=== PATIENT | female | born 1975 | race Caucasian/White ===

== ENCOUNTER 2022-12-26 13:17 | Emergency (ER) | payer BC, SELFPAY ==
--- NOTE | 2022-12-26 13:15 | RT.EKG_ITS ---
APPROVED REPORT Exam: Resting ECG Reason for Exam: chest pain Patient Location: E HR:78 bpm ECG Measurements Heart Rate 78 AXIS WI 151 P 72 QRSd 101 QRS 76 QT 373 T 40 QTc 425 Conclusion Sinus rhythm...normal P axis, V-rate 60- 99 Normal sinus rhythm at a rate of 78 with interventricular conduction delay. Normal axis. WI and QTc within normal limits. No ST segment abnormalities. No T wave inversions. No prior for comparison. No acute injury pattern.
[2022-12-26 13:22] VITALS: BP 103/59; PULSE 76; RESP 18; TEMP 37; O2SAT 97
--- NOTE | 2022-12-26 13:22 | ED.GENADUL_ITS ---
Discharge Plan Disposition Patient Disposition: Home Discharge Details Clinical Impression: Unspecified abdominal pain Primary Care Provider: Yamileth Saavedra ED Provider: Harinder Freire Home Meds and New Rx's Prescriptions: Continued vitamin B complex [B Complex-Vitamin B12] Tablet 1 tab PO DAILY ferrous sulfate [Feosol] 325 mg (65 mg iron) tablet 325 mg PO DAILY Patient Comments: Veg-cap (pt reports lower dose ~ 36mg) cholecalciferol (vitamin D3) 1,250 mcg (50,000 unit) capsule See Rx Instructions PO once a week Rx Instructions: 2,000 IU, Discharge Instructions Instructions: Abdominal Pain (ED) Additional Instructions: You are seen in the emergency department for your abdominal pain. Your blood work shows your kidneys are working well and that you have no signs of any damage to your heart. Please return to the emergency department, as we discussed if you develop nausea vomiting dizziness chest pain or if you pass out. Please also return if you cannot eat or drink as result of any nausea or vomiting. For your pain please take medications as follows: 1. Take acetaminophen (Tylenol), 1,000 mg (two 500 mg tabs) every 6 hours 2. Take ibuprofen (Advil), 400 mg every 6 hours. Medical Decision Making This is an overall very well-appearing normothermic and not tachycardic 47-year-old female with sudden onset lower abdominal pain radiating up into chest that began postcoitally and is currently moderating in severity. Patient has had no vaginal bleeding and denies any penetration beyond her partners penis so I am not concerned for retained foreign body. Patient had a normal bedside ultrasound reassuring against AAA so I am not concerned for ruptured AAA. Patient is status post tubal ligation remotely so no concerns for ectopic . She has not been vomiting to suggest increased risk for esophageal rupture. She did say her pain radiated up into her chest. She lacks risk factors for ACS beyond family history and tobacco use. Will obtain 2 sets of troponins. Clear lungs bilaterally with no history of trauma so low suspicion for pneumothorax. No rash to abdomen to suggest zoster. No pain out of proportion to suggest necrotizing soft tissue infection. I considered ovarian torsion however the patient did not have unilateral symptoms making my suspicion for torsion low. She is not an alcoholic to suggest increased risk for panc reatitis. No diarrhea to suggest diverticulitis. No dysuria no frequency to suggest UTI. No back pain or history of ureterolithiasis to suggest ureterallithiasis. No right lower quadrant pain or fevers to suggest appendicitis. No right upper quadrant tenderness to suggest acute cholecystitis. Patient does have a relatively low blood pressure however she has a relatively low BMI and she reports that relative hypotension is normal for her. Given that her pain is improving I do not feel that the patient warrants a CT abdomen pelvis at this point time. Will assess labs and reassess. Will provide 500 cc of crystalloid. 2:15 PM Comprehensive metabolic panel showing normal renal function. Mild hyperglycemia but normal bicarbonate not consistent with DKA. Very mildly elevated anion gap acidosis. No significant LFT derangements. Normal reassuring lipase. CBC showing leukocytosis but no anemia. Mild thrombocytosis. No prior for comparison. 3:35 PM Negative troponin. Negative hCG. I advised patient of plan for repeat troponin and that she would be discharged if she had no recurrent episodes of pain. I signed patient out to [facility] advanced practitioner Liliana Ortiz pending repeat troponin. I will write her with contingent discharge instructions in the event that the patient's troponin is negative. Will attempt symptomatic treatment with IV acetaminophen. HEART SCORE Chest pain Diagnostic Protocol: [-History/Physical/Gestalt: Slightly Suspicious (0)] [-EKG: Normal and/or unchanged from prior EKG (0)] [- AGE: 45-65 (+1)] [- RISK FACTORS: 1 - 2 risk factors (+1)] [-TROPONIN: <= normal limit (0)] - TOTAL SCORE: 2 - Risk Factors: DM, current or recent smoker, HTN, HLD, family hx of CAD, obesity - INTERPRETATION: With a total score of 3 or less, risk of major cardiac event within six weeks 1.7%, likely lower with two negative troponins. [I explained to the patient that the risk of subsequent major cardiac event within 1 month is not 0, however risk predicted to be less than 2%. Patient verbalized understanding, accepts this risk and shared and the decision for discharge with PCP follow-up for further evaluation and management. They understand to return to the ED immediately with any worsening symptoms, new symptoms or other concerns.] Chronic conditions affecting the care of the patient: Foot pain. History obtained from an outside historian: Patient's partner External record review: [facility] [place] EMR Diagnostic interpretations performed by me: [Per my independent interpretation chest x-ray shows:] No acute cardiopulmonary process Per my independent interpretation EKG shows: Normal sinus rhythm at a rate of 78 with interventricular conduction delay. Normal axis. NM and QTc within normal limits. No ST segment abnormalities. No T wave inversions. No prior for comparison. No acute injury pattern. Medications: N/A Social determinants of health affecting disposition: N/A Management discussed with: N/A Treatment/interventions considered: CT scan but deferred Response to therapies provided: Resolving pain in the ED HPI General Date/Time Provider Initiated Documentation: 12/26/22 13:22 . HPI Narrative: This is a 47-year-old female arriving via private vehicle in the setting of sudden onset lower abdominal pain that began after vaginal intercourse with her partner. Patient reports that she has a remote history of a tubal ligation. She was not wearing protection at that time. She denies any penetrations beyond with her partner's penis. She reports that her pain was in the middle of her lower abdomen and radiated up into her chest. She said that she had a racing heart. She denies any vaginal bleeding dysuria and frequency. She has remotely had 2 colonoscopies and endoscopy. She is a daily smoker but denies routine ethanol and illicits. She has never had a PE nor DVT. She denies hypertension hyperlipidemia and diabetes. There is family history significant for premature coronary artery disease in her father. She has had no fevers nor cough. No falls onto chest. Related Data Home Medications Medication Instructions Recorded Confirmed cholecalciferol (vitamin D3) 1,250 See Rx Instructions PO once a week 04/08/22 12/26/22 mcg (50,000 unit) capsule ferrous sulfate 325 mg (65 mg 325 mg PO DAILY 04/08/22 12/26/22 iron) tablet (Feosol) vitamin B complex (B 1 tab PO DAILY 04/08/22 12/26/22 Complex-Vitamin B12 tablet) Allergies Allergy/AdvReac Type Severity Reaction Status Date / Time No Known Allergies Allergy Unverified 04/08/22 13:58 PFSH All Active Problems (Updated 12/26/22 @ 14:03 by Harinder Freire MD) Unspecified abdominal pain (Acute) Pain, foot (Acute) Corns and callosities (Acute) Lower extremity pain (Acute) Low back pain (Acute) Medical History (Updated 12/26/22 @ 14:03 by Harinder Freire MD) Abdominal pain Anemia Anxiety Atypical mole B12 deficiency Chronic pain of both knees Depression Elevated liver enzymes Fatigue Folic acid deficiency Hiatal hernia Hip pain Insomnia Osteopenia Paresthesia Severe left groin pain Thoracic radiculopathy Thrombocytosis Vitamin D deficiency Family History Mother Alcohol abuse Obesity Father Diabetes Essential hypertension Arthritis Heart disease Myocardial infarction Stroke Obesity Asthma Sister Asthma Grandfather No problems noted. Grandmother Lung cancer Stroke Maternal Uncle No problems noted. Other Brain cancer Social History Smoking/Tobacco Use Status: Current every day Smoking risk assessment performed?: Yes Drug use: Occasionally Substance use type: marijuana Do you feel safe at home: Yes Do you feel safe in your relationship?: Yes Exam Narrative Exam Narrative: General: Well-appearing in no acute distress speaking in complete sentences. Head: Normocephalic, atraumatic. Eye: Extraocular eye movements intact. No conjunctival injection. No scleral icterus. Ear, nose, mouth, throat: Grossly normal inspection. Normal voice, handling secretions normally. Neck: Trachea midline. Cardiovascular: Well-perfused distal extremities. Regular rate and rhythm. Respiratory: Nonlabored respiration. Clear lungs bilaterally. Gastrointestinal: Nondistended abdomen. Soft minimal generalized abdominal tenderness. No rebound. No guarding. No pulsatile masses. No Sauer Vargas sign. No Jono sign. Musculoskeletal: No edema. Moving all 4 extremities spontaneously. Skin: Normal for age and race, grossly normal temperature and turgor. No acute rash. Neurologic: Alert and appropriate, no apparent acute deficits. Psychiatric: Mood and manner are appropriate. Grooming and personal hygiene are appropriate. POCUS Exam (ED) Limited Cardiac Exam DATE OF EXAM: 12/26/22 TIME OF EXAM: 14:11 REASON FOR EXAM: Chest pain VISUALIZED STRUCTURES: Four Chambers, Left ventricle and LVOT VIEW OBTAINED: Apical 4-Chamber, Parasternal long-axis and Subxiphoid PERTINENT FINDINGS/IMPRESSION: No apparent abnormalities and Other (Aortic outflow track less than 4 cm, no significant pericardial effusion. Good squeeze.); No LV dysfunction and No pericardial effusion INCIDENTAL FINDINGS: Aortic outflow track less than 4 cm, no significant pericardial effusion. Good squeeze. RV less than LV. Exam complete Limited Vascular Exam DATE OF EXAM: 12/26/22 TIME OF EXAM: 14:12 Vascular Exam: Abdominal aorta REASON FOR EXAM: Abdominal pain Exam complete and Left upper extremity REASON FOR EXAM: Other indication: Abdominal pain PERTINENT FINDINGS/IMPRESSION: Other (No signs of AAA) Exam complete DIFFERENTIAL DIAGNOSES: Abdominal aorta less than 3 cm.
--- NOTE | 2022-12-26 13:30 | DI.RAD_ITS ---
Exam(s) XR CHEST 2V PA LATERAL EXAM: XR CHEST 2V PA LATERAL CLINICAL HISTORY: Chest pain TECHNIQUE: 2D digital imaging was performed. COMPARISON: No exams were available for comparison FINDINGS: HEART: Normal size. Aorta: Not dilated. PULMONARY VASCULATURE: Normal. LUNGS: Clear. PLEURAL SPACE: No pleural effusion or pneumothorax. BONE:Mild degenerative changes. Compression fractures. IMPRESSION: No acute abnormality. DATA REPOSITORY: RADIATION DOSE DELIVERED:
[2022-12-26 13:55] LABS: Abs Immature Grans 0.05 10^3/uL (0.0-0.06); Absolute Basophil Count 0.08 10^3/uL (0.0-0.2); Absolute Eosinophil Count 0.44 10^3/uL (0.0-0.7); Absolute Lymphocyte Count 3.68 10^3/uL (1.2-3.4); Absolute Monocyte Count 1.15 10^3/uL (0.1-0.8); Absolute Neutrophil Count 6.61 10^3/uL (1.2-6.7); Basophils % 0.7; Eosinophils % 3.7; HCT 37.1 % (36.0-46.0); HGB 12.4 g/dL (11.2-15.7); Immature Grans % 0.4; Lymphocytes % 30.6; MCH 32.5 pg (27.0-33.0); MCHC 33.4 % (32.0-36.0); MCV 97 fL (80-95); MPV 8.7 fL (8.0-11.0); Monocytes % 9.6; Platelet Count 425 10^3/uL (130-400); RBC 3.81 10^6/uL (3.93-5.22); RDW 12.9 % (11.7-14.6); RDW-SD 46.3 fL; WBC 12.01 10^3/uL (4.4-10.8)
[2022-12-26 14:09] VITALS: RESP 21
[2022-12-26] MEDS: Normal Saline 500 ML IV (14:12)
[2022-12-26 14:15] LABS: AST 13 U/L (15-37); Alkaline Phosphatase 69 U/L (46-116); Anion Gap 11.8 mmol/L (3-11); BUN 12 mg/dL (7-18); Bilirubin, Total 0.2 mg/dL (0.2-1.0); CO2 26.2 mmol/L (21.0-32.0); CREATININE 0.9 mg/dL (0.55-1.02); Chloride 104 mmol/L (98-107); Estimated GFR 79.85 (mL/min/1.73m2); Glucose 112 mg/dL (74-106); Lipase 19 U/L (16-77); Potassium 3.7 mmol/L (3.5-5.1); Sodium 142 mmol/L (136-145); Total Protein 7.1 g/dL (6.4-8.2)
[2022-12-26 14:16] LABS: ALT < 6 U/L (14-59)
[2022-12-26 14:20] LABS: Troponin I < 50 ng/L (<or=60)
[2022-12-26 14:25] LABS: HCG Qual (Serum) Negative
--- NOTE | 2022-12-26 15:28 | DI.VRAD_ITS ---
PROCEDURE INFORMATION: Exam: XR Chest Exam date and time: 12/26/2022 3:14 PM Age: 47 years old Clinical indication: Other: Chest pain TECHNIQUE: Imaging protocol: Radiologic exam of the chest. Views: 2 views. COMPARISON: MRI - THORACIC SPINE WO CONT 01/25/2017 1:56 PM FINDINGS: Lungs: No consolidation. No Mass Pleural spaces: No pleural effusion. No pneumothorax. Heart/Mediastinum: Unremarkable Bones/joints: No significant abnormality IMPRESSION: No acute findings. Dictated and Authenticated by: Baldomero Benjamin MD. Ordering:HARINI Pizano MD
[2022-12-26 17:07] LABS: Troponin I < 50 ng/L (<or=60)
[2022-12-26 17:13] VITALS: BP 97/59; PULSE 77; RESP 24; TEMP 37; O2SAT 94
--- NOTE | 2022-12-26 17:13 | W.EDPROG ---
Date of service: 12/26/22 Time of Service: 17:13 Medical Decision Making Care assumed from provider (Dr. Freire) Please see their initial HPI, PE, and documentation. Discussed patient details and case and pending workup and disposition. Patient is hemodynamically stable, and alert and oriented. At the time of signout pending second troponin. Per off going provider. Patient okay to be discharged home. In short patient is a 47-year-old female who presents with postcoital pain in the abdomen which radiates up into her chest. Labs are within normal limits denies any vaginal bleeding. She does have slight high white count of 12.0. Negative hCG Qual. Second troponin within normal limits. Patient was offered Tylenol which she declined at this time. Patient discharged, with strict return instructions and follow-up care. Lab Data Lab results reviewed: Yes I reviewed the patient's lab results. Labs: Laboratory Tests Range/Units 12/26/22 12/26/22 12/26/22 13:41 13:41 13:41 WBC (4.4-10.8) 10^3/uL 12.01 H RBC (3.93-5.22) 10^6/uL 3.81 L Hgb (11.2-15.7) g/dL 12.4 Hct (36.0-46.0) % 37.1 MCV (80-95) fL 97 H MCH (27.0-33.0) pg 32.5 MCHC (32.0-36.0) % 33.4 RDW (11.7-14.6) % 12.9 Plt Count (130-400) 10^3/uL 425 H MPV (8.0-11.0) fL 8.7 Immature Gran % 0.4 Neutrophils % 55.0 Lymphocytes % 30.6 Monocytes % 9.6 Eosinophils % 3.7 Basophils % 0.7 Nucleated RBC % (0.0-0.3) % 0.0 Absolute Neutrophils (1.2-6.7) 10^3/uL 6.61 Absolute Lymphocytes (1.2-3.4) 10^3/uL 3.68 H Absolute Monocytes (0.1-0.8) 10^3/uL 1.15 H Absolute Eosinophils (0.0-0.7) 10^3/uL 0.44 Absolute Basophils (0.0-0.2) 10^3/uL 0.08 Sodium (136-145) mmol/L 142 Potassium (3.5-5.1) mmol/L 3.7 Chloride (98-107) mmol/L 104 Carbon Dioxide (21.0-32.0) mmol/L 26.2 Anion Gap (3-11) mmol/L 11.8 H BUN (7-18) mg/dL 12 Creatinine (0.55-1.02) mg/dL 0.9 Est GFR (CKD-EPI 2020) (mL/min/1.73m2) 79.85 Glucose (74-106) mg/dL 112 H Calcium (8.5-10.1) mg/dL 9.0 Total Bilirubin (0.2-1.0) mg/dL 0.2 AST (15-37) U/L 13 L ALT (14-59) U/L < 6 L Alkaline Phosphatase (46-116) U/L 69 Troponin I (<or=60) ng/L Total Protein (6.4-8.2) g/dL 7.1 Albumin (3.4-5.0) g/dL 4.0 Lipase (16-77) U/L 19 Serum HCG, Qual Negative Range/Units 12/26/22 12/26/22 13:41 16:30 WBC (4.4-10.8) 10^3/uL RBC (3.93-5.22) 10^6/uL Hgb (11.2-15.7) g/dL Hct (36.0-46.0) % MCV (80-95) fL MCH (27.0-33.0) pg MCHC (32.0-36.0) % RDW (11.7-14.6) % Plt Count (130-400) 10^3/uL MPV (8.0-11.0) fL Immature Gran % Neutrophils % Lymphocytes % Monocytes % Eosinophils % Basophils % Nucleated RBC % (0.0-0.3) % Absolute Neutrophils (1.2-6.7) 10^3/uL Absolute Lymphocytes (1.2-3.4) 10^3/uL Absolute Monocytes (0.1-0.8) 10^3/uL Absolute Eosinophils (0.0-0.7) 10^3/uL Absolute Basophils (0.0-0.2) 10^3/uL Sodium (136-145) mmol/L Potassium (3.5-5.1) mmol/L Chloride (98-107) mmol/L Carbon Dioxide (21.0-32.0) mmol/L Anion Gap (3-11) mmol/L BUN (7-18) mg/dL Creatinine (0.55-1.02) mg/dL Est GFR (CKD-EPI 2020) (mL/min/1.73m2) Glucose (74-106) mg/dL Calcium (8.5-10.1) mg/dL Total Bilirubin (0.2-1.0) mg/dL AST (15-37) U/L ALT (14-59) U/L Alkaline Phosphatase (46-116) U/L Troponin I (<or=60) ng/L < 50 < 50 Total Protein (6.4-8.2) g/dL Albumin (3.4-5.0) g/dL Lipase (16-77) U/L Serum HCG, Qual Sign Out Sign Out Data: Sign Out Comment: Repeat troponin pending. If patient has no recurrent abdominal pain and her troponin is negative she will likely be appropriate for discharge with contention instructions which have been written. Last updated by Harinder Freire MD at 12/26/22 16:39 Discharge Plan Disposition Patient Disposition: Home Condition: Stable Discharge Details Clinical Impression: Unspecified abdominal pain Primary Care Provider: Yamileth Saavedra ED Provider: Anabella Sears Home Meds and New Rx's Prescriptions: Continued vitamin B complex [B Complex-Vitamin B12] Tablet 1 tab PO DAILY ferrous sulfate [Feosol] 325 mg (65 mg iron) tablet 325 mg PO DAILY Patient Comments: Veg-cap (pt reports lower dose ~ 36mg) cholecalciferol (vitamin D3) 1,250 mcg (50,000 unit) capsule See Rx Instructions PO once a week Rx Instructions: 2,000 IU, Discharge Instructions Instructions: Abdominal Pain (ED) Additional Instructions: You are seen in the emergency department for your abdominal pain. Your blood work shows your kidneys are working well and that you have no signs of any damage to your heart. Please return to the emergency department, as we discussed if you develop nausea vomiting dizziness chest pain or if you pass out. Please also return if you cannot eat or drink as result of any nausea or vomiting. For your pain please take medications as follows: 1. Take acetaminophen (Tylenol), 1,000 mg (two 500 mg tabs) every 6 hours 2. Take ibuprofen (Advil), 400 mg every 6 hours. Referrals: Yamileth Saavedra [Primary Care Provider] - 3 days Discharge Data Discharge Date/Time-TO BE ENTERED AT DEPARTURE: 12/26/22 17:24
== END 2022-12-26 17:24 | disposition home or self-care (01) ==
PROVIDERS: Emergency Medicine; Emergency Provider Registered Nurse Emergency; PCP Physician Assistant Medical
DX: R10.30 Lower abdominal pain, unspecified (principal); R00.2 Palpitations; F17.210 Nicotine dependence, cigarettes, uncomplicated
CPT/HCPCS: 76775; 80053; 83690; 93005; 93308; 93971; 99284; 71046; 84484; 84703; 85025; 93010; 99283

== ENCOUNTER 2024-02-25 06:04 | Emergency (ER) | payer BC, SELFPAY ==
[2024-02-25] VITALS (9 sets, daily range): BP systolic 97–116; BP diastolic 61–70; PULSE 72–83; RESP 16; TEMP 36.4; O2SAT 96–100
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
--- OUTSIDE RECORDS SUMMARY | 2024-02-25 06:11 | XMS_ITS | Continuity of Care Document ---
Author Organization [facility] Address [address] [place] [address] Care Team Providers Care Construction Technology Instructor Name Role Phone Yamileth Saavedra Primary Care Physician [facility] Date[facility] 12/31/23 - 12/31/[address] [address] Discharge Disposition: Home or Self Care Attending Physician: Yamileth Saavedra PA-C Admitting Physician: Yamileth Saavedra PA-C Referring Physician: Yamileth Saavedra PA-C Allergies, Adverse Reactions, Alerts No Known Medication Allergies Substance Reaction Severity Status Moderna COVID-19 Vaccine PF 1 Eruption Mild Active 1Outside Source Comment: rash, mild to moderate Assessment and Plan Future Appointments Future Scheduled Tests Radiology* MG Mammo Diagnostic Bilateral w/ Koko 03/26/23 Immunizations Given and Recorded Vaccine Date Status [...] Status Informant Abnormal gait Confirmed 05/29/20 Active Neuropathy involving both lower extremities Confirmed Active Bone density finding Confirmed Active Cervical radiculopathy Confirmed 01/05/19 Active Chronic headache disorder Confirmed 11/21/19 Active Depressive disorder Confirmed Active Dysthymia Confirmed Active Essential thrombocythemia Confirmed Active Fatigue Confirmed 05/20/20 Active Fatigue Confirmed Active Insomnia Confirmed Active Iron deficiency anemia Confirmed 02/27/20 Active Melanocytic nevus Confirmed Active Transient leg weakness Confirmed Active Paroxysmal nocturnal dyspnea Confirmed 11/05/19 Active Psychophysiologic insomnia Confirmed 05/20/20 Active Mild sleep apnea Confirmed Active Sleep walking disorder Confirmed 02/15/20 Active Procedures Procedure Date Related Diagnosis Body Site Status Pap Due - 08/2024 (Annual paps til 2024 then every 3 yrs til 2046) 1 09/05/23 Completed Tooth extraction, multiple 2 02/07/23 Completed Breast biopsy and related procedures 01/28/23 Completed Colposcopy 3, 4 06/08/22 Completed LEEP 5 10/05/21 Completed Tubal ligation 10/04/08 Completed 1Pap Due - 08/2024 Annual paps til 2024 then every 3 yrs til 2046 01/19/08 - WNL/Neg 09/04/21 - ASC-H/Pos 09/23/21 - Colpo - THU II 10/06/21 - LEEP 06/09/22 - Colpo - ECC - THU I 09/04/22 - Neg/Positive HPV (Negative 16/18/45) 10/05/22 - Colpo - Benign 09/06/23 - Neg/Neg May 11- Uncovering cap for implants. 3CIN II- plan LEEP ECC, THU I, repeat pap 1 yr- 2022 5CIN II at 1 oclock postion Results Laboratory List Name Date CBC w/ Diff 12/31/23 Ferritin 12/31/23 Folate Level 12/31/23 Vitamin B12 Level 12/31/23 Automated Diff 12/31/23 Most recent to oldest [Reference Range]: 1 WBC [5.0-10.0 x10^3/mcL] 8.8 x10^3/mcL (12/31/23 1:18 PM) RBC [4.1-5.3 x10^6/mcL] 3.8 x10^6/mcL *LOW* (12/31/23 1:18 PM) Neutro Auto [40.0-75.0 %] 59.5 % (12/31/23 1:18 PM) Lymph Auto [20.0-50.0 %] 27.1 % (12/31/23 1:18 PM) Lipscomb Auto [2.0-15.0 %] 8.5 % (12/31/23 1:18 PM) Basophil Auto [0.0-1.0 %] 0.6 % (12/31/23 1:18 PM) MCV [80.0-96.0 fL] 99.0 fL *HI* (12/31/23 1:18 PM) MCHC [31.0-35.0 g/dL] 33.9 g/dL (12/31/23 1:18 PM) Folate Level [>=8.6 ng/mL] 16.5 ng/mL 1 (12/31/23 1:18 PM) Hct [37.0-47.0 %] 38.0 % (12/31/23 1:18 PM) MCH [26.0-32.0 pg] 33.6 pg *HI* (12/31/23 1:18 PM) Neutro Absolute 5.2 x10^3/mcL *NA* (12/31/23 1:18 PM) Hgb [12.0-16.0 g/dL] 12.9 g/dL (12/31/23 1:18 PM) B12 Level [193-986 pg/mL] 459 pg/mL (12/31/23 1:18 PM) Ferritin Level [8-252 ng/mL] 17 ng/mL (12/31/23 1:18 PM) Platelets [130-450 x10^3/mcL] 378 x10^3/ mcL (12/31/23 1:18 PM) RDW-CV [11.5-14.5 %] 12.8 % (12/31/23 1:18 PM) Imm Gran Auto [0.0-0.9 %] 0.5 % (12/31/23 1:18 PM) Eos, Auto [1.0-6.0 %] 3.8 % (12/31/23 1:18 PM) 1Interpretive Data: Normal: >8.6 ng/mL Deficient: <3.0 ng/mL The results of this assay can be falsely elevated due to the consumption of Biotin. Please instructpatients to discontinue the use of vitamins or supplements that contain Biotin 12 hours before blood collection. Social History Social History Type Response Tobacco Current everyday tob acco user Tobacco Use:. 1 ppd per day. 21 year(s). Sex Female Patient Care team information Care Team Personnel Name: Yamileth Saavedra PA-C Position: Physician Member Role: Informed Provider Address: Address: [address] [place] [address] [place] [address]- Care Team Related Persons Name: AMITA PHILLIPS
--- OUTSIDE RECORDS SUMMARY | 2024-02-25 06:11 | XMS_ITS | Encounter Summary ---
Author Organization [facility] Address [address] [place] [address] Care Team Providers Care Diet Clerk Name Role Phone Unknown, Provider Primary Care Provider Reason for Visit * (Routine/Next Available) - Receiving Office to Obtain Authorization Specialty Diagnoses / Procedures Referred By Chip johnson Referred To Contact Procedures MA OUTSIDE IMAGES MAMMO SCREENING Imaging, External Referral ID Status Reason Start Date Expiration Date Visits Requested Visits Authorized [id number] Receiving Office to Obtain Authorization 10/13/2022 1 1 Encounter Details Date Type Department Care Team (Latest Contact Info) Description 09/09/2022 - 09/09/2022 23:59 EDT Hospital Encounter [facility] Secondary Reads [place] Discharge Disposition: Home or Self Care Social History Tobacco Use Types Packs/Day Years Used Date Smoking Tobacco: Never Assessed Interpersonal Safety Answer Date Record ed Physically Hurt Never 01/21/2020 Verbally Threaten Not on file 01/21/2020 Sex and Gender Information Value Date Recorded Sex Assigned at Not on file Gender Identity Not on file Sexual Orientation Not on file documented as of this encounter Discharge Disposition Disposition Code Departure Means Destination Home or Self Care documented in this encounter Plan of Treatment Not on file documented as of this encounter Procedures Procedure Name Priority Date/Time Associated Diagnosis Comments MA OUTSIDE IMAGES MAMMO SCREENING Routine 09/09/2022 13:56 EDT documented in this encounter Results * MA OUTSIDE IMAGES MAMMO SCREENING (09/09/2022 13:56 EDT) Narrative 10/13/2022 13:57 EDT This is a non-reportable exam. External Imaging IMG OTHER IMAGING OR DERABLES documented in this encounter Visit Diagnoses Not on filedocumented in this encounter Care Teams Diet Clerk Relationship Specialty Start Date End Date Unknown, Provider, PCP - General 01/26/17 documented as of this encounter
--- OUTSIDE RECORDS SUMMARY | 2024-02-25 06:11 | XMS_ITS | Referral Summary ---
Author Organization [facility] Address [address] [place] [address] Care Team Providers Care Waste Paper Hammermill Operator Name Role Phone Unknown, Provider Primary Care Provider [phone] Social History Tobacco Use Types Packs/Day Years Used Date Smoking Tobacco: Never Assessed Interpersonal Safety Answer Date Record ed Physically Hurt Never 01/21/2020 Verbally Threaten Not on file 01/21/2020 Sex and Gender Information Value Date Recorded Sex Assigned at Not on file Gender Identity Not on file Sexual Orientation Not on file Plan of Treatment Not on file Care Teams Waste Paper Hammermill Operator Relationship Specialty Start Date End Date Unknown, Provider, PCP - General 01/26/17
--- OUTSIDE RECORDS SUMMARY | 2024-02-25 06:11 | XMS_ITS | Encounter Summary ---
Author Organization [facility] Address [address] [place] [address] Care Team Providers Care Bed And Breakfast Innkeeper Name Role Phone Unknown, Provider Primary Care Provider [phone] Reason for Visit * (Routine/Next Available) - Receiving Office to Obtain Authorization Specialty Diagnoses / Procedures Referred By Chip johnson Referred To Contact Procedures MA OUTSIDE IMAGES BREAST DIAGNOSTIC BILATERAL Imaging, External Referral ID Status Reason Start Date Expiration Date Visits Requested Visits Authorized [id number] Receiving Office to Obtain Authorization 10/13/2022 1 1 Encounter Details Date Type Department Care Team (Latest Contact Info) Description 09/10/2022 Hospital Encounter [facility] Secondary Reads [place] Discharge Disposition: Home or [...] Date/Time Associated Diagnosis Comments MA OUTSIDE IMAGES BREAST DIAGNOSTIC BILATERAL Routine 09/10/2022 13:56 EDT documented in this encounter Results * MA OUTSIDE IMAGES BREAST DIAGNOSTIC BILATERAL (09/10/2022 13:56 EDT) Narrative 10/13/2022 13:56 EDT This is a non-reportable exam. External Imaging IMG OTHER IMAGING OR DERABLES documented in this encounter Visit Diagnoses Not on filedocumented in this encounter Care Teams Bed And Breakfast Innkeeper Relationship Specialty Start Date End Date Unknown, Provider, PCP - General 01/26/17 documented as of this encounter
--- OUTSIDE RECORDS SUMMARY | 2024-02-25 06:11 | XMS_ITS | Encounter Summary ---
Author Organization [facility] Address [address] [place] [address] Care Team Providers Care Dry Box Tender Name Role Phone Unknown, Provider Primary Care Provider [phone] Encounter Details Date Type Department Care Team (Late st Contact Info) Description 10/06/2022 Lab Requisition [facility] Pathology & Laboratory Medicine - [facility] [address] [place] [address] Napoleon Bob MD [address] [place] [address] [phone] Encounter for other general examination Social History Tobacco Use Types Packs/Day Years Used Date Smoking Tobacco: Never Assessed Interpersonal Safety Answer Date Record ed Physically Hurt Never 01/21/2020 Verbally Threaten Not on file 01/21/2020 Sex and Gender Information Value Date Recorded Sex Assigned at Not on file Gender Identity Not on file Sexual Orientation Not on file documented as of this encounter Plan of Treatment Not on file documented as of this encounter Procedures Procedure Name Priority Date/Time Associated Diagnosis Comments SURGICAL PATHOLOGY Today 10/05/2022 10 :35 EDT documented in this encounter Results * SURGICAL PATHOLOGY (10/05/2022 10:35 EDT) Note to Patient The following pathology results have been interpreted by your pathologist and may be available to you before your health provider has had the opportunity to review them. Please allow time for your provider to receive these results and explore management options, if applicable. 10/09/2022 11:19 EDT [facility] Final Diagnosis A. ENDOCERVIX, CURETTAGE: - Benign endocervical glands with squamous metaplasia. - Negative for dysplasia. B. ENDOMETRIUM, BIOPSY: - Proliferative endometrium. 10/09/2022 11:19 EDT [facility] Attestation There was significant resident/fellow involvement in the diagnostic evaluation of this case. By the signature below, the attending physician certifies that they have personally conducted a gross and/or microscopic examination of the described specimens and rendered or confirmed the above diagnosis. 10/09/2022 11:19 T [facility] at 1119 Clinical History Pap: Negative cytology, +HR HPV, history of THU II 10/10; endometrial cells on Pap 10/09/2022 11:19 EDT [facility] Gross Description A. Received in formalin labelled with proper patient identification (initials M, K) and ECC is an aggregate of blood and mucus, 1.0 x 0.9 x 0.2 cm. Entirely submitted in A1. B. Received in formalin labelled with proper patient identification (initials M, K) and EMB are irregular to cylindrical mcdonnell-brown tissues aggregating 1.9 x 1.5 x 0.6 cm. Entirely submitted in B1-B2. REYNA CAMERON(ASCP) 10/07/2022 11:31 10/09/2022 11:19 EDT [facility] Resident/Sergio w: Chari Cano DO 10/09/2022 11:19 EDT [facility] Performing Lab [facility] 10/09/2022 11:19 T [facility] Scanned Images 10/09/2022 11:19 T [facility] Tissue ENTIRE ENDOMETRIUM / Unknown 10/05/2022 10:35 EDT 10/07/2022 8:47 EDT Tissue specimen (specimen) ENDOMETRIAL STRUCTURE / Unknown 10/05/2022 10:35 EDT 10/07/2022 8:47 EDT Napoleon Bob MD PATHOLOGY KATJA WILLARD [facility] [address] [place] [address] documented in this encounter Visit Diagnoses Diagnosis Encounter for other general examination documented in this encounter Care Teams Dry Box Tender Relationship Specialty Start Date End Date Unknown, Provider, PCP - General 01/26/17 documented as of this encounter
--- OUTSIDE RECORDS SUMMARY | 2024-02-25 06:11 | XMS_ITS ---
Author Organization Unknown Address [address] [place] [phone] Phone Care Team Providers Care Director Financial Planning Name Role Phone JOHANNE Batres Attending Unavailable SAMANTHA Gonzalez Primary Unavailable Social History Type Status Start Date End Date Code Code Syst em Smoking History Current every day smoker [id number] SNOMED CT Sex Female Hospital Discharge Instructions Should you have any questions prior to discharge, please contact a member of your healthcare team. If you have left the hospital and have any questions, please contact your primary care physician. Reason For Referral No Data Found Plan of Treatment No Data Found Encounters Encounter Diagnosis Start Date Code Code Sys tem Dystrophia unguium 08/07/2019 [id number] SNOMED-CT Personal Care Team Section Performer Name Performer Role Active Date Inactive Da te
--- OUTSIDE RECORDS SUMMARY | 2024-02-25 06:11 | XMS_ITS | Encounter Summary ---
Author Organization [facility] Address [address] [place] [address] Care Team Providers Care Scaffold Worker Name Role Phone Unknown, Provider Primary Care Provider [phone] Encounter Details Date Type Department Care Team (Late st Contact Info) Description 09/22/2022 Lab Requisition [facility] Pathology & Laboratory Medicine - [facility] [address] [place] [address] Suyapa Dacosta, [address] [id number] Encounter for other general examination Social History [...] Date/Time Associated Diagnosis Comments SURGICAL PATHOLOGY Today 09/22/2022 14 :45 EDT documented in this encounter Results * SURGICAL PATHOLOGY (09/22/2022 14:45 EDT) Note to Patient The following pathology results have been interpreted by your pathologist and may be available to you before your health provider has had the opportunity to review them. Please allow time for your provider to receive these results and explore management options, if applicable. 09/25/2022 14:59 EDT [facility] Final Diagnosis A. 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 See comment. - Fibrocystic changes, including: - Usual ductal hyperplasia. - Adenosis and sclerosing adenosis. - Columnar cell changes. - Microcyst formation. - Dense interlobular fibrosis. 09/25/2022 14:59 [facility] Diagnosis Comment The specimen consists of a focally nodular papillary sclerosing lesion with cytologic atypia and focal necrosis. This case was reviewed at the intradepartmental consultation conference. Immunoperoxidase stains were performed on this case to further characterize the lesion. ANTIBODY(CLONE)(BLO CK):RESULT CK 5/6 (D5/16B4, [place]) (A2): Non-contributory Estrogen Receptor (SP1, [employer]) (A2): Non-contributory NOTE: One or more of the reagents used in immunoperoxidase testing in this case may not have been cleared or approved by the U.S. Food and Drug Administration (FDA). The FDA has determined that such clearance or approval is not necessary. These tests are used for clinical purposes. They should not be regarded as investigational or for research. These reagents' performance characteristics have been determined by [facility] and/or by the referring laboratory. The positive and negative controls worked appropriately. If immunoperoxidase staining has been performed on alcohol fixed cytology specimens, which has not been fully validated, the assays should be interpreted with caution and correlated with clinical data. This laboratory is certified under the Clinical Laboratory Improvement Amendments of 1988 (CLIA-88) as qualified to perform high complexity clinical laboratory testing. 09/25/2022 14:59 [facility] Attestation There was significant resident/fellow involvement in the diagnostic evaluation of this case. By the signature below, the attending physician certifies that they have personally conducted a gross and/or microscopic examination of the described specimens and rendered or confirmed the above diagnosis. 09/25/2022 14:59 [facility] at 1459 Clinical History Angular 5 mm mass L breast 8 o'clock 4 cm FN 09/25/2022 14:59 [facility] Gross Description A. Received in formalin labelled with proper patient identification (initials M, K) and left breast 8:00 4 cm fn are 2 yellow and white fibrofatty tissue cores (each 1.5 cm in length, and 0.2 cm in diameter). Entirely submitted in A1 and A2. Time removed from patient: 14:45 hours 09/22/2022 Time placed in formalin: 14:45 hours 09/22/2022 Time out of formalin: 10:00 hours 09/23/2022 REYNA BRYANT(ASCP) 09/23/2022 8:43 09/25/2022 14:59 EDT [facility] Resident/Fell ow: Vinnie Gputa DO 09/25/2022 14:59 EDT [facility] Performing Lab [facility] 09/25/2022 14:59 EDT [facility] Scanned Images 09/25/2022 14:59 EDT [facility] Tissue ENTIRE BREAST / Unknown 09/22/2022 14:45 EDT 09/23/2022 8:01 EDT Suyapa Dacosta [facility] PATHOLOGY ORDERA CHAYO [facility] [address] [place] [address] documented in this encounter Visit Diagnoses Diagnosis Encounter for other general examination documented in this encounter Care Teams Scaffold Worker Relationship Specialty Start Date End Date Unknown, Provider, PCP - General 01/26/17 documented as of this encounter
--- OUTSIDE RECORDS SUMMARY | 2024-02-25 06:11 | XMS_ITS | Continuity of Care Document ---
Author Organization [facility] Address [address] [place] [address] Care Team Providers Care Curbstone Setter Name Role Phone Yamileth Saavedra Primary Care Physician [facility] - 09/10/[address] [phone] Encounter Diagnosis Abnormal mammogram of both breasts(Discharge Diagnosis) - 09/10/22 Discharge Disposition: Home or Self Care Attending Physician: Suyapa Dillard CNM Admitting Physician: Suyapa Dillard CNM Referring Physician: Suyapa Dillard CNM Allergies, Adverse Reactions, Alerts No Known Medication Allergies Substance Reaction Severity Status Moderna COVID-19 Vaccine PF 1 Eruption Mild Active 1Outside Source Comment: rash, mild to moderate Assessment and Plan Future Appointments Immunizations Given and Recorded Vaccine Date Status Refusal Reason influenza virus vaccine, inactivated 1 06/08/22 Gi natlaie influenza virus vaccine, live 2 06/03/21 Recorded [...] Procedure Date Related Diagnosis Body Site Status Colposcopy 1, 2 06/08/22 Completed LEEP 3 10/05/21 Completed Annual paps til 2024 then every 3 yrs til 2046 4 09/03/21 Completed Tubal ligation 10/04/08 Completed 1CIN II- plan LEEP ECC, THU I, repeat pap 1 yr- 2022 3CIN II at 1 oclock postion 4Annual paps til 2024 then every 3 yrs til 2046 01/19/08 - WNL/Neg; 09/04/21 - ASC-H/Pos 09/23/21 - THU II 10/06/21 - LEEP Social History Social History Type Response Tobacco Current everyday tob acco user Tobacco Use:. 1 ppd per day. 21 year(s). Sex Female Patient Care team information Care Team Personnel Name: Yamileth Saavedra PA-C Position: Physician Member Role: Primary Care Physician Address: Address: [address] [place] [phone] [place] Care Team Related Persons Name: JACQUELINEAMITA Address: Home
--- OUTSIDE RECORDS SUMMARY | 2024-02-25 06:11 | XMS_ITS | Continuity of Care Document ---
Author Organization [facility] Address [address] [place] [address] Care Team Providers Care Third Rail Installer Name Role Phone Yamileth Saavedra Primary Care Physician [facility] - 03/15[facility] [address] Encounter Diagnosis Left breast mass(Discharge Diagnosis) - 03/15/23 Breast calcification, right(Discharge Diagnosis) - 03/15/23 Discharge Disposition: Home or Self Care Attending [...] 0 Refill(s) Start Date: 06/08/22 Status: Ordered lidocaine 4% topical cream 1 loan, Topical, BID, # 5 g, 0 Refill(s), Pharmacy: [id number], 160, cm, 09/23/22 9:07:00 EDT, Height/Length Dosing, 48.08, kg, 09/23/22 9:07:00 EDT, Weight Dosing Start Date: 03/09/23 Status: Ordered magnesium aspartate 0 Refill(s) Start Date: 06/08/22 Status: Ordered metroNIDAZOLE 500 mg oral tablet 500 mg = 1 tab, Oral, every 12 hr, # 14 tab, 0 Refill(s), Pharmacy: [facility], 160, cm, 09/23/22 9:07:00 EDT, Height/Length Dosing, 48.08, kg, 09/23/22 9:07:00 EDT, Weight Dosing Start Date: 03/10/23 Status: Ordered valACYclovir 1 g oral tablet 1 g = 1 tab, Oral, BID, # 14 tab, 0 Refill(s), Pharmacy: [facility], 160, cm, 09/23/22 9:07:00 EDT, Height/Length Dosing, 48.08, kg, 09/23/22 9:07:00 EDT, Weight Dosing Start Date: 03/09/23 Status: Ordered Vitamin D3 otc, 0 Refill(s) [...] Procedure Date Related Diagnosis Body Site Status Needs Colpo 1 09/03/22 Completed Colposcopy 2, 3 06/08/22 [...] 1 yr- 2022 4CIN II at 1 [facility] postion Social History Social History Type Response Tobacco Current everyday tob acco user Tobacco Use:. 1 ppd per day. 21 year(s). Sex Female Patient Care team information Care Team Personnel Name: Yamileth SaavedraC Position: Physician Member Role: Primary Care Physician Address: Address: [address] [place] [phone] [place] Care Team Related Persons Name: AMITA PHILLIPS
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
--- OUTSIDE RECORDS SUMMARY | 2024-02-25 06:11 | XMS_ITS | Continuity of Care Document ---
Author Organization [facility] Address [address] [place] [address] Care Team Providers Care Electronic Die Maker Name Role Phone Yamileth Saavedra Primary Care Physician [phone] [facility] - 03/09/[address] [address] Discharge Disposition: Home or Self Care Attending Physician: Napoleon Bob MD Admitting Physician: Napoleon Bob MD Referring Physician: Napoleon Bob MD Allergies, Adverse Reactions, Alerts No Known Medication Allergies Substance Reaction Severity Status Moderna COVID-19 Vaccine PF 1 Eruption Mild Active 1Outside Source Comment: rash, mild to moderate Assessment and Plan Future Appointments Diagnostic Tests Pending * Vaginal CTGC and Molecular Vaginitis Detection, [facility] 03/09/23 * HSV Molecular Detection, PCR [facility] 03/09/23 Future Scheduled Tests Radiology* MG Mammo Diagnostic Right w/ Koko 09/11/22 * US Breast Limited Left 09/11/22 Immunizations Given and Recorded Vaccine Date Status [...] BID, # 5 g, 0 Refill(s), Pharmacy: [id number], 160, cm, 09/23/22 9:07:00 EDT, Height/Length Dosing, 48.08, kg, 09/23/22 9:07:00 EDT, Weight Dosing Start Date: 03/09/23 Status: Ordered magnesium aspartate 0 Refill(s) Start Date: 06/08/22 Status: Ordered valACYclovir 1 g oral tablet 1 g = 1 tab, Oral, BID, # 14 tab, 0 Refill(s), Pharmacy: [id number], 160, cm, 09/23/22 9:07:00 EDT, Height/Length [...] 1 yr- 2022 [facility] Social History Social History Type Response Tobacco Current everyday tob acco user Tobacco Use:. 1 ppd per day. 20 year(s). Sex Female Patient Care team information Care Team Personnel Name: Yamileth Saavedra PA-C Position: Physician Member Role: Primary Care Physician Address: Address: [address] [place] [phone] [place] Care Team Related Persons Name: AMITA PHILLIPS
--- OUTSIDE RECORDS SUMMARY | 2024-02-25 06:11 | XMS_ITS | Continuity of Care Document ---
Author Organization [facility] Address [address] [place] [address] Care Team Providers Care Double Bottom Driver Name Role Phone Yamileth Saavedra Primary Care Physician Encounter [facility] Date(s): 06/09/22 - 06/09/[address] [address] Encounter Diagnosis Left subscapular pain(Discharge Diagnosis) - 06/09/22 Left arm pain(Discharge Diagnosis) - 06/09/22 Discharge Disposition: Home or Self Care Attending [...] 0 Refill(s) Start Date: 06/08/22 Status: Ordered MagneBind 400 0 Refill(s) Start Date: 06/08/22 Status: Ordered magnesium aspartate 0 Refill(s) Start Date: 06/08/22 Status: Ordered Vitamin B Complex with Iron and Intrinsic Factor oral capsule 0 Refill(s) Start Date: 05/20/22 Status: Ordered Vitamin D3 otc, 0 Refill(s) [...] Diagnosis Body Site Status PAP test date 1, 2 05/19/22 Comple edilia LEEP 3 10/05/21 Completed Colposcopy 4 09/22/21 Completed Tubal ligation 10/04/08 Completed - WNL/Neg; 09/04/21 - ASC-H/Pos PAP LGSIL- colpo scheduled 3CIN II at 1 oclock postion 4CIN II- plan LEEP Social History Social History Type Response Tobacco Current everyday tob acco user Tobacco Use:. one PPD per day. 20 year(s). Sex Female Patient Care team information Personnel Name: Yamileth Saavedra PA-C Address: Address: [address] [place] [phone]
--- OUTSIDE RECORDS SUMMARY | 2024-02-25 06:11 | XMS_ITS | Continuity of Care Document ---
Author Organization [facility] Address [address] [place] [address] Care Team Providers Care Gmat Instructor Name Role Phone Yamileth Saavedra Primary Care Physician Encounter [facility] Date(s): 06/09/22 - 06/09/22 [facility] [address] [place] [address] Discharge Disposition: Home or Self Care Attending Physician: Napoleon Bob MD Admitting Physician: Napoleon Bob MD Allergies, Adverse Reactions, Alerts No Known Medication Allergies Substance Reaction Severity Status Moderna COVID-19 Vaccine PF 1 Eruption Mild Active 1Outside Source Comment: rash, mild to moderate Assessment and Plan Future Appointments Diagnostic Tests Pending * Surgical Pathology [facility] 06/09/22 Immunizations Given and Recorded Vaccine Date Status [...] Personnel Name: Yamileth Saavedra PA-C Address: Address: [address] [place] [phone]
--- OUTSIDE RECORDS SUMMARY | 2024-02-25 06:11 | XMS_ITS | Encounter Summary ---
Author Organization [facility] Address [address] [place] [address] Care Team Providers Care Lead Android Developer Name Role Phone Unknown, Provider Primary Care Provider [phone] Reason for Visit * (Routine/Next Available) - Receiving Office to Obtain Authorization Specialty Diagnoses / Procedures Referred By Chip johnson Referred To Contact Procedures US OUTSIDE IMAGES BREAST Imaging, External Referral ID Status Reason Start Date Expiration Date Visits Requested Visits Authorized [id number] Receiving Office to Obtain Authorization 10/13/2022 1 1 Encounter Details Date Type Department Care Team (Latest Contact Info) Description 09/10/2022 Hospital Encounter [facility] Secondary Reads [place] Discharge Disposition: Home [...] Procedure Name Priority Date/Time Associated Diagnosis Comments US OUTSIDE IMAGES BREAST Routine 09/10/2022 13:56 EDT documented in this encounter Results * US OUTSIDE IMAGES BREAST (09/10/2022 13:56 EDT) Narrative 10/13/2022 13:56 EDT This is a non-reportable exam. External Imaging IMG OTHER IMAGING OR DERABLES documented in this encounter Visit Diagnoses Not on filedocumented in this encounter Care Teams Lead Android Developer Relationship Specialty Start Date End Date Unknown, Provider, PCP - General 01/26/17 documented as of this encounter
--- OUTSIDE RECORDS SUMMARY | 2024-02-25 06:11 | XMS_ITS | Encounter Summary ---
Author Organization [facility] Address [address] [place] [address] Care Team Providers Care Php Engineer Name Role Phone Unknown, Provider Primary Care Provider [phone] Encounter Details Date Type Department Care Team (Latest Contact Info) Description 09/06/2023 Lab Requisition [facility] Pathology & Laboratory Medicine - [facility] [address] [place] [address] Suyapa Dacosta, [address] [phone] Encounter for screening for human papillomavirus (HPV); Encounter for gynecological examination (general) (routine) without abnormal findings; Moderate cervical dysplasia Social History Tobacco Use Types Packs/Day Years [...] Procedure Name Priority Date/Time Associated Diagnosis Comments PAP TEST Today 09/06/2023 16:36 EDT HPV DNA DETECTION WITH GENOTYPING, PCR Today 09/06/2023 16:36 EDT documented in this encounter Results * HUMAN PAPILLOMAVIRUS (HPV) DETECTION-HIGH RISK TYPES (09/06/2023 16:36 EDT) HPV other High Risk types, PCR Negative Negative 09/10/2023 15:19 EDT [facility] Comment:No E6 or E7 mRNA is detected from HPV types 16,18,31,33,35,39,45,51,52,56,58,59,66, and 68 by corporate associate attorney mediated amplification. Pap Test CERVIX UTERI STRUCTURE / Unknown 09/06/2023 16:36 EDT 09/09/2023 15:34 EDT Suyapa Ton Latanya Dacosta [facility] MICROBIOLOGY - G ENERAL ORDERABLES [facility] [address] [place] [phone] * PAP TEST (09/06/2023 16:36 EDT) Specimens A. Cervix and/or Endocervix , ThinPrep Imaging System with Manual Evaluation 09/10/2023 15:19 T [facility] Specimen Adequacy Satisfactory for Evaluation - transformation zone component present 09/10/2023 15:19 [facility] General Categorization Negative for intraepithelial lesion or malignancy 09/10/2023 15:19 T [facility] Attestation . 09/10/2023 15:19 [facility] at 1519 Clinical History See below 09/10/19 24 15:19 [facility] HPV The result for the Human Papillomavirus (HPV) Detection-High Risk Types is Negative. No E6 or E7 mRNA is detected from HPV types 16,18,31,33,35,39 ,45,51,52,56,58,5 9,66, and 68 by corporate associate attorney mediated amplification.Zohra ting was performed on specimen [id number] and was resulted on 09/10/2023 1519 EDT by YARED, LAB INSTRUMENT RESULTS IN 09/10/2023 15:19 T [facility] Performing Lab [facility] 09/10/2023 15:19 T [facility] Scanned Images 09/10/2023 15:19 T [facility] Pap Test CERVIX UTERI STRUCTURE / Unknown 09/06/2023 16:36 EDT 09/07/2023 13:35 EDT Suyapa Dacosta [facility] PATHOLOGY ORDERA BLEKonrad [facility] [address] [place] [phone] documented in this encounter Visit Diagnoses Diagnosis Encounter for screening for human papillomavirus (HPV) Special screening examination for human papillomavirus (HPV) Encounter for gynecological examination (general) (routine) without abnormal findings Moderate cervical dysplasia Moderate dysplasia of cervix documented in this encounter Care Teams Php Engineer Relationship Specialty Start Date End Date Unknown, Provider, PCP - General 01/26/17 documented as of this encounter
--- OUTSIDE RECORDS SUMMARY | 2024-02-25 06:11 | XMS_ITS | Continuity of Care Document ---
Author Organization [facility] Address [address] [place] [address] Care Team Providers Care Page Designer Name Role Phone Yamileth Saavedra Primary Care Physician Encounter [facility] Date(s): 05/20/22 - 05/20/[address] [address] Discharge Disposition: Home or Self Care Attending Physician: Napoleon Bob MD Admitting Physician: Napoleon Bob MD Allergies, Adverse Reactions, Alerts No Known Medication Allergies Substance Reaction Severity Status Moderna COVID-19 Vaccine PF 1 Eruption Mild Active 1Outside Source Comment: rash, mild to moderate Assessment and Plan Future Appointments Diagnostic Tests Pending * PAP Test [facility] 05/20/22 Immunizations Given and Recorded Vaccine Date Status Refusal Reason influenza virus vaccine, live 1 06/03/21 Recorded SARS-CoV-2 (COVID-19) mRNA-1273 vaccine 05/12/21 R ecorded SARS-CoV-2 (COVID-19) Ad26 vaccine 08/24/20 Record ed 1Result Comment: verified with TK Medications Vitamin B Complex with Iron and Intrinsic Factor oral capsule 0 Refill(s) Start Date: 05/20/22 Status: Ordered Problem List Condition Confirmation Course [...] Procedure Date Related Diagnosis Body Site Status LEEP 1 10/05/21 Completed Colposcopy 2 09/22/21 Completed PAP test date 3 09/03/21 Completed Tubal ligation 10/04/08 Completed 1CIN II at 1 oclock postion 2CIN II- plan LEEP - WNL/Neg; 09/04/21 - ASC-H/Pos Social History Social History Type Response Tobacco Current everyday tob acco user Tobacco Use:. Sex Female Patient Care team information Personnel Name: Yamileth Saavedra PA-C Address: Address: [address] [place] [id number]
--- OUTSIDE RECORDS SUMMARY | 2024-02-25 06:11 | XMS_ITS | Encounter Summary ---
Author Organization [facility] Address [address] [place] [address] Care Team Providers Care Head Of Art Name Role Phone Unknown, Provider Primary Care Provider [phone] Encounter Details Date Type Department Care Team (Late st Contact Info) Description 06/10/2022 Lab Requisition [facility] Pathology & Laboratory Medicine - [facility] [address] [place] [address] Napoleon Bob MD [address] [place] [phone] Encounter for other general examination Social History [...] Date/Time Associated Diagnosis Comments SURGICAL PATHOLOGY Today 06/09/2022 14 :40 EST documented in this encounter Results * SURGICAL PATHOLOGY (06/09/2022 14:40 EST) Note to Patient The following pathology results have been interpreted by your pathologist and may be available to you before your health provider has had the opportunity to review them. Please allow time for your provider to receive these results and explore management options, if applicable. 06/18/2022 10:48 EST [facility] Final Diagnosis A. 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 See comment. 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 B. CERVIX, 5 O'CLOCK, BIOPSY: - Fragments of benign squamous mucosa. See comment. 06/18/2022 10:48 [facility] Diagnosis Comment Deeper sections have been examined on part B. Immunoperoxidase stains were performed on this case to further characterize the lesion. ANTIBODY(CLONE)(BL OCK):RESULT P16 (E6H4TM, [place]) (A1): Negative Ki67 (MIB-1) (K2, Leica) (A1): Low proliferative index. NOTE: One or more of the reagents [...] performance characteristics have been determined by [facility] and/or by the referring laboratory. The positive and negative controls worked appropriately. If immunoperoxidase staining has been performed on alcohol fixed cytology specimens, which has not been fully validated, the assays should be interpreted with caution and correlated with clinical data. This laboratory is certified under the Clinical Laboratory Improvement Amendments of 1988 (CLIA-88) as qualified to perform high complexity clinical laboratory testing. 06/18/2022 10:48 [facility] Attestation There was significant resident/fellow involvement in the diagnostic evaluation of this case. By the signature below, the attending physician certifies that they have personally conducted a gross and/or microscopic examination of the described specimens and rendered or confirmed the above diagnosis. 06/18/2022 10:48 [facility] at 1048 Clinical History Pap LSIL 06/18/2022 10:48 [facility] Gross Description A. Received in formalin labelled with proper patient identification (initials M, K) and A is an aggregate of pinzon and dark brown viscous material that measures 1.2 x 1.1 x 0.7 cm. The specimen is submitted entirely in A1. B. Received in formalin labelled with proper patient identification (initials M, K) and B is a single pinzon tissue fragment (0.5 x 0.2 x 0.1 cm). Submitted intact in B1. CORONA LEÓNR 06/11/2022 8:26 06/18/2022 10:48 EST [facility] Resident/Sergio w: Brooklynn Reed MD PhD 06/18/2022 10:48 EST [facility] Performing Lab [facility] 10:48 EST [facility] Scanned Images 06/18/2022 10:48 EST [facility] Tissue ENTIRE WALL OF CERVIX / Unknown 06/09/2022 14:40 EST 06/11/2022 7:55 EST Tissue specimen (specimen) CERVIX UTERI STRUCTURE / Unknown 06/09/2022 14:40 EST 06/11/2022 7:55 EST Napoleon Bob MD PATHOLOGY ORDTon WILLARD [facility] [address] [place] [address] documented in this encounter Visit Diagnoses Diagnosis Encounter for other general examination documented in this encounter Care Teams Head Of Art Relationship Specialty Start Date End Date Unknown, Provider, PCP - General 01/26/17 documented as of this encounter
--- OUTSIDE RECORDS SUMMARY | 2024-02-25 06:11 | XMS_ITS | Encounter Summary ---
Author Organization [facility] Address [address] [place] [address] Care Team Providers Care On Site Soil Evaluator Name Role Phone Unknown, Provider Primary Care Provider [phone] Reason for Visit * (Routine/Next Available) - Receiving Office to Obtain Authorization Specialty Diagnoses / Procedures Referred By Chip johnson Referred To Contact Procedures US OUTSIDE IMAGES BREAST Imaging, External Referral ID Status Reason Start Date Expiration Date Visits Requested Visits Authorized [id number] Receiving Office to Obtain Authorization 10/13/2022 1 1 Encounter Details Date Type Department Care Team (Latest Contact Info) Description 09/22/2022 Hospital Encounter [facility] [place] Discharge Disposition: Home or [...] Diagnosis Comments US OUTSIDE IMAGES BREAST Routine 09/22/2022 13:55 EDT documented in this encounter Results * US OUTSIDE IMAGES BREAST (09/22/2022 13:55 EDT) Narrative 10/13/2022 13:55 EDT This is a non-reportable exam. External Imaging IMG OTHER IMAGING OR DERABLES documented in this encounter Visit Diagnoses Not on filedocumented in this encounter Care Teams On Site Soil Evaluator Relationship Specialty Start Date End Date Unknown, Provider, PCP - General 01/26/17 documented as of this encounter
--- OUTSIDE RECORDS SUMMARY | 2024-02-25 06:11 | XMS_ITS | Encounter Summary ---
Author Organization [facility] Address [address] [place] [address] Care Team Providers Care Senior Cobol Developer Name Role Phone Unknown, Provider Primary Care Provider [phone] Reason for Visit * Reason Onset Date Comments Appointment Related 10/20/2022 Encounter Details Date Type Department Care Team (Late st Contact Info) Description 10/20/2022 Telephone [facility] Surgical Oncology - [facility] [place] [address] [place], [place] [id number] [facility] Breast Care Appointment Related Social History Tobacco Use Types Packs/Day Years Used Date Smoking Tobacco: Never Assessed Interpersonal Safety Answer Date Record ed Physically Hurt Never 01/21/2020 Verbally Threaten Not on file 01/21/2020 Sex and Gender Information Value Date Recorded Sex Assigned at Not on file Gender Identity Not on file Sexual Orientation Not on file documented as of this encounter Miscellaneous Notes * Telephone Encounter - Adriana Randall - 10/20/2022 1110 EDT Patient called in wanting to schedule her npv appointment. Please advise documented in this encounter Plan of Treatment Not on file documented as of this encounter Visit Diagnoses Not on filedocumented in this encounter Care Teams Senior Cobol Developer Relationship Specialty Start Date End Date Unknown, Provider, PCP - General 01/26/17 documented as of this encounter
--- OUTSIDE RECORDS SUMMARY | 2024-02-25 06:11 | XMS_ITS | Continuity of Care Document ---
Author Organization [facility] Address [address] [place] [address] Care Team Providers Care Quality Assurance Coordinator Name Role Phone Yamileth Saavedra Primary Care Physician Encounter [facility] Date(s): 10/12/23 - 10/12/[address] [address] Encounter Diagnosis Groin pain, chronic, left(Discharge Diagnosis) - 10/12/23 Other chronic pain(Discharge Diagnosis) - 10/12/23 Discharge Disposition: Home or Self Care Attending Physician: Yamileth Saavedra PA-C Admitting Physician: Yamileth Saavedra PA-C Referring Physician: Yamileth Saavedra PA-C Allergies, Adverse Reactions, Alerts No Known Medication Allergies Substance Reaction Severity Status Moderna COVID-19 Vaccine PF 1 Eruption Mild Active 1Outside Source Comment: rash, mild to moderate Assessment and Plan Future Appointments Future Scheduled Tests Laboratory* CBC [...] 09/04/21 - ASC-H/Pos 09/23/21 - Colpo - HTU II 10/06/21 - LEEP 06/09/22 - Colpo - ECC - THU I 09/04/22 - Neg/Positive HPV (Negative 16/18/45) 10/05/22 - Colpo - Benign 09/06/23 - Neg/Neg May 11- Uncovering cap for implants. 3CIN II- plan LEEP ECC, THU I, repeat pap 1 yr- 2022 5CIN II at 1 oclock postion Social History Social History Type Response Tobacco Current everyday tob acco user Tobacco Use:. 1 ppd per day. 21 year(s). Sex Female Patient Care team information Care Team Personnel Name: Yamileth Saavedra PA-C Position: Physician Member Role: Informed Provider Address: Address: [address] [place] [address] [place] [address]- Care Team Related Persons Name: AMITA PHILLIPS
--- OUTSIDE RECORDS SUMMARY | 2024-02-25 06:11 | XMS_ITS | Encounter Summary ---
Author Organization [facility] Address [address] [place] [address] Care Team Providers Care Aviation Support Equipment Repairer Name Role Phone Unknown, Provider Primary Care Provider [phone] Reason for Visit * Reason Onset Date Comments Appointment Related 01/04/2023 Encounter Details Date Type Department Care Team (Late st Contact Info) Description 01/04/2023 Telephone [facility] Surgical Oncology - [address] [address] Dalton Ferrara MD [address] [facility], [address] [place] [id number] Appointment Related Social History Tobacco Use Types [...] encounter Miscellaneous Notes * Telephone Encounter - Mohan Petit - 01/04/2023 0822 EDT Patient calling to cancel appointment for today. documented in this encounter Plan of Treatment Not on file documented as of this encounter Visit Diagnoses Not on filedocumented in this encounter Care Teams Aviation Support Equipment Repairer Relationship Specialty Start Date End Date Unknown, ProviderMD PCP - General 01/26/17 documented as of this encounter
--- OUTSIDE RECORDS SUMMARY | 2024-02-25 06:11 | XMS_ITS | Continuity of Care Document ---
Author Organization [facility] Address [address] [place] [address] Care Team Providers Care Information Technology Auditor Name Role Phone Yamileth Saavedra Primary Care Physician [phone] [facility] - 10/22/22 [facility] [address] [place] [address] Discharge Disposition: Home or Self Care Attending Physician: Suyapa Dillard CNM Admitting Physician: Suyapa Dillard CNM Allergies, Adverse Reactions, [...] 1 yr- 2022 4[facility]IN II at 1 [facility] Social History Social History Type Response Tobacco Current everyday tob acco user Tobacco Use:. 1 ppd per day. 21 year(s). Sex Female Patient Care team information Care Team Personnel Name: Yamileth Saavedra PA-C Position: Physician Member Role: Primary Care Physician Address: Address: [address] [place] [id number] [place] Care Team Related Persons Name: AMITA PHILLIPS Address: Home
--- OUTSIDE RECORDS SUMMARY | 2024-02-25 06:11 | XMS_ITS | Encounter Summary ---
Author Organization [facility] Address [address] [place] [address] Care Team Providers Care Business Coordinator Name Role Phone Unknown, Provider Primary Care Provider [phone] Encounter Details Date Type Department Care Team (Late st Contact Info) Description 03/09/2023 Lab Requisition [facility] Pathology & Laboratory Medicine - [facility] [address] [place] [address] Outr Resulting Lab, Provider Social History Tobacco Use Types Packs/Day Years [...] Procedure Name Priority Date/Time Associated Diagnosis Comments VAGINAL CTGC AND VAGINITIS/VAGINOSIS MOLECULAR DETECTION Routine 03/09/2023 16:40 EDT documented in this encounter Results * (ABNORMAL) VAGINAL CTGC AND VAGINITIS/VAGINOSIS MOLECULAR DETECTION (03/09/2023 16:40 EDT) Silvana glabrata Negative Negative 03/10/2023 13:15 EDT [facility] Trichomonas Vaginalis Negative Negative 03/10/2023 13:15 EDT [facility] BV (Bacterial vaginosis) Positive(A) Negative 03/10/2023 13:15 EDT [facility] Neisseria gonorrhoeae Result Negative Negative 03/10/2023 13:15 EDT [facility] Chlamydia trachomatis Result Negative Negative 03/10/2023 13:15 EDT [facility] Silvana Species Negative Negative 13:15 EDT [facility] Swab VAGINAL STRUCTURE / Unknown 03/09/2023 16:40 EDT 03/10/2023 8:02 EDT Provider Outr Resulting Lab MICROBIOLOGY - GENERAL ORDERABLES Performing Organization Address City/State/[facility] Co de Phone Number [facility] [address] [place] [address] documented in this encounter Visit Diagnoses Not on filedocumented in this encounter Care Teams Business Coordinator Relationship Specialty Start Date End Date Unknown, Provider, PCP - General 01/26/17 documented as of this encounter
--- OUTSIDE RECORDS SUMMARY | 2024-02-25 06:11 | XMS_ITS | Encounter Summary ---
Author Organization [facility] Address [address] [place] [address] Care Team Providers Care Lard Refiner Name Role Phone Unknown, Provider Primary Care Provider [phone] Encounter Details Date Type Department Care Team (Latest Contact Info) Description 09/04/2022 Lab Requisition [facility] Pathology & Laboratory Medicine - [facility] [address] [place] [address] Suyapa Dacosta, [address] [phone] Encounter for gynecological examination (general) (routine) without abnormal findings; Moderate cervical dysplasia; Encounter for screening for human papillomavirus (HPV) Social History Tobacco Use Types Packs/Day Years [...] Date/Time Associated Diagnosis Comments PAP TEST Today 09/04/2022 16:32 EDT HPV GENOTYPES 16 AND 18/45 Today 09/04/2022 16:32 EDT HPV DNA DETECTION WITH GENOTYPING, PCR Today 09/04/2022 16:32 EDT documented in this encounter Results * HPV GENOTYPES 16 AND 18/45 (09/04/2022 16:32 EDT) HPV High Risk type 16, PCR Negative Negative 09/22/2022 12:02 EDT [facility] HPV18/45 RNA (HPV18/45) Negative Negative 09/22/2022 12:02 EDT [facility] Papanicolaou smear specimen (specimen) CERVIX UTERI STRUCTURE / Unknown 09/04/2022 16:32 EDT 09/17/2022 9:10 EDT Suyapa Dacosta [facility]CRO[facility] - G ENERAL ORDERABLES Performing Organization Address [facility] de Phone Number [facility] [address] [place] [address] * (ABNORMAL) HUMAN PAPILLOMAVIRUS (HPV) DETECTION-HIGH RISK TYPES (09/04/2022 16:32 EDT) HPV other High Risk types, PCR Positive( A) Negative 09/21/2022 12:11 EDT [facility] Comment:E6 OR E7 mRNA from o ne or more types of HPV types 16,18,31,33,35,39,45,51,52,56,58,59,66, and 68 is detected by home care associate mediated amplification. High and intermediate risk HPV types are associated with most squamous intraepithelial lesions and cervical cancers. Papanicolaou smear specimen (specimen) CERVIX UTERI STRUCTURE / Unknown 09/04/2022 16:32 EDT 09/17/2022 9:10 EDT Suyapa Dacosta [facility] MICROBIOLOGY - G ENERAL ORDERABLES Performing Organization Address [facility] Co de Phone Number [facility] [address] [place] [address] * PAP TEST (09/04/2022 16:32 EDT) Specimens A. Cervix and/or Endocervix , ThinPrep Imaging System with Manual Evaluation 09/22/2022 12:02 EDT [facility] Specimen Adequacy Satisfactory for Evaluation - transformation zone component present 09/22/2022 12:02 EDT [facility] General Categorization Other see recommendation - Negative for intraepithelial lesion or malignancy 09/22/2022 12:02 [facility] Descriptive Diagnosis Reactive cellular changes associated with inflammation present (includes repair). Shift in laurence present suggestive of bacterial vaginosis. Endometrial cells present in a woman equal to or greater than age 45. 09/22/2022 12:02 [facility] Educational Comments Endometrial cells present. Endometrial cells in women 45 years or older may be associated with benign endometrium, hormonal alterations, and, less commonly, endometrial or uterine abnormalities. Endometrial evaluation is recommended in postmenopausal women. 09/22/2022 12:02 [facility] Attestation By the signature below, the attending physician certifies that they have personally conducted a gross and/or microscopic examination of the described specimens and rendered or confirmed the above diagnosis. 09/22/2022 12:02 [facility] at 1202 Clinical History SEE BELOW 09/23/19 12:02 [facility] HPV The result for the Human Papillomavirus (HPV) Detection-High Risk Types is Positive . E6 OR E7 mRNA from one or more types of HPV types 16,18,31,33,35,39 ,45,51,52,56,58,5 9,66, and 68 is detected by home care associate mediated amplification. High and intermediate risk HPV types are associated with most squamous intraepithelial lesions and cervical cancers. Testing was performed on specimen [id number] and was resulted on 09/18/2022 1432 EDT by YARED, LAB INSTRUMENT RESULTS IN 09/22/2022 12:02 [facility] Genotyping 16 & 18/45 The results for the HPV Genotypes 16 and 18/45 are Negative for the HPV16 RNA and Negative for the HPV18/45 RNA (HPV18/45). Testing was performed on specimen [id number] and was resulted on 09/22/2022 1202 EDT by YARED, LAB INSTRUMENT RESULTS IN 09/22/2022 12:02 [facility] Performing Lab [facility] [email or web address]] LAB 09/22/2022 12:02 [facility] Scanned Images 09/22/2022 12:02 [facility] Papanicolaou smear specimen (specimen) CERVIX UTERI STRUCTURE / Unknown 09/04/2022 16:32 EDT 09/08/2022 14:12 EDT Suyapa Dacosta [facility] ORDERA BLES [facility] [address] [place] [address] documented in this encounter Visit Diagnoses Diagnosis Encounter for gynecological examination (general) (routine) without abnormal findings Moderate cervical dysplasia Moderate dysplasia of cervix Encounter for screening for human papillomavirus (HPV) Special screening examination for human papillomavirus (HPV) documented in this encounter Care Teams Lard Refiner Relationship Specialty Start Date End Date Unknown, Provider, PCP - General 01/26/17 documented as of this encounter
--- OUTSIDE RECORDS SUMMARY | 2024-02-25 06:11 | XMS_ITS | Continuity of Care Document ---
Author Organization [facility] Address [address] [place] [address] Care Team Providers Care Phlebotomist Associate Name Role Phone Yamileth Saavedra Primary Care Physician Encounter [facility] Date(s): 03/26/23 - 03/26/23 [facility] [address] [place] [address] Discharge Disposition: Home Allergies, Adverse Reactions, Alerts No Known Medication [...] BID, # 5 g, 0 Refill(s), Pharmacy: [facility], 160, cm, 09/23/22 9:07:00 EDT, Height/Length Dosing, 48.08, kg, 09/23/22 9:07:00 EDT, Weight Dosing Start Date: 03/09/23 Status: Ordered magnesium aspartate 0 Refill(s) Start Date: 06/08/22 Status: Ordered metroNIDAZOLE 500 mg oral tablet 500 mg = 1 tab, Oral, every 12 hr, # 14 tab, 0 Refill(s), Pharmacy: [facility], 160, cm, 09/23/22 9:07:00 EDT, Height/Length Dosing, 48.08, kg, 09/23/22 9:07:00 EDT, Weight Dosing Start Date: 03/10/23 Status: Ordered valACYclovir 1 g oral tablet 1 g = 1 tab, Oral, BID, # 14 tab, 0 Refill(s), Pharmacy: [facility], 160, cm, 09/23/22 9:07:00 EDT, Height/Length [...] 1 yr- [facility] Social History Social History Type Response Tobacco Current everyday tob acco user Tobacco Use:. 1 ppd per day. 21 year(s). Sex Female Patient Care team information Care Team Personnel Name: Yamileth Saavedra PA-C Position: Physician Member Role: Primary Care Physician Address: Address: [address] [place] [phone] [place] Care Team Related Persons Name: AMITA PHILLIPS Address: Home
--- OUTSIDE RECORDS SUMMARY | 2024-02-25 06:11 | XMS_ITS | Continuity of Care Document ---
Author Organization [facility] Address [address] [place] [address] Care Team Providers Care Glass Wool Blanket Machine Feeder Name Role Phone Yamileth Saavedra Primary Care Physician [phone] Encounter [facility] Date(s): 06/29/23 - 06/29/[address] [address] Discharge Disposition: Home or Self Care Attending Physician: Merissa Vazquez PA-C Admitting Physician: Merissa Vazquez PA-C Referring Physician: Merissa Vazquez PA-C Allergies, Adverse Reactions, Alerts No Known [...] Status: Ordered valACYclovir 1 g oral tablet 14 EA, 0 Refill(s), TAKE ONE TABLET BY MOUTH TWICE A DAY, 0 Refill(s) Start Date: 06/09/23 Status: Ordered Vitamin D3 otc, 0 Refill(s) [...] Procedure Date Related Diagnosis Body Site Status Tooth extraction, multiple 1 02/07/23 Completed Breast biopsy and related procedures 01/28/23 Completed Needs Colpo 2 09/03/22 Completed Colposcopy 3, 4 06/08/22 Completed LEEP 5 10/05/21 Completed Tubal ligation 10/04/08 Completed May 11- Uncovering cap for implants. 2Annual paps til 2024 then every 3 yrs til 2046 01/19/08 - WNL/Neg 09/04/21 - ASC-H/Pos 09/23/21 - Colpo - THU II 10/06/21 - LEEP 06/09/22 - Colpo - ECC - THU I 09/04/22 - Neg/Positive HPV (Negative 16/18/45) 3CIN II- plan LEEP ECC, THU I, repeat pap 1 yr- 2022 5CIN II at 1 oclock postion Results Laboratory List Name Date CBC w/ Diff 06/29/23 Comprehensive Metabolic Panel 06/29/23 D-Dimer 06/29/23 Automated Diff 06/29/23 Most recent to oldest [Reference Range]: 1 WBC [5.0-10.0 x10^3/mcL] 5.7 x10^3/mcL (06/29/23 10:42 AM) RBC [4.1-5.3 x10^6/mcL] 3.9 x10^6/mcL *LOW* (06/29/23 10:42 AM) Neutro Auto [40.0-75.0 %] 53.3 % (06/29/23 10:42 AM) Lymph Auto [20.0-50.0 %] 25.9 % (06/29/23 10:42 AM) [place] Auto [2.0-15.0 %] 13.5 % (06/29/23 10:42 AM) Basophil Auto [0.0-1.0 %] 1.1 % *HI* (06/29/23 10:42 AM) BUN [7-18 mg/dL] 9 mg/dL (06/29/23 10:42 AM) Glucose Level [74-106 mg/dL] 99 mg/dL (06/29/23 10:42 AM) Potassium Level [3.5-5.1 mmol/L] 4.0 mmo l/L (06/29/23 10:42 AM) MCV [80.0-96.0 fL] 99.0 fL *HI* (06/29/23 10:42 AM) AST [15-37 unit/L] 16 unit/L (06/29/23 10:42 AM) ALT [14-59 unit/L] 11 unit/L *LOW* (06/29/23 10:42 AM) MCHC [31.0-35.0 g/dL] 33.2 g/dL (06/29/23 10:42 AM) Sodium Level [136-145 mmol/L] 140 mmol/L (06/29/23 10:42 AM) Hct [37.0-47.0 %] 38.3 % (06/29/23 10:42 AM) Calcium Level [8.5-10.1 mg/dL] 9.1 mg/dL (06/29/23 10:42 AM) Albumin Level [3.4-5.0 g/dL] 3.9 g/dL (06/29/23 10:42 AM) Protein Total [6.4-8.2 g/dL] 7.2 g/dL (06/29/23 10:42 AM) MCH [26.0-32.0 pg] 32.8 pg *HI* (06/29/23 10:42 AM) Neutro Absolute 3.0 x10^3/mcL *NA* (06/29/23 10:42 AM) Bilirubin Total [0.2-1.0 mg/dL] 0.3 mg/d L (06/29/23 10:42 AM) Hgb [12.0-16.0 g/dL] 12.7 g/dL (06/29/23 10:42 AM) Alk Phos [46-146 unit/L] 61 unit/L (06/29/23 10:42 AM) Platelets [130-450 x10^3/mcL] 373 x10^3/ mcL (06/29/23 10:42 AM) CO2 [21-32 mmol/L] 28 mmol/L (06/29/23 10:42 AM) eGFR Non-AA [>=60] 108 (06/29/23 10:42 AM) eGFR AA [>=60] 108 (06/29/23 10:42 AM) Chloride Level [98-107 mmol/L] 103 mmol/ L (06/29/23 10:42 AM) RDW-CV [11.5-14.5 %] 13.3 % (06/29/23 10:42 AM) Imm Gran Auto [0.0-0.9 %] 0.4 % (06/29/23 10:42 AM) Creatinine Level [0.55-1.02 mg/dL] 0.70 mg/dL (06/29/23 10:42 AM) D Dimer, (Quant.) [0.00-0.50 mg/L] 0.52 mg/L 1 *HI* (06/29/23 10:42 AM) Eos, Auto [1.0-6.0 %] 5.8 % (06/29/23 10:42 AM) 1Interpretive Data: Exclusion of PE: Effective March 09, 2012 a new D-Dimer assay [INNOVANCE] is being implemented, this test has a new reference range <0.50 mg/L FEU. This assay was evaluated in a multi-center study to validate the exclusion of PE using fresh specimens collected from 701 consecutive patients presenting in the ED with suspected PE. Study patients were evaluated using the Wells' rules to estimate high, moderate or low probability of PE, a D-Dimer result of <0.50 mg/L FEU was considered negative and a D-Dimer result >/= 0.50 was considered positive for PE. Social History Social History Type Response Tobacco Current everyday tob acco user Tobacco Use:. 1 ppd per day. 21 year(s). Sex Female Patient Care team information Care Team Personnel Name: Yamileth Saavedra PA-C Position: Physician Member Role: Informed Provider Address: Address: [address] [place] [phone] [place] Care Team Related Persons Name: AMITA PHILLIPS
--- OUTSIDE RECORDS SUMMARY | 2024-02-25 06:11 | XMS_ITS | Continuity of Care Document ---
Author Organization [facility] Address [address] [place] [address] Care Team Providers Care [employer] Name Role Phone Yamileth Saavedra Primary Care Physician [phone] [facility] Date(s): 09/22/22 - 09/22/[address] [address] Encounter Diagnosis Left breast mass(Discharge Diagnosis) - 09/22/22 Discharge Disposition: Home or Self Care Attending Physician: Suyapa Dillard CNM Admitting Physician: Suyapa Dillard CNM Referring Physician: Suyapa Dillard CNM Allergies, Adverse Reactions, Alerts No Known Medication Allergies Substance Reaction Severity Status Moderna COVID-19 Vaccine PF 1 Eruption Mild Active 1Outside Source Comment: rash, mild to moderate Assessment and Plan Future Appointments Diagnostic Tests Pending * Surgical Pathology [facility] 09/22/22 Future Scheduled Tests Radiology* MG Mammo Diagnostic [...] 1 yr- 2022 4CIN II at 1 [facility] postion Social History Social History Type Response Tobacco Current everyday tob acco user Tobacco Use:. 1 ppd per day. 21 year(s). Sex Female Patient Care team information Care Team Personnel Name: Yamileth Saavedra PA-C Position: Physician Member Role: Primary Care Physician Address: Address: [address] [place] [phone] [place] Care Team Related Persons Name: JACQUELINEAMITA Address: Home
--- OUTSIDE RECORDS SUMMARY | 2024-02-25 06:11 | XMS_ITS | Data Portability ---
Author Organization [place] [facility] [place] [address] Assessment No assessment recorded. Plan of Treatment Reminders Order Date Submit Date Provider Last Modified By Organization Details Last Modified Time Details Appointments None recorded. Lab D-dimer, quant, plasma 2023 024 [email or web address] Not available 4 15:36:15 CBC w/ auto diff 2023 024 RADHAMES Not available 4 11:36:47 CMP, serum or plasma 2023 024 RADHAMES Not available 4 12:21:16 influenza virus A + B + SARS-CoV-2 (COVID19) Ag panel, rapid IA, upper respiratory specimen 2023 024 [email or web address] [facility], [address] [place] [address], [address], [place], [address], 4 09:47:50 Referral None recorded. Procedures None recorded. Surgeries None recorded. Imaging XR, chest, 2 view 2023 024 [facility], [address], [place], [address], 4 14:46:42 Medication Orders albuterol sulfate HFA 90 mcg/actuati on aerosol inhaler 2023 024 [facility], [address], [place], [address], 4 09:47:51 benzonatate 100 mg capsule 2023 024 [facility], [address] [facility], [place], [address], 4 09:47:52 Patient TargetsNo targets recorded. Patient InstructionsNo instructions recorded. Reason for Referral None Reported. Results Created Date Observation Date Name Description Value Unit Range Abnormal Flag Note LastModifiedBy Organization Detail LastModifiedTime 06/29/19 24 06/29/2023 influ simon virus A + B + SARS- CoV-2 (COVI D19) Ag panel , rapid IA, upper respi rator y speci men Influenza A negati ve Not Available [address] [place] [address], [phone], 06/29/2023 09:45:52 06/29/19 24 06/29/2023 influ simon virus A + B + SARS- CoV-2 (COVI D19) Ag panel , rapid IA, upper respi rator y speci men Influenza B negati ve Not Available [address] [place] [address], [phone], 06/29/2023 09:45:52 06/29/19 24 06/29/2023 influ simon virus A + B + SARS- CoV-2 (COVI D19) Ag panel , rapid IA, upper respi rator y speci men SARS-COV-2 negati ve Not Available [address] [place] [address], [phone], 06/29/2023 09:45:52 06/29/19 24 06/29/2023 influ simon virus A + B + SARS- CoV-2 (COVI D19) Ag panel , rapid IA, upper respi rator y speci men Sample sent for PCR confirmation No Not Available [facility] [place] [address], [phone], 06/29/2023 09:45:52 06/29/19 24 06/29/2023 XR, chest , 2 view PROCED URE INFORM ATION: Exam: XR Chest Exam date and time: 06/29/19 10:32 AM Age: 47 years old Clinic al indica tion: Cough TECHNI QUE: Imagin g protoc ol: Radiol ogic exam of the chest. Views: 2 views. COMPAR PAULO: CR XR CHEST 1 VW 09/24/19 9:20 AM FINDIN GS: Lungs: Unrema rkable . No consol idatio n. Pleura l spaces : Unrema rkable . No pleura l effusi on. No pneumo thorax . Heart/ Medias tinum: Unrema rkable . No cardio megaly . Bones/ joints : Unrema rkable . IMPRES JABARI: No acute findin gs. Report signed by: Mamta Espinoza On 2023 14:45: [address], [place], [address], 06/29/2023 15:10:19 Result Notes Documentation Provider Name and Address Organization Details Recorded Time Xr, Chest, 2 View : PROCEDURE INFORMATION: Exam: XR Chest Exam date and time: 06/29/2023 10:32 AM Age: 47 years old Clinical indication: Cough TECHNIQUE: Imaging protocol: Radiologic exam of the chest. Views: 2 views. COMPARISON: CR XR CHEST 09/23/2022 9:20 AM FINDINGS: Lungs: Unremarkable. No consolidation. Pleural spaces: Unremarkable. No pleural effusion. No pneumothorax. Heart/Mediastinum: Unremarkable. No cardiomegaly. Bones/joints: Unremarkable. IMPRESSION: No acute findings. Report signed by: Danish Espinoza On 06/29/2023 14:45:[address], [place], [address], [facility]. 06/29/2023 15:10:19 Procedures Surgical History None recorded. Imaging Results Imaging Date Name Status LastModified by [facility] Details LastModified Time 06/29/2023 XR, chest, 2 view completed [address], [place], [address], 06/29/2023 15:10:19 Procedure Notes None recorded. Medical Equipment None Reported. Allergies Allergen ID Allergen Name Allergen Category Reaction Reaction Severity Criticality Documentation Date Start Date Code Code System Note Provider Name and Address Organization Details Recorded Time 74570 SARS-CoV- 2 (COVID-19 ) vaccine, mRNA-BNT1 62b2 medicatio n rash severe high 06/29/2023 42115 30 [facility] 4 09:21:08 63236 SARS-CoV- 2 (COVID-19 ) vaccine, mRNA-1273 medicatio n rash severe high 06/29/2023 17502 32 [facility] 4 09:20:11 09006 acetamino phen medicatio n other mild low 06/29/2023 161 RxNorm Fathe r is aller gic, she avoid s EMELYN Carlson, [facility] 4 09:21:01 Medications Name Sig Start Date Stop Date Status Note LastModified by Organization Details LastModified Time benzonatate 100 mg capsule Take 1 capsule 3 times a day by oral route. 2023 active Not Available Not Available Not Avai lable albuterol sulfate HFA 90 mcg/actuatio n aerosol inhaler Inhale 2 puffs every 4 hours by inhalation route. 2023 active Not Available Not Available Not Avai lable Vitals Date Recorded Body height Body mass index (BMI) Body weight Body temperature Oxygen saturation Oxygen saturation in Arterial blood by Pulse oximetry Heart rate Systolic blood pressure Diastolic blood pressure Provider Name and Address Organization Details Last Updated DateTime 4 161.29 cm 19.7 kg/m2 26004.9 4 g 98.9 [degF] 97 % 97 % 87 /min 88 mm[Hg] 48 mm[Hg] Zoraida Orosco MA [facility] 4 09:22:46 Social History None recorded. Functional Status None recorded. Mental Status None recorded. Family History Nothing Reported. Medical History No medical history recorded. Gynecological HistoryNo gynecological history recorded. Obstetrics History GPAL:G 0 P 0 0 0 0 Past Encounters Encounter ID Performer Location Encounter Start Date Encounter Closed Date Diagnosis/Indication Diagnosis SNOMED-CT Code Diagnosis ICD10 Code [id number] VENKATA GLASGOW PA-C [facility] [address] [facility] [address] [place] [address] 06/29/2023 09:10:38 06/29/2023 09:47:25 Cough 09389617 R05.9 Dyspnea 732816402 R06.00 Health Concerns Section Related Observation LastModified by Organization Detai ls LastModified Time None Recorded Concern Status LastModified by Organization Details LastModified Time None Recorded Advance Directives Directive None Recorded Payers Encounter Date Sequence Insurance Name Policy Number Policy Cueto Covered Member ID Cueto Member ID Guarantor Name 06/29/2023 1 [facility] [id number] Radha Sanders [id number] Radha Sanders Notes Date Note Type Note Provider Name and Address Organization Details Recorded Time 06/29/2023 text/html HPI Notes: Dario arce is a 47 year old female presenting for cold symptoms. Reports 5 days of dry cough, fatigue. Initially had a fever temperature max 102, fever broke today but still continues to feel unwell. Reports she has a dry cough which is keeping her awake at night, denies any chest pain. Reports shortness of breath mostly with exertion. She is a asthmatic and current every day smoker. No known exposures to COVID or flu. No nausea vomiting or upset stomach. No ear pain. Sore throat with coughing but otherwise no sore throat no difficulty swallowing. No skin rashes. Has tried home remedies with limited relief. [address], [place], [address], [facility], [facility]. 06/29/2023 11:28:36 OBGyn Episode No OBEpisode recorded.
--- OUTSIDE RECORDS SUMMARY | 2024-02-25 06:11 | XMS_ITS | Continuity of Care Document ---
Author Organization [facility] Address [address] [place] [address] Care Team Providers Care Director Day Care Center Name Role Phone Yamileth Saavedra Primary Care Physician [facility]23 - 09/03/[address] [address] Encounter Diagnosis Fatigue(Discharge Diagnosis) - 09/03/23 Anemia(Discharge Diagnosis) - 09/03/23 Discharge Disposition: Home or Self Care Attending [...] oclock postion Results Laboratory List Name Date C-Reactive Protein (CRP) 09/03/23 CBC w/ Diff 09/03/23 Comprehensive Metabolic Panel (CMP) 09/02 Ferritin 09/03/23 Folate Level 09/03/23 Vitamin B12 Level 09/03/23 Automated Diff 09/03/23 Most recent to oldest [Reference Range]: 1 WBC [5.0-10.0 x10^3/mcL] 6.6 x10^3/mcL (09/03/23 10:40 AM) RBC [4.1-5.3 x10^6/mcL] 4.0 x10^6/mcL *LOW* (09/03/23 10:40 AM) Neutro Auto [40.0-75.0 %] 55.2 % (09/03/23 10:40 AM) Lymph Auto [20.0-50.0 %] 29.8 % (09/03/23 10:40 AM) [place] Auto [2.0-15.0 %] 10.0 % (09/03/23 10:40 AM) Basophil Auto [0.0-1.0 %] 0.6 % (09/03/23 10:40 AM) BUN [7-18 mg/dL] 7 mg/dL (09/03/23 10:40 AM) Glucose Level [74-106 mg/dL] 96 mg/dL (09/03/23 10:40 AM) Potassium Level [3.5-5.1 mmol/L] 4.4 mmo l/L (09/03/23 10:40 AM) MCV [80.0-96.0 fL] 98.5 fL *HI* (09/03/23 10:40 AM) CRP [<=10.0 mg/L] 0.8 mg/L (09/03/23 10:40 AM) AST [15-37 unit/L] 14 unit/L *LOW* (09/03/23 10:40 AM) ALT [14-59 unit/L] 13 unit/L *LOW* (09/03/23 10:40 AM) MCHC [31.0-35.0 g/dL] 33.2 g/dL (09/03/23 10:40 AM) Sodium Level [136-145 mmol/L] 140 mmol/L (09/03/23 10:40 AM) Folate Level [>=8.6 ng/mL] 12.3 ng/mL 1 (09/03/23 10:40 AM) Hct [37.0-47.0 %] 39.1 % (09/03/23 10:40 AM) Calcium Level [8.5-10.1 mg/dL] 9.3 mg/dL (09/03/23 10:40 AM) Albumin Level [3.4-5.0 g/dL] 4.0 g/dL (09/03/23 10:40 AM) Protein Total [6.4-8.2 g/dL] 7.1 g/dL (09/03/23 10:40 AM) MCH [26.0-32.0 pg] 32.7 pg *HI* (09/03/23 10:40 AM) Neutro Absolute 3.6 x10^3/mcL *NA* (09/03/23 10:40 AM) Bilirubin Total [0.2-1.0 mg/dL] 0.3 mg/d L (09/03/23 10:40 AM) Hgb [12.0-16.0 g/dL] 13.0 g/dL (09/03/23 10:40 AM) B12 Level [193-986 pg/mL] 499 pg/mL (09/03/23 10:40 AM) Alk Phos [46-146 unit/L] 54 unit/L (09/03/23 10:40 AM) Ferritin Level [8-252 ng/mL] 15 ng/mL (09/03/23 10:40 AM) Platelets [130-450 x10^3/mcL] 444 x10^3/ mcL (09/03/23 10:40 AM) CO2 [21-32 mmol/L] 29 mmol/L (09/03/23 10:40 AM) eGFR Non-AA [>=60] 104 (09/03/23 10:40 AM) eGFR AA [>=60] 104 (09/03/23 10:40 AM) Chloride Level [98-107 mmol/L] 103 mmol/ L (09/03/23 10:40 AM) RDW-CV [11.5-14.5 %] 13.3 % (09/03/23 10:40 AM) Imm Gran Auto [0.0-0.9 %] 0.3 % (09/03/23 10:40 AM) Creatinine Level [0.55-1.02 mg/dL] 0.72 mg/dL (09/03/23 10:40 AM) Eos, Auto [1.0-6.0 %] 4.1 % (09/03/23 10:40 AM) 1Interpretive Data: Normal: >8.6 ng/mL Deficient: <3.0 [...] Physician Member Role: Informed Provider Address: Address: [address] [place] [address] Care Team Related Persons Name: AMITA PHILLIPS
--- OUTSIDE RECORDS SUMMARY | 2024-02-25 06:11 | XMS_ITS | Clinical Summary ---
Author Organization [facility] Address [address] [place] [address] Care Team Providers Care Patient Clerical Assistant Name Role Phone Unknown, Provider Primary Care Provider [phone] Social History Tobacco Use Types Packs/Day Years Used Date Smoking Tobacco: Never Assessed Interpersonal Safety Answer Date Record ed Physically Hurt Never 01/21/2020 Verbally Threaten Not on file 01/21/2020 Sex and Gender Information Value Date Recorded Sex Assigned at Not on file Gender Identity Not on file Sexual Orientation Not on file Plan of Treatment Health Maintenance Due Date Last Done Comments Hepatitis C Screen 1975 Hepatitis B Vaccine (1 of 3 - 19+ 3-dose series) 10/02 COVID-19 Vaccine ( season) 2023 Care Teams Patient Clerical Assistant Relationship Specialty Start Date End Date Unknown, Provider, PCP - General 01/26/17
--- OUTSIDE RECORDS SUMMARY | 2024-02-25 06:11 | XMS_ITS | Encounter Summary ---
Author Organization [facility] Address [address] [place] [address] Care Team Providers Care Drug Clerk Name Role Phone Unknown, Provider Primary Care Provider [phone] Encounter Details Date Type Department Care Team (Late st Contact Info) Description 03/09/2023 Lab Requisition [facility] Pathology & Laboratory Medicine - [facility] [address] [place] [address] Outr Resulting Lab, Provider Social History Tobacco [...] Procedure Name Priority Date/Time Associated Diagnosis Comments HSV (HERPES SIMPLEX VIRUS) MOLECULAR DETECTION, PCR Routine 03/09/2023 16:40 EDT documented in this encounter Results * (ABNORMAL) HSV (HERPES SIMPLEX VIRUS) MOLECULAR DETECTION, PCR (03/09/2023 16:40 EDT) Herpes Simplex Virus Molecular Detection 1, PCR Positive(A) Negative 03/10/2023 16:05 EDT [facility] Herpes Simplex Virus Molecular Detection 2, PCR Negative Negative 03/10/2023 16:05 EDT [facility] Swab VULVAL STRUCTURE / Unknown 03/09/2023 16:40 EDT 03/09/2023 23:01 EDT Provider Outr Resulting Lab MICROBIOLOGY - GENERAL ORDERABLES [facility] [address] [place] [address] documented in this encounter Visit Diagnoses Not on filedocumented in this encounter Care Teams Drug Clerk Relationship Specialty Start Date End Date Unknown, Provider, PCP - General 01/26/17 documented as of this encounter
--- OUTSIDE RECORDS SUMMARY | 2024-02-25 06:11 | XMS_ITS | Continuity of Care Document ---
Author Organization [facility] Address [address] [place] [address] Care Team Providers Care Wrapper Sizer Name Role Phone Yamileth Saavedra Primary Care Physician Encounter [facility] Date(s): 09/09/22 - 09/09/[address] [address] Encounter Diagnosis Screening mammogram for breast cancer(Discharge Diagnosis) - 09/09/22 Discharge Disposition: Home or Self Care Attending [...] Member Role: Primary Care Physician Address: Address: [address] [place] [address] [place] Care Team Related Persons Name: JACQUELINE AMITA Address: Home
--- OUTSIDE RECORDS SUMMARY | 2024-02-25 06:11 | XMS_ITS | Encounter Summary ---
Author Organization [facility] Address [address] [place] [address] Care Team Providers Care Guitar Repairer Name Role Phone Unknown, Provider Primary Care Provider [phone] Reason for Visit * (Routine/Next Available) - Receiving Office to Obtain Authorization Specialty Diagnoses / Procedures Referred By Chip johnson Referred To Contact Procedures MA OUTSIDE IMAGES BREAST DIAGNOSTIC LEFT Imaging, External Referral ID Status Reason Start Date Expiration Date Visits Requested Visits Authorized [id number] Receiving Office to Obtain Authorization 10/13/2022 1 1 Encounter Details Date Type Department Care Team (Latest Contact Info) Description 09/22/2022 Hospital Encounter [facility] [place] Discharge Disposition: Home or [...] Diagnosis Comments MA OUTSIDE IMAGES BREAST DIAGNOSTIC LEFT Routine 09/22/2022 13:53 EDT documented in this encounter Results * MA OUTSIDE IMAGES BREAST DIAGNOSTIC LEFT (09/22/2022 13:53 EDT) Narrative 10/13/2022 13:53 EDT This is a non-reportable exam. External Imaging IMG OTHER IMAGING OR DERABLES documented in this encounter Visit Diagnoses Not on filedocumented in this encounter Care Teams Guitar Repairer Relationship Specialty Start Date End Date Unknown, Provider, PCP - General 01/26/17 documented as of this encounter
--- OUTSIDE RECORDS SUMMARY | 2024-02-25 06:11 | XMS_ITS | Continuity of Care Document ---
Author Organization [facility] Address [address] [place] [address] Care Team Providers Care Driver Lifter Of Sanitation Truck Name Role Phone Yamileth Saavedra Primary Care Physician [phone] Encounter [facility] Date(s): 09/04/22 - 09/04/[address] [address] Discharge Disposition: Home or Self Care Attending Physician: Suyapa Dillard CNM Admitting Physician: Suyapa Dillard CNM Referring Physician: Suyapa Dillard CNM Allergies, Adverse Reactions, Alerts No Known Medication Allergies Substance Reaction Severity Status Moderna COVID-19 Vaccine PF 1 Eruption Mild Active 1Outside Source Comment: rash, mild to moderate Assessment and Plan Future Appointments Diagnostic Tests Pending * PAP Test [facility] 09/04/22 Future Scheduled Tests Radiology* MG Mammo Screening Bilateral w/ Koko 09/04/22 Immunizations Given and Recorded Vaccine Date Status [...] 09/23/21 - THU II 10/06/21 - LEEP Results Laboratory List Name Date TSH w/ Rflx to Free T4 09/04/22 Most recent to oldest [Reference Range]: 1 TSH [0.358-3.740 mcIntlUnit/mL] 0.885 mc IntlUnit/mL (09/04/22 4:10 PM) Social History Social History Type Response Tobacco Current everyday tob acco user Tobacco Use:. 1 ppd per day. 21 year(s). Sex Female Patient Care team information Care Team Personnel Name: Yamileth Saavedra PA-C Position: Physician Member Role: Primary Care Physician Address: Address: [address] [place] [address] [place] Care Team Related Persons Name: AMITA PHILLIPS
--- OUTSIDE RECORDS SUMMARY | 2024-02-25 06:11 | XMS_ITS | Continuity of Care Document ---
Author Organization [facility] Address [address] [place] [address] Care Team Providers Care Public Administration Professor Name Role Phone Yamileth Saavedra Primary Care Physician [phone] [facility] Date(s): 10/05/22 - 10/05/[address] [address] Discharge Disposition: Home or Self Care Attending Physician: Napoleon Bob MD Admitting Physician: Napoleon Bob MD Allergies, Adverse Reactions, Alerts No Known Medication Allergies Substance Reaction Severity Status Moderna COVID-19 Vaccine PF 1 Eruption Mild Active 1Outside Source Comment: rash, mild to moderate Assessment and Plan Future Appointments Future Scheduled Tests Laboratory* Surgical Pathology [facility] 10/05/22 Radiology* MG Mammo Diagnostic Right w/ Koko [...] 1 yr- 2022 4CIN II at 1 [facility] Social History Social History Type Response Tobacco Current everyday tob acco user Tobacco Use:. 1 ppd per day. 21 year(s). Sex Female Patient Care team information Care Team Personnel Name: Yamileth Saavedra PA-C Position: Physician Member Role: Primary Care Physician Address: Address: [address] [place] [address] [place] Care Team Related Persons Name: AMITA PHILLIPS Address: Home
--- OUTSIDE RECORDS SUMMARY | 2024-02-25 06:11 | XMS_ITS | Continuity of Care Document ---
Author Organization [facility] Address [address] [place] [address] Care Team Providers Care Bagging Salvager Name Role Phone Yamileth Saavedra Primary Care Physician [phone] Encounter [facility] Date(s): 09/16/22 - 09/16/[address] [address] Discharge Disposition: Home or Self Care Attending [...] 09/11/22 * US Breast Limited Left 09/11/22 * MG Mammo Diagnostic Left 09/11/22 * US Breast Biopsy w/ Clip Left 09/11/22 Immunizations Given and Recorded Vaccine [...] - LEEP Results Laboratory List Name Date PT/ INR 09/16/22 Platelet Count 09/16/22 Most recent to oldest [Reference Range]: 1 Prothrombin Time [9.0-11.0 seconds] 10.2 seconds (09/16/22 8:24 AM) INR 1.0 *NA* (09/16/22 8:24 AM) Platelets [130-450 x10^3/mcL] 391 x10^3/ mcL (09/16/22 8:24 AM) Social History Social History Type Response Tobacco Current everyday tob acco user Tobacco Use:. 1 ppd per day. 21 year(s). Sex Female Patient Care team information Care Team Personnel Name: Garrigan, Yamileth C PA-C Position: Physician Member Role: Primary Care Physician Address: Address: [address] [place] [address] [place] Care Team Related Persons Name: AMITA PHILLIPS Address: Home
--- OUTSIDE RECORDS SUMMARY | 2024-02-25 06:11 | XMS_ITS | Continuity of Care Document ---
Author Organization [facility] Address [address] [place] [address] Care Team Providers Care Automatic Grinding Machine Operator Name Role Phone Yamileth Saavedra Primary Care Physician [phone] Encounter [facility] Date(s): 09/06/23 - 09/06/[address] [address] Discharge Disposition: Home or Self Care Attending Physician: Suyapa Dillard CNM Admitting Physician: Suyapa Dillard CNM Referring Physician: Suyapa Dillard CNM Allergies, Adverse Reactions, Alerts No Known Medication Allergies Substance Reaction Severity Status Moderna COVID-19 Vaccine PF 1 Eruption Mild Active 1Outside Source Comment: rash, mild to moderate Assessment and Plan Future Appointments Diagnostic Tests Pending * PAP Test [facility] 09/06/23 Future Scheduled Tests Radiology* MG Mammo Diagnostic [...] Breast biopsy and related procedures 01/28/23 Completed Pap Due - 08/2023 (Annual paps til 2024 then every 3 yrs til 2046) 2 09/03/22 Completed Colposcopy 3, 4 06/08/22 Completed LEEP 5 10/05/21 Completed Tubal ligation 10/04/08 Completed May 11- Uncovering cap for implants. 2Pap Due - 08/2023 Annual paps til 2024 then every 3 yrs til 2046 01/19/08 - WNL/Neg 09/04/21 - ASC-H/Pos 09/23/21 - Colpo - THU II 10/06/21 - LEEP 06/09/22 - Colpo - ECC - THU I 09/04/22 - Neg/Positive HPV (Negative 16/18/45) 10/05/22 - Colpo - Benign 3CIN II- plan LEEP ECC, THU I, repeat pap 1 yr- 2022 5CIN II at 1 oclock postion Social History Social History Type Response Tobacco Current everyday tob acco user Tobacco Use:. 1 ppd per day. 21 year(s). Sex Female Patient Care team information Care Team Personnel Name: Yamileth Saavedra PA-C Position: Physician Member Role: Informed Provider Address: Address: [address] [place] [address] [address] [address] Care Team Related Persons Name: AMITA PHILLIPS
--- OUTSIDE RECORDS SUMMARY | 2024-02-25 06:12 | XMS_ITS | Encounter Summary ---
Author Organization [facility] [place] [address] Care Team Providers Care Medical Program Specialist Name Role Phone Yamileth Saavedra Primary Care Provider [phone] Encounter Details Date Type Department Care Team (Latest Contact Info) Description 10/30/2022 12:35 PM EDT - 10/30/2022 11:59 PM EDT [place] [address] Discharge Disposition: Home Social History Tobacco Use Types Packs/Day Years Used Date Smoking Tobacco: Every Day Cigarettes Smokeless Tobacco: Never Alcohol Use Standard Drinks/Week Comments Yes 5 (1 standard drink = 0.6 oz pur e alcohol) Sex and Gender Information Value Date Recorded Sex Assigned at Not on file Gender Identity Not on file Sexual Orientation Not on file documented as of this encounter Medications at Time of Discharge Medication Sig Dispensed Refills Start Date End Date ERGOCALCIFEROL, VITAMIN D2, (VITAMIN D ORAL) Take 50,000 Units by mouth once a week. cyanocobalamin 1,000 mcg Tablet Take 1,000 mcg by mouth daily. 03/04/2023 diaZEPam (VALIUM) 2 mg Tablet 06/24/2017 03/07/2023 DULoxetine (CYMBALTA) 30 mg Capsule, Delayed Release(E.C.) 06/16/2017 01/22/2023 folic acid (FOLVITE) 1 mg Tablet TAKE ONE TABLET BY MOUTH EVERY DAY 4 03/18/2017 03/04/2023 gabapentin (NEURONTIN) 600 mg Tablet Take 600 mg by mouth nightly. 06/26/2017 01/22/2023 naproxen (NAPROSYN) 375 mg Tablet Take 375 mg by mouth as needed. 06/29/2017 01/22/2023 omeprazole (PRILOSEC) 20 mg capsuleIndications:Refl ux esophagitis Take 1 capsule by mouth daily. 90 capsule 3 09/25/2013 01/22/2023 documented as of this encounter Plan of Treatment Upcoming Encounters Date Type Department Care Team (Late st Contact Info) Description 2024 8:40 AM EDT Appointment Mammography/[place] [phone] Jewels Barba, [facility] [address] 2024 9:40 AM EDT Office Visit [place] [phone] Jewels Barba, [facility] [place] [address] documented as of this encounter Procedures Procedure Name Priority Date/Time Associated Diagnosis Comments SURGICAL PATHOLOGY REPORT Routine 10/30/2022 12:39 PM EDT documented in this encounter Results * (ABNORMAL) Surgical Pathology Report (10/30/2022 12:39 PM EDT) Final Diagnosis [id number] ? Location: [facility] The signing pathologist has (i) examined the relevant preparation(s) for the specimen(s) and (ii) rendered or confirmed the diagnosis(es). . ?Surgical Pathology DIAGNOSIS CONSULTATION CASE Outside slide(s) labeled [id number], collection date 09/22/2022. A- Breast, left, 8 o'clock, 4cm from nipple, biopsy: - Sclerosing papillary lesions with at least atypical ductal hyperplasia, see discussion. - Surrounding breast tissue with adenosis, columnar cell change/hyperplasia. Electronically signed by: ?Taras Davis MD Verified: ??11/09/2022 13:57 ??Pathologist Performed at: ??-[facility], [place] [address] Statistical Reporting Analyst: Freeman Wiggins MD, AP, ??CLIA Certificate: [id number] DISCUSSION THIS RESULT REQUIRES PHYSICIAN/A.P.P. FOLLOW UP The size of atypical ductal proliferation is less than 2mm, which still falls short of the criteria for ductal carcinoma in situ (DCIS) in papillary lesion. However, the cytology of the atypical proliferation is at least moderate, which raises the possibility of DCIS. Final characterization of such lesion is best performed on resection specimen if available. This case was reviewed and discussed with Dr. Webb and he agreed with the interpretation. ADDITIONAL STUDIES Immunohistochemistry Studies: Formalin-fixed, paraffin-embedded tissue sections are studied using the polymer technique with appropriate positive and negative controls. ?These IHC studies provide the pathologist with adjunctive diagnostic information. Antibody specificity has been verified by testing antibodies on a series of in-house tissues with known immunohistochemical performance characteristics. The clinical interpretation of any antibody positive staining or its absence is evaluated within the context of clinical presentation, morphology, histopathological criteria and other diagnostic tests. Block ? Antibody ?Result (Positive/Negative) A2 ? ER ?Diffuse positive in atypical proliferation A2 ? CK5 ? negative in atypical proliferation SPECIMEN(S) SUBMITTED CONSULTATION CASE A - 4 slide(s) labeled [id number], collection date 09/22/2022. [id number] CARBON COPY: [facility] Surgical Pathology Department [facility], 2nd Floor [address] [place], [place] ??[address] . CLINICAL INFORMATION 47 year old female with angular 5mm left breast mass SPECIMEN PROCESSING [facility] ([facility]) pathology slide(s) are reviewed. Refer to Diagnosis and Specimen Submitted for specific case information. For the full text of the [facility] report(s) please refer to the Chart Review Media tab in the electronic health record (eDH).(A) 11/09/2022 1:57 PM EDT [facility] Consult Case 10/30/2022 12:3 9 PM EDT 10/30/2022 12:39 PM EDT Krista Julian MD PATHOLOGY/CYTOLOGY ORDERABLES [id number] [place] [address] documented in this encounter Visit Diagnoses Not on filedocumented in this encounter Care Teams Medical Program Specialist Relationship Specialty Start Date End Date Yamileth Saavedra PA [address] [place] [address] PCP - General Family Medicine 06/29/17 documented as of this encounter
--- OUTSIDE RECORDS SUMMARY | 2024-02-25 06:12 | XMS_ITS | Encounter Summary ---
Author Organization [facility] [place] [address] Care Team Providers Care Drive Away Driver Name Role Phone Yamileth Saavedra Primary Care Provider [phone] Encounter Details Date Type Department Care Team (Late st Contact Info) Description 12/31/2022 Orders [place] [phone] Luis Julian MD [facility] [place] [address] Abnormal mammogram Social History Tobacco Use Types Packs/Day Years Used Date Smoking Tobacco: Every Day Cigarettes Smokeless Tobacco: Never Alcohol Use Standard Drinks/Week Comments Yes 5 (1 standard drink = 0.6 oz pur e alcohol) [facility] Inpatient Questions Answer Date Recorded Does Anyone Try to Keep You From Having Contact with Others or Doing Things Outside Your Home? no 01/29/2023 Feels Threatened by Someone no 01/19 Feels Unsafe at Home or Work/School no 01/29/2023 Physical Signs of Abuse Present no 01/29/2023 Sex and Gender Information Value Date Recorded Sex Assigned at Not on file Gender Identity Not on file Sexual Orientation Not on file documented as of this encounter Plan of Treatment Upcoming Encounters Date Type Department Care Team (Late st Contact Info) Description 2024 8:40 AM EDT Appointment Mammography/[place] [phone] Jewels Barba APRN [facility] [place] [address] 2024 9:40 AM EDT Office Visit General Surgery at [facility] [place] [address] Jewels Barba [facility] [place] [address] documented as of this encounter Results * Mammo Specimen Left (01/29/2023 3:33 PM EDT) Anatomical Region Laterality Modality Breast Left Mammography Narrative 01/29/2023 3:39 PM EDT EXAMINATION: MAMMO SPECIMEN LEFT INDICATION: Intraoperative specimen image for adequacy of lesion and/or clip removal TECHNIQUE: A radiograph was obtained of the excised Left breast specimen. COMPARISONS: Preoperative imaging FINDINGS: The needle localization wire, broad shaped clip and mass are in the specimen. Margins were felt to be adequate by single plane radiography. LUIS JULIAN was informed in the operating room of the results by Dr. Mcgarry at 15:35 hours. Thank you for letting us participate in the care of this patient. ??If you are a health care provider and have any questions regarding this report, please contact the number below. ??For patients who have questions please contact the health behavioral health care coordinator that requested your imaging first. ? Luis Julian MD IMG MAMMO ORDERABLE S documented in this encounter Visit Diagnoses Diagnosis Abnormal mammogram Abnormal mammogram, unspecified Abnormal mammogram Abnormal mammogram, unspecified documented in this encounter Care Teams Drive Away Driver Relationship Specialty Start Date End Date Yamileth Saavedra PA [address] [place] [address] PCP - General Family Medicine 06/29/17 documented as of this encounter
--- OUTSIDE RECORDS SUMMARY | 2024-02-25 06:12 | XMS_ITS | Encounter Summary ---
Author Organization [facility] Address [address] [place] [address] Care Team Providers Care In Flight Refueling Operator Name Role Phone Unknown, Provider Primary Care Provider [phone] Encounter Details Date Type Department Care Team (Late st Contact Info) Description 09/04/2021 Lab Requisition [facility] Pathology & Laboratory Medicine - [facility] [address] [place] [address] Outr Resulting Lab, Provider Social History Tobacco [...] Procedure Name Priority Date/Time Associated Diagnosis Comments CHLAMYDIA/N. GONORRHOEAE AMPLIFIED NUCLEIC ACID, THINPREP Routine 09/04/2021 16:25 EDT documented in this encounter Results * CHLAMYDIA/N. GONORRHOEAE AMPLIFIED RNA, THINPREP (09/04/2021 16:25 EDT) Neisseria gonorrhoeae Result Negative Negative 09/05/2021 15:09 EDT [facility] Chlamydia trachomatis Result Negative Negative 09/05/2021 15:09 EDT [facility] Papanicolaou smear specimen (specimen) CERVIX UTERI STRUCTURE / Unknown 09/04/2021 16:25 EDT 09/05/2021 8:27 EDT Provider Outr Resulting Lab MICROBIOLOGY - GENERAL ORDERABLES [facility] [address] [place] [address] documented in this encounter Visit Diagnoses Not on filedocumented in this encounter Care Teams In Flight Refueling Operator Relationship Specialty Start Date End Date Unknown, Provider, PCP - General 01/26/17 documented as of this encounter
--- OUTSIDE RECORDS SUMMARY | 2024-02-25 06:12 | XMS_ITS | Encounter Summary ---
Author Organization [facility] [place] [address] Care Team Providers Care Clay Washer Name Role Phone Yamileth Saavedra Primary Care Provider [phone] Reason for Visit * Auth/Cert (Routine) Specialty Diagnoses / Procedures Referred By Contac t Referred To Contact Diagnoses Abnormal mammogram abnormal mammogram Procedures PRO EXCISE BREAST LES W XRAY MARKER EXCISION LESION, BREAST W/ PREOP.MARKER (NEEDLE LOC.) (WRVU 6.69) MODIFIER WITH NEEDLE LOC., LESION #1 Krista Julian MD [facility] [place] [address] [facility] Referral ID Status Reason Start Date Expiration Date Visits Re quested Visits Authorized [id number] 1 1 Encounter Details Date Type Department Care Team (Late st Contact Info) Description 01/29/2023 2:54 PM EDT Anesthesia Event [place] [address] Milo Santiago MD [facility] [place] [address] Harvey Ibarra MD [facility] [place] [address] Anesthesia Record Procedure Summary Procedure Name Responsible Anesthesiologist Anesthesia Start Time Anesthesia Stop Time EXCISION LESION, BREAST W/ PREOP.MARKER (NEEDLE LOC.) (WRVU 6.69) (Left: Breast) Milo Santiago MD 01/29/23 1454 01/29/23 1543 Events Date Time Event Comment 01/29/2023 1450 1454 AN Verify 1454 Start 1456 An Start Data 1502 An Induction 1504 An Intubation 1505 Anesthesia Ready 1537 Extubation/LMA Out 1537 an stop data 1542 Recovery or ICU Handoff Carmel ent care was transferred to the destination unit staff after review of the patient's medical history, current anesthetic/surgical status and plan, according to the Provider Handoff Checklist. 1543 Stop Meds Name Total Propofol 80 mg Propofol INF 104.79 mg fentaNYL 100 mcg Midazolam 2 mg IV Lidocaine 50 mg Dexamethasone 8 mg Ondansetron 8 mg PHENYLephrine 80 mcg ceFAZolin (Ancef) 2 g vial a ttach to sodium chloride 0.9% 100 mL Mini-Bag Plus 2 g Dexmedetomidine 4 mcg ketorolac (Toradol) (30 mg/mL) injection 15 mg ePHEDrine 10 mg lactated ringers infusion 1,000 mL * Agents Name O2 * Blood No blood administrations on file. Lines, Drains, and Airways Type Details Placement Removal Incision 01/29/23; 1513; Left ; breast 01/29/23 1513 by Merissa Malcolm, RN (RETIRED) Peripheral IV Line - Single Lumen 01/29/23; 1438; metacarpal vein (top of hand), right; [id number] catheter system; Anatomical Landmarks; 20 gauge; distraction, topical anesthetic spray applied; 01/29/23; 1600 01/29/23 1438 by Jennifer Loredo RN 01/29/23 1600 by Yasmin Joseph RN documented in this encounter Social History Tobacco Use Types Packs/Day Years Used Date Smoking Tobacco: Every Day Cigarettes Smokeless Tobacco: Never Alcohol Use Standard Drinks/Week Comments Yes 5 (1 standard drink = 0.6 oz pur e alcohol) DH IPV Inpatient Questions Answer Date Recorded Does Anyone [...] on file documented as of this encounter OR Notes * Anesthesia Postprocedure Evaluation - Milo Santiago MD - 01/29/2023 3:53 PM EDT Department of Anesthesiology Post-procedure Note Patient: Radha Sanders Procedure Summary Date: 01/29/23 Room / Location: [address] Anesthesia Start: 1454 Anesthesia Stop: 1543 Procedures: EXCISION LESION, BREAST W/ PREOP.MARKER (NEEDLE LOC.) (WRVU 6.69) (Left: Breast) MODIFIER WITH NEEDLE LOC., LESION #1 (Left) Diagnosis: (abnormal mammogram) Surgeons: Krista Julian MD Responsible Provider: Milo Santiago MD Anesthesia Type: general ASA Status: 2 All Anesthesia Providers: Anesthesiologist: Milo Santiago MD; Brooklynn Cantor MD SOLE TACKER: Sondra Ramírez CRNA Student Nurse Personnel Records Clerk: Arturo Martin Vitals Value Taken Time BP 125/55 01/29/23 1545 Temp 36.4 ??C (97.5 ??F) 01/29/23 1543 Pulse 76 01/29/23 1552 Resp 18 01/29/23 1543 SpO2 96 % 01/29/23 1552 Pain Level 0 01/29/23 1543 Vitals shown include unvalidated device data. Patient Location: PACU/[facility] Level of Consciousness: Awake and Alert Pain Management: Pain Being Addressed PONV: None Cardiovascular Status: At Baseline Respiratory Status: At Baseline Postoperative Fluid Status: Intravascular EUvolemia Possible Anesthetic Complications: NONE apparent at time of evaluation Final Primary Anesthesia Type: General (The anesthetic type performed was the same as planned.) Comments: * Anesthesia Preprocedure Evaluation - Brooklynn Cantor MD - 01/29/2023 3:30 PM EDT Pre-Anesthesia Evaluation for: Radha Sanders a 47 y.o. female. Procedure(s): EXCISION LESION, BREAST W/ PREOP.MARKER (NEEDLE LOC.) (WRVU 6.69) MODIFIER WITH NEEDLE LOC., LESION #1 Patient Active Problem List Diagnosis Date Noted ??? Chronic low back pain 07/23/2017 ??? Abdominal pain, periumbilical 07/27/2013 ??? CIS - Anemia ??? CIS - Depression/Anxiety-situational ??? CIS - Insomnia ??? CIS - Vitamin D deficiency 12/26/2009 ??? CIS - Osteopenia on DEXA scan 07/29/2009 ??? CIS - Borderline low TSH and FT4 06/21/2009 History reviewed. No pertinent past medical history. Past Surgical History: Procedure Laterality Date ??? MAMMO US NEEDLE LOCALIZATION LEFT Left 01/29/2023 Mammo US Needle Localization Left 01/29/2023 Mirlande Mcgarry MD [facility] RAD MAMMOGRAPHY ??? PRO COLONOSCOPY, BIOPSY 08/25/2013 COLONOSCOPY FLEXIBLE, WITH BX performed by Orestes Sepulveda MD at [facility] ENDOSCOPY ??? PRO UPPER GI ENDOSCOPY, BIOPSY 08/25/2013 UPPER GASTROINTESTINAL ENDOSCOPY,WITH BIOPSY SINGLE OR MULTIPLE performed by Orestes Sepulveda MD at [facility] ENDOSCOPY Social History Tobacco Use ??? Smoking status: Every Day Packs/day: 1.00 Types: Cigarettes ??? Smokeless tobacco: Never Substance Use Topics ??? Alcohol use: Yes Alcohol/week: 5.0 standard drinks Types: 5 Shots of liquor per week Social History Substance and Sexual Activity Drug Use Yes ??? Frequency: 2.0 times per week No Known Allergies Medications: MAR and/or home medications have been reviewed. Physical Exam: Preprocedure Vitals Current as of 01/29/23 1454 BP: 103/61 Pulse: 72 Resp: 16 SpO2: 98 Temp: 37 ??C (98.6 ??F) Height: 160 cm (5' 3) (01/29/23) Weight: 49.9 kg (110 lb) (01/29/23) BMI: 19.48 IBW: 52.4 kg (115 lb 7.7 oz) Last edited 01/29/23 1431 by Airway Assessment: Mallampati: I TM distance: >3 FB Neck ROM: full Small mouth Cardiovascular Assessment: Rhythm: regular Rate: normal Pulmonary Assessment: unlabored breathing Dental Assessment: Misc Assessment: IV access: Peripheral line Last Filed Perioperative Cognitive Screening None Anesthesia Plan: ASA 2 general, with a(n) intravenous induction 47 y.o. female smoker scheduled for: Procedure(s): EXCISION LESION, BREAST W/ PREOP.MARKER (NEEDLE LOC.) (WRVU 6.69) MODIFIER WITH NEEDLE LOC., LESION #1 Previous anesthetics without issue- no records at URI/COVID symptoms: no Tobacco: 1 PPD GERD: no Plan GA with routine monitors- LMA. Plans and risks reviewed. Questions answered. Region - Other Informed Consent: Anesthetic plan and risks discussed with patient. Plan discussed with SOLE TACKER and attending. Anesthesia Screening documented in this encounter Plan of Treatment Upcoming Encounters Date Type Department Care Team (Late st Contact Info) Description 2024 8:40 AM EDT Appointment Mammography/[place] [address] Jewels Barba [facility] [place] [address] 2024 9:40 AM EDT Office [place] [address] Jewels Barba [facility] [place] [address] documented as of this encounter Visit Diagnoses Not on filedocumented in this encounter Administered Medications Inactive Administered Medications - up to 3 most recent administrations Medication Order MAR Action Action Date Dose Rate Site ceFAZolin (Ancef) 2 g vial attach to sodium chloride 0.9% 100 mL Mini-Bag Plus 2 g, Intravenous, ONCE, 1 dose, On Wed01/29/23 at 1445, Administer over 30 Minutes, Day of Surgery (Day of Procedure), Indication for (Active or Suspected): Prophylaxis New Bag 01/29/2023 3:05 PM EDT 2 g dexAMETHasone (Decadron) injection Intravenous, PRN, Starting on Wed01/29/23 at 1506, Until Wed01/29/23 at 1543, Anesthesia Intra-op, Routine Given 01/29/2023 3:06 PM EDT 8 mg dexmedeTOMIDine (Precedex) (4 mcg/mL) bolus injection (Anesthsia) Intravenous, PRN, Starting on Wed01/29/23 at 1454, Until Wed01/29/23 at 1543, Anesthesia Intra-op, Routine Given 01/29/2023 2:54 PM EDT 4 mcg ePHEDrine sulfate (5 mg/mL) multi-dose injection Intravenous, PRN, Starting on Wed01/29/23 at 1525, Until Wed01/29/23 at 1543, Anesthesia Intra-op, Routine Given 01/29/2023 3:25 PM EDT 10 mg fentaNYL (pf) (50 mcg/mL) multi-dose injection Intravenous, PRN, Starting on Wed01/29/23 at 1454, Until Wed01/29/23 at 1543, Anesthesia Intra-op, Routine Given 01/29/2023 3:18 PM EDT 25 mcg Given 01/29/2023 3:16 PM EDT 25 mcg Given 01/29/2023 3:05 PM EDT 25 mcg ketorolac (Toradol) (30 mg/mL) injection Intravenous, PRN, Starting on Wed01/29/23 at 1518, Until Wed01/29/23 at 1543, Anesthesia Intra-op, Routine Given 01/29/2023 3:18 PM EDT 15 mg lactated ringers infusion 1,000 mL, at 100 mL/hr, Intravenous, CONTINUOUS, Starting on Wed01/29/23 at 1445, Until Wed01/29/23 at 1614, Day of Surgery (Day of Procedure) New Bag 01/29/2023 3:23 PM EDT New Bag 01/29/2023 2:44 PM EDT New Bag 01/29/2023 2:43 PM EDT 1,000 mLs 100 mL/hr lidocaine (pf) (Xylocaine) (20 mg/mL) 2% injection syringe Intravenous, PRN, Starting on Wed01/29/23 at 1502, Until Wed01/29/23 at 1543, Anesthesia Intra-op, Routine Given 01/29/2023 3:02 PM EDT 50 mg midazolam (pf) (Versed) (1 mg/mL) multi-dose injection Intravenous, PRN, Starting on Wed01/29/23 at 1454, Until Wed01/29/23 at 1543, Anesthesia Intra-op, Routine Given 01/29/2023 2:54 PM EDT 2 mg ondansetron (pf) (Zofran) (2 mg/mL) injection Intravenous, PRN, Starting on Wed01/29/23 at 1506, Until Wed01/29/23 at 1543, Anesthesia Intra-op, Routine Given 01/29/2023 3:23 PM EDT 4 mg Given 01/29/2023 3:06 PM EDT 4 mg PHENYLephrine in NS (PF) (DEV-SYNEPHRINE) 0.8 mg/10 mL (80 mcg/mL) multi-dose injection Syringe Intravenous, PRN, Starting on Wed01/29/23 at 1513, Until Wed01/29/23 at 1543, Anesthesia Intra-op, Routine Given 01/29/2023 3:13 PM EDT 80 mcg propofoL (Diprivan) (10 mg/mL) infusion Intravenous, CONTINUOUS PRN, Starting on Wed01/29/23 at 1502, Until Wed01/29/23 at 1543, Anesthesia Intra-op, Routine Rate/Dose Change 01/29/2023 3:26 PM EDT 75 mcg/kg/min 22.455 mL/hr Rate/Dose Change 01/29/2023 3:16 PM EDT 100 mcg/kg/min 29. 94 mL/hr Rate/Dose Change 01/29/2023 3:12 PM EDT 50 mcg/kg/min 14.9 7 mL/hr propofoL (Diprivan) 10 mg/mL bolus injection (Anesthesia) Intravenous, PRN, Starting on Wed01/29/23 at 1502, Until Wed01/29/23 at 1543, Anesthesia Intra-op Given 01/29/2023 3:02 PM EDT 80 mg documented in this encounter Care Teams Clay Washer Relationship Specialty Start Date End Date Yamileth Saavedra PA [address] [place] [address] PCP - General Family Medicine 06/29/17 documented as of this encounter
--- OUTSIDE RECORDS SUMMARY | 2024-02-25 06:12 | XMS_ITS | Encounter Summary ---
Author Organization [facility] Address [address] [place] [address] Care Team Providers Care Bank Worker Name Role Phone Unknown, Provider Primary Care Provider [phone] Encounter Details Date Type Department Care Team (Latest Contact Info) Description 09/04/[address] [facility] Pathology & Laboratory Medicine - [facility] [address] [place] [address] Suyapa Dacosta, [address] [id number] Encounter for screening for malignant neoplasm of cervix; Encounter for screening for human papillomavirus (HPV) [...] Date/Time Associated Diagnosis Comments PAP TEST Today 09/04/2021 16:25 EDT HPV DNA DETECTION WITH GENOTYPING, PCR Today 09/04/2021 16:25 EDT documented in this encounter Results * (ABNORMAL) HUMAN PAPILLOMAVIRUS (HPV) DETECTION-HIGH RISK TYPES (09/04/2021 16:25 EDT) HPV other High Risk types, PCR Positive( A) Negative 09/16/2021 9:17 EDT [facility] Comment:E6 OR E7 mRNA from o ne or more types of HPV types 16,18,31,33,35,39,45,51,52,56,58,59,66, and 68 is detected by qa architect mediated amplification. High and intermediate risk HPV types are associated with most squamous intraepithelial lesions and cervical cancers. Papanicolaou smear specimen (specimen) CERVIX UTERI STRUCTURE / Unknown 09/04/2021 16:25 EDT 09/12/2021 13:47 EDT Suyapa Ton Latanya Dacosta [facility] - G ENERAL ORDERABLES [facility] [address] [place] [address] * PAP TEST (09/04/2021 16:25 EDT) Specimens A. Cervix and/or Endocervix , ThinPrep Imaging System with Manual Evaluation 09/16/2021 9:17 [facility] Specimen Adequacy Satisfactory for Evaluation - transformation zone component present Scant due to excessive inflammation 09/16/2021 9:17 [facility] General Categorization Epithelial Cell Abnormality 09/16/2021 9:17 [facility] Descriptive Diagnosis Squamous Cell Abnormality - Atypical squamous cells, cannot exclude high grade squamous intraepithelial lesion (ASC-H). Shift in laurence present suggestive of bacterial vaginosis. 09/16/2021 9:17 [facility] Educational Comments [facility] recommends following ASCCP's 2012 Updated Consensus Guidelines for the Management of Abnormal Cervical Cancer Screening Tests and Cancer Precursors (JLGTD, 2013; 17(5):S1-S27). Consensus guidelines are available online at www.asccp.org. 09/16/2021 9:17 [facility] Attestation By the signature below, the attending physician certifies that they have personally conducted a gross and/or microscopic examination of the described specimens and rendered or confirmed the above diagnosis. 09/16/2021 9:17 [facility] at 0917 Clinical History Clinical History, Signs, Symptoms, Chief Complaint, Pertaining to This Order: See below CORONER/MEDICAL EXAMINER Treatment History?: Yes 09/16/2021 9:17 EDT [facility] HPV The result for the Human Papillomavirus (HPV) Detection-High Risk Types is Positive . E6 OR E7 mRNA from one or more types of HPV types 16,18,31,33,35,39 ,45,51,52,56,58,5 9,66, and 68 is detected by qa architect mediated amplification. High and intermediate risk HPV types are associated with most squamous intraepithelial lesions and cervical cancers. Testing was performed on specimen [id number] and was resulted on 09/16/2021 0706 EDT by YARED, LAB INSTRUMENT RESULTS IN 09/16/2021 9:17 EDT [facility] Performing Lab [facility] 09/16/2021 9:17 EDT [facility] Scanned Images 09/16/2021 9:17 EDT [facility] Papanicolaou smear specimen (specimen) CERVIX UTERI STRUCTURE / Unknown 09/04/2021 16:25 EDT 09/05/2021 14:12 EDT Suyapa Dacosta [facility] [address] [place] [address] documented in this encounter Visit Diagnoses Diagnosis Encounter for screening for malignant neoplasm of cervix Screening for malignant neoplasm of the cervix Encounter for screening for human papillomavirus (HPV) Special screening examination for human papillomavirus (HPV) documented in this encounter Care Teams Bank Worker Relationship Specialty Start Date End Date Unknown, Provider, PCP - General 01/26/17 documented as of this encounter
--- OUTSIDE RECORDS SUMMARY | 2024-02-25 06:12 | XMS_ITS | Encounter Summary ---
[facility] [place] [address] Care Team Providers Care Labor Economist Name Role Phone Yamileth Saavedra Primary Care Provider [phone] Reason for Visit * Auth/Cert (Routine) Specialty Diagnoses / Procedures Referred By Contac t Referred To Contact Diagnoses Abnormal mammogram abnormal mammogram Procedures PRO EXCISE BREAST LES W XRAY MARKER EXCISION LESION, BREAST W/ PREOP.MARKER (NEEDLE LOC.) (WRVU 6.69) MODIFIER WITH NEEDLE LOC., LESION #1 Luis Julian MD [facility] [place] [address] [facility] Referral ID Status Reason Start Date Expiration Date Visits Re quested Visits Authorized [id number] 1 1 Encounter Details Date Type Department Care Team (Late st Contact Info) Description 01/29/2023 3:30 PM EDT - 01/29/2023 4:44 PM EDT Surgery [place] [address] Luis Julian MD [facility] [address] [place], [place] [id number] EXCISION LESION, BREAST W/ PREOP.MARKER (NEEDLE LOC.) (WRVU 6.69) Social History Tobacco Use Types Packs/Day Years Used Date Smoking Tobacco: Every Day Cigarettes Smokeless Tobacco: Never Tobacco Cessation:Ready to Q uit: Not Asked; Counseling Given: Not Answered Alcohol Use Standard Drinks/Week Comments Yes 5 [...] on file documented as of this encounter Last Filed Vital Signs Vital Sign Reading Time Taken Comments Blood Pressure 114/73 01/29/2023 4:00 PM EDT Pulse 75 01/29/2023 4:00 PM EDT Temperature 36.4 ??C (97.5 ??F) 01/29/2023 3:43 PM ED T Respiratory Rate 18 01/29/2023 3:43 PM EDT Oxygen Saturation 97% 01/29/2023 4:00 PM EDT Inhaled Oxygen Concentration - - Weight 49.9 kg (110 lb) 01/29/2023 2:31 PM EDT Height 160 cm (5' 3) 01/29/2023 2:31 PM EDT Body Mass Index 19.49 01/29/2023 2:31 PM EDT documented in this encounter Discharge Instructions * Discharge Instructions* Luis Julian MD - 01/29/2023 9:48 AM EDT Okay to shower 24 hours Activity as tolerated Call [phone] with any questions Do not soak incision for 2 weeks Will call with pathology results when available Ice pack to breast as needed Okay to use tylenol and/or ibuprofen as needed for pain (Recommend taking 650 mg of tylenol and 400 mg ibuprofen every 6 hours as needed) Wear bra for comfort (you may want to wear 11/01 until swelling improves) I documented in this encounter Medications at Time of Discharge Medication Sig Dispensed Refills Start Date End Date ERGOCALCIFEROL, VITAMIN D2, (VITAMIN D ORAL) Take 50,000 Units by mouth once a week. cyanocobalamin 1,000 mcg Tablet Take 1,000 mcg by mouth daily. 03/04/2023 diaZEPam (VALIUM) 2 mg Tablet 06/24/2017 03/07/2023 folic acid (FOLVITE) 1 mg Tablet TAKE ONE TABLET BY MOUTH EVERY DAY 4 03/18/2017 03/04/2023 documented as of this encounter Progress Notes * Yasmin Joseph RN - 01/29/2023 4:13 PM EDT Patient arrived to post op with 6L simple O2 mask. Removed once pt more awake. Surgical bra in place, CDI. Ice applied. Sips of PO intake tolerated. IV removed and replaced with gauze and a band aid. Discharge instructions and medications reviewed with patient and boyfriend, Roc. All questions answered and written copy of AVS sent home with patient. Patient ambulated to car for discharge accompanied by [facility] staff member. documented in this encounter H&P Notes * Luis Julian MD - 01/29/2023 9:47 AM EDT Patient ID: Radha Sanders is a 47 y.o. female. ANDRA Garcia is a 47 yo female who presents in surgical consultation at the request of Dr. Hankins to discussatypia of the left breast. She presented for screening mammogram in August,: This revealed calcifications in the right breast ultimately demonstrated to be milk of calcium and an asymmetry in theleft breast. Diagnostic imaging on the left confirmed LEFT BREAST LESION #1 0.6 cm Mass Lower Inner Quadrant 8 OClock 4 cm from the nipple Biopsy was obtained: breast, left, 8 o'clock, 4cm from nipple, biopsy: - Sclerosing papillary lesions with at least atypical ductal hyperplasia, see discussion. - Surrounding breast tissue with adenosis, columnar cell change/hyperplasia. The size of atypical ductal proliferation is less than 2mm, which still falls short of the criteria for ductal carcinoma in situ (DCIS) in papillary lesion. However, the cytology of the atypical proliferation is at least moderate, which raises the possibility of DCIS. Final characterization of such lesion is best performed on resection specimen if available. SH: . Has male partner. Has son and daughter. 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 FH: no breast or ovarian cancer PMH GERD Review of Systems Constitutional: Negative. HENT: Negative. Eyes: Negative. Respiratory: Negative. Cardiovascular: Negative. Gastrointestinal: Negative. Endocrine: Negative. Genitourinary: Negative. Allergic/Immunologic: Negative. Neurological: Negative. Hematological: Negative. Psychiatric/Behavioral: Negative. Objective Physical Exam Constitutional: Appearance: Normal appearance. Cardiovascular: Rate and Rhythm: Normal rate and regular rhythm. Pulmonary: Effort: Pulmonary effort is normal. Breath sounds: Normal breath sounds. Musculoskeletal: General: Normal range of motion. Skin: General: Skin is warm. Neurological: General: No focal deficit present. Mental Status: She is alert. Imaging: as in hpi,I have personally reviewed mammograms Assessment and Plan Radha is a 47 yo female with adh in the setting of a papillary lesion of the lower inner left breast. . Discussed the role of NLOC excisional biopsy to exclude an occult carcinoma. If positive for DCIS/IDC, Radha understands that additional surgery may be warranted and that adjuvant therapy may be indicated. If the excisional biopsy is negative, we discussed the increased lifetime risk of developing breastcancer. We will review strategies for screening and possible risk reduction once we have the surgical pathology available. Risks of surgery including bleeding, infection and possible need for additional surgery were discussed and consent obtained. Stable for OR documented in this encounter Miscellaneous Notes * Op Note - Luis Julian MD - 01/29/2023 3:13 PM EDT [facility] Operative Note Patient Name: Radha Sanders : [id number] MR#: [id number] Case Date: 01/29/2023 Surgeon: Surgeon(s) and Role: * Luis Julian MD - Primary Preoperative diagnosis: abnormal mammogram Postoperative diagnosis: abnormal mammogram Procedure(s) (LRB): EXCISION LESION, BREAST W/ PREOP.MARKER (NEEDLE LOC.) (WRVU 6.69) (Left) MODIFIER WITH NEEDLE LOC., LESION #1 (Left) Anesthesia: General Estimated Blood Loss: 3 mL Specimens removed during surgery: Primary Closure - skin incision is completely closed without any wires, kelly, drains or other devices Surgical Closure: Primary Closure - skin incision is completely closed without any wires, kelly, drains or other devices Disposition: awakened from anesthesia, extubated and taken to the recovery room in a stable condition, having suffered no apparent untoward event. Condition: doing well without problems (Please see the Surgical Encounter Summary for any Implant and Specimen details pertinent to this patient.) HPI/Surgical Indications: Radha is a 47 yo female with ALH on a recent biopsy of a 6mm mass. Plan excision. Procedure Description: Operative Procedure: Radha presented to radiology for wire localization of the mass and clip in thelower inner left breast. She then was admitted through Same- Day Surgery. She was brought to the Operating Room and laid supine on the operating table. Sedatives were administered intravenously and anLMA was placed. The left breast was prepped and draped in sterile fashion. Time-out confirmed the patient's identity, the correct surgical site, and the administration of prophylactic antibiotics. Once the time out had been confirmed, attention was turned to the breast. Here an incision was made inthe inframammary fold. A flap was elevated and the wire was brought into the wound. A circumferential core of tissue was widely excised. The tissue was inked on the anatomic margins and sent to Radiology where the mass andclip was confirmed to be in the surgical specimen. The wound was irrigated and hemostasis achieved.Partial breast reconstruction was undertaken, and the wound was closed in layers. Sterile dressingswere applied. Surgical Infection Prevention Bundle Used? N/A Attestation: Case Date: 01/29/2023 I performed this procedure without the involvement of a resident. LUIS JULIAN MD 01/29/2023 documented in this encounter Plan of Treatment Upcoming Encounters Date Type Department Care Team (Late st Contact Info) Description 2024 8:40 AM EDT Appointment Mammography/[place] [address] Jewels Barba APRN [facility] [place] [address] 2024 9:40 AM EDT Office [place] [address] Jewels Barba APRN [facility] [place] [address] documented as of this encounter Procedures Procedure Name Priority Date/Time Associated Diagnosis Comments SPECIMEN TO PATHOLOGY Routine 01/29/2023 3:22 PM EDT SURGICAL PATHOLOGY REPORT Routine 01/29/2023 3:21 PM EDT MODIFIER WITH NEEDLE LOC., LESION #1 01/29/2023 2:56 PM EDT abnormal mammogram Excise Breast Les W Xray Marker ([id number]) 01/29/2023 2:56 PM EDT abnormal mammogram documented in this encounter Results * Specimen to Pathology (01/29/2023 3:22 PM EDT) AP Specimen 01/29/2023 3:22 PM EDT 01/29/2023 3:22 PM EDT Narrative [facility] - 01/29/2023 3:22 PM EDT Specimen requisition ordered. ??Separate Pathology report to follow Luis Julian MD PATHOLOGY/CYTOLOGY ORDERABLES [facility] [place] [address] * Surgical Pathology Report (01/29/2023 3:21 PM EDT) Final Diagnosis [id number] ? Location: [facility] The signing pathologist has (i) examined the relevant preparation(s) for the specimen(s) and (ii) rendered or confirmed the diagnosis(es). . ?Surgical Pathology DIAGNOSIS Left breast, incisional biopsy: - Atypical ductal hyperplasia involving a papillary lesion (see Discussion) - Intraductal papilloma, sclerosing adenosis, columnar cell change/hyperplasi a, apocrine metaplasia, and cysts - Calcifications associated with sclerosing adenosis Electronically signed by: ?Dilip Webb MD Verified: ??02/11/2023 10:16 ??Pathologist Performed at: ??-[facility] Dept. of Pathology, [place] [address] Cooker Helper: Freeman Wiggins MD, FCAP, ??CLIA Certificate: [id number] ADDITIONAL STUDIES The specimen was entirely submitted for histologic evaluation. The biopsy clip was identified, but definite histologic features of a biopsy site are not definitely seen. Radiologic correlation is required. Dr. Us reviewed slide A7 and concurs with the diagnosis. SPECIMEN(S) SUBMITTED A - Left Breast incisional biopsy, excision (1) CLINICAL INFORMATION ADH SPECIMEN PROCESSING A - Labeled/Fixative: Left breast incisional biopsy, fresh. Quantity/Size/Edward ght: Single, 3.6 x 2.5 x 1.0 cm, 4.7 g. SPECIMEN DESCRIPTION Resection Specimen: Intact, partial mastectomy. Specimen radiograph: The needle localization wire, broad shaped clip and mass are in the specimen. Margins were felt to be adequate by single plane radiography. Specimen Description: According to the established protocol the ink designations are red (medial), yellow (lateral), orange (superior), green (inferior), black (posterior) and blue (anterior). Tissue Sections: The specimen is serially sectioned perpendicular to the long axis from medial-red to lateral-yellow into VIII slices, each averaging 0.5 cm in thickness. Parenchyma: Approximately 90% dense pink to mcdonnell-white fibrous tissue Sections/Processi ng: Entirely submitted in 9 cassettes as follows: ?A1: Slice 1-medial (red) margin, perpendicular sections ?A2: Slice II ?A3: Slice III ?A4: Slice IV ?A5: Slice V ?A6: Slice ?A7: Slice VII (biopsy clip site) ?A8-A9: Slice VIII-lateral (yellow) margin, perpendicular sections Ischemic time: 49 minutes Total fixation time in formalin: 68 hours 50 minutes The ASCO/CAP guideline related to formalin fixation time has been met (6-72 hours). The ASCO/CAP guideline related to cold ischemic time has been met (<1 hour). ??shb 02/11/2023 10:16 AM EDT [facility] BREAST STRUCTURE / Unknown 01/29/2023 3:21 PM EDT 01/29/2023 3:21 PM EDT Luis Julian MD PATHOLOGY/CYTOLOGY ORDERABLES [facility] [place] [address] [place] [address] documented in this encounter Visit Diagnoses Not on filedocumented in this encounter Administered Medications Inactive Administered Medications - up to 3 most recent administrations Medication Order MAR Action Action Date Dose Rate Site BUpivacaine (pf) (Marcaine) (5 mg/mL) 0.5% injection PRN, Starting on Wed01/29/23 at 1519, Until Wed01/29/23 at 1814, Intra-Operative (Intra-Procedure), Routine Given 01/29/2023 3:25 PM EDT 7.5 mLs 19- Surgical Site Given 01/29/2023 3:19 PM EDT 2 mLs 19 - Surgical Site lactated ringers infusion 1,000 mL, at 100 mL/hr, Intravenous, CONTINUOUS, Starting on Wed01/29/23 at 1445, Until Wed01/29/23 at 1614, Day of Surgery (Day of Procedure) New Bag 01/29/2023 3:23 PM EDT New Bag 01/29/2023 2:44 PM EDT New Bag 01/29/2023 2:43 PM EDT 1,000 mLs 100 mL/hr lidocaine (pf) (Xylocaine) (10 mg/mL) 1% injection PRN, Starting on Wed01/29/23 at 1520, Until Wed01/29/23 at 1814, Intra-Operative (Intra-Procedure), Routine Given 01/29/2023 3:26 PM EDT 7.5 mLs 19- Surgical Site Given 01/29/2023 3:20 PM EDT 2 mLs 19 - Surgical Site documented in this encounter Active and Recently Administered Medications Times are shown in EDT. Scheduled Medication Order 01/27/2023 01/28/2023 01/29/2023 ceFAZolin (Ancef) 2 g vial attach to sodium chloride 0.9% 100 mL Mini-Bag Plus (COMPLETED) 2 g, Intravenous, ONCE, 1 dose, On Wed01/29/23 at 1445, Administer over 30 Minutes, Day of Surgery (Day of Procedure), Indication for (Active or Suspected): Prophylaxis 1505 (New Bag - Prov ider: Arturo Martin - Comment: given over 15 min) Continuous Medication Order 01/27/2023 01/28/2023 01/29/2023 lactated ringers infusion (CANCELED) 1,000 mL, at 100 mL/hr, Intravenous, CONTINUOUS, Starting on Wed01/29/23 at 1445, Until Wed01/29/23 at 1614, Day of Surgery (Day of Procedure) 1443 (New Bag - Prov ider: Jennifer Loredo RN)1443 (Paused - Provider: Arturo Martin - Comment: Switch to gravity)1444 (New Bag - Provider: Arturo Martin)1523 (New Bag - Provider: Arturo Martin) PRN Medication Order 01/27/2023 01/28/2023 01/29/2023 BUpivacaine (pf) (Marcaine) (5 mg/mL) 0.5% injection (CANCELED) PRN, Starting on Wed01/29/23 at 1519, Until Wed01/29/23 at 1814, Intra-Operative (Intra-Procedure), Routine 1519 (Given - Provid er: Luis Julian MD - Comment: 30 mL of 0.5% bupicacaine mixed 1:1 with 30 1% lidocaine. 4 mL used total)1525 (Given - Provider: Luis Julian MD - Comment: 30 mL of 0.5% bupicacaine mixed 1:1 with 30 1% lidocaine. 15 mL used total) lidocaine (pf) (Xylocaine) (10 mg/mL) 1% injection (CANCELED) PRN, Starting on Wed01/29/23 at 1520, Until Wed01/29/23 at 1814, Intra-Operative (Intra-Procedure), Routine 1520 (Given - Provid er: Luis Julian MD - Comment: 30 mL of 0.5% bupicacaine mixed 1:1 with 30 1% lidocaine. 4 mL used total)1526 (Given - Provider: Luis Julian MD - Comment: 30 mL of 0.5% bupicacaine mixed 1:1 with 30 1% lidocaine. 15 mL used total) documented in this encounter Care Teams Labor Economist Relationship Specialty Start Date End Date Yamileth Saavedra PA [address] [place] [address] PCP - General Family Medicine 06/29/17 documented as of this encounter
--- OUTSIDE RECORDS SUMMARY | 2024-02-25 06:12 | XMS_ITS | Encounter Summary ---
Author Organization [facility] [place] [address] Care Team Providers Care Supervisor Weaving Name Role Phone Yamileth Saavedra Primary Care Provider [phone] Reason for Visit * Auth/Cert (Routine) Specialty Diagnoses / Procedures Referred By Contac t Referred To Contact Diagnoses Abnormal mammogram abnormal mammogram Procedures PRO EXCISE BREAST LES W XRAY MARKER EXCISION LESION, BREAST W/ PREOP.MARKER (NEEDLE LOC.) (WRVU 6.69) MODIFIER WITH NEEDLE LOC., LESION #1 Luis Julian MD [facility] [place] [address] [facility] Referral ID Status Reason Start Date Expiration Date Visits Re quested Visits Authorized [id number] 1 1 Encounter Details Date Type Department Care Team (Latest Contact Info) Description 01/29/2023 2:19 PM EDT - 01/29/2023 4:13 PM EDT Hospital Encounter [place]patient [place] [address] Luis Julian MD [facility] [place] [address] Discharge Disposition: Home Social History Tobacco Use [...] shower 24 hours Activity as tolerated Call [phone] with any questions Do not soak incision [...] male partner. Has son and daughter. 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 FH: no breast or ovarian cancer PMH [...] Julian MD - 01/29/2023 3:13 PM EDT [facility] Operative Note Patient Name: Radha Sanders : [id number] MR#: [id number] Case Date: 01/29/2023 Surgeon: Surgeon(s) and Role: [...] 2024 8:40 AM EDT Appointment Mammography/[place] [address] Jewels Barba APRN [facility] [place] [address] 2024 9:40 AM EDT Office [place] [address] Jewels Barba APRN [facility] [place] [address] documented as of this encounter Procedures Procedure Name Priority Date/Time Associated Diagnosis Comments SPECIMEN TO PATHOLOGY Routine 01/29/2023 3:22 PM EDT SURGICAL PATHOLOGY REPORT Routine 01/29/2023 3:21 PM EDT MODIFIER WITH NEEDLE LOC., LESION #1 01/29/2023 2:56 PM EDT abnormal mammogram Excise Breast Les W Xray Marker ([id number]) 01/29/2023 2:56 PM EDT abnormal mammogram documented in this encounter Results * Specimen to Pathology (01/29/2023 3:22 PM EDT) AP Specimen 01/29/2023 3:22 PM EDT 01/29/2023 3:22 PM EDT Narrative [facility] - 01/29/2023 3:22 PM EDT Specimen requisition ordered. ??Separate Pathology report to follow Luis Julian MD PATHOLOGY/CYTOLOGY ORDERABLES [facility] [place] [address] * Surgical Pathology Report (01/29/2023 3:21 PM EDT) Final Diagnosis [id number] ? Location: [facility] The signing pathologist has [...] MD Verified: ??02/11/2023 10:16 ??Pathologist Performed at: ??-[facility] Dept. of Pathology, [place] [address] Cattle Sprayer: Freeman Wiggins MD, AP, ??CLIA Certificate: [id number] ADDITIONAL STUDIES The specimen was entirely submitted [...] (<1 hour). ??shb 02/11/2023 10:16 AM EDT [facility] BREAST STRUCTURE / Unknown 01/29/2023 3:21 PM EDT 01/29/2023 3:21 PM EDT Luis Julian MD PATHOLOGY/CYTOLOGY ORDERABLES [facility] [address] [facility] [place] [address] documented in this encounter Visit Diagnoses Not on filedocumented in this encounter Administered Medications Inactive Administered Medications - up to 3 most recent administrations Medication Order MAR Action Action Date Dose Rate Site lactated ringers infusion 1,000 mL, at 100 mL/hr, Intravenous, CONTINUOUS, Starting on Wed01/29/23 at 1445, Until Wed01/29/23 at 1614, Day of Surgery (Day of Procedure) New Bag 01/29/2023 3:23 PM EDT New Bag 01/29/2023 2:44 PM EDT New Bag 01/29/2023 2:43 PM EDT 1,000 mLs 100 mL/hr documented in this encounter Active and Recently [...] total) documented in this encounter Care Teams Supervisor Weaving Relationship Specialty Start Date End Date Yamileth Saavedra PA [address] [place] [address] PCP - General Family Medicine 06/29/17 documented as of this encounter
--- OUTSIDE RECORDS SUMMARY | 2024-02-25 06:12 | XMS_ITS | Encounter Summary ---
[place] [address] Care Team Providers Care Flying I Instructor Name Role Phone Yamileth Saavedra Primary Care Provider [phone] Reason for Referral * Consultation (Routine) - Closed Specialty Diagnoses / Procedures Referred By Conttd t Referred To Contact Hematology and Oncology Diagnoses Abnormal histological findings in specimens from other organs, systems and tissues Suyapa Dacosta CNM [facility] [address] [place] [address] [place] [address] [facility] Hem Onc [address] [place] [address] Referral ID Status Reason Start Date Expiration Date V isits Requested Visits Authorized [id number] Closed Consult, Test & Treat PCP Updated and/or Approved 10/26/2022 10/26/2023 6 6 Encounter Details Date Type Department Care Team (Latest Contact Info) Description 10/26/2022 Transcribe Orders eDH Incoming Referrals [phone] Suyapa Dacosta CNM [facility] [address] [facility] [address] [address] [place] [id number] Abnormal histological findings in specimens from other organs, systems and tissues Social History Tobacco Use Types Packs/Day Years [...] 2024 8:40 AM EDT Appointment Mammography/[place] [address] Jewels Barba SUPERVISOR [employer] [facility] [place] [address] 2024 9:40 AM EDT Office [place] [address] Jewels Barba [facility] [place] [address] Scheduled Referrals Name Type Priority Associated Diagnoses Orde r Schedule Referral to Hematology and Oncology Outpatient Referral Routine Abnormal Histological Findings In Specimens From Other Organs, Systems And Tissues Ordered: 10/26/2022 documented as of this encounter Visit Diagnoses Diagnosis Abnormal histological findings in specimens from other organs, systems and tissues documented in this encounter Care Teams Flying I Instructor Relationship Specialty Start Date End Date Yamileth Saavedra PA [address] [place] [address] PCP - General Family Medicine 06/29/17 documented as of this encounter
--- OUTSIDE RECORDS SUMMARY | 2024-02-25 06:12 | XMS_ITS | Encounter Summary ---
[place] [address] Care Team Providers Care Dynamo Tender Name Role Phone Lalito Fang Primary Care Provider [phone] Encounter Details Date Type Department Care Team (Latest Contact Info) Description 02/04/2017 - 02/04/2017 11:59 PM EDT Hospital Encounter [place] [address] Manuel Vazquez MD [facility] [place] [address] Discharge Disposition: Home Social History Tobacco Use Types Packs/Day Years Used Date Smoking Tobacco: Every Day Alcohol Use Standard Drinks/Week Comments Yes 5 [...] 50,000 Units by mouth once a week. omeprazole (PRILOSEC) 20 mg capsuleIndications:Refl ux esophagitis Take 1 capsule by mouth daily. 90 capsule 3 09/25/2013 01/22/2023 multivitamin (THERAGRAN) tablet Take 1 tablet by mouth daily. 07/23/2017 documented as of this encounter Plan of Treatment Upcoming Encounters Date Type Department Care Team (Late st Contact Info) Description 2024 8:40 AM EDT Appointment Mammography/[place] [address] Jewels Barba, DAY CARE ATTENDANT [facility] [place] [address] 2024 9:40 AM EDT Office Visit [place] [address] Jewels Barba, DAY CARE ATTENDANT [facility] [place] [address] documented as of this encounter Procedures Procedure Name Priority Date/Time Associated Diagnosis Comments FILM LIBRARY STORAGE ONLY MR SPINE Routine 02/04/2017 12:00 AM EDT documented in this encounter Results * Film Library- Storage Only MR Spine (02/04/2017 12:00 AM EDT) Narrative [facility] - 06/30/2017 11:35 AM EST This exam is for storage only and is auto-finalizing. Manuel Vazquez MD IMG FILM LIBRARY ORD ERABLES [place], [place] documented in this encounter Visit Diagnoses Not on filedocumented in this encounter Care Teams Dynamo Tender Relationship Specialty Start Date End Date Lalito Fang PA [address] [place] [address] PCP - General 05/13/10 06/28/17 documented as of this encounter
--- OUTSIDE RECORDS SUMMARY | 2024-02-25 06:12 | XMS_ITS | Encounter Summary ---
Author Organization [facility] Address [facility] [place] [address] Care Team Providers Care Water Valve Mechanic Name Role Phone Yamileth Saavedra Primary Care Provider [phone] Reason for Visit * Consultation (Routine) - Specialty Diagnoses / Procedures Referred By Contac t Referred To Contact Orthopaedics Diagnoses Chronic midline low back pain, with sciatica presence unspecified Chronic midline thoracic back pain Serge Catherine [place] [facility] [place] [address] [facility] [address] [place] [address] Referral ID Status Reason Start Date Expiration Date V isits Requested Visits Authorized [id number] Consult, Test & Treat 07/09/2017 07/09/2018 1 1 Encounter Details Date Type Department Care Team (Late st Contact Info) Description 07/23/2017 9:00 AM EST Notes [place] [address] Lillie Laurent MSW [facility] [place] [address] Social History Tobacco Use Types Packs/Day Years [...] 2024 8:40 AM EDT Appointment Mammography/[place] [address] Jewels Barba, CLEVE [facility] [place] [address] 2024 9:40 AM EDT Office [place] [address] Jewels Barba FOREST SCIENTIST [facility] [place] [address] Scheduled Referrals Name Type Priority Associated Diagnoses Order Schedule Referral to GAP Assessment Outpatient Referral Routine Chronic Midline Low Back Pain, With Sciatica Presence Unspecified Chronic Midline Thoracic Back Pain Ordered: 07/09/2017 documented as of this encounter Visit Diagnoses Not on filedocumented in this encounter Care Teams Water Valve Mechanic Relationship Specialty Start Date End Date Yamileth Saavedra PA [address] [place] [address] PCP - General Family Medicine 06/29/17 documented as of this encounter
--- OUTSIDE RECORDS SUMMARY | 2024-02-25 06:12 | XMS_ITS | Encounter Summary ---
Author Organization [facility] [place] [address] Care Team Providers Care Electric Organ Assembler And Checker Name Role Phone Yamileth Saavedra Primary Care Provider [phone] Encounter Details Date Type Department Care Team (Late st Contact Info) Description 09/09/2022 Ancillary Procedure [place] [phone] Yamileth Saavedra PA [address] [place], [place] [address] Social History Tobacco Use Types Packs/Day Years [...] 2024 8:40 AM EDT Appointment Mammography/[place] [address] Jewels Barba APRN [facility] [place] [address] 2024 9:40 AM EDT Office [place] [address] Jewels Barba APRN [facility] [place] [address] documented as of this encounter Procedures Procedure Name Priority Date/Time Associated Diagnosis Comments FILM LIBRARY STORAGE ONLY MAMMO Routine 09/09/2022 12:00 AM EDT documented in this encounter Results * Film Library- Storage Only Mammo (09/09/2022 12:00 AM EDT) Narrative [facility] - 10/28/2022 8:07 AM EDT This exam is auto-finalizing. It's purpose is for storage only. Yamileth ORELLANA IMMark FILM LIBRARY ORD ERABLES [place], [place] documented in this encounter Visit Diagnoses Not on filedocumented in this encounter Care Teams Electric Organ Assembler And Checker Relationship Specialty Start Date End Date Yamileth Saavedra PA [address] [place] [address] PCP - General Family Medicine 06/29/17 documented as of this encounter
--- OUTSIDE RECORDS SUMMARY | 2024-02-25 06:12 | XMS_ITS | Encounter Summary ---
Author Organization [facility] [place] [address] Care Team Providers Care Cardiac Monitor Name Role Phone Yamileth Saavedra Primary Care Provider [phone] Encounter Details Date Type Department Care Team (Late st Contact Info) Description 09/22/2022 12:05 AM EDT Ancillary Procedure [place] [address] Yamileth Saavedra PA [address] [place], [place] [address] Social History Tobacco Use Types Packs/Day Years [...] 2024 8:40 AM EDT Appointment Mammography/[place] [address] Jewels Barba APRN [facility] GENERAL SURGERY [place], [place] [id number] 2024 9:40 AM EDT Office [place] [address] Jewels Barba APRN [facility] GENER[place] [address] documented as of this encounter Procedures Procedure Name Priority Date/Time Associated Diagnosis Comments FILM LIBRARY STORAGE ONLY MAMMO Routine 09/22/2022 12:05 AM EDT documented in this encounter Results * Film Library- Storage Only Mammo (09/22/2022 12:05 AM EDT) Narrative [facility] - 10/28/2022 8:11 AM EDT This exam is auto-finalizing. It's purpose is for storage only. Yamileth ORELLANA IMMark FILM LIBRARY ORD ERABLES [place], [place] documented in this encounter Visit Diagnoses Not on filedocumented in this encounter Care Teams Cardiac Monitor Relationship Specialty Start Date End Date Yamileth Saavedra PA [address] [place] [address] PCP - General Family Medicine 06/29/17 documented as of this encounter
--- OUTSIDE RECORDS SUMMARY | 2024-02-25 06:12 | XMS_ITS | Encounter Summary ---
Author Organization [facility] Address [address] [place] [address] Care Team Providers Care Senior Research Engineer Name Role Phone Unknown, Provider Primary Care Provider [phone] Encounter Details Date Type Department Care Team (Late st Contact Info) Description 01/21/2017 Results Only [facility] [phone] Yamileth Saavedra PA [address] [place] [address] Social History Tobacco Use Types Packs/Day Years Used Date Smoking Tobacco: Never Assessed Sex and Gender Information Value Date Recorded Sex Assigned at Not on file Gender Identity Not on file Sexual Orientation Not on file documented as of this encounter Plan of Treatment Not on file documented as of this encounter Procedures Procedure Name Priority Date/Time Associated Diagnosis Comments SURGICAL PATHOLOGY Routine 01/21/2017 9:43 EDT documented in this encounter Results * SURGICAL PATHOLOGY (01/21/2017 9:43 EDT) Pathology Report: SURGICAL PATHOLOGY REPORT Reports generated via electronic interface contain original data; however they are lacking the format of the original report. Caution should be taken when reading/interpret ing unformatted reports. Name: ? ABELINO BRYAN ? Accession #: ? [id number] ? : ? 1975 (Age: 41) ??F ? Collect Date: ? 01/21/2017 ? Location: ? [facility] ? Receive Date: ? 01/26/2017 ? Provider: YAMILETH ORELLANA Copy to: ? Final Pathologic Diagnosis: SKIN OF SHOULDER, RIGHT LATERAL, SHAVE BIOPSY: - Melanocytic nevus, compound type, with unusual architectural features and mild cytologic atypia. ?? - Nevus does not extend to edges of shave biopsy specimen in the plane of the sections examined. Microscopic Description: The epidermis is hyperplastic with elongate and anastomosing rete ridges. ??There is a circumscribed proliferation of melanocytes with epidermal and dermal components. ??The intraepidermal melanocytes are arranged in nests and as individual cells in a lentiginous pattern. ??The nests predominate and vary in size, shape, and spacing. ??Some of the nests bridge between rete ridges. Although the individual melanocytes are unevenly spaced in some areas, they show no tendency toward confluent growth or upward migration. ??The melanocytes are enlarged and show a mild degree of nuclear size and shape variation. ??The dermal component consists of nests and cords of similar melanocytes that show sprayer hand maturation with descent. ??There is papillary dermal fibroplasia. ??(Dr. Nevarez)/[facility] Document reviewed and electronically signed by: WHITNEY NEVAREZ MD Report ??Date: 01/27/2017 15:39 By the signature above, the attending physician certifies that he/she has personally conducted a gross and/or microscopic examination of the described specimens and rendered or confirmed the above diagnosis. Specimen(s) Received: R lateral shoulder Clinical History: Black, raised mole, slightly large; benign mole Gross Description: ? Received in formalin labelled with proper patient identification (initials M, K) and not otherwise specified is a shave biopsy of light pinzon skin (0.5 x 0.5 x 0.1 cm). There is a central black nodule with well delineated borders that measures 0.3 x 0.2 cm. The margin is inked blue. The specimen is bisected and entirely submitted in 1. REYNA Moreira (ASCP) 01/26/2017 10:30 AM End of Report [facility] 01/21/2017 9:43 EDT 01/26/2017 9:43 EDT Yamileth ORELLANA PATHOLOGY ORDERABLES Performing Organization Address City/State/[facility] Co de Phone Number [facility] [address] [place] [address] documented in this encounter Visit Diagnoses Not on filedocumented in this encounter Care Teams Senior Research Engineer Relationship Specialty Start Date End Date Unknown, Provider, PCP - General 01/26/17 documented as of this encounter
--- OUTSIDE RECORDS SUMMARY | 2024-02-25 06:12 | XMS_ITS | Encounter Summary ---
Author Organization [facility] [place] [address] Care Team Providers Care Social Media Community Manager Name Role Phone Yamileth Saavedra Primary Care Provider [phone] Encounter Details Date Type Department Care Team (Latest Contact Info) Description 01/29/2023 Travel Social History Tobacco Use Types Packs/Day Years Used Date Smoking Tobacco: Every Day Cigarettes Smokeless Tobacco: Never Alcohol Use Standard Drinks/Week Comments Yes 5 (1 standard drink = 0.6 oz pur e alcohol) IPV Inpatient Questions Answer Date Recorded Does [...] 2024 8:40 AM EDT Appointment Mammography/[place] [address] Jewels Barba APRN [facility] [place] [address] 2024 9:40 AM EDT Office [place] [address] Jewels Barba APRN [facility] [place] [address] documented as of this encounter Visit Diagnoses Not on filedocumented in this encounter Care Teams Social Media Community Manager Relationship Specialty Start Date End Date Yamileth Saavedra PA [address] [place] [address] PCP - General Family Medicine 06/29/17 documented as of this encounter
--- OUTSIDE RECORDS SUMMARY | 2024-02-25 06:12 | XMS_ITS | Encounter Summary ---
Author [facility] [place] [address] Care Team Providers Care Top Screw Name Role Phone Yamileth Saavedra Primary Care Provider [phone] Encounter Details Date Type Department Care Team (Late st Contact Info) Description 10/27/2022 Notes Only Hematology [place] [phone] Sandra Ibarra Social History Tobacco Use Types Packs/Day Years Used Date Smoking Tobacco: Every Day Cigarettes Smokeless Tobacco: Never Alcohol Use Standard Drinks/Week Comments Yes 5 (1 standard drink = 0.6 oz pur e alcohol) Sex and Gender Information Value Date Recorded Sex Assigned at Not on file Gender Identity Not on file Sexual Orientation Not on file documented as of this encounter Progress Notes * Sandra Ibarra - 10/27/2022 2:29 PM EDTSummary: CBP-request for pathology slides/reports Patient Info: Radha Sanders 1975 Provider requesting: Dr. Krista Jluian Attn: [facility] Pathology Department From: [facility] [phone] []Urgent [x] For Review [] Please Reply []Please Recycle Please send the following materials ONLY (this may likely require review by an on-site pathologist at your institution to select appropriate slides): ??? All breast cancer related pathology reports including any original HER2 FISH, OncotypeDX and other outside consultation reports. ? ? Diagnostic H&E slide(s) of tumor sufficient to confirm breast tumor type, grade, size, and to confirm presence of metastatic disease in lymph nodes if present. Send a labor service representative slide foreach separate focus of tumor if multiple tumors present. NOTE: All slides do not need to be sent. ??? Immunohistochemistry stained slides of prognostic markers (ER, ID and HER2) performed on tumor(s) if available. ??? If patient has metastatic disease (i.e. bone, lung, liver) that has been biopsied, send diagnostic H&E slide(s) of metastatic disease with immunohistochemistry if performed. Fed-Ex # [id number] to send overnight Mail to: Department of Pathology [facility] Attn: Anatomic Pathology, [place] [address] If questions please call [phone] Notice of Confidentiality: The documents accompanying this FAX transmission cover contain information from [facility] that is confidential and privileged. The information is intended for the use of the individual or entity named on this transmittal sheet. If you are not the intended recipient, be aware that any disclosure, copying, distribution or use of the contents is prohibited. If you have received the FAX in error, please notify us by telephone (collect) immediately to permit us to arrange for the retrieval of the documents at no cost to you documented in this encounter Plan of Treatment Upcoming Encounters Date Type Department Care Team (Late st Contact Info) Description 2024 8:40 AM EDT Appointment Mammography/[place] [address] Jewels Barba FILM EDITOR [facility] [place] [address] 2024 9:40 AM EDT Office [place] [address] Jewels Barba, FILM EDITOR [facility] [place] [address] documented as of this encounter Visit Diagnoses Not on filedocumented in this encounter Care Teams Top Screw Relationship Specialty Start Date End Date Yamileth Saavedra PA [address] [place] [address] PCP - General Family Medicine 06/29/17 documented as of this encounter
--- OUTSIDE RECORDS SUMMARY | 2024-02-25 06:12 | XMS_ITS | Encounter Summary ---
Author [facility] [place] [address] Care Team Providers Care Senior Technical Manager Name Role Phone Lalito Fang Primary Care Provider [phone] Reason for Visit * Reason Onset Date Comments Medication Refill 09/25/2013 Encounter Details Date Type Department Care Team (Late st Contact Info) Description 09/25/2013 Refill [place] [address] Anna Tejeda APRN [facility] DR GASTROENTEROLOGY [place] [address] Reflux esophagitis (Primary Dx) Social History Tobacco Use Types Packs/Day Years Used Date Smoking Tobacco: Every Day Alcohol Use Standard Drinks/Week Comments Yes 5 (1 standard drink = 0.6 oz pur e alcohol) Sex and Gender Information Value Date Recorded Sex Assigned at Not on file Gender Identity Not on file Sexual Orientation Not on file documented as of this encounter Miscellaneous Notes * Telephone Encounter - Jaki Kimble RN - 09/25/2013 1:20 PM EDT Called to give patient results of her EGD. She wishes to begin a PPI. She does not have a preference. Patient's insurance will cover omeprazole. documented in this encounter Plan of Treatment Upcoming Encounters Date Type Department Care Team (Late st Contact Info) Description 2024 8:40 AM EDT Appointment Mammography/[place] [address] Jewels Barba, DEVELOPMENT PLANNER [facility] [place] [address] 2024 9:40 AM EDT Office [place] [address] Jewels Barba DEVELOPMENT PLANNER [facility] [place] [address] documented as of this encounter Visit Diagnoses Diagnosis Reflux esophagitis- Primary documented in this encounter Care Teams Senior Technical Manager Relationship Specialty Start Date End Date Lalito Fang PA [address] [place] [address] PCP - General 05/13/10 06/28/17 documented as of this encounter
--- OUTSIDE RECORDS SUMMARY | 2024-02-25 06:12 | XMS_ITS | Encounter Summary ---
Author Organization [facility] Address [address] [place] [address] Care Team Providers Care Staff Development Nurse Name Role Phone Unknown, Provider Primary Care Provider [phone] Encounter Details Date Type Department Care Team (Late st Contact Info) Description 09/23/2021 Lab Requisition [place] [facility] & Laboratory Medicine - [facility] [address] [place] [address] Napoleon Bob MD [address] [place] [phone] Encounter for other general examination Social History [...] Date/Time Associated Diagnosis Comments SURGICAL PATHOLOGY Today 09/23/2021 17 :34 EDT documented in this encounter Results * SURGICAL PATHOLOGY (09/23/2021 17:34 EDT) Note to Patient The following pathology results have been interpreted by your pathologist and may be available to you before your health provider has had the opportunity to review them. Please allow time for your provider to receive these results and explore management options, if applicable. 09/30/2021 15:[address] [facility] Final Diagnosis A. ENDOCERVIX, CURETTAGE: - Fragments of benign endocervical tissue and benign metaplastic squamous epithelium. See comment. B. CERVIX, 1 O'CLOCK, BIOPSY: - Squamous epithelium with focus of high grade squamous intraepithelial lesion (THU II). See comment. 09/30/2021 15:44 [facility] Diagnosis Comment The biopsy from part B shows a focus of thin high grade squamous intraepithelial lesion (THU II). Medical Accounts Receivable Specialist slides of this case were reviewed at the intradepartmental consultation conference. Immunoperoxidase stains were performed on this case to further characterize the lesion in part B and confirm the morphologic impression of a high grade squamous intraepithelial lesion. ANTIBODY(CLONE)(BLO CK):RESULT P16 (E6H4TM, [place]) (block B): strong positive staining in area of interest, near full thickness Ki67 (MIB-1) (K2, [place]ica) (block B): increased proliferation above the base, near full thickness NOTE: One or more of the reagents [...] performance characteristics have been determined by [facility] and/or by the referring laboratory. [...] to perform high complexity clinical laboratory testing. 09/30/2021 15:44 [facility] Attestation There was significant resident/fellow involvement in the diagnostic evaluation of this case. By the signature below, the attending physician certifies that they have personally conducted a gross and/or microscopic examination of the described specimens and rendered or confirmed the above diagnosis. 09/30/2021 15:44 [facility] at 1544 Clinical History Pap ASCUS, can't R/O HSIL 09/30/2021 15:44 [facility] Gross Description A. Received in formalin labelled with proper patient identification (initials M, K) and A is a 2.0 x 1.1 x 0.7 cm aggregate of red-brown mucus. The specimen is entirely submitted in A1. B. Received in formalin labelled with proper patient identification (initials M, K) and B is a single fragment of pink-white soft tissue (0.3 x 0.3 x 0.2 cm). The specimen is entirely submitted in B1. REYNA HUTCHINSON(ASCP) 09/24/2021 9:24 09/30/2021 15:[address] [facility] Resident/Fell ow: Brooklynn Reed MD PhD 09/30/2021 15:[address] [facility] Performing Lab [facility] 09/30/2021 15:[address] [facility] Scanned Images 09/30/2021 15:[address] [facility] Tissue ENTIRE WALL OF CERVIX / Unknown 09/23/2021 17:34 EDT 09/23/2021 21:53 EDT Tissue specimen (specimen) CERVIX UTERI STRUCTURE / Unknown 09/23/2021 17:34 EDT 09/23/2021 21:53 EDT Napoleon Bob MD PATHOLOGY KATJA WILLARD [facility] [address] [place] [address] documented in this encounter Visit Diagnoses Diagnosis Encounter for other general examination documented in this encounter Care Teams Staff Development Nurse Relationship Specialty Start Date End Date Unknown, Provider, PCP - General 01/26/17 documented as of this encounter
--- OUTSIDE RECORDS SUMMARY | 2024-02-25 06:12 | XMS_ITS | Encounter Summary ---
Author Organization [facility] [place] [address] Care Team Providers Care Winderman Name Role Phone Yamileth Saavedra Primary Care Provider [phone] Reason for Visit * (Routine) - Closed Specialty Diagnoses / Procedures Referred By Contac t Referred To Contact Radiology Diagnoses Breast lesion Procedures Request for 2nd read Mammo Yamileth Saavedra PA [address] [place] [address] Referral ID Status Reason Start Date Expiration Date Visits Re quested Visits Authorized [id number] Closed 10/28/2022 10/28/2023 1 1 Encounter Details Date Type Department Care Team (Late st Contact Info) Description 10/28/2022 8:35 AM EDT Ancillary Procedure [place] [address] Yamileth Saavedra PA [address] [place] [address] [id number] Breast lesion Social History Tobacco Use Types Packs/Day Years [...] 2024 8:40 AM EDT Appointment Mammography/[place] [address] Jewels Barba, PAYLOADER OPERATOR [facility] [place] [place] [address] 2024 9:40 AM EDT Office [place] [phone] Jewels Barba, PAYLOADER OPERATOR [facility] [place] [address] documented as of this encounter Procedures Procedure Name Priority Date/Time Associated Diagnosis Comments REQUEST FOR 2ND READ MAMMO Routine 10/28/2022 8:32 AM EDT Breast lesion documented in this encounter Results * Request for 2nd read Mammo (10/28/2022 8:32 AM EDT) Anatomical Region Laterality Modality SO Impressions 10/28/2022 11:27 AM EDT Pathology report is significant for papillary sclerosing lesion with cytologic atypia and focal necrosis as well as fibrocystic changes. Concordant result. FINAL ASSESSMENT: LEFT BREAST: BI-RADS Category 2: Benign Findings RIGHT BREAST: BI-RADS Category 2: Benign Findings RECOMMENDATION: Surgical referral is recommended for consideration of excision. Needle localization of the mass/clip can be performed prior to excision. Please note: The interpretation of the [facility] Breast Imaging Radiologist subspecialist may differ from the original radiologists interpretation. This is usually not due to a deficiency of the original interpreting radiologist, rather due to the greater skill level afforded by sub-specialization in the field and/or reasonable variations in interpretations. If you have a concern regarding the D-H interpretation you may contact the [facility] Breast Sports Writer Office at . I have personally reviewed the image(s) and the resident's interpretation and agree with the findings, Sanjeev Hankins at 10/28/2022 11:27 AM Thank you for letting us participate in the care of this patient. ??If you are a health care provider and have any questions regarding this report, please contact the number below. ??For patients who have questions please contact the health primary care nurse practitioner that requested your imaging first. ? Narrative 10/28/2022 11:27 AM EDT INTERPRETATION OF OUTSIDE BREAST IMAGING I have been asked to consult on this patient by Quentin LACEY because he/she believes a review of this study may change or alter the care of this patient. STUDIES FROM: [facility] CLINICAL HISTORY: ? SURGICAL EXCISION; Sending Institution ; Date of exam [id number]; I believe a reinterpretation of this exam may alter care of Patient. Yes; LEFT BREAST PAPILLARY SCLEROSING LESION WITH CYTOLOGIC ATYPIA AND FOCAL NECROSIS, CAT 4. ?? DATES and TYPE OF EXAM: 1. ??Screening mammogram, bilateral 09/09/2022 2. ??Diagnostic mammogram, bilateral 09/10/2022 3. ??Diagnostic left breast ultrasound 09/10/2022 4. ??Ultrasound-guided biopsy of 09/22/2022 5. ??Postclip mammography 09/22/2022 VIEWS: 1. ??CC and MLO C-view and tomosynthesis views of each breast. 2. ??Right XCCL C-view, right magnification ML and MLO, left spot compression CC C-view, left ML C-view. ??Tomosynthesis accompanied the C-view images. 3. ??Grayscale and color Doppler ultrasound of left breast. 4. ??Procedure all ultrasound images. 5. ??2-D CC and MLO views of the left breast. COMPARISONS: None BREAST DENSITY: The breasts are heterogeneously dense, which may obscure small masses. FINDINGS: SCREENING MAMMOGRAM, BILATERAL Right: Axillary tail microcalcifications over a 1 cm extent 7 cm from the nipple. Question of associated asymmetry on the MLO view. Left: Asymmetry in the medial left breast cc view only measuring 0.8 cm located 5.5 cm from the nipple. No suspicious microcalcification. DIAGNOSTIC MAMMOGRAM, BILATERAL Right: Layering of calcifications in the true lateral view consistent with milk of calcium. The questionable asymmetry effaces. No suspicious abnormality in the right breast. Left: The asymmetry appears as an area of overlapping fibroglandular tissue, however, a 1.3 cm mass in the lower inner quadrant at approximately 8:00 and 4 cm from the nipple becomes apparent. DIAGNOSTIC ULTRASOUND, LEFT BREAST In the area of abnormality in the left breast 8:00 and 4 cm from the nipple. Hypoechoic lobulated 0.6 x 0.4 x 0.4 cm mass in parallel orientation with internal vascularity and no significant posterior features. ULTRASOUND GUIDED BIOPSY, LEFT BREAST The needle was demonstrated to pass through the mass on provided images. The clip was deployed within the mass. POSTCLIP MAMMOGRAPHY, LEFT BREAST The biopsy clip is located at the site of mass lower inner quadrant. DIAGNOSTIC SUMMARY: LEFT BREAST LESION #1 0.6 cm Mass ??Lower Inner Quadrant 8 OClock 4 cm from the nipple Procedure Note Sanjeev Hankins MD - 10/28/2022 INTERPRETATION OF OUTSIDE BREAST IMAGING I have been asked to consult on this patient by Quentin LACEY becausehe/she believes a review of this study may change or alter the care of thispatient. STUDIES FROM: [facility] CLINICAL HISTORY: ? SURGICAL EXCISION; Sending Institution ; Date of exam [id number]; I believe a reinterpretation of this exammay alter care of Patient. Yes; LEFT BREAST PAPILLARY SCLEROSING LESION WITH CYTOLOGIC ATYPIA AND FOCAL NECROSIS, CAT 4. DATES and TYPE OF EXAM: 1. Screening mammogram, bilateral 09/09/2022 2. Diagnostic mammogram, bilateral 09/10/2022 3. Diagnostic left breast ultrasound 09/10/2022 4. Ultrasound-guided biopsy of 09/22/2022 5. Postclip mammography 09/22/2022 VIEWS: 1. CC and MLO C-view and tomosynthesis views of each breast. 2. Right XCCL C-view, right magnification ML and MLO, left spotcompression CC C-view, left ML C-view. Tomosynthesis accompanied the C-view images. 3. Grayscale and color Doppler ultrasound of left breast. 4. Procedure all ultrasound images. 5. 2-D CC and MLO views of the left breast. COMPARISONS: None BREAST DENSITY: The breasts are heterogeneously dense, which may obscure small masses. FINDINGS: SCREENING MAMMOGRAM, BILATERAL Right: Axillary tail microcalcifications over a 1 cm extent 7 cm fromthe nipple. Question of associated asymmetry on the MLO view. Left: Asymmetry in the medial left breast cc view only measuring 0.8 cmlocated 5.5 cm from the nipple. No suspicious microcalcification. DIAGNOSTIC MAMMOGRAM, BILATERAL Right: Layering of calcifications in the true lateral view consistent withmilk of calcium. The questionable asymmetry effaces. No suspicious abnormalityin the right breast. Left: The asymmetry appears as an area of overlapping fibroglandulartissue, however, a 1.3 cm mass in the lower inner quadrant at approximately 8:00and 4 cm from the nipple becomes apparent. DIAGNOSTIC ULTRASOUND, LEFT BREAST In the area of abnormality in the left breast 8:00 and 4 cm from thenipple. Hypoechoic lobulated 0.6 x 0.4 x 0.4 cm mass in parallel orientationwith internal vascularity and no significant posterior features. ULTRASOUND GUIDED BIOPSY, LEFT BREAST The needle was demonstrated to pass through the mass on provided images.The clip was deployed within the mass. POSTCLIP MAMMOGRAPHY, LEFT BREAST The biopsy clip is located at the site of mass lower inner quadrant. DIAGNOSTIC SUMMARY: LEFT BREAST LESION #1 0.6 cm Mass Lower Inner Quadrant 8 OClock 4 cm from the nipple IMPRESSION Pathology report is significant for papillary sclerosing lesion withcytologic atypia and focal necrosis as well as fibrocystic changes. Concordantresult. FINAL ASSESSMENT: LEFT BREAST: BI-RADS Category 2: Benign Findings RIGHT BREAST: BI-RADS Category 2: Benign Findings RECOMMENDATION: Surgical referral is recommended for consideration of excision. Needle localization of the mass/clip can be performed prior to excision. Please note: The interpretation of the [facility] BreastImaging Radiologist subspecialist may differ from the original radiologists interpretation. This is usually not due to a deficiency of the original interpreting radiologist, rather due to the greater skill level affordedby sub-specialization in the field and/or reasonable variations ininterpretations. If you have a concern regarding the D-H interpretation you may contact the-H Breast Sports Writer Office at . I have personally reviewed the image(s) and the resident's interpretationand agree with the findings, Sanjeev Hankins at 10/28/2022 11:27 AM Thank you for letting us participate in the care of this patient. If youare a health care provider and have any questions regarding this report,please contact the number below. For patients who have questions please contactthe health primary care nurse practitioner that requested your imaging first. Yamileth ORELLANA IMG OUTSIDE INTERPRE TATION ORDERABLES documented in this encounter Visit Diagnoses Diagnosis Breast lesion Unspecified breast disorder documented in this encounter Care Teams Winderman Relationship Specialty Start Date End Date Yamileth Saavedra PA [address] [place] [address] PCP - General Family Medicine 06/29/17 documented as of this encounter
--- OUTSIDE RECORDS SUMMARY | 2024-02-25 06:12 | XMS_ITS | Encounter Summary ---
Author Organization [facility] [place] [address] Care Team Providers Care Lace Pinner Name Role Phone Yamileth Saavedra Primary Care Provider [phone] Reason for Referral * Diagnostic Test (Routine) - New Request Specialty Diagnoses / Procedures Referred By Chip johnson Referred To Contact Radiology Diagnoses Atypical ductal hyperplasia of left breast Extremely dense tissue of both breasts on mammography Breast cancer screening other than mammogram Procedures MRI Breast wwo Contrast Bilat Jewels Barba APRN [facility] [place] [place] [address] [place] [address] Referral ID Status Reason Start Date Expiration Date Visits Requested Visits Authorized [id number] New Request Specialty Service Requested 09/29/2023 03/30/2025 1 1 Encounter Details Date Type Department Care Team (Late st Contact Info) Description 09/29/2023 10:40 AM EDT Office [place] [address] Krista Julian MD [facility] [place] [address] Jewels Barba APRN [facility] [place] [place] [address] Encounter for screening mammogram for breast cancer; Atypical ductal hyperplasia of left breast; Extremely dense tissue of both breasts on mammography; Breast cancer screening other than mammogram; Breast cancer screening by mammogram Social History Tobacco Use Types Packs/Day [...] as of this encounter Progress Notes * Jewels Barba APRN - 09/29/2023 10:40 AM EDT Images from the original note were not included. Patient ID: Radha Sanders is a 47 y.o. female HPI: Radha is a patient of Dr. Julian with a history of atypical ductal hyperplasia (ADH) in the left breast who returns for an interval breast exam. She is status post left excisional biopsy on January 29, 2023. At today's visit, Radha has no breast concerns and denies new lumps or bumps in her breasts or axilla. She does not perform self-breast exams. No nipple discharge or pain in either breast. She deniesnew headaches or significant weight changes. No chest pain or difficulty breathing. No new bony pain or tenderness. Radha denies significant changes to her health since her last visit. Surgical Pathology: DIAGNOSIS 01/29/23 Left breast, incisional biopsy: - Atypical ductal hyperplasia involving a papillary lesion (see Discussion) - Intraductal papilloma, sclerosing adenosis, columnar cell change/hyperplasia, apocrine metaplasia, and cysts - Calcifications associated with sclerosing adenosis Review of Systems: Constitutional: Negative for anorexia, diaphoresis, fever, weight loss, malaise/fatigue and chills. Respiratory: Negative for cough, shortness of breath and chest discomfort. Gastrointestinal: Negative for abdominal discomfort, vomiting, constipation, nausea and diarrhea. Psychiatric/Behavioral: Negative for depression and physiological symptoms of anxiety. Musculoskeletal: Negative for joint pain and stiffness. Cardiovascular: Negative for palpitations and near-syncope. Neurological: Negative for headaches. Breast history: A screening mammogram at [facility] in August 2022 showed an oval mass in the right breast, that, telephone repairer back imaging, was felt to represent a milk of calcium. In the left breast, there were 2 masses seen. Diagnostic imaging on the right noted the questionable asymmetry effaced. In the left breast, the asymmetry appeared as overlapping fibroglandular tissue. However, a 1.3 cm mass wasseen in the lower inner quadrant at 8:00, 4 cm from the nipple. A biopsy on 09/22/22 revealed a papillary sclerosing lesion with cytologic atypia and focal necrosis. Her images were sent to [facility] for a 2nd read. A surgical referral was recommended for consideration of excision. Radha met with Dr. Julian. They discussed the role of NLOC excisional biopsy to exclude an occult carcinoma. This was performed on 01/29/23. Final pathology revealed atypical ductal hyperplasia inthe setting of a papillary lesion in the lower inner left breast without evidence of malignancy. Dr. Julian reviewed the increased lifetime risk of developing breast cancer. She recommended twice yearly breast exams with annual mammogram. They reviewed risks and benefits and the absence of datato support screening ADH patients with MRI to improve superintendent container terminal survival. Radha declined chemoprevention with tamoxifen. Breast Cancer Risk Factors: History Age at delivery of first child 19 yo Breast fed Yes, briefly Menarche age 11 yo LMP / Menopause Perimenopausal; LMP 09/16/23 Hormonal contraception use Yes, for a short time Hormone replacement therapy No Family history of breast cancer No Family history of ovarian cancer No Known genetic mutation Not tested Ashkenazi [employer] heritage No Previous radiation to chest No Family History Problem (# of Occurrences) Relation (Name,Age of Onset) Esophageal Cancer (1) Paternal Uncle Lung Cancer (2) Father, Paternal Uncle Thyroid Cancer (1) Sister Negative family history of: Breast Cancer Social Hx: Radha works for the [employer]. She is a current smoker. She is contemplating quitting,but not ready yet; ETOH - none (former). Relevant Medical Hx: Iron deficiency anemia Thrombocytopenia Osteopenia Chronic low back pain Chronic headaches Depression Neuropathy lower extremities MARIE Past Surgical Hx: Noncontributory Physical Exam: General appearance: Alert, well-developed, well-nourished; in no acute distress. Skin: Warm and dry. Head: Normocephalic, atraumatic. Neck: Soft and supple without cervical or supraclavicular adenopathy. Cardiovascular: Normal rate, regular rhythm and normal heart sounds. No murmur heard. Pulmonary: Effort normal and breath sounds normal. No signs of respiratory distress, cough, or wheezing. Breasts: Exam performed in the upright and supine positions. The left breast has a well-healed incision in the inframammary fold. The scar is soft and nontender, without mass. No venous prominence, or skin thickening. The right breast has normal appearance and contour. No suspicious masses, tenderness, dimpling, erythema, or other skin changes in either breast. No nipple discharge or other nipplechanges. The nipples are everted. No palpable axillary lymph nodes bilaterally. The breasts are symmetric. Breast exam by palpation revealed no obvious or distinct masses or nodularity in either breast. She has dense fibroglandular tissue in the upper outer aspect of both breasts without tendernessto palpation. Musculoskeletal: Arms with full ROM without any evidence of lymphedema. Fully weight-bearing. Neurological: Alert and oriented x 4. Mood is euthymic and appropriate to the situation. Imaging: Imaging performed (bilateral mammogram) at [facility] today shows no evidence of malignancy, BIRADS Category 2 with extremely dense breast tissue. The results were pending at the time of today's appointment. I notified Radha of results via myD-H. Assessment: Clinical breast exam notable for fibroglandular breast tissue bilaterally without notable masses, skin changes, dimpling, or nipple discharge. Stable exam. Plan: 1. Encounter for screening mammogram for breast cancer 2. Atypical ductal hyperplasia of left breast 3. Extremely dense tissue of both breasts on mammography 4. Breast cancer screening other than mammogram - MRI Breast wwo Contrast Bilat; March 2024 5. Breast cancer screening by mammogram - Mammo Screening Cad and Koko Bilateral; September 2024 I discussed breast cancer screening for women at increased risk of developing breast cancer. Radha has extremely dense breast tissue. A small percentage of individuals, because of their family history, a genetic tendency, or other risk factors, may benefit from breast MRI as well as mammography forscreening. The pros and cons of MRI were reviewed, including the false positive rate of MRI. While the sensitivity of MR screening is greater than the sensitivity of mammography, this also increases the risk of false positive imaging leading to negative biopsies. Despite that, MRI can detect smaller breast cancers in high- risk women than other imaging modalities. We discussed that MRI screening would not reduce her risk of breast cancer development, but would be intended to detect it earlier and therefore possibly minimize the extent of treatment required. She is interested in pursuing this. Radha meets the ACS criteria for the use of breast MR, namely she has a greater than 20% lifetime risk of developing breast cancer, and the sensitivity of mammography may be limited, so I think the use of breast MR for screening is reasonable. Therefore, we will plan to get staggered annual mammogram and MRI screenings with semi-annual clinical breast exams. I have discussed my assessment and recommendations with Radha to include breast awareness and staggered annual mammogram and MRI screening with twice yearly clinical breast exams. Based on her risk status, she will follow up with me in 6 months for ongoing breast cancer screening with an MRI. She will contact me if she develops any new breast changes or concerns prior to that appointment. She agrees to this plan. Breast cancer risk reduction: Continue annual bilateral screening mammograms until life expectancy is <10 years and you remainin good health, or as long as you would consider treatment for a breast cancer if found. Continue clinical breast exams at least once yearly. Continue self breast awareness. Get at least 150 minutes of cardiovascular exercise and 2 days of resistance/strength training per week. Ways to include exercise at home include yoga and bone building exercise videos online. Eat a mainly plant-based Mediterranean style diet. Minimize processed foods, simple carbohydrates, sugars, and artificial sweeteners. Do not smoke. If consuming alcohol, limit to 1 drink or less per day. Maintain or achieve a healthy weight. Normal BMI < 25 for individuals under 65 years old; 22-30 for > 65 years old. Manage stress levels. Be cautious about exposure risk, both what you put in and on your body (ie: artificial fragrances, artificial dyes, as well as certain ingredients in makeup, hair and body care, antiperspirant, sunscreen, insect repellant, laundry detergent, fabric softener, dryer sheets, etc.). Resources to help you make informed choices for personal care products are available at EWG (Environmental Working Group) at ewg.org and free apps for your cell phone from [employer] ([employer]) and [employer] ([employer]). An[employer]ancer Lifestyle program offers free tools and information to help you improve your diet, increase fitness, decrease stress, and reduce your exposure to harmful chemicals in your home environment. Free course available at Artwardlylifestyle.org All questions were answered to the patient's satisfaction and they state understanding and agreement with today's treatment plan. They are encouraged to follow up sooner if they develop any new or concerning symptoms. I spent 35 minutes related to this encounter on the date of service, which included the following services that were not separately reported: [x] Preparing to see the patient (e.g., review of tests) [x] Obtaining and/or reviewing separately obtained history [x] Performing a medically appropriate examination and/or evaluation [x] Counseling and educating the patient/family/caregiver [x] Ordering medications, tests, or procedures [] Referring and communicating with other health healthcare associate [x] Documenting clinical information in the electronic or other health record [x] Independently interpreting results and communicating results to the patient/family/caregiver [x] Care coordination Jewels Barba APRN Surgical Oncology P [phone] F [phone] [facility] documented in this encounter Miscellaneous Notes * Addendum Note - Jewels Barba APRN - 09/29/2023 10:40 AM EDTAddended by: JEWELS BARBA on: 09/29/2023 05:29 PM Modules accepted: Orders documented in this encounter Plan of Treatment Upcoming Encounters Date Type Department Care Team (Late st Contact Info) Description 2024 8:40 AM EDT Appointment Mammography/[place] [address] Jewels Barba APRN [facility] [place] [address] 2024 9:40 AM EDT Office [place] [address] Jewels Barba CORRECTIONAL SECURITY OFFICER [facility] [place] [place] [address] Scheduled Orders Name Type Priority Associated Diagnoses Orde r Schedule Mammo Screening Cad and Koko Bilateral Imaging Routine Atypical ductal hyperplasia of left breast Extremely Dense Tissue Of Both Breasts On Mammography Breast cancer screening by mammogram Expected: 09/28/2024, Expires: 03/30/2025 MRI Breast wwo Contrast Bilat Imaging Routine Atypical ductal hyperplasia of left breast Extremely Dense Tissue Of Both Breasts On Mammography Breast cancer screening other than mammogram Expected: 03/30/2024, Expires: 03/30/2025 documented as of this encounter Visit Diagnoses Diagnosis Encounter for screening mammogram for breast cancer Atypical ductal hyperplasia of left breast Extremely dense tissue of both breasts on mammography Breast cancer screening other than mammogram Breast cancer screening by mammogram documented in this encounter Care Teams Lace Pinner Relationship Specialty Start Date End Date Yamileth Saavedra PA [address] [place] [address] PCP - General Family Medicine 06/29/17 documented as of this encounter
--- OUTSIDE RECORDS SUMMARY | 2024-02-25 06:12 | XMS_ITS | Encounter Summary ---
Author Organization [facility] Address [address] [place] [address] Care Team Providers Care Crm Solution Architect Name Role Phone Unknown, Provider Primary Care Provider [phone] Encounter Details Date Type Department Care Team (Late st Contact Info) Description 10/06/2021 Lab Requisition [facility] Pathology & Laboratory Medicine - [facility] [address] [place] [address] Napoleon Bob MD [address] [place] [phone] Encounter for other general examination Social History [...] Date/Time Associated Diagnosis Comments SURGICAL PATHOLOGY Today 10/06/2021 15 :23 EDT documented in this encounter Results * SURGICAL PATHOLOGY (10/06/2021 15:23 EDT) Note to Patient The following pathology results have been interpreted by your pathologist and may be available to you before your health provider has had the opportunity to review them. Please allow time for your provider to receive these results and explore management options, if applicable. 10/09/2021 16:36 EDT [facility] Final Diagnosis A. CERVIX, COLD KNIFE CONE EXCISION: - High-grade squamous intraepithelial lesion (THU 2). - High-grade lesion extends into superficial endocervical glands. - Surgical excision margins negative. - Reactive epithelial changes including: - Parakeratosis. - Squamous metaplasia with reactive atypia. 10/09/2021 16:36 [facility] Diagnosis Comment The high-grade squamous intraepithelial lesion is present in the 12-3 o'clock quadrant. 10/09/2021 16:36 [facility] Attestation By the signature below, the attending physician certifies that they have 1) personally conducted a gross and/or microscopic examination of the described specimen(s), and/or personally interpreted the results of laboratory testing of the described specimen(s), and 2) personally rendered or confirmed the above diagnosis. 10/09/2021 16:36 [facility] at 1636 Clinical History THU II 10/09/2021 16:36 [facility] Gross Description A. Received in formalin labelled with proper patient identification (initials M, K) and not otherwise specified is an oriented excision of cervix with a suture designating 12 o'clock (2.1 cm 12 o'clock to 6 o'clock x 2.0 cm 3 o'clock to 9 o'clock, and excised to a depth of 0.8 cm). There is a central 1.4 cm patent slit-like os. The ectocervix is pink-white and smooth to slightly roughened, and the endocervical canal is lined by pinzon-white mucosa. The ectocervical margins are inked black and the endocervical margins are inked blue. The specimen is radially sectioned in a clockwise fashion and entirely submitted as follows: BLOCK BURKS A1-A3- 12 o'clock to 3 o'clock A4-A6 - 3 o'clock to 6 o'clock A7-A8 - 6 o'clock to 9 o'clock A9-A10 - 9 o'clock to 12 o'clock REYNA OTTO(ASCP) 10/07/2021 10:06 10/09/2021 16:36 [facility] Performing Lab [facility] 16:36 [facility] Scanned Images 10/09/2021 16:36 EDT [facility] Tissue ENTIRE WALL OF CERVIX / Unknown 10/06/2021 15:23 EDT 10/06/2021 23:34 EDT Napoleon Bob MD PATHOLOGY KATJA WILLARD [facility] [address] [place] [address] documented in this encounter Visit Diagnoses Diagnosis Encounter for other general examination documented in this encounter Care Teams Crm Solution Architect Relationship Specialty Start Date End Date Unknown, Provider, PCP - General 01/26/17 documented as of this encounter
--- OUTSIDE RECORDS SUMMARY | 2024-02-25 06:12 | XMS_ITS | Encounter Summary ---
Author Organization [facility] [place] [address] Care Team Providers Care Broodmare Foreman Name Role Phone Yamileth Saavedra Primary Care Provider [phone] Encounter Details Date Type Department Care Team (Late st Contact Info) Description 09/07/2017 Telephone Functional Cheondoism Program at [facility] [address] [place] [phone] Gali Haque Social History Tobacco Use Types Packs/Day Years [...] encounter Miscellaneous Notes * Telephone Encounter - Gali Haque - 09/07/2017 11:29 AM EDT Left message for Ms. Sanders looking for confirmation of continued interest in FRP. Patient had a fall recently and deferred the August program. Asked that patient call [phone] to discuss her plan going forward. documented in this encounter Plan of Treatment Upcoming Encounters Date Type Department Care Team (Late st Contact Info) Description 2024 8:40 AM EDT Appointment Mammography/[place] [address] Jewels Barba APRN [facility] [place] [address] 2024 9:40 AM EDT Office [place] [address] Jewels Barba [facility] [place] [address] documented as of this encounter Visit Diagnoses Not on filedocumented in this encounter Care Teams Broodmare Foreman Relationship Specialty Start Date End Date Yamileth Saavedra PA [address] [place] [address] PCP - General Family Medicine 06/29/17 documented as of this encounter
--- OUTSIDE RECORDS SUMMARY | 2024-02-25 06:12 | XMS_ITS | Encounter Summary ---
Author Organization [facility] Address [address] [place] [address] Care Team Providers Care Campus Monitor Name Role Phone Unknown, Provider Primary Care Provider [phone] Encounter Details Date Type Department Care Team (Latest Contact Info) Description 05/20/[address] [facility] Pathology & Laboratory Medicine - [facility] [address] [place] [address] Napoleon Bob MD [address] [place] [address] [phone] Moderate cervical dysplasia; Encounter for screening for [...] Date/Time Associated Diagnosis Comments PAP TEST Today 05/20/2022 16:21 EST HPV DNA DETECTION WITH GENOTYPING, PCR Today 05/20/2022 16:21 EST documented in this encounter Results * HUMAN PAPILLOMAVIRUS (HPV) DETECTION-HIGH RISK TYPES (05/20/2022 16:21 EST) HPV other High Risk types, PCR Negative Negative 06/02/2022 13:36 EST [facility] Comment:No E6 or E7 mRNA is detected from HPV types 16,18,31,33,35,39,45,51,52,56,58,59,66, and 68 by writing center director mediated amplification. Papanicolaou smear specimen (specimen) CERVIX UTERI STRUCTURE / Unknown 05/20/2022 16:21 EST 06/01/2022 9:08 EST Napoleon Bob MD MICROBIOLOGY - GENERAL ORDERABLES Performing Organization Address City/State/[facility] Co de Phone Number [facility] [address] [place] [address] * PAP TEST (05/20/2022 16:21 EST) Specimens A. Cervix and/or Endocervix , ThinPrep Imaging System with Manual Evaluation 06/02/2022 13:36 [facility] Specimen Adequacy Satisfactory for Evaluation - transformation zone component present 06/02/2022 13:36 [facility] General Categorization Epithelial Cell Abnormality 06/02/2022 13:36 [facility] Descriptive Diagnosis Squamous Cell Abnormality - Low grade squamous intraepithelial lesion (LSIL). 06/02/2022 13:36 [facility] Educational Comments [facility] recommends following the ASCCP's management guidelines which may be found at www.asccp.org 06/02/2022 13:36 [facility] Attestation By the signature below, the attending physician certifies that they have personally conducted a gross and/or microscopic examination of the described specimens and rendered or confirmed the above diagnosis. 06/02/2022 13:36 [facility] at 1336 Clinical History See below 06/02/20 13:36 [facility] HPV The result for the Human Papillomavirus (HPV) Detection-High Risk Types is Negative. No E6 or E7 mRNA is detected from HPV types 16,18,31,33,35,39 ,45,51,52,56,58,5 9,66, and 68 by writing center director mediated amplification.Zohra ting was performed on specimen [id number] and was resulted on 06/02/2022 1336 EST by YARED, LAB INSTRUMENT RESULTS IN 06/02/2022 13:36 EST [facility] Performing Lab [facility] 06/02/2022 13:36 EST [facility] Scanned Images 06/02/2022 13:36 EST [facility] Papanicolaou smear specimen (specimen) CERVIX UTERI STRUCTURE / Unknown 05/20/2022 16:21 EST 05/21/2022 10:14 EST Napoleon Bob MD PATHOLOGY ORDE SUDHEER [facility] [address] [place] [address] documented in this encounter Visit Diagnoses Diagnosis Moderate cervical dysplasia Moderate dysplasia of cervix Encounter for screening for human papillomavirus (HPV) Special screening examination for human papillomavirus (HPV) documented in this encounter Care Teams Campus Monitor Relationship Specialty Start Date End Date Unknown, Provider, PCP - General 01/26/17 documented as of this encounter
--- OUTSIDE RECORDS SUMMARY | 2024-02-25 06:12 | XMS_ITS | Encounter Summary ---
Author Organization [facility] Address [facility] [place] [address] Care Team Providers Care Vegetable Tester Name Role Phone Yamileth Saavedra Primary Care Provider [phone] Reason for Referral * Consultation (Routine) - Specialty Diagnoses / Procedures Referred By Contac t Referred To Contact Orthopaedics Diagnoses Chronic midline low back pain, with sciatica presence unspecified Chronic midline thoracic back pain Serge Catherine PA [facility] [place] [address] [facility] [address] [place] [address] Referral ID Status Reason Start Date Expiration Date V isits Requested Visits Authorized [id number] Consult, Test & Treat 07/09/2017 07/09/2018 1 1 Reason for Visit * Reason Comments Back Pain middle back. vague l eg pain * Surgical (Routine) - Closed Specialty Diagnoses / Procedures Referred By Contac t Referred To Contact Orthopaedics Diagnoses Thoracic disc herniation/ leg numbness/ MRI (t-spine) 01/2017 & MRI (l-spine) 12[facility]2016 [facility]/ XR prior Yamileth Saavedra PA [address] [place] [address] Manuel Vazquez MD [facility] [place] [place] [address] Referral ID Status Reason Start Date Expiration Date V isits Requested Visits Authorized [id number] Closed Consult, Test & Treat Connection [facility] 06/29/2017 06/29/2018 1 1 Encounter Details Date Type Department Care Team (Late st Contact Info) Description 07/09/2017 8:20 AM EST Office Visit Sp[facility] [place] [address] Serge Catherine PA [facility] [place] [address] Chronic midline low back pain, with sciatica presence unspecified; Chronic midline thoracic back pain Social History Tobacco Use Types Packs/Day Years Used Date Smoking Tobacco: Every Day Smokeless Tobacco: Never Alcohol Use Standard Drinks/Week Comments Yes 5 (1 standard drink = 0.6 oz pur e alcohol) Sex and Gender Information Value Date Recorded Sex Assigned at Not on file Gender Identity Not on file Sexual Orientation Not on file documented as of this encounter Last Filed Vital Signs Vital Sign Reading Time Taken Comments Blood Pressure 119/65 07/09/2017 8:12 AM EST Pulse 103 07/09/2017 8:12 AM EST Temperature - - Respiratory Rate - - Oxygen Saturation - - Inhaled Oxygen Concentration - - Weight 45.4 kg (100 lb) 07/09/2017 8:12 AM EST Height 160 cm (5' 3) 07/09/2017 8:12 AM EST Body Mass Index 17.71 07/09/2017 8:12 AM EST documented in this encounter Progress Notes * Serge Catherine PA - 07/09/2017 8:20 AM EST Subjective: Radha Sanders is a 41-year-old female seen today for about 2 year history of chronic thoracolumbar back pain with associated sensory disturbances felt that the dorsal feet radiating upwards to her shins on both sides. She does not report any symptoms radiating to the anterior chest wallon either side. Her primary issues with regards to her midline thoracic and lumbar back pain. She no larisa that this is generally most tolerable in the morning but this increasingly uncomfortable as theday progresses from the time she gets out of bed, to when she is driving about an hour towards her job. The symptoms appear to have been tolerable in the past that have been progressive as of late such that she is more limited physically speaking. She is not able to walk long distances without discomfort, and has issues with regards to lifting, bending, yard work, doing her groceries, and even playing with her 8-year-old child. This is particularly a problem for her, as she is the primary breadwinner for her family, she has a 20-year-old child in college, and an 8-year-old at home, and a disabled . 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 She has had fairly extensive workup for her issues with laboratory testing by her primary care provider, Yamileth ORELLANA, and neurologist, Dr. Terrance Schwartz, including lower extremity electrodiagnostic studies which so far has not been particularly diagnostic. She has been on Valium, gabapentin 600 mg at nighttime which does help her lower extremity paresthesias and numbness although she does findthis somewhat sedating sterile. She mentions prior history of Lyme disease which she has since cleared with antibiotic treatment and has had negative follow-up serological testing. She does not report prior spine surgery. She has also had physical therapy without much improvement. She continues to smoke one pack per day and denies alcohol use. Objective: This is a thin pleasant 41-year-old female appears her stated age and is in no acute distress. Her gait is normal. She is able to toe walk and heel walk without weakness, tandem walk without ataxia. She stands without evidence of obvious spinal deformity. He has level shoulders and pelvis. She is some tenderness to palpation over the midline mid thoracic and low lumbosacral region. Sheis able to flex 80?? and extend about 10?? with regards to her low back. Cervical range of motion is with minimal restrictions in all planes. Motor and sensory examination of the upper and lower extremities shows no focal weakness or focal numbness, with the exception of the right middle finger from a prior injury. Reflexes are symmetric +2 throughout the upper and lower extremities. Negative straight leg raising bilaterally. Negative Spurling's maneuver. Negative Marito signs. No clonus or Babinski noted. Painless hip range of motion. Palpable peripheral pulses. MRI of the thoracic spine from 01/2017 and MRI of the lumbar spine from 12/2016 reviewed both reviewed today. Alignment is anatomic without spondylolisthesis. No vertebral compression deformities noted. There is a small right disc protrusion at the T7-T8 level without significant central canal or foraminal stenosis. No cord signal abnormality or cord compressions noted. MRI of the lumbar spine shows well preserved disc heights throughout without significant central canal or foraminal stenosis or any neural impingement. Assessment/plan: Radha Sanders is a 41-year-old female seen today for chief complaint of chronic thoracolumbar back pain, with some associated lower extremity symptoms. She has a rather reassuring neurological examination, without concerning deficit. While she does have a herniated disc noted on the thoracic spine at the T7-T8 level, she does not have concordant dermatomal or myotomal symptoms with this. Certainly no evidence of myelopathy. I advised her that no surgical intervention is indicated. Her lumbar spine also does not show any concerning neural impingement on either side, or any central stenosis, that account for her lower extremity symptoms. Clearly, no surgical intervention is indicated for any of her complaints. I do suspect a significant burden of chronic pain with physical deconditioning with her complaints,and he also had a discussion regarding the contributions of stress and anxiety, contributions of chronic pain. She expressed good insight of this and was understanding. I advised her of my treatment recommendations as she would like to avoid any injections, medications, potential invasive options. We discussed considering the mindfulness approach to chronic pain, and otherwise considering our intensive rehabilitation program, with Functional Pentecostalism. She was agreeable to consider our functional lutheran program and will be undergoing the assessment for this. documented in this encounter Plan of Treatment Upcoming Encounters Date Type Department Care Team (Late st Contact Info) Description 2024 8:40 AM EDT Appointment Mammography/[place] [address] Jewels Barba APRN [facility] [place] [address] 2024 9:40 AM EDT Office [place] [address] Jewels Barba APRN [facility] [place] [address] Scheduled Referrals Name Type Priority Associated Diagnoses Order Schedule Referral to GAP Assessment Outpatient Referral Routine Chronic Midline Low Back Pain, With Sciatica Presence Unspecified Chronic Midline Thoracic Back Pain Ordered: 07/09/2017 documented as of this encounter Visit Diagnoses Diagnosis Chronic midline low back pain, with sciatica presence unspecified Chronic midline thoracic back pain documented in this encounter Care Teams Vegetable Tester Relationship Specialty Start Date End Date Yamileth Saavedra PA [address] [place] [address] PCP - General Family Medicine 06/29/17 documented as of this encounter
--- OUTSIDE RECORDS SUMMARY | 2024-02-25 06:12 | XMS_ITS | Encounter Summary ---
Author Organization [facility] Address [address] [place] [address] Care Team Providers Care Laboratory Helper Name Role Phone Unavailable Primary Care Provider Unavailabl e Encounter Details Date Type Department Care Team (Late st Contact Info) Description 01/19/2008 Before PRISM Converted Visit (Maple) [facility] - Maple conversion [address] [place] [address] Diamond Leonard, [address] [phone] Social History Tobacco Use Types Packs/Day Years Used Date Smoking Tobacco: Never Assessed Sex and Gender Information Value Date Recorded Sex Assigned at Not on file Gender Identity Not on file Sexual Orientation Not on file documented as of this encounter Plan of Treatment Not on file documented as of this encounter Procedures Procedure Name Priority Date/Time Associated Diagnosis Comments HPV DETECTION, HIGH RISK TYPES Routine 01/19/2008 10:46 EDT CYTOPATHOLOGY Routine 01/19/2008 0:00 EDT documented in this encounter Results * HUMAN PAPILLOMA VIRUS DNA TEST (01/19/2008 10:46 EDT) Specimen Description Cervix, ThinPrep vial [facility] Result Negative for HPV types 16, 18, 31, 33, 35, 39, 45, 51, 52, 56, 58, 59, and 68. [facility] Report Status Final [id number] [facility] 01/19/2008 10:4 6 EDT 01/26/2008 10:46 EDT Diamond Leonard CNM MICROBIOLOGY - G ENERAL ORDERABLES [facility] [address] [place] [address] * CYTOPATHOLOGY (01/19/2008 0:00 EDT) Pathology Report: CYTOPATHOLOGY REPORT ? Reports generated via electronic interface contain original data; ? however they are lacking the format of the original report. ? Caution should be taken when reading/interpreti ng unformatted reports. ? Name: ? ABELINO BRYAN ? Accession #: ? [id number] ? : ? 1975 (Age: 32) ??F ?Collect Date: ? 01/19/2008 ? Location: ? [facility] ? Receive Date: ? 01/23/2008 ? Provider: ?DIAMOND LEONARD CNM ? Copy to: ? Specimen/Source: ?ThinPrep Pap Test, Cervix/Endocervix, processed on [facility] ThinPrep Imaging System, with manual evaluation ? Last Menstrual Period: ? 5/16/08 ? Other: ? HPVDX - HPV testing requested regardless of diagnosis on current ThinPrep Pap ?? test. ? SPECIMEN ADEQUACY ? Satisfactory for Evaluation ? - transformation zone component present ? GENERAL CATEGORIZATION ? Negative for Intraepithelial Lesion or Malignancy ? Document reviewed and electronically signed by: ? Jewels F. Colasacco, SCT(ASCP) ? Report Date: ??01/25/2008 09:41 ? End of Report ? [facility] 01/19/2008 01/23/2008 Diamond Leonard CNM PATHOLOGY SUKUMAR DOMINGO [facility] [address] [place] [address] documented in this encounter Visit Diagnoses Not on filedocumented in this encounter
--- OUTSIDE RECORDS SUMMARY | 2024-02-25 06:12 | XMS_ITS | Encounter Summary ---
Author Organization [facility] [place] [address] Care Team Providers Care Entry Level Mechanical Engineer Name Role Phone Yamileth Saavedra Primary Care Provider [phone] Encounter Details Date Type Department Care Team (Late st Contact Info) Description 10/27/2022 Notes Only Hematology [place] [phone] Sandra Ibarra Social History Tobacco Use Types [...] Progress Notes * Sandra Ibarra - 10/27/2022 2:36 PM EDTSummary: [facility] review Radha Sanders 1975 [id number] Referring provider: Suyapa Thompson Date of Referral: 10.26.2022 Please review outside breast imaging dated: 09.22.2022 Reason for exam and clinical history: 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 Surgical excision Sending Institution: [facility] Patient would like treatment at: Call pt at: documented in this encounter Plan of Treatment Upcoming Encounters Date Type Department Care Team (Late st Contact Info) Description 2024 8:40 AM EDT Appointment Mammography/[place] [address] Jewels Barba, [facility] [place] [address] 2024 9:40 AM EDT Office Visit [place] [phone] Jewels Barba, [facility] [place] [address] documented as of this encounter Visit Diagnoses Not on filedocumented in this encounter Care Teams Entry Level Mechanical Engineer Relationship Specialty Start Date End Date Yamileth Saavedra PA [address] [place] [id number] PCP - General Family Medicine 06/29/17 documented as of this encounter
--- OUTSIDE RECORDS SUMMARY | 2024-02-25 06:12 | XMS_ITS | Encounter Summary ---
Author Organization [facility] [place] [address] Care Team Providers Care Bag Shaker Name Role Phone Yamileth Saavedra Primary Care Provider [phone] Encounter Details Date Type Department Care Team (Late st Contact Info) Description 09/10/2022 12:05 AM EDT Ancillary [place] [address] Yamileth Saavedra PA [address] [place], [place] [address] Social History Tobacco Use Types Packs/Day Years [...] 2024 8:40 AM EDT Appointment Mammography/[place] [address] Jewels Barba APRN [facility] GENERAL SURGERY [place], [place] [id number] 2024 9:40 AM EDT Office [place] [address] Jewels Barba APRN [facility] [place] [address] documented as of this encounter Procedures Procedure Name Priority Date/Time Associated Diagnosis Comments FILM LIBRARY STORAGE ONLY MAMMO Routine 09/10/2022 12:05 AM EDT documented in this encounter Results * Film Library- Storage Only Mammo (09/10/2022 12:05 AM EDT) Narrative [facility] - 10/28/2022 8:11 AM EDT This exam is auto-finalizing. It's purpose is for storage only. Yamileth ORELLANA IMMark FILM LIBRARY ORD ERABLES [place], [place] documented in this encounter Visit Diagnoses Not on filedocumented in this encounter Care Teams Bag Shaker Relationship Specialty Start Date End Date Yamileth Saavedra PA [address] [place] [address] PCP - General Family Medicine 06/29/17 documented as of this encounter
--- OUTSIDE RECORDS SUMMARY | 2024-02-25 06:12 | XMS_ITS | Encounter Summary ---
Author Organization [facility] [place] [address] Care Team Providers Care Commercial Construction Superintendent Name Role Phone Yamileth Saavedra Primary Care Provider [phone] Encounter Details Date Type Department Care Team (Late st Contact Info) Description 09/22/2022 Ancillary Procedure [place] [phone] Yamileth Saavedra PA [address] [place], [place] [address] Social History Tobacco Use Types Packs/Day Years [...] 2024 8:40 AM EDT Appointment Mammography/[place] [address] Jewels Barba APRN [facility] [place] [address] 2024 9:40 AM EDT Office [place] [address] Jewels Barba APRN [facility] [place] [address] documented as of this encounter Procedures Procedure Name Priority Date/Time Associated Diagnosis Comments FILM LIBRARY-STORAGE ONLY US BREAST Routine 09/22/2022 12:00 AM EDT documented in this encounter Results * Film Library Storage Only US Breast (09/22/2022 12:00 AM EDT) Narrative RAD - 10/28/2022 8:11 AM EDT This exam is auto-finalizing. It's purpose is for storage only. Yamileth ORELLANA IMMark FILM LIBRARY ORD ERABLES [place], [place] documented in this encounter Visit Diagnoses Not on filedocumented in this encounter Care Teams Commercial Construction Superintendent Relationship Specialty Start Date End Date Yamileth Saavedra PA [address] [place] [address] PCP - General Family Medicine 06/29/17 documented as of this encounter
--- OUTSIDE RECORDS SUMMARY | 2024-02-25 06:12 | XMS_ITS | Encounter Summary ---
Author Organization [facility]ly [facility] Address [facility] [place] [address] Care Team Providers Care Cytotechnologist/Cytology Supervisor Name Role Phone Yamileth Saavedra Primary Care Provider [phone] Encounter Details Date Type Department Care Team (Latest Contact Info) Description 02/15/2023 11:25 AM EDT - 02/15/2023 11:59 PM EDT Hospital [place] [address] Mirlande Mcgarry MD [facility] [place] [address] Discharge Disposition: Home Social History Tobacco Use Types Packs/Day Years Used Date Smoking Tobacco: Every Day Cigarettes Smokeless Tobacco: Never Alcohol Use Standard Drinks/Week Comments Yes 5 (1 standard drink = 0.6 oz pur e alcohol) [facility] Inpatient Questions Answer Date [...] 03/18/2017 03/04/2023 documented as of this encounter Plan of Treatment Upcoming Encounters Date Type Department Care Team (Late st Contact Info) Description 2024 8:40 AM EDT Appointment Mammography[place] [phone] Jewels Barba [facility] [address] 2024 9:40 AM EDT Office [place] [address] Jewels Barba [facility] [address] documented as of this encounter Procedures Procedure Name Priority Date/Time Associated Diagnosis Comments MAMMO BREAST PATHOLOGY EXCISION Routine 02/15/2023 11:25 AM EDT documented in this encounter Results * MAMMO BREAST PATHOLOGY EXCISION (02/15/2023 11:25 AM EDT) Narrative [employer], Auditing User - 02/15/2023 11:25 AM EDT This exam is auto-finalizing. No interpretation was done. Mirlande Mcgarry MD IMG MAMMO ORDERAB LES documented in this encounter Visit Diagnoses Not on filedocumented in this encounter Care Teams Cytotechnologist/Cytology Supervisor Relationship Specialty Start Date End Date Yamileth Saavedra PA [address] [place] [address] PCP - General Family Medicine 06/29/17 documented as of this encounter
--- OUTSIDE RECORDS SUMMARY | 2024-02-25 06:12 | XMS_ITS | Encounter Summary ---
Author Organization [facility] [place] [address] Care Team Providers Care Orthotist Or Prosthetist Name Role Phone Yamileth Saavedra Primary Care Provider [phone] Reason for Visit * Reason Comments Follow-up Encounter Details Date Type Department Care Team (Late st Contact Info) Description 03/04/2023 10:45 AM EDT Office [place] [address] Krista Julian MD [facility] [place] [address] Abnormal mammogram Social History Tobacco Use Types Packs/Day Years Used Date Smoking Tobacco: Every Day Cigarettes Smokeless Tobacco: Never Alcohol Use Standard Drinks/Week Comments Yes 5 (1 standard drink = 0.6 oz pur e alcohol) [facility] Inpatient Questions Answer Date Recorded Does Anyone [...] as of this encounter Progress Notes * Krista Julian MD - 03/04/2023 10:45 AM EDT Subjective Patient ID: Radha Sanders is a 47 y.o. female. HPI Radha is a 47 yo female who returns following excisional biopsy of atypia of the left breast. She presented for screening mammogram in August,: This revealed calcifications in the right breast ultimately demonstrated to be milk of calcium and an asymmetry in the left breast. Diagnostic imaging on the left confirmed [...] best performed on resection specimen if available. Radha opted for excisional biopsy. 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 Radha recovered very well. She has no complaints today in the clinic. SH: . Has male partner. Has son and daughter. 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 FH: no breast or ovarian cancer PMH GERD Objective Well appearing and in nad. Left infra-mammary fold with well healed incision. No drainage or erythema. Imaging: no new imaging Assessment and Plan Radha is a 47 yo female with adh in the setting of a papillary lesion of the lower inner left breast.. She has recovered well from excisional biopsy and has no evidence of malignancy. We discussed the increased lifetime risk of developing breast cancer. We reviewed the role of arredondo for risk reduction- Radha is not currently interested in medical management. We will plan twice annual breast exams in our clinic with APRNs and annual mammogram. Radha will practice breast awareness and will call if she has any concerns. We also discussed possible breast MRI annually (alternating with mammogram). We reviewed risks and benefits and the absence of data to support screening ADH patients with MRI to i mprove detention survival. She will consider this and discuss at next appointment. Plan personal injury legal assistant visit with next screening mammogram in August,. documented in this encounter Plan of Treatment Upcoming Encounters Date Type Department Care Team (Late st Contact Info) Description 2024 8:40 AM EDT Appointment Mammography/[place] [address] Jewels Barba, [facility] [place] [address] 2024 9:40 AM EDT Office [place] [phone] Jewels Barba [facility] [place] [address] documented as of this encounter Results * Mammo Screening Cad and Koko Bilateral (09/29/2023 9:25 AM EDT) Anatomical Region Laterality Modality Breast Bilateral Mammography Impressions 09/29/2023 11:20 AM EDT No mammographic evidence of malignancy. Routine annual screening mammography is recommended. Recommend high risk screening with MRI alternating with mammography. Consider MRI in 6 months. FINAL ASSESSMENT: BI-RADS Category 2: Benign Findings * ??Regular screening mammograms starting at age 40 reduces the risk of from breast cancer. * ??Yearly screening provides the most benefit. Women should discuss with their provider their preferred breast cancer screening schedule. * ??Women should report any breast changes to a health care provider right away. * ??Some women, because of their family history, a genetic tendency, or other factors, should be screened with annual breast MRI as well as with mammograms. Thank you for letting us participate in the care of this patient. ??If you are a health care provider and have any questions regarding this report, please contact the number below. ??For patients who have questions please contact the health respiratory care practitioner that requested your imaging first. ? Narrative 09/29/2023 11:20 AM EDT EXAMINATION: MAMMO SCREENING CAD AND KOKO BILATERAL REASON FOR EXAM: Screening; No family history of breast cancer. Personal history of left lumpectomy. History of atypical ductal hyperplasia. TECHNIQUE: CC and MLO views were obtained of BOTH breasts. 2D and 3D tomosynthesis images were obtained. Computer aided detection was used. COMPARISON: Comparison was made to the prior relevant examinations. BREAST DENSITY: The breast tissue is extremely dense, which lowers the sensitivity of mammography. FINDINGS: Minimal postsurgical changes on the left are present. There are no suspicious microcalcifications, masses, or areas of distortion. Stable appearance. Krista Julian MD IMG MAMMO ORDERABLE S documented in this encounter Visit Diagnoses Diagnosis Abnormal mammogram Abnormal mammogram, unspecified Abnormal mammogram Abnormal mammogram, unspecified documented in this encounter Care Teams Orthotist Or Prosthetist Relationship Specialty Start Date End Date Yamileth Saavedra PA [address] [place] [address] PCP - General Family Medicine 06/29/17 documented as of this encounter
--- OUTSIDE RECORDS SUMMARY | 2024-02-25 06:12 | XMS_ITS | Encounter Summary ---
Author Organization [facility] [place] [address] Care Team Providers Care Barrel Liner Name Role Phone Yamileth Saavedra Primary Care Provider [phone] Encounter Details Date Type Department Care Team (Latest Contact Info) Description 09/29/2023 Travel Social History Tobacco Use Types Packs/Day [...] 2024 8:40 AM EDT Appointment Mammography/[place] [phone] Jewels Barba APRN [facility] [place] [address] 2024 9:40 AM EDT Office Visit [place] [phone] Jewels Barba APRN [facility] [place] [address] documented as of this encounter Visit Diagnoses Not on filedocumented in this encounter Care Teams Barrel Liner Relationship Specialty Start Date End Date Yamileth Saavedra PA [address] [place] [address] PCP - General Family Medicine 06/29/17 documented as of this encounter
--- OUTSIDE RECORDS SUMMARY | 2024-02-25 06:12 | XMS_ITS | Encounter Summary ---
[place] [address] Care Team Providers Care Senior Php Developer Name Role Phone Lalito Fang Primary Care Provider [phone] Encounter Details Date Type Department Care Team (Latest Contact Info) Description 12/29/2016 - 12/29/2016 11:59 PM EDT Hospital Encounter [place] [address] Manuel Vazquez MD [facility] [place] [address] Discharge Disposition: Home Social History Tobacco Use [...] 2024 8:40 AM EDT Appointment Mammography/[place] [address] Jewels Barba, GROOMING SALON MANAGER [facility] [place] [address] 2024 9:40 AM EDT Office [place] [address] Jewels Barba, GROOMING SALON MANAGER [facility] [place] [address] documented as of this encounter Procedures Procedure Name Priority Date/Time Associated Diagnosis Comments FILM LIBRARY STORAGE ONLY MR SPINE Routine 12/29/2016 12:00 AM EDT documented in this encounter Results * Film Library- Storage Only MR Spine (12/29/2016 12:00 AM EDT) Narrative [facility] - 06/30/2017 11:38 AM EST This exam is for storage only and is auto-finalizing. Manuel Vazquez MD IMG FILM LIBRARY ORD ERABLES [place], [place] documented in this encounter Visit Diagnoses Not on filedocumented in this encounter Care Teams Senior Php Developer Relationship Specialty Start Date End Date Lalito Fang PA [address] [place] [address] PCP - General 05/13/10 06/28/17 documented as of this encounter
--- OUTSIDE RECORDS SUMMARY | 2024-02-25 06:12 | XMS_ITS | Encounter Summary ---
Author Organization [facility] Address [place] [address] Care Team Providers Care Well Puller Name Role Phone Yamileth Saavedra Primary Care Provider [phone] Encounter Details Date Type Department Care Team (Latest Contact Info) Description 01/29/2023 12:30 PM EDT - 01/29/2023 12:31 PM EDT Hospital En[place] [address] Krista Julian MD [facility] [place] [address] Abnormal mammogram Discharge Disposition: Home Social History Tobacco Use Types Packs/Day Years Used Date Smoking Tobacco: Every Day Cigarettes Smokeless Tobacco: Never Alcohol Use Standard Drinks/Week Comments Yes 5 (1 standard drink = 0.6 oz pur e alcohol) [facility] Inpatient Questions Answer Date Recorded Does Anyone [...] 03/18/2017 03/04/2023 documented as of this encounter Procedure Notes * Orestes Sorto MD - 01/25/2023 10:47 AM EDT Images from the original note were not included. Pre-procedure note for needle breast biopsies performed in radiology. Procedure date: Scheduled for: 03/01/23 Procedure type: left breast NLOC Allergies: Patient has no known allergies. Medications: Current Outpatient Medications: ??? cyanocobalamin 1,000 mcg Tablet, Take 1,000 mcg by mouth daily., Disp: , Rfl: ??? diaZEPam (VALIUM) 2 mg Tablet, , Disp: , Rfl: ??? folic acid (FOLVITE) 1 mg Tablet, TAKE ONE TABLET BY MOUTH EVERY DAY, Disp: , Rfl: 4 ??? ERGOCALCIFEROL, VITAMIN D2, (VITAMIN D ORAL), Take 50,000 Units by mouth once a week., Disp: , Rfl: Anticoagulation status: none stopped on: N/A Imaging reviewed and procedural plan approved by MD Sanket Oliveira MD PGY-3 Pager #[phone] Department of Radiology [facility] 01/25/2023 documented in this encounter Plan of Treatment Upcoming Encounters Date Type Department Care Team (Late st Contact Info) Description 2024 8:40 AM EDT Appointment Mammography/[place] [address] Jewels Barba APRN [facility] [place] [address] 2024 9:40 AM EDT Office [place] [address] Jewels Barba, [facility] [place] [address] documented as of this encounter Procedures Procedure Name Priority Date/Time Associated Diagnosis Comments MAMMO US NEEDLE LOCALIZATION LEFT Routine 01/29/2023 1:45 PM EDT Abnormal mammogram documented in this encounter Results * Mammo US Needle Localization Left (01/29/2023 1:45 PM EDT) Anatomical Region Laterality Modality Breast Left Mammography Impressions 01/29/2023 2:09 PM EDT Status post successful ultrasound-guided wire localization for 0.6 cm mass left breast 8:00 position. Thank you for letting us participate in the care of this patient. ??If you are a health care provider and have any questions regarding this report, please contact the number below. ??For patients who have questions please contact the health critical care unit nurse that requested your imaging first. ? Narrative 01/29/2023 2:09 PM EDT ULTRASOUND GUIDED NEEDLE LOCALIZATION OF ??LEFT/post procedure mammograms CLINICAL HISTORY: PLEASE NEEDLE LOCALIZE LEFT BREAST CANCER TECHNIQUE:Informed consent was confirmed and a timeout procedure was performed per protocol. Using sterile technique and local anesthetic (less than 5 cc's of 1% lidocaine) a needle localization of the mass in the Left was performed using ultrasound guidance. The needle was positioned through the mass. After confirming satisfactory positioning of the needle the wire was deployed and a sonographic image was obtained. This image confirms the wire traverses the lesion and the tip of the wire is 0.6 cm beyond the lesion. CC and ML views of the breast were performed to mammographically verify wire placement for the surgeon. There were no complications. Images were annotated on PACS for the operating surgeon. PROCEDURAL ATTESTATION: Resident: Dr. Vega Attending: Dr. Mcgarry performed the procedure Mirlande Mcgarry MD IMG MAMMO ORDERAB LES documented in this encounter Visit Diagnoses Diagnosis Abnormal mammogram Abnormal mammogram, unspecified documented in this encounter Administered Medications Inactive Administered Medications - up to 3 most recent administrations Medication Order MAR Action Action Date Dose Rate Site lidocaine (Xylocaine) 1% (10 mg/mL) injection 0-200 mg 0-200 mg (0-20 mL), Subcutaneous, ONCE, 1 dose, On Wed01/29/23 at 1400, Radiology Protocol Medication, Routine Given 01/29/2023 2:00 PM EDT 10 mg documented in this encounter Care Teams Well Puller Relationship Specialty Start Date End Date Yamileth Saavedra PA [address] [place] [address] PCP - General Family Medicine 06/29/17 documented as of this encounter
--- OUTSIDE RECORDS SUMMARY | 2024-02-25 06:12 | XMS_ITS | Encounter Summary ---
Author Organization [facility] [place] [address] Care Team Providers Care Cafe Assistant Name Role Phone Yamileth Saavedra Primary Care Provider [phone] Encounter Details Date Type Department Care Team (Latest Contact Info) Description 12/31/2022 Travel Social History Tobacco Use Types Packs/Day [...] 2024 8:40 AM EDT Appointment Mammography/[place] [address] Jewels Barba [facility] [place] [address] 2024 9:40 AM EDT Office [place] [address] Jewels Barba [facility] [place] [address] documented as of this encounter Visit Diagnoses Not on filedocumented in this encounter Care Teams Cafe Assistant Relationship Specialty Start Date End Date Yamileth Saavedra PA [address] [place] [address] PCP - General Family Medicine 06/29/17 documented as of this encounter
--- OUTSIDE RECORDS SUMMARY | 2024-02-25 06:12 | XMS_ITS | Encounter Summary ---
Author Organization [facility] [place] [address] Care Team Providers Care Rfid Developer Name Role Phone Yamileth Saavedra Primary Care Provider [phone] Encounter Details Date Type Department Care Team (Late st Contact Info) Description 07/23/2017 11:30 AM EST Notes Only Spine [facility] at [place] [phone] Lillie Laurent [facility] [place] [address] Social History Tobacco Use Types Packs/Day Years [...] 2024 8:40 AM EDT Appointment Mammography/[place] [address] Jewels Barba APRN [facility] [place] [address] 2024 9:40 AM EDT Office [place] [address] Jewels Barba APRN [facility] [place] [address] documented as of this encounter Visit Diagnoses Not on filedocumented in this encounter Care Teams Rfid Developer Relationship Specialty Start Date End Date Yamileth Saavedra PA [address] [place] [address] PCP - General Family Medicine 06/29/17 documented as of this encounter
--- OUTSIDE RECORDS SUMMARY | 2024-02-25 06:12 | XMS_ITS | Encounter Summary ---
Author Organization [facility] [place] [address] Care Team Providers Care Coverage Analyst Name Role Phone Yamileth Saavedra Primary Care Provider [phone] Reason for Visit * Reason Onset Date Comments Other 08/05/2017 Encounter Details Date Type Department Care Team (Late st Contact Info) Description 08/05/2017 Telephone [place] [address] Lillie Laurent [facility] [place] [address] Other Social History Tobacco Use Types Packs/Day Years [...] encounter Miscellaneous Notes * Telephone Encounter - Lillie Laurent MSW - 08/05/2017 2:30 PM EST OFFICE OF CARE MANAGEMENT CCM Follow up call to Ms. Sanders as she is recommended and medically cleared for the [facility]. Ms. Sanders regrets to let us know she took a bad fall a few days after the GAP and is now recovering from a bruised pelvis and among other things. She plans follow up 09/06 with her pcp whohas been helping her since the fall. She will call to either plan to move forward if she is feelingwell or schedule a re GAP if she thinks things have changed. I have wished her well and encouraged her to be in touch. PLAN: 1) patient deferring near term FRP due to healing from a bad fall. She will be back in touch after 09/06 documented in this encounter Plan of Treatment Upcoming Encounters Date Type Department Care Team (Late st Contact Info) Description 2024 8:40 AM EDT Appointment Mammography/[place] [address] Jewels Barba [facility] [place] [address] 2024 9:40 AM EDT Office Visit [place] [address] Jewels Barba [facility] [place] [address] documented as of this encounter Visit Diagnoses Not on filedocumented in this encounter Care Teams Coverage Analyst Relationship Specialty Start Date End Date Yamileth Saavedra PA [address] [place] [address] PCP - General Family Medicine 06/29/17 documented as of this encounter
--- OUTSIDE RECORDS SUMMARY | 2024-02-25 06:12 | XMS_ITS | Encounter Summary ---
Author Organization [facility] [place] [address] Care Team Providers Care Manager Landscape Name Role Phone Yamileth Saavedra Primary Care Provider [phone] Encounter Details Date Type Department Care Team (Late st Contact Info) Description 09/10/2022 Ancillary Procedure [place] [phone] Yamileth Saavedra PA [address] [place], [place] [address] Social History Tobacco Use Types Packs/Day Years [...] 2024 8:40 AM EDT Appointment Mammography/[place] [address] Jewels Barba APRN [facility] [place] [address] 2024 9:40 AM EDT Office [place] [address] Jewels Barba APRN [facility] [place] [address] documented as of this encounter Procedures Procedure Name Priority Date/Time Associated Diagnosis Comments FILM LIBRARY-STORAGE ONLY US BREAST Routine 09/10/2022 12:00 AM EDT documented in this encounter Results * Film Library Storage Only US Breast (09/10/2022 12:00 AM EDT) Narrative [facility] - 10/28/2022 8:07 AM EDT This exam is auto-finalizing. It's purpose is for storage only. Yamileth ORELLANA [employer] FILM LIBRARY ORD ERABLES [place], [place] documented in this encounter Visit Diagnoses Not on filedocumented in this encounter Care Teams Manager Landscape Relationship Specialty Start Date End Date Yamileth Saavedra PA [address] [place] [address] PCP - General Family Medicine 06/29/17 documented as of this encounter
--- OUTSIDE RECORDS SUMMARY | 2024-02-25 06:12 | XMS_ITS | Encounter Summary ---
Author Organization [facility], [facility]ated [facility] [place] [address] Care Team Providers Care Secondary Education Professor Name Role Phone Yamileth Saavedra Primary Care Provider [phone] Reason for Referral * Consultation (Routine) - Closed Specialty Diagnoses / Procedures Referred By Contac t Referred To Contact Orthopaedics Diagnoses Chronic midline low back pain, with sciatica presence unspecified Jacob [place] [address] [facility] [address] [place] [address] Referral ID Status Reason Start Date Expiration Date V isits Requested Visits Authorized [id number] Closed Consult, Test & Treat 07/23/2017 07/23/2018 1 1 Reason for Visit * Reason Comments Back Pain Encounter Details Date Type Department Care Team (Late st Contact Info) Description 07/23/2017 11:00 AM EST Office [place] [address] Jacob Abreu HOUSE [place] [address] Chronic midline low back pain, with sciatica presence unspecified Social History Tobacco Use Types Packs/Day Years [...] as of this encounter Progress Notes * Jacob Abreu APRN - 07/23/2017 11:00 AM EST Subjective: Radha Sanders is being seen today in consideration of a functional muslim program with a chief complaint of midline thoracolumbar pain. Patient's had pain for approximately 2 years and has tried avariety of treatment options which have included medications and physical therapy. 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 She has other complaints with which include bilateral knee pain and bilateral lower extremity peripheral neuropathy. Objective: Patient's affect is bright, her speech is in good time to the point, and she responds appropriate to questions. Lumbar spine MRI of 12/29/2016 is reviewed. There is no stenosis, facet arthropathy, subluxation or fracture. Her functional testing from earlier this morning is reviewed. She does have a significant gap between her current foot measured physical capacities and her personal functional goals. Assessment: This is a counseling-based visit for 50 minute 20 minute encounter talking about the fundamentals of the functional muslim program and its appropriateness for her situation. She has a good understanding of the program is eager to attend it. We have therefore mutually agreed to proceed as follows: Plan: Admission to the [facility] functional muslim program as soon as can be arranged. documented in this encounter Plan of Treatment Upcoming Encounters Date Type Department Care Team (Late st Contact Info) Description 2024 8:40 AM EDT Appointment Mammography/[place] [address] Jewels Barba APRN [facility] [place] [address] 2024 9:40 AM EDT Office [place] [address] Jewels Barba APRN [facility] [place] [address] Scheduled Referrals Name Type Priority Associated Diagnoses Orde r Schedule Referral to Spine Center Outpatient Referral Routine Chronic Midline Low Back Pain, With Sciatica Presence Unspecified Ordered: 07/23/2017 documented as of this encounter Visit Diagnoses Diagnosis Chronic midline low back pain, with sciatica presence unspecified documented in this encounter Care Teams Secondary Education Professor Relationship Specialty Start Date End Date Yamileth Saavedra PA [address] [place] [address] PCP - General Family Medicine 06/29/17 documented as of this encounter
--- OUTSIDE RECORDS SUMMARY | 2024-02-25 06:12 | XMS_ITS | Encounter Summary ---
[place] [address] Care Team Providers Care Prototype Engineer Name Role Phone Yamileth Saavedra Primary Care Provider [phone] Reason for Visit * Reason Comments Low Back Pain Encounter Details Date Type Department Care Team (Late st Contact Info) Description 07/23/2017 9:30 AM EST Office [place] [address] Adela Mendoza, OT Chronic midline low back pain, with sciatica [...] Sign Reading Time Taken Comments Blood Pressure 93/57 07/23/2017 8:48 AM EST Pulse 98 07/23/2017 8:48 AM EST Temperature - - Respiratory Rate - - Oxygen Saturation - - Inhaled Oxygen Concentration - - Weight 45.4 kg (100 lb) 07/23/2017 8:48 AM EST Height 160 cm (5' 3) 07/23/2017 8:48 AM EST Body Mass Index 17.71 07/23/2017 8:48 AM EST documented in this encounter Progress Notes * Adela Mendoza OT - 07/23/2017 9:30 AM EST GOALS AND PHYSICAL CAPACITIES EVALUATION The chief complaint requiring rehabilitation is midline low back and thoracic pain with numbness and tingling in both feet up to the knees. Anatomic diagnoses have included herniated disk T7-T8. Prior treatments included valium, naproxen, gabapentin, ibuprofen. Further diagnostic testing is not planned. Additional medical procedures are not planned. Activity limiting health problems include history of asthma, migraines, bilateral knee pain, left hip pain, coccyx fracture, right great toe fracture, anxiety, osteopenia, 1 ppd smoker. 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 AROM (degrees): Lumbar Spine Forward bend (0-90) 80 Backward bend (0-30) 10 SLR Right (0-90) 80 SLR Left (0-90) 70 SLR-Pelvic Motion [smallest SLR - (flex + ext)] 20 Endurance Testing: Modified Ramp Treadmill Test Minutes Completed 4:00 % Grade 10 Speed (mph) 2.1 MET/HR 5 Reason for Stop Point: Short of breath, legs feeling tired Functional Strength Testing: PILE Testing lbs/HR Floor To Waist 15 / 110 Waist to Shoulder 10 / 106 Reason for Stop Point: Back pain and arms feeling weak During physical testing, participation level was consistent. Demand Levels of Functional Recovery Goals Current Capacity Limit / Physical Demand Level (PDL) Vocational: Medium Recreational: Medium Daily Living: Light-medium Sedentary-light The PDL listed above is based on today's physical performance screening tests. More comprehensive physical testing integrated with clinical findings would be required to derive an accurate work capacity. ASSESSMENT OF FUNCTIONAL TESTING: Based on today???s physical capacity findings Radha Sanders is a candidate for a multidisciplinary intensive physical rehabilitation program with behavioral support. There are physical limitations ingait, range of motion, walking endurance, functional strength, and overall physical capacities thatinterfere with basic functional tasks and hinder quality of life. I believe that this can improve with functional rehabilitation. PLAN: Pending medical clearance, Radha has been recommended for the upcoming Functional Anabaptist Program (FRP) that includes 3-4 weeks of intensive PT/OT followed by a minimum of 6 months commitment to self care exercise for improving and maintaining physical capacities. Total time for testin minutes documented in this encounter Plan of Treatment Upcoming Encounters Date Type Department Care Team (Late st Contact Info) Description 2024 8:40 AM EDT Appointment Mammography/[place] [address] Jewels Barba, [facility] [place] [address] 2024 9:40 AM EDT Office [place] [address] Jewels Barba [facility] [place] [address] documented as of this encounter Visit Diagnoses Diagnosis Chronic midline low back pain, with sciatica presence unspecified documented in this encounter Care Teams Prototype Engineer Relationship Specialty Start Date End Date Yamileth Saavedra PA [address] [place] [id number] PCP - General Family Medicine 06/29/17 documented as of this encounter
--- OUTSIDE RECORDS SUMMARY | 2024-02-25 06:12 | XMS_ITS | Encounter Summary ---
Author Organization [facility] Address [facility] [place] [address] Care Team Providers Care Training Designer Name Role Phone Yamileth Saavedra Primary Care Provider [phone] Encounter Details Date Type Department Care Team (Latest Contact Info) Description 09/29/2023 9:00 AM EDT - 09/29/2023 11:59 PM EDT Hospital Encounter Mammography[place] [address] Krista Julian MD [facility] [place] [address] Abnormal mammogram Discharge Disposition: Home Social History [...] Sig Dispensed Refills Start Date End Date ferrous gluconate (Ferate) 324 mg (37.5 mg iron) tablet Take 324 mg by mouth daily. b complex vitamins Tablet Take 1 tablet by mouth daily. ERGOCALCIFEROL, VITAMIN D2, (VITAMIN D ORAL) Take 50,000 Units by mouth once a week. documented as of this encounter Plan of Treatment Upcoming Encounters Date Type Department Care Team (Late st Contact Info) Description 2024 8:40 AM EDT Appointment Mammography/[place] [address] Jewels Barba, [facility] [place] [address] 2024 9:40 AM EDT Office [place] [address] Jewels Barba, [facility] [place] [address] documented as of this encounter Procedures Procedure Name Priority Date/Time Associated Diagnosis Comments MAMMO SCREENING CAD AND KOKO BILATERAL Routine 09/29/2023 9:25 AM EDT Abnormal mammogram documented in this encounter Results * Mammo Screening Cad [...] who have questions please contact the health customer care professional that requested your imaging first. ? Electronically signed by: Elena Franco MD, [facility] ?? ([phone]), at 09/29/2023 11:20 AM Narrative 09/29/2023 11:20 AM EDT EXAMINATION: MAMMO [...] unspecified documented in this encounter Care Teams Training Designer Relationship Specialty Start Date End Date Yamileth Saavedra PA [address] [place] [address] PCP - General Family Medicine 06/29/17 documented as of this encounter
--- OUTSIDE RECORDS SUMMARY | 2024-02-25 06:12 | XMS_ITS | Clinical Summary ---
Author Organization [facility] Address [facility] [place] [address] Care Team Providers Care Medical Operations Supervisor Name Role Phone Yamileth Saavedra Primary Care Provider [phone] Allergies Active Allergy Reactions Criticality Noted Date Comments Unclassified Drug Rash Low 05/11/2021 Outside Source Comment: rash, mild to moderate Medications Medication Sig Dispensed Refills Start Date End Date Status ERGOCALCIFEROL, VITAMIN D2, (VITAMIN D ORAL) Take 50,000 Units by mouth once a week. Active ferrous gluconate (Ferate) 324 mg (37.5 mg iron) tablet Take 324 mg by mouth daily. Active b complex vitamins Tablet Take 1 tablet by mouth daily. Active Active Problems Problem Noted Date Diagnosed Date Extremely dense tissue of both breasts on mammog analilia 09/29/2023 Atypical ductal hyperplasia of left breast 09/28 Depressive disorder 09/26/2023 Essential thrombocythemia 09/26/2023 Neuropathy involving both lower extremities 12/2023 Obstructive sleep apnea syndrome 05/20/2020 Iron deficiency anemia 02/27/2020 Chronic headache disorder 11/21/2019 Cervical radiculopathy 01/05/2019 Chronic low back pain 07/23/2017 Abdominal pain, periumbilical 07/27/2013 CIS - Vitamin D deficiency 12/26/2009 Overview (08/26/2010): 12/26/09: 25vitamin D = 20 -> 14 (03/29/10) despite taking OTC-vitD 2,000 iu qd ->increased to 5000 iu qd CIS - Osteopenia on DEXA scan 07/29/2009 Overview (08/26/2010): - DEXA 07/29/09 ([facility]): T-score = -1.2 at L1-4, -1.3 at Left hip and total hip - Normal Ca 9.7, iCa 1.23, PTH 23 but low vitamin D 14-20 range...?osteomalacia CIS - Borderline low TSH and FT4 06/21/2009 Overview (08/26/2010): TSH has been trending down from 1.1 (05/29)->0.41 (04/19/10)...?hyperthyroid Repeat lab on 04/21/10 showed TSH 0.93 but borderline low FT4 0.78 (normal 0.78-2.19) CIS - Anemia CIS - Depression/Anxiety-situational CIS - Insomnia Family History Medical History Relation Comments Lung Cancer Father Lung Cancer Paternal Uncle 1 Esophageal Cancer Paternal Uncle 2 Thyroid Cancer Sister Breast Cancer Neg Hx Relation Status Comments Father Paternal Uncle 1 Paternal Uncle 2 Sister Social History Tobacco Use Types Packs/Day Years [...] on file Sexual Orientation Not on file Last Filed Vital Signs Vital Sign Reading [...] Mass Index 19.49 01/29/2023 2:31 PM EDT Plan of Treatment Upcoming Encounters Date Type Department Care Team (Late st Contact Info) Description 2024 8:40 AM EDT Appointment Mammography/[place] [phone] Jewels Barba CORRECTIONAL SUPERVISOR [employer] [facility] [place] [address] 2024 9:40 AM EDT Office Visit [place] [address] Jewels Barba [facility] [place] [address] Health Maintenance Due Date Last Done Comments CT Colonography 1976 FIT DNA 1976 FIT 1976 Sigmoidoscopy 1976 Pneumococcal Vaccine: At-Ris k 5-64yrs (1 of 2 - PCV) 1982 HIV screen 1994 Hepatitis C Screening 1994 Lipid Screening 1994 Hepatitis B vaccine (0-59 yrs) (1) 10/03/1995 Tdap adult 10/03/1995 Tetanus vaccine 10/03/1995 HPV test 2006 PAP Smear 2006 Breast Cancer Share Decision Needed 2016 Colonoscopy 08/26/2023 08/25/2013, 08/25/2013 Colorectal Cancer Screening 08/26/2023 Sigmoidoscopy (10 year) with FIT yearly 08/26/2023 0 08/25/2013, 08/25/2013 Covid-19 Vaccine ( - season) 2024, 08/24/2020 Influenza (Flu) vaccine (1 o f 1 - Influenza standard series) 02/20/2024 Breast Cancer screening 09/28/2025 09/29/2023 Procedures Procedure Name Priority Date/Time Associated Diagnosis Comments MAMMO SCREENING CAD AND KOKO BILATERAL Routine 09/29/2023 9:25 AM EDT Abnormal mammogram COLONOSCOPY Routine 08/25/2013 3:14 PM EST from Last 3 Months or Most Recently Relevant to Health Maintenance Results * Mammo Screening Cad and Koko [...] who have questions please contact the health pulmonary care nurse that requested your imaging first. ? Electronically signed by: Elena Franco MD, [facility] ?? ([phone]), at 09/29/2023 11:20 AM Narrative 09/29/2023 11:20 [...] Krista Julian MD IMG MAMMO ORDERABLE S * COLONOSCOPY (08/25/2013 3:14 PM EST) COLONOSCOPY [facility] Endoscopy Patient Name: Radha Sanders ? Procedure Date: 08/25/2013 3:14 PM ? Date of : 1975 ? Age: 37 ? Order #: [id number] ? Procedure: ? Colonoscopy Indications: ? Generalized abdominal pain Providers: ? Orestes Sepulveda MD, Betzy Nguyen ? ESTHER Vásquez, Sarah Ruiz, ? Assistant Professor Of English Referring MD: ?REYNA Anderson, Anna ? MD Nikhil Medicines: ? Midazolam 2 mg IV Complications: ? No immediate complications. Procedure: ? Pre-Anesthesia Assessment: ? - ASA Grade Assessment: I - A normal, ? healthy patient. ? The procedure, indications, benefits, ? risks and alternatives were explained ? to the patient. Specifically ? discussed were potential ? complications including, but not ? limited to, bleeding, perforation, ? infection, missing a cancer, and ? adverse medication reactions. The ? patient was placed in the left ? lateral decubitus position, and a ? digital rectal exam was performed. ? The Colonoscope was inserted in the ? anus and under direct visualization, ? advanced to the terminal ileum. ? Careful inspection was made as the ? colonoscope was withdrawn. The ? colonoscopy was performed without ? difficulty. The patient tolerated the ? procedure well. The quality of the ? bowel preparation was excellent. ? Scope withdrawal time was 14 minutes. ? Findings: ? The colon (entire examined portion) appeared normal. ? The terminal ileum appeared normal. ? The colon (entire examined portion) appeared normal. ? Biopsies were taken with a cold forceps for histology. ? Internal hemorrhoids were found during retroflexion ? and were small. ? Impression: ?- The entire examined colon is normal. ? - The examined portion of the ileum ? was normal. ? - The entire examined colon is ? normal. Biopsied. ? - Internal hemorrhoids. Recommendation: ?- Await pathology results. ? __ Orestes Sepulveda MD 08/25/2013 4:11 PM This report has been signed electronically. Number of Addenda: 0 Note Initiated On: 08/25/2013 3:14 PM PROVATION 08/25/2013 3:14 PM EST Lalito ORELLANA GENERAL SURGICAL ORD ERABLES PROVATION from Last 3 Months or Most Recently Relevant to Health Maintenance Care Teams Medical Operations Supervisor Relationship Specialty Start Date End Date Yamileth Saavedra PA [address] [place] [address] PCP - General Family Medicine 06/29/17
--- OUTSIDE RECORDS SUMMARY | 2024-02-25 06:12 | XMS_ITS | Encounter Summary ---
Author Organization [facility] [place] [address] Care Team Providers Care Shovel Oiler Name Role Phone Yamileth Saavedra Primary Care Provider [phone] Encounter Details Date Type Department Care Team (Latest Contact Info) Description 03/04/2023 Travel Social History Tobacco Use Types Packs/Day [...] 2024 8:40 AM EDT Appointment Mammography/[place] [address] Jewels Barba APRN [facility] [place] [place] [address] 2024 9:40 AM EDT Office Visit [place] [address] Jewels Barba APRN [facility] [place] [address] documented as of this encounter Visit Diagnoses Not on filedocumented in this encounter Care Teams Shovel Oiler Relationship Specialty Start Date End Date Yamileth Saavedra PA [address] [place] [address] PCP - General Family Medicine 06/29/17 documented as of this encounter
--- OUTSIDE RECORDS SUMMARY | 2024-02-25 06:12 | XMS_ITS | Encounter Summary ---
Author Organization [facility] [place] [address] Care Team Providers Care Sports Statistician Name Role Phone Yamileth Saavedra Primary Care Provider [phone] Reason for Visit * Reason Comments Advice Only * Consultation (Routine) - Closed Specialty Diagnoses / Procedures Referred By Contac t Referred To Contact Hematology and Oncology Diagnoses Abnormal histological findings in specimens from other organs, systems and tissues Suyapa Dacosta, [facility] [address] [place] [address] [place] [address] [facility] Hem Onc [address] [place] [address] Referral ID Status Reason Start Date Expiration Date V isits Requested Visits Authorized [id number] Closed Consult, Test & Treat PCP Updated and/or Approved 10/26/2022 10/26/2023 6 6 Encounter Details Date Type Department Care Team (Late st Contact Info) Description 12/31/2022 3:30 PM EDT Office Visit Hematology [place] [address] Krista Julian MD [facility] [place] [address] Abnormal mammogram Social History Tobacco Use Types [...] Sign Reading Time Taken Comments Blood Pressure 102/57 12/31/2022 3:07 PM EDT Pulse 87 12/31/2022 3:07 PM EDT Temperature 36.6 ??C (97.9 ??F) 12/31/2022 3:07 PM ED T Respiratory Rate 18 12/31/2022 3:07 PM EDT Oxygen Saturation 97% 12/31/2022 3:07 PM EDT Inhaled Oxygen Concentration - - Weight 49.7 kg (109 lb 9.1 oz) 12/31/2022 3:07 P M EDT Height 163.2 cm (5' 4.25) 12/31/2022 3:07 PM ED T Body Mass Index 18.66 12/31/2022 3:07 PM EDT documented in this encounter Progress Notes * Krista Julian MD - 12/31/2022 3:30 PM EDT Subjective Patient ID: Radha Sanders is [...] male partner. Has son and daughter. 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 FH: no breast or ovarian cancer [...] additional surgery were discussed and consent obtained. documented in this encounter Plan of Treatment Upcoming Encounters Date Type Department Care Team (Late st Contact Info) Description 2024 8:40 AM EDT Appointment Mammography/[place] [address] Jewels Barba APRN [facility] [place] [address] 2024 9:40 AM EDT Office [place] [address] Jewels Barba APRN [facility] [place] [address] Scheduled Referrals Name Type Priority Associated Diagnoses Orde r Schedule Referral to Hematology and Oncology Outpatient Referral Routine Abnormal Histological Findings In Specimens From Other Organs, Systems And Tissues Ordered: 10/26/2022 documented as of this encounter Visit Diagnoses Diagnosis Abnormal mammogram Abnormal mammogram, unspecified documented in this encounter Care Teams Sports Statistician Relationship Specialty Start Date End Date Yamileth Saavedra PA [address] [place] [address] PCP - General Family Medicine 06/29/17 documented as of this encounter
--- OUTSIDE RECORDS SUMMARY | 2024-02-25 06:12 | XMS_ITS | Encounter Summary ---
Author Organization [facility] Address [facility] [address] Care Team Providers Care Shutdown Planner Name Role Phone Yamileth Saavedra Primary Care Provider [phone] Encounter Details Date Type Department Care Team (Latest Contact Info) Description 01/29/2023 1:44 PM EDT - 01/29/2023 2:18 PM EDT Hospital [place] [address] Mirlande Mcgarry MD [facility] [place] [address] Abnormal finding on breast imaging Discharge Disposition: Home Social History Tobacco Use Types Packs/Day Years Used Date Smoking Tobacco: Every Day Cigarettes Smokeless Tobacco: Never Alcohol Use Standard Drinks/Week Comments Yes 5 (1 standard drink = 0.6 oz pur e alcohol) [facility] Inpatient Questions Answer Date Recorded Does [...] 2024 8:40 AM EDT Appointment Mammography/[place] [phone] Jewels Barba, [facility] [address] 2024 9:40 AM EDT Office [place] [phone] Jewels Barba, [facility] [address] documented as of this encounter Procedures Procedure Name Priority Date/Time Associated Diagnosis Comments MAMMO DIAGNOSTIC WITHOUT CAD LEFT Routine 01/29/2023 2:04 PM EDT Abnormal finding on breast imaging documented in this encounter Results * Mammo Diagnostic Without Cad Left (01/29/2023 2:04 PM EDT) Anatomical Region Laterality Modality Breast [...] who have questions please contact the health pet care technician that requested your imaging first. ? Electronically signed by: Mirlande Mcgarry MD, [facility] ([phone]), at 01/29/2023 2:09 PM Narrative 01/29/2023 2:09 PM EDT ULTRASOUND GUIDED [...] in this encounter Visit Diagnoses Diagnosis Abnormal finding on breast imaging Other (abnormal) findings on radiological examination of breast documented in this encounter Care Teams Shutdown Planner Relationship Specialty Start Date End Date Yamileth Saavedra PA [address] [place] [address] PCP - General Family Medicine 06/29/17 documented as of this encounter
--- OUTSIDE RECORDS SUMMARY | 2024-02-25 06:12 | XMS_ITS | Encounter Summary ---
Author Organization [facility] Address [facility] [place] [address] Care Team Providers Care Sourcing Analyst Name Role Phone Yamileth Saavedra Primary Care Provider [phone] Encounter Details Date Type Department Care Team (Latest Contact Info) Description 01/29/2023 12:32 PM EDT - 01/29/2023 1:43 PM EDT Hospital [place] [address] Luis Julian MD [facility] [place] [address] Abnormal mammogram Discharge Disposition: Home Social History Tobacco Use Types Packs/Day Years Used Date Smoking Tobacco: Every Day Cigarettes Smokeless Tobacco: Never Alcohol Use Standard Drinks/Week Comments Yes 5 (1 standard drink = 0.6 oz pur e alcohol) [facility] Inpatient Questions Answer Date Recorded Does [...] 2024 8:40 AM EDT Appointment Mammography/[place] [phone] Jewels Barba [facility] [place] [address] 2024 9:40 AM EDT Office [place] [phone] Jewels Barba [facility] [place] [address] documented as of this encounter Procedures Procedure Name Priority Date/Time Associated Diagnosis Comments MAMMO SPECIMEN LEFT Routine 01/29/2023 3 :33 PM EDT Abnormal mammogram documented in this encounter Results * Mammo Specimen Left [...] who have questions please contact the health adult caregiver that requested your imaging first. ? Electronically signed by: Mirlande Mcgarry MD, [facility] ([phone]), at 01/29/2023 3:39 PM Luis Julian MD IMG MAMMO ORDERABLE S documented in this encounter Visit Diagnoses Diagnosis Abnormal mammogram Abnormal mammogram, unspecified documented in this encounter Care Teams Sourcing Analyst Relationship Specialty Start Date End Date Yamileth Saavedra PA [address] [place] [address] PCP - General Family Medicine 06/29/17 documented as of this encounter
--- OUTSIDE RECORDS SUMMARY | 2024-02-25 06:12 | XMS_ITS | Encounter Summary ---
Author Organization [facility] Address [address] [place] [address] Care Team Providers Care Auto Glass Worker Name Role Phone Unavailable Primary Care Provider Unavailabl e Encounter Details Date Type Department Care Team (Latest Contact Info) Description 01/21/2017 14:40 EDT - 01/21/2017 23:59 EDT Hospital Encounter [address] [address] Unknown, Provider, Discharge Disposition: Home or Self Care Social History Tobacco Use Types Packs/Day Years Used Date Smoking Tobacco: Never Assessed Sex and Gender Information Value Date Recorded Sex Assigned at Not on file Gender Identity Not on file Sexual Orientation Not on file documented as of this encounter Discharge Disposition Disposition Code Departure Means Destination Home or Self Custodial documented in this encounter Plan of Treatment Not on file documented as of this encounter Visit Diagnoses Not on filedocumented in this encounter
--- OUTSIDE RECORDS SUMMARY | 2024-02-25 06:13 | XMS_ITS | Encounter Summary ---
Author Organization [facility] [place] [address] Care Team Providers Care Tariff Clerk Name Role Phone Lalito Fang Primary Care Provider [phone] Reason for Visit * Reason Onset Date Comments Other 08/16/2013 MRE Encounter Details Date Type Department Care Team (Late st Contact Info) Description 08/16/2013 [place] [address] Shania Cano Other (MRE) Social History Tobacco Use Types Packs/Day Years Used Date Smoking Tobacco: Every Day Sex and Gender Information Value Date Recorded Sex Assigned at Not on file Gender Identity Not on file Sexual Orientation Not on file documented as of this encounter Miscellaneous Notes * Telephone Encounter - Shania Cano - 08/16/2013 2:27 PM EST Patient was scheduled for an MRE but insurance needed a Peer to Peer. Peer to Peer has been approved. Have left patient messages to schedule with no response. If patient calls to schedule, please schedule. Per Anna Tejeda APRN. documented in this encounter Plan of Treatment Upcoming Encounters Date Type Department Care Team (Late st Contact Info) Description 2024 8:40 AM EDT Appointment Mammography/[place] [address] Jewels Barba APRN [facility] [place] [address] 2024 9:40 AM EDT Office [place] [address] Jewels Barba APRN [facility] [place] [address] documented as of this encounter Visit Diagnoses Not on filedocumented in this encounter Care Teams Tariff Clerk Relationship Specialty Start Date End Date Lalito Fang PA [address] [place] [address] PCP - General 05/13/10 06/28/17 documented as of this encounter
--- OUTSIDE RECORDS SUMMARY | 2024-02-25 06:13 | XMS_ITS | Encounter Summary ---
Author Organization [facility] [place] [address] Care Team Providers Care Aesthetician Name Role Phone Lalito Fang Primary Care Provider [phone] Encounter Details Date Type Department Care Team (Late st Contact Info) Description 08/08/2013 Telephone [place] [phone] Anna Tejeda APRN [facility] [place] [address] Social History Tobacco Use Types Packs/Day Years Used Date Smoking Tobacco: Every Day Sex and Gender Information Value Date Recorded Sex Assigned at Not on file Gender Identity Not on file Sexual Orientation Not on file documented as of this encounter Miscellaneous Notes * Telephone Encounter - Anna Tejeda RN - 08/08/2013 1:06 PM EST Spoke with Dr. Rhodes, peer to peer, regarding mre. Approved. ID#: [id number]. Good for 60 days. July 29, 2013-September 26, 2013. documented in this encounter Plan of Treatment Upcoming Encounters Date Type Department Care Team (Late st Contact Info) Description 2024 8:40 AM EDT Appointment Mammography/[place] [address] Jewels Barba [employer] [facility] [place] [address] 2024 9:40 AM EDT Office [place] [address] [facility] [place] [address] documented as of this encounter Visit Diagnoses Not on filedocumented in this encounter Care Teams Aesthetician Relationship Specialty Start Date End Date Lalito Fang PA [address] [place] [address] PCP - General 05/13/10 06/28/17 documented as of this encounter
--- OUTSIDE RECORDS SUMMARY | 2024-02-25 06:13 | XMS_ITS | Encounter Summary ---
Author Organization [facility] Address [facility] [place] [address] Care Team Providers Care Radiology Technologist Name Role Phone Lalito Fang Primary Care Provider [phone] Encounter Details Date Type Department Care Team (Late st Contact Info) Description 08/25/2013 2:30 PM EST - 08/25/2013 3:30 PM EST Surgery [place] [address] Orestes Ambrose MD [facility] [place] [address] UPPER GASTROINTESTINAL ENDOSCOPY,WITH BIOPSY SINGLE OR MULTIPLE (WRVU 2.39) Social History Tobacco Use Types Packs/Day Years Used Date Smoking Tobacco: Every Day Tobacco Cessation:Ready to Q uit: No Alcohol Use Standard Drinks/Week Comments Yes 5 (1 standard drink = 0.6 oz pur e alcohol) Sex and Gender Information Value Date Recorded Sex Assigned at Not on file Gender Identity Not on file Sexual Orientation Not on file documented as of this encounter Last Filed Vital Signs Vital Sign Reading Time Taken Comments Blood Pressure 106/63 08/25/2013 4:08 PM EST Pulse 73 08/25/2013 4:08 PM EST Temperature 36.5 ??C (97.7 ??F) 08/25/2013 1:45 PM ES T Respiratory Rate 18 08/25/2013 4:08 PM EST Oxygen Saturation 100% 08/25/2013 4:08 PM EST Inhaled Oxygen Concentration - - Weight - - Height - - Body Mass Index - - documented in this encounter Discharge Instructions * Discharge Instructions* Ame Aguilar RN - 08/25/2013 4:12 PM EST UPPER GI ENDOSCOPY WHAT TO EXPECT AFTER THE PROCEDURE After the test you may feel a little more gassy or bloated than usual, this is normal. ACTIVITY Because of the sedation that you received Your judgement and reaction time are affected ?? Go home and rest quietly for the remainder of the day. You may resume your normal activities tomorrow. ?? Change from one position to the next slowly. You may lose your balance unexpectedly Be careful on stairs, as you may be unsteady on your feet. FOR THE NEXT 24 HRS ?? DO NOT DRIVE OR OPERATE ANY MACHINERY ?? DO NOT DRINK ALCOHOLIC BEVERAGES ?? DO NOT SIGN LEGAL DOCUMENTS ?? If you are a smoker: DO NOT SMOKE WHILE YOU ARE ALONE Diet ?? Start by eating small portions of foods that ordinarily will not upset your stomach. Be gentle with what you choose to start with. ?? Drink plenty of fluids ( unless otherwise told not to) Medications You may have a mild sore throat. Ice chips, popsicles, over the counter throat lozenges or spray may help numb your throat. This procedure should not cause a fever. IV SITE-- slight redness or tenderness is normal, you can use warm compresses if you get concerned.If the tenderness +/or redness increases or foul drainage and a red streak occurs, please contact your PCP immediately. WHEN SHOULD YOU CALL FOR HELP? Call 911 anytime you think that you need emergency care. For example, call if: You passed out (lost consciousness). You cough up blood. You vomit blood or what looks like coffee grounds. You pass maroon or very bloody stools. Call your healthcare provider or seek immediate medical attention if: You have trouble swallowing. You have belly pain. Your stools are black or tarlike or have streaks of blood. You are sick to your stomach or cannot keep fluids down. Watch closely for changes in your health, and be sure to contact your doctor IF Your throat still hurts after a day or two You do not get better as expected. Wednesday-Wednesday Clinic [phone] 8a-5p Same Day Endo [phone] 7a-8p Otherwise contact [phone] and ask to speak to the top waddy chief innovation officer Follow-up care is a milner part of your treatment and safety. Be sure to make and go to all appointments, and call your doctor if you are having problems. Instructions have been reviewed and patient expresses understanding documented in this encounter Medications at Time of Discharge Medication Sig Dispensed Refills Start Date End Date ERGOCALCIFEROL, VITAMIN D2, (VITAMIN D ORAL) Take 50,000 Units by mouth once a week. multivitamin (THERAGRAN) tablet Take 1 tablet by mouth daily. 07/23/2017 documented as of this encounter H&P Notes * Orestes Ambrose MD - 08/25/2013 3:12 PM EST Gastroenterology and Hepatology Pre-Procedure History and Physical Exam Procedure: Colonoscopy: EGD Indication: abdominla pain and diarrhea Patient Active Problem List Diagnosis Code ??? CIS - Anemia T999.0 ??? CIS - Borderline low TSH and FT4 T999.0 ??? CIS - Depression/Anxiety-situational T999.0 ??? CIS - Insomnia T999.0 ??? CIS - Osteopenia on DEXA scan T999.0 ??? CIS - Vitamin D deficiency T999.0 ??? Abdominal pain, periumbilical 789.05 EXAM: HEENT: Airway examined, oropharynx clear LUNGS: Clear to auscultation HEART: Regular rate and rhythm, normal S1, S2 ABDOMEN: Normal bowel sounds, soft, non tender, non distended, A/P Proceed with the planned endoscopic procedure. Risks and benefits of the procedure explained to the patient. Consent signed. documented in this encounter Miscellaneous Notes * Miscellaneous - Provider, Scanning - 08/25/2013 9:19 PM EST * Miscellaneous - Provider, Scanning - 08/25/2013 5:04 PM EST documented in this encounter Plan of Treatment Upcoming Encounters Date Type Department Care Team (Late st Contact Info) Description 2024 8:40 AM EDT Appointment Mammography/[place] [address] Jewels Barba, [facility] [place] [address] 2024 9:40 AM EDT Office Visit General Surgery at [facility] [place] [phone] Jewels Barba, [facility] [place] [address] documented as of this encounter Procedures Procedure Name Priority Date/Time Associated Diagnosis Comments SPECIMEN TO PATHOLOGY Routine 08/25/2013 4:34 PM EST SURGICAL PATHOLOGY REPORT Routine 08/25/2013 4:04 PM EST SPECIMEN TO PATHOLOGY Routine 08/25/2013 4:04 PM EST SPECIMEN TO PATHOLOGY Routine 08/25/2013 4:04 PM EST SPECIMEN TO PATHOLOGY Routine 08/25/2013 4:04 PM EST COLONOSCOPY FLEXIBLE, WITH BX (WRVU 3.56) 08/25/2013 3:22 PM EST Abdominal pain, periumbilical UPPER GASTROINTESTINAL ENDOSCOPY,WITH BIOPSY SINGLE OR MULTIPLE (WRVU 2.39) 08/25/2013 3:22 PM EST Abdominal pain, periumbilical UPPER GI ENDOSCOPY Routine 08/25/2013 3: 14 PM EST COLONOSCOPY Routine 08/25/2013 3:14 PM EST documented in this encounter Results * Specimen to Pathology (surgical or derm) (08/25/2013 4:34 PM EST) AP Specimen 08/25/2013 4:34 PM EST 08/25/2013 4:34 PM EST Narrative OZZY MORROW - 08/25/2013 4:34 PM EST Specimen requisition ordered. ??Separate Pathology report to follow Orestes Ambrose MD PATHOLOGY/CYTOLOGY O RDERABLES [facility] MORROW * Surgical Pathology Report (08/25/2013 4:04 PM EST) Final Diagnosis ? [facility] ? Provider: ?? ORESTES AMBROSE ?Pt. Name: ?? RADHA BRYAN ? Acc #: ?[id number] ?Pt. ? Col Date: ?? 08/25/2013 ?/Sex: ?1975,(37 years),Female ? Rec Date: ?? 08/25/2013 ?LOC: ?4T ? SURGICAL PATHOLOGY ? ---Pathologic Diagnosis--- ? Endoscopic biopsies - ? A - Duodenum: ? Duodenal mucosa within normal limits. ? B - Stomach: ? Gastric antral type mucosa with mild nonspecific reactive gastropathy. ? No H. pylori-like organisms are identified. ? C - Esophagus: ? Mildly active nonspecific esophagitis with rare eosinophils, suggestive of ? reflux etiology. ? D - Colon: ? Colonic mucosa within normal limits. ? CR-0 ; CR-PX ? 08/29/13 ? JRP ? 08/29/13 Verified by: ? Basil Connell MD ? Pathologist ? (Electronic Signature) ? The attending pathologist whose signature appears on this report has ? reviewed all diagnostic slides and has edited the gross and/or ? microscopic portion of the report in rendering the final pathologic ? diagnosis. ? ---Gross Description--- ? A - Labeled/Fixativ e: BX of duodenum, formalin. ? Quantity/Size: Four, ranging from 0.1-0.5 cm. ? Tissue Description: Polypoid pinzon soft tissues. ? Sections/Proces sing: (T1) ? B - Labeled/Fixativ e: BX of stomach rule out H. Pylori, formalin. ? Quantity/Size: Four, ranging from 0.1-0.6 cm. ? Tissue Description: Polypoid pinzon soft tissues. ? Sections/Proces sing: (T1) ? C - Labeled/Fixativ e: BX of esophagus rule out EE, formalin. ? Quantity/Size: Four, averaging 0.2 cm ? Tissue Description: Polypoid pinzon soft tissues. ? [facility] ? Provider: ?? ORESTES AMBROSE P ?Pt. Name: ?? RADHA BRYAN P ? Acc #: ?[id number] ?Pt. ? Col Date: ?? 08/25/2013 ?/Sex: ?1975,(37 years),Female ? Rec Date: ?? 08/25/2013 ?LOC: ?4T ? SURGICAL PATHOLOGY ? Sections/Proces sing: (T1) ? D - Labeled/Fixativ e: BX of colon, formalin. ? Quantity/Size: Multiple, ranging from 0.1-0.4 cm. ? Tissue Description: Polypoid pinzon soft tissues. ? Sections/Proces sing: (T3) ??shb ? ---Clinical Information--- ? Specimen Submitted: ? A - Bx of duodenum ? B - Bx of stomach R/O Hpylori ? C - Bx of esophagus R/O EE ? D - Bx of colon ? Clinical History: ? A-D. Patient with abdominal pain and dyspepsia ? Clinical Diagnosis: ? Same 08/29/2013 2:10 PM EDT [facility] GI Biopsy 08/25/2013 4:04 PM EST 08/25/2013 4:04 PM EST GI Biopsy 08/25/2013 4:04 PM EST 08/25/2013 4:04 PM EST GI Biopsy 08/25/2013 4:04 PM EST 08/25/2013 4:04 PM EST GI Biopsy 08/25/2013 4:04 PM EST 08/25/2013 4:04 PM EST Orestes Ambrose MD PATHOLOGY/CYTOLOGY O RC Performing Organization Address [facility] Co de Phone Number [facility] [place] [address] * Specimen to Pathology (surgical or derm) (08/25/2013 4:04 PM EST) AP Specimen 08/25/2013 4:04 PM EST 08/25/2013 4:04 PM EST Narrative [facility] - 08/25/2013 4:04 PM EST Specimen requisition ordered. ??Separate Pathology report to follow Orestes Ambrose MD PATHOLOGY/CYTOLOGY O RC Performing Organization Address [facility]/ZIP Co de Phone Number [facility] * Specimen to Pathology (surgical or derm) (08/25/2013 4:04 PM EST) AP Specimen 08/25/2013 4:04 PM EST 08/25/2013 4:04 PM EST Narrative OZZY MORROW - 08/25/2013 4:04 PM EST Specimen requisition ordered. ??Separate Pathology report to follow Orestes Ambrose MD PATHOLOGY/CYTOLOGY O RC Performing Organization Address [facility] Co de Phone Number OZZY MORROW * Specimen to Pathology (surgical or derm) (08/25/2013 4:04 PM EST) AP Specimen 08/25/2013 4:04 PM EST 08/25/2013 4:04 PM EST Narrative OZZY MORROW - 08/25/2013 4:04 PM EST Specimen requisition ordered. ??Separate Pathology report to follow Orestes Ambrose MD PATHOLOGY/CYTOLOGY O RC Performing Organization Address City/[facility] Co de Phone Number OZZY MORROW * UPPER GI ENDOSCOPY (08/25/2013 3:14 PM EST) UPPER GI ENDOSCOPY [facility] Endoscopy Patient Name: Radha Bryan ? Procedure Date: 08/25/2013 3:14 PM ? N: [id number] ? Date of : 1975 ? Age: 37 ? Order #: [id number] ? Procedure: ? Upper GI endoscopy Indications: ? Generalized abdominal pain, Dyspepsia Providers: ? Orestes Ambrose MD, Betzy Nguyen ? ESTHER Vásquez, Sarah Ruiz, ? Mechanical System Technician Referring MD: ?REYNA Anderson, Anna ? MD Nikhil Medicines: ? Midazolam 6 mg IV, Fentanyl 250 ? micrograms IV, Diphenhydramine 50 mg ? IV Complications: ? No immediate complications. Procedure: ? The procedure, indications, benefits, ? risks and alternatives were explained ? to the patient. Specifically ? discussed were potential ? complications including, but not ? limited to, bleeding, perforation, ? infection, missing a cancer, and ? adverse medication reactions. The ? Endoscope was introduced through the ? mouth, and advanced to the third part ? of duodenum. The patient tolerated ? the procedure well. The upper GI ? endoscopy was accomplished without ? difficulty. The patient tolerated the ? procedure well. ? Findings: ? A small hiatus hernia was present from 35-38 cm. ? Above this was a wide opne Schatzki's ring ? The examined esophagus was normal. Biopsies were ? taken with a cold forceps for histology. ? The entire examined stomach was normal. Biopsies were ? taken with a cold forceps for Helicobacter pylori ? testing. ? The examined duodenum was normal. Biopsies were taken ? with a cold forceps for evaluation of celiac disease. ? Impression: ?- Hiatus hernia. ? - Normal esophagus. Biopsied. ? - Normal stomach. Biopsied. ? - Normal examined duodenum. Biopsied. Recommendation: ?- Await pathology results. ? _ Orestes Ambrose MD 08/25/2013 3:45 PM This report has been signed electronically. Number of Addenda: 0 Note Initiated On: 08/25/2013 3:14 PM PROVATION 08/25/2013 3:14 PM EST Lalito ORELLANA GENERAL SURGICAL ORD ERABLES PROVATION * COLONOSCOPY (08/25/2013 3:14 PM EST) COLONOSCOPY [facility] Endoscopy Patient Name: Radha Bryan ? Procedure Date: 08/25/2013 3:14 PM ? Date of : 1975 ? Age: 37 ? Order #: [id number] ? Procedure: ? Colonoscopy Indications: ? Generalized abdominal pain Providers: ? Orestes Ambrose MD, Betzy Nguyen ? ESTHER Vásquez, Sarah Ruiz, ? Mechanical System Technician Referring MD: ?REYNA Anderson, Anna ? MD [...] ?- Await pathology results. ? __ Orestes Ambrose MD 08/25/2013 4:11 PM This report has been signed electronically. Number of Addenda: 0 Note Initiated On: 08/25/2013 3:14 PM PROVATION 08/25/2013 3:14 PM EST Lalito ORELLANA GENERAL SURGICAL ORD ERABLES PROVATION documented in this encounter Visit Diagnoses Diagnosis Abdominal pain, periumbilical Abdominal pain, periumbilic documented in this encounter Administered Medications Inactive Administered Medications - up to 3 most recent administrations Medication Order MAR Action Action Date Dose Rate Site diphenhydrAMINE (BENADRYL) injection ONCE PRN, Starting on Wed08/25/13 at 1524, Until Wed08/25/13 at 2127, Itching, Intra-Operative (Intra-Procedure), Routine Given 08/25/2013 3:27 PM EST 25 mg Given 08/25/2013 3:24 PM EST 25 mg fentaNYL 50mcg/mL injection ONCE PRN, Starting on Wed08/25/13 at 1524, Until Wed08/25/13 at 2127, Pain, Intra-Operative (Intra-Procedure), Routine Given 08/25/2013 3:35 PM EST 5 0 mcg Given 08/25/2013 3:33 PM EST 50 mcg Given 08/25/2013 3:30 PM EST 50 mcg midazolam (PF) (VERSED) 1 mg/mL injection ONCE PRN, Starting on Wed08/25/13 at 1524, Until Wed08/25/13 at 2127, Sleep, Intra-Operative (Intra-Procedure), Routine Given 08/25/2013 3:43 PM EST 1 mg Given 08/25/2013 3:38 PM EST 1 mg Given 08/25/2013 3:36 PM EST 1 mg documented in this encounter Active and Recently Administered Medications Times are shown in EST. PRN Medication Order 08/23/2013 08/24/2013 08/25/2013 diphenhydrAMINE (BENADRYL) injection (CANCELED) ONCE PRN, Starting on Wed08/25/13 at 1524, Until Wed08/25/13 at 2127, Itching, Intra-Operative (Intra-Procedure), Routine 1524 (Given - Provid er: Betzy Vásquez RN)1527 (Given - Provider: Betzy Vásquez RN) fentaNYL 50mcg/mL injection (CANCELED) ONCE PRN, Starting on Wed08/25/13 at 1524, Until Wed08/25/13 at 2127, Pain, Intra-Operative (Intra-Procedure), Routine 1524 (Given - Provid er: Betzy Vásquez RN)1527 (Given - Provider: Betzy Vásquez RN)1530 (Given - Provider: Betzy Vásquez RN)1533 (Given - Provider: Betzy Vásquez RN)1535 (Given - Provider: Betzy Vásquez RN) midazolam (PF) (VERSED) 1 mg/mL injection (CANCELED) ONCE PRN, Starting on Wed08/25/13 at 1524, Until Wed08/25/13 at 2127, Sleep, Intra-Operative (Intra-Procedure), Routine 1524 (Given - Provid er: Betzy Vásquez RN)1527 (Given - Provider: Betzy Vásquez RN)1530 (Given - Provider: Betzy Vásquez RN)1533 (Given - Provider: Betzy Vásquez RN)1535 (Given - Provider: Betzy Vásquez RN)1536 (Given - Provider: Betzy Vásquez RN)1538 (Given - Provider: Betzy Vásquez RN)1543 (Given - Provider: Betzy Vásquez RN) documented in this encounter Care Teams Radiology Technologist Relationship Specialty Start Date End Date Lalito Fang PA [address] [place] [address] PCP - General 05/13/10 06/28/17 documented as of this encounter
--- OUTSIDE RECORDS SUMMARY | 2024-02-25 06:13 | XMS_ITS | Encounter Summary ---
Author Organization [facility] [place] [address] Care Team Providers Care Laboratory Tech Name Role Phone Lalito Fang Primary Care Provider [phone] Encounter Details Date Type Department Care Team (Latest Contact Info) Description 08/25/2013 12:44 PM EST - 08/25/2013 7:27 PM EST Hospital En[place] [address] Phil Lloyd MD [facility] [place] [address] Orestes Ambrose MD [facility] [place] [address] Discharge Disposition: Home Social History Tobacco Use [...] not get better as expected. Wednesday-Wednesday Clinic [phone] 8a-5p Same Day Endo [phone] 7a-8p Otherwise contact [phone] and ask to speak to the sand polisher direct care professional Follow-up care is a milner part of [...] 2024 8:40 AM EDT Appointment Mammography/[place] [address] Jewels Barba, [facility] [place] [address] 2024 9:40 AM EDT Office [place] [address] Jewels Barba, [facility] [place] [address] documented as of this encounter Procedures Procedure [...] follow Orestes Ambrose MD PATHOLOGY/CYTOLOGY O [facility] * Surgical Pathology Report (08/25/2013 4:04 PM EST) Final Diagnosis ? [facility] ? Provider: ?? ORESTES AMBROSE ?Pt. Name: ?? RADHA BRYAN ? Acc #: ?[id number] ?Pt. ? Col Date: ?? 08/25/2013 ?/Sex: [...] ? JRP ? 08/29/13 Verified by: ? Ko CARR, Basil Hawthorne ? Pathologist ? (Electronic Signature) ? The [...] Tissue Description: Polypoid pinzon soft tissues. ? [facility] ? Provider: ?? ORESTES AMBROSE ?Pt. Name: ?? RADHA BRYAN ? Acc #: ?[id number] ?Pt. ? Col Date: ?? 08/25/2013 ?/Sex: [...] Diagnosis: ? Same 08/29/2013 2:10 PM EDT [facility] GI Biopsy 08/25/2013 4:04 PM EST 08/25/2013 4:04 PM EST GI Biopsy 08/25/2013 4:04 PM EST 08/25/2013 4:04 PM EST GI Biopsy 08/25/2013 4:04 PM EST 08/25/2013 4:04 PM EST GI Biopsy 08/25/2013 4:04 PM EST 08/25/2013 4:04 PM EST Orestes Ambrose MD PATHOLOGY/CYTOLOGY O RC Performing Organization Address City/[facility]/ZIP Co de Phone Number [facility] [place] [address] * Specimen to Pathology (surgical or derm) (08/25/2013 4:04 PM EST) AP Specimen 08/25/2013 4:04 PM EST 08/25/2013 4:04 PM EST [facility]ative [facility] - 08/25/2013 4:04 PM EST Specimen requisition ordered. ??Separate Pathology report to follow Orestes Ambrose MD PATHOLOGY/CYTOLOGY O RC [facility] * Specimen to Pathology (surgical or derm) (08/25/2013 4:04 PM EST) AP Specimen 08/25/2013 4:04 PM EST 08/25/2013 4:04 PM EST [facility]arrative [facility] 08/25/2013 4:04 PM EST Specimen requisition ordered. ??Separate Pathology report to follow Orestes Ambrose MD PATHOLOGY/CYTOLOGY O RC Performing Organization Address [facility] de Phone Number [facility] * Specimen to Pathology (surgical or derm) (08/25/2013 4:04 PM EST) AP Specimen 08/25/2013 4:04 PM EST 08/25/2013 4:04 PM EST Narrative [facility] - 08/25/2013 4:04 PM EST Specimen requisition ordered. ??Separate Pathology report to follow Orestes Ambrose MD PATHOLOGY/CYTOLOGY O RC Performing Organization Address [facility] Co de Phone Number [facility] * UPPER GI ENDOSCOPY (08/25/2013 3:14 PM EST) UPPER GI ENDOSCOPY [facility] Endoscopy Patient Name: Radha Bryan ? Procedure Date: 08/25/2013 3:14 PM ? N: [id number] ? Date of : 1975 ? Age: 37 ? Order #: [id number] ? Procedure: ? Upper GI endoscopy Indications: ? Generalized abdominal pain, Dyspepsia Providers: ? Orestes Ambrose MD, Betzy Nguyen ? ESTHER Vásquez, Sarah Ruiz, ? Retort Load Expediter Referring : ?REYNA Anderson Tracia ? MD Nikhil Medicines: ? Midazolam 6 [...] * COLONOSCOPY (08/25/2013 3:14 PM EST) COLONOSCOPY [facility] Endoscopy Patient Name: Radha Bryan ? Procedure Date: 08/25/2013 3:14 PM ? Date of : 1975 ? Age: 37 ? Order #: [id number] ? Procedure: ? Colonoscopy Indications: ? Generalized abdominal pain Providers: ? Orestes Ambrose MD, Betzy Nguyen ? ESTHER Vásquez, Sarah Ruiz, ? Retort Load Expediter Referring : ?REYNA Anderson, Anna ? MD Nikhil Medicines: [...] PROVATION documented in this encounter Visit Diagnoses Not on filedocumented in this encounter Active and Recently Administered Medications Times are shown in EST. PRN Medication Order 08/23/2013 08/24/2013 08/25/2013 diphenhydrAMINE (BENADRYL) injection (CANCELED) ONCE PRN, Starting on Wed08/25/13 at 1524, Until Wed08/25/13 at 7, Itching, Intra-Operative (Intra-Procedure), Routine 1524 (Given - Provid er: Betzy Vásquez RN)1527 (Given - Provider: Betzy Vásquez RN) fentaNYL 50mcg/mL injection (CANCELED) ONCE PRN, Starting on Wed08/25/13 at 1524, Until Wed08/25/13 at 2127, Pain, Intra-Operative (Intra-Procedure), Routine 1524 (Given - Provid er: Betzy Vásquez RN)1527 (Given - Provider: Betzy Vásquez, ESTHER)1530 (Given - Provider: Betzy Vásquez, ESTHER)1533 (Given - Provider: Betzy Vásquez, ESTHER)1535 (Given - Provider: Betzy Vásquez RN) midazolam [...] RN) documented in this encounter Care Teams Laboratory Tech Relationship Specialty Start Date End Date Lalito Fang PA [address] [place] [address] PCP - General 05/13/10 06/28/17 documented as of this encounter
--- OUTSIDE RECORDS SUMMARY | 2024-02-25 06:13 | XMS_ITS | Encounter Summary ---
Author Organization Formerly [facility] [place] [address] Care Team Providers Care Stopboard Assembler Name Role Phone Lalito Fang Primary Care Provider [phone] Reason for Visit * Reason Comments GI Problem Encounter Details Date Type Department Care Team (Latest Contact Info) Description 07/27/2013 3:30 PM EST Office Visit [place] [address] Anna Tejeda APRN [facility] [place] [address] Abdominal pain, periumbilical (Primary Dx) Discharge Disposition: Home Social History Tobacco Use Types Packs/Day Years Used Date Smoking Tobacco: Every Day Sex and Gender Information Value Date Recorded Sex Assigned at Not on file Gender Identity Not on file Sexual Orientation Not on file documented as of this encounter Last Filed Vital Signs Vital Sign Reading Time Taken Comments Blood Pressure 102/53 07/27/2013 3:19 PM EST Pulse 89 07/27/2013 3:19 PM EST Temperature - - Respiratory Rate - - Oxygen Saturation - - Inhaled Oxygen Concentration - - Weight 53.1 kg (117 lb) 07/27/2013 3:19 PM EST Height 160 cm (5' 3) 07/27/2013 3:19 PM EST Body Mass Index 20.73 07/27/2013 3:19 PM EST documented in this encounter Progress Notes * Anna Tejeda RN - 07/27/2013 3:31 PM EST Section of Gastroenterology and Hepatology [address] [place] [address] .Radha Sanders : 1975 Patient is here for further evaluation of gastrointestinal symptoms at the request of Lalito ORELLANA. HPI: Sx began in January 2013. No changes at time of onset. Intermittent mid abdominal pain. Few times per week. Sharp in nature. Can radiate to lower abdomen. Unable to determine triggers. Appetite loss. Weight stable. Intermittent n/v. Acute onset of vomiting. ?trigger. Also, has intermittent nausea that can last for 1-2 days, then will resolve. May use tums with little relief. Reviewed diet. No meat, seafood, eggs. Bread, cheese, cereal, pasta. Has been craving salt. Works third shift, eats late. Tries to not eat shortly before bed. No significant gas, bloat, distention. No chronic nsaids. No food allergies. Hx of heartburn/epigastric pain, and seemed to occur with certain foods. Having less heartburn, once every few weeks. No regurgitation, dysphagia, odynophagia, ent concerns. Becomes nauseous, may have vomiting and then can have a migraine. Bowel habit is usually one formed stool per week. Still having this once per week stool but less formed. Now having intermittent diarrhea. Associated cramping, urgency, sx will resolve once able to empty. Stools can be explosive. No blood in stool. No mucous in stool. No incontinence. Small bowel through and colonoscopy [facility], 2006, both normal exams. cmp 05/2013 normal. Cbc 05/2013, rbc and hct slightly low. hgb normal. Pt has not been on iron supplementation, concerned it would cause further gi upset. History Social History ??? Marital Status: Spouse Name: N/A Number of Children: N/A ??? Years of Education: N/A Occupational History ??? Not on file. Social History Main Topics ??? Smoking status: Current Every Day Smoker ??? Smokeless tobacco: Not on file ??? Alcohol Use: Not on file ??? Drug Use: Not on file ??? Sexually Active: Not on file Other Topics Concern ??? Not on file Social History Narrative ??? No narrative on file Medical History: asthma, anemia, anxiety/depression, osteopenia, vit D deficiency, migraines Surgical History: tubal ligation Family History: no gi etiologies No Known Allergies Current outpatient prescriptions:ERGOCALCIFEROL, VITAMIN D2, (VITAMIN D ORAL), Take 1 tablet by mouth daily., Disp: , Rfl: ; multivitamin (THERAGRAN) tablet, Take 1 tablet by mouth daily., Disp: , Rfl: Review of Systems - Negative except General: Cardiac: Resp: GI: see above : MS: osteopenia, vit d supplements Neuro: Skin: Psyche: Sleep: Endo: Physical Exam: soft, tender in umbilical area, no mass, organomegaly Impression: 1. Abdominal pain of unclear etiology: obtain cbc, cmp, ttg, tsh, anemia panel. Upper and lower endoscopy. Mre to evaulate small bowel. F/u with pt once results received. 2. N/v: sherri. 3. Hx of anemia of unclear etiology: plan as above 4. F/u with pt once results received and to further define plan of care. I spent a total of 53 minutes face to face with this patient; 32 minutes were spent counseling the patient in the medical problems described above. Sincerely, Anna Tejeda NP Section of Gastroenterology and Hepatology documented in this encounter Miscellaneous Notes * Addendum Note - Kait Peters - 07/27/2013 4:30 PM ESTAddended by: KAIT PETERS on: 07/27/2013 04:30 PM Modules accepted: Orders documented in this encounter Plan of Treatment Upcoming Encounters Date Type Department Care Team (Late st Contact Info) Description 2024 8:40 AM EDT Appointment Mammography/[place] [address] Jewels Barba APRN [facility] [place] [address] 2024 9:40 AM EDT Office Visit General Surgery at [facility] [place] [address] Jewels Barba, CLEVE [facility] [place] [address] Scheduled Orders Name Type Priority Associated Diagnoses Orde r Schedule UPPER GI ENDOSCOPY Procedures Routine Abdominal pain, periumbilical Ordered: 07/27/2013 COLONOSCOPY Procedures Routine Abdominal pain, periumbilical Ordered: 07/27/2013 documented as of this encounter Procedures Procedure Name Priority Date/Time Associated Diagnosis Comments DIFFERENTIAL, AUTOMATED Routine 07/27/2013 4:34 PM EST IRON AND TIBC Routine 07/27/2013 4:34 PM EST Abdominal pain, periumbilical TISSUE TRANSGLUTAMINASE, IGA Routine 07/27/2013 4:34 PM EST Abdominal pain, periumbilical CBC (WITH DIFF) Routine 07/27/2013 4:34 PM EST Abdominal pain, periumbilical TSH Routine 07/27/2013 4:34 PM EST Abdominal pain, periumbilical FOLATE, SERUM Routine 07/27/2013 4:34 PM EST Abdominal pain, periumbilical FERRITIN Routine 07/27/2013 4:34 PM EST Abdominal pain, periumbilical VITAMIN B12 Routine 07/27/2013 4:34 PM EST Abdominal pain, periumbilical COMPREHENSIVE METABOLIC PANEL Routine 07/27/2013 4:34 PM EST Abdominal pain, periumbilical documented in this encounter Results * Differential, Automated (07/27/2013 4:34 PM EST) Neutrophil % 64.0 34.0 - 71.0 % CERNER MILLENNIUM Neutrophil Absolute 4.77 1.50 - 6.30 x10(3)/mcL CERNER MILLENNIUM Lymph % 24.7 19.0 - 53.0 % CERNER MILLENNIUM Lymphocytes Abs 1.8 1.0 - 3.6 x10(3)/mcL CERNER MILLENNIUM Monocyte % 9.1 4.0 - 13.0 % CERNER MILLENNIUM Monocyte Abs 0.7 0.2 - 1.0 x10(3)/mcL CERNER MILLENNIUM Eos % 1.5 0.0 - 7.0 % CERNER MILLENNIUM Eosinophils Abs 0.1 0.0 - 0.5 x10(3)/mcL CERNER MILLENNIUM Basophil % 0.4 0.0 - 2.0 % CERNER MILLENNIUM Baso Absolute 0.0 0.0 - 0.2 x10(3)/mcL CERNER MILLENNIUM Immature Gran % 0.30 0.00 - 0.66 % CERNER MILLENNIUM Comment: Immature granulocytes(IG's)percentage and absolute count will include metamyelocytes, myelocytes, and promyelocytes. Blood smears from CBCs yielding IG's will be scanned manually for concordance. If this scan disagrees with the automated IG or if promyelocytes are noted, a manual differential will be performed. Immature Gran Absolute 0.02 0.00 - 0.05 x10(3)/mcL CERNER MILLENNIUM Blood specimen (specimen) 07/27/2013 4:34 PM EST 07/27/2013 4:40 PM EST Phil Lloyd MD HEMATOLOGY ORDERABLE S Performing Organization Address City/[facility] Co de Phone Number [facility] * Folate, serum (07/27/2013 4:34 PM EST) Folate 15.6 4.6 - 34.8 ng/mL [facility]NER MILLENNIUM Blood specimen (specimen) 07/27/2013 4:34 PM EST 07/27/2013 4:40 PM EST Narrative Resulting Agency Comment Spec In Lab Phil Lloyd MD CHEMISTRY ORDERABLES Performing Organization Address City/[facility] Co de Phone Number [facility] * Vitamin B12 (07/27/2013 4:34 PM EST) Vitamin B12 404 207 - 974 pg/mL [facility] Blood specimen (specimen) 07/27/2013 4:34 PM EST 07/27/2013 4:40 PM EST Narrative Resulting Agency Comment Spec In Lab Phil Lloyd MD CHEMISTRY ORDERABLES Performing Organization Address City/[facility]/ZIP Co de Phone Number [facility] * (ABNORMAL) Ferritin (07/27/2013 4:34 PM EST) [facility] Ferritin 9(L) 15 - 150 ng/mL [facility] Comment: Pediatric reference ranges not verified at [facility], interpret with caution. Reference ranges for females greater than 50 years of age approach values for men, i.e., 30-400 ng/mL. Blood specimen (specimen) 07/27/2013 4:34 PM EST 07/27/2013 4:40 PM EST Narrative Resulting Agency Comment Spec In Lab Phil Lloyd MD CHEMISTRY ORDERABLES Performing Organization Address [facility] Co de Phone Number [facility] * (ABNORMAL) Iron and TIBC (07/27/2013 4:34 PM EST) [facility] Iron 66 30 - 150 mcg/dL [facility] TIBC 342 250 - 450 mcg/dL [facility] Iron Saturation 19(L) 20 - 50 % [facility] Blood specimen (specimen) 07/27/2013 4:34 PM EST 07/27/2013 4:40 PM EST Narrative Resulting Agency Comment Spec In Lab Phil Lloyd MD CHEMISTRY ORDERABLES Performing Organization Address City/[facility]/ZIP Co de Phone Number [facility] * Tissue transglutaminase, IgA (07/27/2013 4:34 PM EST) [facility] TTG IgA Ab <4.0 <=3.9 u/ml [facility] Comment: Result Interpretation: Negative: ?<4 U/mL Weak Positive: ??4-10 U/mL Positive: ?>10 U/mL Blood specimen (specimen) 07/27/2013 4:34 PM EST 07/28/2013 8:09 AM EST Narrative Resulting Agency Comment Spec In Lab Phil Lloyd MD IMMUNOLOGY ORDERABLE S Performing Organization Address City/[facility] Co de Phone Number CERNER MILLENNIUM * TSH (07/27/2013 4:34 PM EST) Thyroid Stimulating Hormone 0.37 0.27 - 4.20 mcIU/mL CERNER MILLENNIUM Blood specimen (specimen) 07/27/2013 4:34 PM EST 07/27/2013 4:40 PM EST Narrative Resulting Agency Comment Spec In Lab Phil Lloyd MD CHEMISTRY ORDERABLES Performing Organization Address [facility] Co de Phone Number CERNER MILLENNIUM * (ABNORMAL) Comprehensive metabolic panel (non-fasting) (07/27/2013 4:34 PM EST) Glucose 90 60 - 199 mg/dL CERNER MILLENNIUM Comment:Diabetes: >=200 mg/d L plus symptoms Blood Urea Nitrogen 7(L) 8 - 18 mg/dL CERNER MILLENNIUM Creatinine 0.75 0.70 - 1.20 mg/dL CERNER MILLENNIUM Comment: Please note that the pediatric reference intervals supplied above were not validated at [facility]. Results from pediatric patients should be interpreted in conjunction to the patient's age, height and muscle mass. Sodium 140 135 - 145 mmol/L CERNER MILLENNIUM Potassium 3.7 3.5 - 5.0 mmol/L CERNER MILLENNIUM Comment: Please note: ??Patients with WBC >100,000 may have falsely elevated Potassium levels. ??For accurate Potassium quantification in these patients send serum separator tube (gold top) for subsequent determinations. ??Contact the Clinical Chemistry Laboratory if there are any questions. Chloride 104 98 - 107 mmol/L CERNER MILLENNIUM Carbon Dioxide 26 22 - 31 mmol/L CERNER MILLENNIUM Anion Gap 10 5 - 15 mmol/L CERNER MILLENNIUM Calcium 9.5 8.5 - 10.5 mg/dL CERNER MILLENNIUM Protein, Total 7.2 6.4 - 8.3 gm/dL CERNER MILLENNIUM Albumin 4.5 3.2 - 5.2 gm/dL CERNER MILLENNIUM Aspartate Aminotransferase 13 0 - 30 unit/L CERNER MILLENNIUM Alanine Aminotransferase <5 0 - 30 unit/L CERNER MILLENNIUM Comment:result rechecked - l delio Alkaline Phosphatase 65 40 - 104 unit/L CERNER MILLENNIUM Bilirubin, Total 0.2 0.2 - 1.3 mg/dL CERNER MILLENNIUM Bilirubin, Direct 0.1 0.0 - 0.3 mg/dL CERNER MILLENNIUM Est Glomerular Filtration Rate >60 >=60 CERNER MILLENNIUM Comment: This estimated GFR (eGFR) value was calculated using the MDRD equation which has been validated on patients between the ages of 18 and 70. The MDRD should not be used to assess kidney function in patients < 18 years of age or in patients with extremes of body mass, or in patients with acute kidney failure. This value should be multiplied by 1.2 for patients. For further information please copy and paste the following links into your internet browser. http://www.nkdep.nih.gov/lab-evaluation.shtml http://www.kidney.org/professionals/ Blood specimen (specimen) 07/27/2013 4:34 PM EST 07/27/2013 4:40 PM EST Narrative Resulting Agency Comment Spec In Lab Phil Lloyd MD CHEMISTRY ORDERABLES OZZY MORROW * (ABNORMAL) CBC (with Diff) (07/27/2013 4:34 PM EST) White Blood Cell 7.4 4.0 - 10.0 x10(3)/mc L CERNER MILLENNIUM Red Blood Cell 3.76(L) 3.93 - 5.22 x10(6)/mc L CERNER MILLENNIUM Hemoglobin 12.2 11.2 - 15.7 gm/dL CERNER MILLENNIUM Hematocrit 37.2 34.0 - 45.0 % CERNER MILLENNIUM Mean Cell Volume 98.9(H) 79.0 - 94.0 fL CERNER MILLENNIUM Mean Cell Hemoglobin 32.4(H) 26.6 - 32.2 pg CERNER MILLENNIUM Mean Cell Hemoglobin Concentration 32.8 32.0 - 36.5 gm/dL CERNER MILLENNIUM Platelet 368 145 - 370 x10(3)/mc L CERNER MILLENNIUM RDW Standard Deviation 47.1(H) 35.0 - 46.0 fL CERNER MILLENNIUM RDW coefficient of variation 13.1 10.9 - 14.4 % CERNER MILLENNIUM Mean Platelet Volume 9.8 9.0 - 12.0 fL CERJUAN MILLENNIUM Blood specimen (specimen) 07/27/2013 4:34 PM EST 07/27/2013 4:40 PM EST Narrative Resulting Agency Comment Spec In Lab Phil Lloyd MD HEMATOLOGY ORDERABLE S OZZY MORROW documented in this encounter Visit Diagnoses Diagnosis Abdominal pain, periumbilical- Primary Abdominal pain, periumbilic documented in this encounter Care Teams Stopboard Assembler Relationship Specialty Start Date End Date Lalito Fang PA [address] [place] [address] PCP - General 05/13/10 06/28/17 documented as of this encounter
--- OUTSIDE RECORDS SUMMARY | 2024-02-25 06:13 | XMS_ITS | Encounter Summary ---
Author Organization Formerly [facility] [place] [address] Care Team Providers Care Crew Team Member Name Role Phone Lalito Fang Primary Care Provider [phone] Encounter Details Date Type Department Care Team (Late st Contact Info) Description 08/09/2013 Orders [place] [address] Anna Tejeda [facility] [place] [address] Abdominal pain, unspecified site (Primary Dx) Social History Tobacco Use Types [...] 2024 8:40 AM EDT Appointment Mammography/[place] [address] Jewels Barba WASHROOM OPERATOR [facility] [place] [address] 2024 9:40 AM EDT Office [place] [phone] Jewels Barba WASHROOM OPERATOR [facility] [place] [address] documented as of this encounter Visit Diagnoses Diagnosis Abdominal pain, unspecified site- Primary documented in this encounter Care Teams Crew Team Member Relationship Specialty Start Date End Date Lalito Fang PA [address] [place] [address] PCP - General 05/13/10 06/28/17 documented as of this encounter
--- NOTE | 2024-02-25 06:28 | ED.GENADUL_ITS ---
Discharge Plan Discharge Details Chief Complaint: Headache Primary Care Provider: Yamileth Saavedra ED Provider: Brooklynn Dixon Home Meds and New Rx's Prescriptions: No Action vitamin B complex [B Complex-Vitamin B12] Tablet 1 tab PO DAILY ferrous sulfate [Feosol] 325 mg (65 mg iron) tablet 325 mg PO DAILY Patient Comments: Veg-cap (pt reports lower dose ~ 36mg) cholecalciferol (vitamin D3) 1,250 mcg (50,000 unit) capsule See Rx Instructions PO once a week Rx Instructions: 2,000 IU, HPI General Mode of arrival: ambulatory . Date/Time Provider Initiated Documentation: 02/25/24 06:05 . Limitations to Documentation: no limitations . Information obtained by: patient and family . HPI Narrative: 48yo F with hx of migraines presenting with headache. Last night around bedtime had a mild headache, felt like a migraine was coming on; took ibuprofen, went to a darkened room, and tried to sleep. Symptoms worsened overnight and this morning she began vomiting, non bloody non bilious emesis. Headache is moderate to severe, dull, left sided, and feels typically of her usual migraines aside from associated left sided neck pain. +photophobia. Also has mild abdominal pain since the onset of vomiting. Headache was not maximal at onset. Not the worse headache of her life. Frederick well yesterday evening. Cough/cold symptoms last week, since improved. No recent head trauma. No fevers, chills, rash, dysuria, hematuria, constipation, numbness, tingling, weakness, or other concerns. Related Data Home Medications ?Medication ?Instructions ?Recorded ?Confirmed cholecalciferol (vitamin D3) 1,250 See Rx Instructions PO once a week 04/08/22 02/25/24 mcg (50,000 unit) capsule ferrous sulfate 325 mg (65 mg 325 mg PO DAILY 04/08/22 02/25/24 iron) tablet (Feosol) vitamin B complex (B 1 tab PO DAILY 04/08/22 02/25/24 Complex-Vitamin B12 tablet) Allergies Allergy/AdvReac Type Severity Reaction Status Date / Time No Known Allergies Allergy Unverified 02/25/24 06:11 General Stated Complaint: Headache HERNAN: 3 Review of Systems Narrative: see HPI Exam Narrative Exam Narrative: General: Alert, well appearing, well nourished, in no acute distress. Head: Normocephalic, atraumatic Neck: Trachea midline, ?Neck supple. No nuchal rigitidy. Left cervical paraspinal muscle spasm and tenderness, maximum at leftoccipital condyle ENT: ?MMM.? No oropharygeal lesions or exudate. Cardiac: ?RRR, no murmurs appreciated Resp: No respiratory distress. CTAB. Abd: ?Soft, non-distended, nontender : ?No suprapubic tenderness. Extremities: ?No deformities.? No peripheral edema. Neuro: ? GCS 15.? PERRL.? EOMI.? Fluent speech, no dysarthria. Motor- 5/5 strength symmetric bilateral upper and lower extremities i Sensation- ?Intact to light touch and symmetric multiple dermatomes including upper and lower extremities Gait/station: ?Normal stance.? No truncal ataxia. Steady gait with equal normal steps CRANIAL NERVES: II: Pupils equal and reactive, III, IV, : EOM intact, no gaze preference or deviation, no nystagmus. V: normal sensation in V1, V2, and V3 segments bilaterally VII: no asymmetry, no nasolabial fold flattening VIII: normal hearing to speech IX, X: normal palatal elevation, no uvular deviation XI: 5/5 head turn and 5/5 shoulder shrug bilaterally XII: midline tongue protrusion Course Vital Signs Vital signs: Vital Signs Temperature 36.4 C L 02/25/24 06:07 Pulse 77 02/25/24 06:07 Respiratory Rate 16 02/25/24 06:07 Blood Pressure 109/70 02/25/24 06:07 Pulse Oximetry 99 02/25/24 06:07 Temperature 36.4 C L 02/25/24 06:13 Temperature Source Tympanic 02/25/24 06:13 Pulse 77 02/25/24 06:13 Respiratory Rate 16 02/25/24 06:13 Blood Pressure 109/70 02/25/24 06:13 Blood Pressure Position Sitting 02/25/24 06:13 Pulse Oximetry 99 02/25/24 06:13 Oxygen Delivery Method Room Air 02/25/24 06:13 Oxygen Flow Rate 0 02/25/24 06:07 Pain Level 9 02/25/24 06:13 Medical Decision Making 48yo F with hx of migraines presenting with headache typical of her usual migraine headache. Associated N/V and photophobia as well as left sided neck pain. Vital signs reassuring on arrival, benign physical and neurologic exam. No abdominal tenderness to suggest acute intrabdominal pathology. With well appearance, no red flags on history, no nuchal rigidity, afebrile, and normal neurologic exam unlikely SAH, intracranial mass, venous sinus thrombosis, meningitis/encephalitis, giant cell arteritis. No indication for CT imaging, LP, or labs at this time. Will treat symptoms with IVFB, IV acetaminophen, toradol, compazine, benadyrl, as well as PO flexeril. Signed out to oncoming physician, plan to reassess for symptom control. Quality:SDOH Health Related Social Needs: No Data to Display PFS All Active Problems (Updated 01/26/23 @ 00:05 by [employer]) Pain, foot (Acute) Corns and callosities (Acute) Lower extremity pain (Acute) Low back pain (Acute) Medical History (Updated 01/26/23 @ 00:05 by [employer]) Hiatal hernia Vitamin D deficiency Abdominal pain Thoracic radiculopathy Severe left groin pain Atypical mole Chronic pain of both knees Thrombocytosis Elevated liver enzymes Osteopenia Folic acid deficiency Depression Anxiety Anemia B12 deficiency Hip pain Paresthesia Fatigue Insomnia Family History Mother Alcohol abuse Obesity Father Diabetes Essential hypertension Arthritis Heart disease Myocardial infarction Stroke Obesity Asthma Sister Asthma Grandfather No problems noted. Grandmother Lung cancer Stroke Maternal Uncle No problems noted. Other Brain cancer Social History Smoking/Tobacco Use Status: Current every day Tobacco Type: cigarettes Smoking risk assessment performed?: Yes Alcohol Intake: never Drug use: Occasionally Substance use type: marijuana Housing: house Do you feel safe at home: Yes Do you feel safe in your relationship?: Yes
[2024-02-25] MEDS: ACETAMINOPHEN 1,000 MG/100 ML BTL 400 MG IVPB (06:44)
[2024-02-25] MEDS: Cyclobenzaprine 10 MG TAB PO (06:44)
[2024-02-25] MEDS: diphenhydrAMINE 50 MG/ML VIAL 25 MG IVP (06:44)
[2024-02-25] MEDS: Ketorolac 15 MG/ML VIAL IVP (06:44)
[2024-02-25] MEDS: Normal Saline 1,000 ML 1000 ML IV (06:44)
[2024-02-25] MEDS: Prochlorperazine 10 MG/2 ML VIAL IVP (06:45)
[2024-02-25 07:08] LABS: COVID-19 PCR Negative (Negative); Influenza A PCR Negative (Negative); Influenza B PCR Negative (Negative); RSV PCR Negative (Negative)
[2024-02-25 07:26] LABS: Source Nasopharynx
--- NOTE | 2024-02-25 08:00 | W.EDPROG ---
Date of service: 02/25/24 Time of Service: 08:00 Medical Decision Making I received signout on this 48-year-old female history of migraines and now with recurrent migraine. She reportedly feels improved following migraine cocktail. A COVID RSV and influenza swabs are all negative. Will reassess and discharged. 3:55 PM Late charting due to patient care. I reassessed the patient. She is feeling markedly improved. She requested discharge. I discharged her and we discussed return indications including any worsening pain nausea vomiting and syncope. She understood her return indications and was discharged with empiric trial of expectant outpatient management. Quality:SDOH Health Related Social Needs: No Data to Display Sign Out Sign Out Data: Sign Out Comment: 48F hx migraines presents with typical migraine. Given migraine cocktail & IVF. Needs reassessment. Last updated by Brooklynn Dixon MD at 02/25/24 07:31 Discharge Plan Disposition Patient Disposition: Home Discharge Details Clinical Impression: Headache, unspecified Primary Care Provider: Yamileth Saavedra ED Provider: Harinder Freire Home Meds and New Rx's Prescriptions: Continued vitamin B complex [B Complex-Vitamin B12] Tablet 1 tab PO DAILY ferrous sulfate [Feosol] 325 mg (65 mg iron) tablet 325 mg PO DAILY Patient Comments: Veg-cap (pt reports lower dose ~ 36mg) cholecalciferol (vitamin D3) 1,250 mcg (50,000 unit) capsule See Rx Instructions PO once a week Rx Instructions: 2,000 IU, Discharge Instructions Instructions: Headaches in adults Additional Instructions: You were seen in the emergency department for your headache which improved with treatment. If you develop a recurrent headache if you become nauseous begin vomiting or develop an additional headache please return to the emergency department. Discharge Data Discharge Date/Time-TO BE ENTERED AT DEPARTURE: 02/25/24 08:33
== END 2024-02-25 08:33 | disposition home or self-care (01) ==
PROVIDERS: Student in an Organized Health Care Education/Training Program; Emergency Provider Emergency Medicine; PCP Physician Assistant Medical
DX: G43.909 Migraine, unspecified, not intractable, without status migrainosus (principal); F17.210 Nicotine dependence, cigarettes, uncomplicated
CPT/HCPCS: 00123; 87637; 96361; 96374; 96375; 99284; 99283; J0131; J0780; J1200; J1885

== ENCOUNTER 2024-03-20 09:55 | Emergency (ER) | payer BC, SELFPAY ==
[2024-03-20] VITALS (9 sets, daily range): BP systolic 99–121; BP diastolic 50–79; PULSE 72–89; RESP 12–29; TEMP 36.8; O2SAT 96–99
--- OUTSIDE RECORDS SUMMARY | 2024-03-20 10:11 | XMS_ITS ---
Author Organization Unknown Address [address] [place] [address] [phone] Phone Care Team Providers Care Funeral Home Assistant Name Role Phone JOHANNE Batres Attending Unavailable SAMANTHA Gonzalez Primary Unavailable Social History Type Status Start Date End Date Code Code Syst em Smoking History Current every day smoker [id number] SNOMED CT Sex Female Hospital Discharge Instructions Should you have any questions prior to discharge, please contact a member of your healthcare team. If you have left the hospital and have any questions, please contact your primary care physician. Reason For Referral No Data Found Plan of Treatment No Data Found Encounters Encounter Diagnosis Start Date Code Code Sys tem Dystrophia unguium 08/07/2019 [id number] SNOMED-CT Personal Care Team Section Performer Name Performer Role Active Date Inactive Da te
--- OUTSIDE RECORDS SUMMARY | 2024-03-20 10:11 | XMS_ITS | Encounter Summary ---
Author Organization [facility] Address [address] [place] [address] Care Team Providers Care Conduit Mechanic Name Role Phone Unknown, Provider Primary Care Provider [phone] Encounter Details Date Type Department Care Team (Latest Contact Info) Description 09/06/2023 Lab Requisition [facility] Pathology & Laboratory Medicine - [facility] [address] [place] [address] Suyapa Dacosta, [address] [phone] Encounter for screening for human papillomavirus (HPV); [...] types, PCR Negative Negative 09/10/2023 15:19 EDT [facility] Comment:No E6 or E7 mRNA is detected from HPV types 16,18,31,33,35,39,45,51,52,56,58,59,66, and 68 by rn heart mediated amplification. Pap Test CERVIX UTERI STRUCTURE / Unknown 09/06/2023 16:36 EDT 09/09/2023 15:34 EDT Suyapa Ton Latanya Dacosta [facility] MICROBIOLOGY - G ENERAL ORDERABLES [facility] [address] [place] [address] [phone] * PAP TEST (09/06/2023 16:36 EDT) Specimens A. Cervix and/or Endocervix , ThinPrep Imaging System with Manual Evaluation 09/10/2023 15:19 T [facility] Specimen Adequacy Satisfactory for Evaluation - transformation zone component present 09/10/2023 15:19 [facility] General Categorization Negative for intraepithelial lesion or malignancy 09/10/2023 15:19 T [facility] Attestation . 09/10/2023 15:19 [facility] at 1519 Clinical History See below 09/10/19 24 15:19 [facility] HPV The result for the Human Papillomavirus (HPV) Detection-High Risk Types is Negative. No E6 or E7 mRNA is detected from HPV types 16,18,31,33,35,39 ,45,51,52,56,58,5 9,66, and 68 by rn heart mediated amplification.Zohra ting was performed on specimen [id number] and was resulted on 09/10/2023 1519 EDT by YARED, LAB INSTRUMENT RESULTS IN 09/10/2023 15:19 T [facility] Performing Lab [facility] 09/10/2023 15:19 T [facility] Scanned Images 09/10/2023 15:19 T [facility] Pap Test CERVIX UTERI STRUCTURE / Unknown 09/06/2023 16:36 EDT 09/07/2023 13:35 EDT Suyapa Dacosta [facility] PATHOLOGY ORDERA BLEKonrad [facility] [address] [place] [phone] documented in this encounter Visit Diagnoses Diagnosis Encounter for screening for human papillomavirus (HPV) Special screening examination for human papillomavirus (HPV) Encounter for gynecological examination (general) (routine) without abnormal findings Moderate cervical dysplasia Moderate dysplasia of cervix documented in this encounter Care Teams Conduit Mechanic Relationship Specialty Start Date End Date Unknown, Provider, PCP - General 01/26/17 documented as of this encounter
--- OUTSIDE RECORDS SUMMARY | 2024-03-20 10:11 | XMS_ITS | Encounter Summary ---
Author Organization [facility] Address [address] [place] [address] Care Team Providers Care Contracts Law Professor Name Role Phone Unknown, Provider Primary Care Provider [phone] Encounter Details Date Type Department Care Team (Late st Contact Info) Description 03/09/2023 Lab Requisition [facility] Pathology & Laboratory Medicine - [facility] [address] [place] [address] Outr Resulting Lab, Provider Social History Tobacco [...] Silvana glabrata Negative Negative 03/10/2023 13:15 EDT [facility] Trichomonas Vaginalis Negative Negative 03/10/2023 13:15 EDT [facility] BV (Bacterial vaginosis) Positive(A) Negative 03/10/2023 13:15 EDT [facility] Neisseria gonorrhoeae Result Negative Negative 03/10/2023 13:15 EDT [facility] Chlamydia trachomatis Result Negative Negative 03/10/2023 13:15 EDT [facility] Silvana Species Negative Negative 13:15 EDT [facility] Swab VAGINAL STRUCTURE / Unknown 03/09/2023 16:40 EDT 03/10/2023 8:02 EDT Provider Outr Resulting Lab MICROBIOLOGY - GENERAL ORDERABLES Performing Organization Address City/State/[facility] Co de Phone Number [facility] [address] [place] [address] documented in this encounter Visit Diagnoses Not on filedocumented in this encounter Care Teams Contracts Law Professor Relationship Specialty Start Date End Date Unknown, Provider, PCP - General 01/26/17 documented as of this encounter
--- OUTSIDE RECORDS SUMMARY | 2024-03-20 10:11 | XMS_ITS | Encounter Summary ---
Author Organization [facility] Address [address] [place] [address] Care Team Providers Care Marketing Lead Name Role Phone Unknown, Provider Primary Care Provider [phone] Reason for Visit * (Routine/Next Available) - Receiving Office to Obtain Authorization Specialty Diagnoses / Procedures Referred By Chip johnson Referred To Contact Procedures US OUTSIDE IMAGES BREAST Imaging, External Referral ID Status Reason Start Date Expiration Date Visits Requested Visits Authorized [id number] Receiving Office to Obtain Authorization 10/13/2022 1 1 Encounter Details Date Type Department Care Team (Latest Contact Info) Description 09/22/2022 Hospital Encounter [facility] Secondary [place] Discharge Disposition: Home or [...] on filedocumented in this encounter Care Teams Marketing Lead Relationship Specialty Start Date End Date Unknown, Provider, PCP - General 01/26/17 documented as of this encounter
--- OUTSIDE RECORDS SUMMARY | 2024-03-20 10:11 | XMS_ITS | Encounter Summary ---
Author Organization [facility] Address [address] [place] [address] Care Team Providers Care Rebar Bender Name Role Phone Unknown, Provider Primary Care Provider [phone] Encounter Details Date Type Department Care Team (Late st Contact Info) Description 10/06/2022 Lab Requisition [facility] Pathology & Laboratory Medicine - [facility] [address] [place] [address] Napoleon Bob MD [address] [place] [phone] Encounter for other general examination Social History [...] management options, if applicable. 10/09/2022 11:19 EDT [facility] Final Diagnosis A. ENDOCERVIX, CURETTAGE: - Benign endocervical glands with squamous metaplasia. - Negative for dysplasia. B. ENDOMETRIUM, BIOPSY: - Proliferative endometrium. 10/09/2022 11:19 EDT [facility] Attestation There was significant resident/fellow involvement in the diagnostic evaluation of this case. By the signature below, the attending physician certifies that they have personally conducted a gross and/or microscopic examination of the described specimens and rendered or confirmed the above diagnosis. 10/09/2022 11:19 T [facility] at 1119 Clinical History Pap: Negative cytology, +HR HPV, history of THU II 10/10; endometrial cells on Pap 10/09/2022 11:19 EDT [facility] Gross Description A. Received in [...] REYNA CAMERON(ASCP) 10/07/2022 11:31 10/09/2022 11:19 EDT [facility] Resident/Sergio w: Chari Cano DO 10/09/2022 11:19 EDT [facility] Performing Lab [facility] 10/09/2022 11:19 T [facility] Scanned Images 10/09/2022 11:19 T [facility] Tissue ENTIRE ENDOMETRIUM / Unknown 10/05/2022 10:35 EDT 10/07/2022 8:47 EDT Tissue specimen (specimen) ENDOMETRIAL STRUCTURE / Unknown 10/05/2022 10:35 EDT 10/07/2022 8:47 EDT Napoleon Bob MD PATHOLOGY KATJA WILLARD [facility] [address] [place] [address] documented in this encounter Visit Diagnoses Diagnosis Encounter for other general examination documented in this encounter Care Teams Rebar Bender Relationship Specialty Start Date End Date Unknown, Provider, PCP - General 01/26/17 documented as of this encounter
--- OUTSIDE RECORDS SUMMARY | 2024-03-20 10:11 | XMS_ITS | Encounter Summary ---
Author Organization [facility] Address [address] [place] [address] Care Team Providers Care Rn Training Name Role Phone Unknown, Provider Primary Care Provider [phone] Encounter Details Date Type Department Care Team (Late st Contact Info) Description 09/22/2022 Lab Requisition [facility] Pathology & Laboratory Medicine - [facility] [address] [place] [address] Suyapa Dacosta, [address] [id number] Encounter for other general examination Social History [...] management options, if applicable. 09/25/2022 14:59 EDT [facility] Final Diagnosis A. BREAST, LEFT, [...] the lesion. ANTIBODY(CLONE)(BLO CK):RESULT CK 5/6 (D5/16B4, [place]) (A2): Non-contributory Estrogen Receptor (SP1, [employer]) [...] REYNA BRYANT(ASCP) 09/23/2022 8:43 09/25/2022 14:59 EDT [facility] Resident/Fell ow: Vinnie Gupta DO 09/25/2022 14:59 EDT [facility] Performing Lab [facility] 09/25/2022 14:59 EDT [facility] Scanned Images 09/25/2022 14:59 EDT [facility] Tissue ENTIRE BREAST / Unknown 09/22/2022 14:45 EDT 09/23/2022 8:01 EDT Suyapa Dacosta [facility] PATH[facility] ORDERA CHAYO [facility] [address] [place] [address] documented in this encounter Visit Diagnoses Diagnosis Encounter for other general examination documented in this encounter Care Teams Rn Training Relationship Specialty Start Date End Date Unknown, Provider, PCP - General 01/26/17 documented as of this encounter
--- OUTSIDE RECORDS SUMMARY | 2024-03-20 10:11 | XMS_ITS | Encounter Summary ---
Author Organization [facility] Address [address] [place] [address] Care Team Providers Care Inventory Clerk Name Role Phone Unknown, Provider Primary Care Provider [phone] Reason for Visit * (Routine/Next Available) - Receiving Office to Obtain Authorization Specialty Diagnoses / Procedures Referred By Chip johnson Referred To Contact Procedures US OUTSIDE IMAGES BREAST Imaging, External Referral ID Status Reason Start Date Expiration Date Visits Requested Visits Authorized [id number] Receiving Office to Obtain Authorization 10/13/2022 1 1 Encounter Details Date Type Department Care Team (Latest Contact Info) Description 09/10/2022 Hospital Encounter [facility] Secondary [place]s [place] Discharge Disposition: Home [...] on filedocumented in this encounter Care Teams Inventory Clerk Relationship Specialty Start Date End Date Unknown, Provider, PCP - General 01/26/17 documented as of this encounter
--- OUTSIDE RECORDS SUMMARY | 2024-03-20 10:11 | XMS_ITS | Encounter Summary ---
Author Organization [facility] Address [address] [place] [address] Care Team Providers Care Solder Deposit Operator Name Role Phone Unknown, Provider Primary Care Provider [phone] Reason for Visit * (Routine/Next Available) - Receiving Office to Obtain Authorization Specialty Diagnoses / Procedures Referred By Chip johnson Referred To Contact Procedures MA OUTSIDE IMAGES BREAST DIAGNOSTIC LEFT Imaging, External Referral ID Status Reason Start Date Expiration Date Visits Requested Visits Authorized [id number] Receiving Office to Obtain Authorization 10/13/2022 1 1 Encounter Details Date Type Department Care Team (Latest Contact Info) Description 09/22/2022 Hospital Encounter [facility] Secondary [place] Discharge Disposition: Home or [...] on filedocumented in this encounter Care Teams Solder Deposit Operator Relationship Specialty Start Date End Date Unknown, Provider, PCP - General 01/26/17 documented as of this encounter
--- OUTSIDE RECORDS SUMMARY | 2024-03-20 10:11 | XMS_ITS | Encounter Summary ---
Author Organization [facility] Address [address] [place] [address] Care Team Providers Care Cutting Pressman Name Role Phone Unknown, Provider Primary Care Provider [phone] Encounter Details Date Type Department Care Team (Late st Contact Info) Description 03/09/2023 Lab Requisition [facility] Pathology & Laboratory Medicine - [facility] [place] [address] [place] [address] Outr Resulting Lab, Provider Social History Tobacco [...] 1, PCR Positive(A) Negative 03/10/2023 16:05 EDT [facility] Herpes Simplex Virus Molecular Detection 2, PCR Negative Negative 03/10/2023 16:05 EDT [facility] Swab VULVAL STRUCTURE / Unknown 03/09/2023 16:40 EDT 03/09/2023 23:01 EDT Provider Outr Resulting Lab MICROBIOLOGY - GENERAL ORDERABLES [facility] [address] [place] [address] documented in this encounter Visit Diagnoses Not on filedocumented in this encounter Care Teams Cutting Pressman Relationship Specialty Start Date End Date Unknown, Provider, PCP - General 01/26/17 documented as of this encounter
--- OUTSIDE RECORDS SUMMARY | 2024-03-20 10:11 | XMS_ITS | Referral Summary ---
Author Organization [facility] Address [address] [place] [address] Care Team Providers Care Bakery Deliverer Name Role Phone Unknown, Provider Primary Care Provider [phone] Social History Tobacco Use Types Packs/Day Years Used Date Smoking Tobacco: Never Assessed Interpersonal Safety Answer Date Record ed Physically Hurt Never 01/21/2020 Verbally Threaten Not on file 01/21/2020 Sex and Gender Information Value Date Recorded Sex Assigned at Not on file Gender Identity Not on file Sexual Orientation Not on file Plan of Treatment Not on file Care Teams Bakery Deliverer Relationship Specialty Start Date End Date Unknown, Provider, PCP - General 01/26/17
--- OUTSIDE RECORDS SUMMARY | 2024-03-20 10:11 | XMS_ITS | Encounter Summary ---
Author Organization [facility] Address [address] [place] [address] Care Team Providers Care Document Improvement Specialist Name Role Phone Unknown, Provider Primary Care Provider [phone] Reason for Visit * (Routine/Next Available) - Receiving Office to Obtain Authorization Specialty Diagnoses / Procedures Referred By Chip johnson Referred To Contact Procedures MA OUTSIDE IMAGES BREAST DIAGNOSTIC BILATERAL Imaging, External Referral ID Status Reason Start Date Expiration Date Visits Requested Visits Authorized [id number] Receiving Office to Obtain Authorization 10/13/2022 1 1 Encounter Details Date Type Department Care Team (Latest Contact Info) Description 09/10/2022 Hospital Encounter [facility] Secondary Reads [place] Discharge Disposition: [...] on filedocumented in this encounter Care Teams Document Improvement Specialist Relationship Specialty Start Date End Date Unknown, Provider, PCP - General 01/26/17 documented as of this encounter
--- OUTSIDE RECORDS SUMMARY | 2024-03-20 10:11 | XMS_ITS | Encounter Summary ---
Author Organization [facility] Address [address] [place] [address] Care Team Providers Care Supervisor Detasseling Crew Name Role Phone Unknown, Provider Primary Care Provider [phone] Reason for Visit * Reason Onset Date Comments Appointment Related 10/20/2022 Encounter Details Date Type Department Care Team (Late st Contact Info) Description 10/20/2022 Telephone [facility] Surgical Oncology - [facility] [place] [address] [place], [place] [phone] [facility] Breast Care Appointment Related Social History [...] on filedocumented in this encounter Care Teams Supervisor Detasseling Crew Relationship Specialty Start Date End Date Unknown, Provider, PCP - General 01/26/17 documented as of this encounter
--- OUTSIDE RECORDS SUMMARY | 2024-03-20 10:11 | XMS_ITS | Clinical Summary ---
Author Organization [facility] Address [address] [place] [address] Care Team Providers Care Truck Trailer Final Inspector Name Role Phone Unknown, Provider Primary Care Provider [phone] Social History Tobacco Use Types Packs/Day Years [...] COVID-19 Vaccine ( season) 2023 Care Teams Truck Trailer Final Inspector Relationship Specialty Start Date End Date Unknown, Provider, PCP - General 01/26/17
--- OUTSIDE RECORDS SUMMARY | 2024-03-20 10:11 | XMS_ITS | Encounter Summary ---
Author Organization [facility] Address [address] [place] [address] Care Team Providers Care [address] Mechanical Engineer Name Role Phone Unknown, Provider Primary Care Provider Reason for Visit * Reason Onset Date Comments Appointment Related 01/04/2023 Encounter Details Date Type Department Care Team (Late st Contact Info) Description 01/04/2023 Telephone [facility] Surgical Oncology - [address] [id number] Dalton Ferrara MD [address] [facility], [address] [place] [phone] Appointment Related Social History Tobacco Use Types [...] on filedocumented in this encounter Care Teams Rd Mechanical Engineer Relationship Specialty Start Date End Date Unknown, ProviderMD PCP - General 01/26/17 documented as of this encounter
--- OUTSIDE RECORDS SUMMARY | 2024-03-20 10:11 | XMS_ITS | Data Portability ---
Author Organization [place] [facility] [place] [address] Assessment No assessment recorded. Plan of Treatment [...] rapid IA, upper respiratory specimen 2023 024 [email or web address] [facility], [address] [place] [address], [address], [place], [address], 4 09:47:50 Referral None recorded. Procedures None recorded. Surgeries None recorded. Imaging XR, chest, 2 view 2023 024 [facility], [address], [place], [address], 4 14:46:42 Medication Orders albuterol sulfate HFA 90 mcg/actuati on aerosol inhaler 2023 024 [employer] [facility] [address], [address], [place], [address], 4 09:47:51 benzonatate 100 mg capsule 2023 024 [facility] [address], [address] [facility], [place], [address], 4 09:47:52 Patient TargetsNo targets recorded. Patient InstructionsNo instructions recorded. Reason for Referral None Reported. Results Created Date Observation Date Name Description Value Unit Range Abnormal Flag Note LastModifiedBy Organization Detail LastModifiedTime 06/29/19 24 06/29/2023 influ simon virus A + B + SARS- CoV-2 (COVI D19) Ag panel , rapid IA, upper respi rator y speci men Influenza A negati ve Not Available [address] [place] [address], [phone], 06/29/2023 09:45:52 06/29/19 24 06/29/2023 influ simon virus A + B + SARS- CoV-2 (COVI D19) Ag panel , rapid IA, upper respi rator y speci men Influenza B negati ve Not Available [address] [place] [address], [phone], 06/29/2023 09:45:52 06/29/19 24 06/29/2023 influ simon virus A + B + SARS- CoV-2 (COVI D19) Ag panel , rapid IA, upper respi rator y speci men SARS-COV-2 negati ve Not Available [address] [place] [address], [phone], 06/29/2023 09:45:52 06/29/19 24 06/29/2023 influ simon virus A + B + SARS- CoV-2 (COVI D19) Ag panel , rapid IA, upper respi rator y speci men Sample sent for PCR confirmation No Not Available [facility] [address] [place] [address], [phone], 06/29/2023 09:45:52 06/29/19 24 06/29/2023 XR, chest [...] by: Mamta Espinoza On 2023 14:45: [address], [place], [address], 06/29/2023 15:10:19 Result Notes Documentation Provider Name [...] Espinoza On 06/29/2023 14:45:[address], [place], [address], [facility]. 06/29/2023 15:10:19 Procedures Surgical History None recorded. Imaging Results Imaging Date Name Status LastModified by Organiz [facility] Details LastModified Time 06/29/2023 XR, chest, 2 view completed [address], [place], [address], 06/29/2023 15:10:19 Procedure Notes None recorded. Medical Equipment None Reported. Allergies Allergen ID Allergen Name Allergen Category Reaction Reaction Severity Criticality Documentation Date Start Date Code Code System Note Provider Name and Address Organization Details Recorded Time 06313 SARS-CoV- 2 (COVID-19 ) vaccine, mRNA-BNT1 62b2 medicatio n rash severe high 06/29/2023 71096 30 [facility] 4 09:21:08 48877 SARS-CoV- 2 (COVID-19 ) vaccine, mRNA-1273 medicatio n rash severe high 06/29/2023 41358 32 [facility] 4 09:20:11 98230 acetamino phen medicatio n other mild low 06/29/2023 161 RxNorm Fathe r is aller gic, she avoid s EMELYN Carlson, [facility] 4 09:21:01 Medications Name Sig Start Date [...] Updated DateTime 4 161.29 cm 19.7 kg/m2 29230.9 4 g 98.9 [degF] 97 % 97 % 87 /min 88 mm[Hg] 48 mm[Hg] Zoraida Orosco MA [facility] 4 09:22:46 Social History None recorded. Functional Status None recorded. Mental Status None recorded. Family History Nothing Reported. Medical History No medical history recorded. Gynecological HistoryNo gynecological history recorded. Obstetrics History GPAL:G 0 P 0 0 0 0 Past Encounters Encounter ID Performer Location Encounter Start Date Encounter Closed Date Diagnosis/Indication Diagnosis SNOMED-CT Code Diagnosis ICD10 Code [id number] VENKATA GLASGOW PA-C [facility] [address] [facility] [address] [place] [address] 06/29/2023 09:10:38 06/29/2023 09:47:25 Cough 82642903 R05.9 Dyspnea 029173696 R06.00 Health Concerns Section Related Observation LastModified by Organization Detai ls LastModified Time None Recorded Concern Status LastModified by Organization Details LastModified Time None Recorded Advance Directives Directive None Recorded Payers Encounter Date Sequence Insurance Name Policy Number Policy Cueto Covered Member ID Cueto Member ID Guarantor Name 06/29/2023 1 [facility] [id number] Radha Sanders [id number] Radha Sanders Notes Date Note Type Note [...] remedies with limited relief. [address], [place], [address], [facility]. 06/29/2023 11:28:36 OBGyn Episode No OBEpisode recorded.
--- OUTSIDE RECORDS SUMMARY | 2024-03-20 10:12 | XMS_ITS | Clinical Summary ---
Author Organization Formerly [facility] Address [facility] [place] [address] Care Team Providers Care Burial Agent Name Role Phone Yamileth Saavedra Primary Care Provider [phone] Allergies Active Allergy Reactions Criticality Noted Date [...] scan 07/29/2009 Overview (08/26/2010): - DEXA 07/29/09 ([facility]): T-score = -1.2 at L1-4, [...] 2024 8:40 AM EDT Appointment Mammography/[place] [phone] Jewels Barba MARKETING ADMINISTRATOR [facility] [place] [address] 2024 9:40 AM EDT Office [place] [phone] Jewels Barba [facility] [place] [address] Health Maintenance Due Date Last Done Comments CT Colonography 1976 FIT DNA 1976 FIT 1976 Sigmoidoscopy 1976 Pneumococcal Vaccine: At-Ris k 5-64yrs (1 of 2 - PCV) 1982 HIV screen 1994 Hepatitis C Screening 1994 Lipid Screening 1994 Hepatitis B vaccine (0-59 yrs) (1) 10/03/1995 Tetanus/Diphtheria/Pertussis Vaccines (1 - Tdap) 10/03/1995 HPV test 2006 PAP Smear 2006 Breast Cancer Share Decision Needed 2016 Colonoscopy 08/26/2023 08/25/2013, 08/25/2013 Colorectal Cancer Screening 08/26/2023 Sigmoidoscopy (10 year) with FIT yearly 08/26/2023 0 08/25/2013, 08/25/2013 Covid-19 Vaccine (3 - season) 2024, 08/24/2020 Influenza (Flu) vaccine [...] who have questions please contact the health lawn care specialist that requested your imaging first. ? Electronically signed by: Elena Franco MD, [facility] ?? ([phone]), at 09/29/2023 11:20 AM Narrative 09/29/2023 11:20 [...] * COLONOSCOPY (08/25/2013 3:14 PM EST) COLONOSCOPY [facility] Endoscopy Patient Name: Radha Sanders ? Procedure Date: 08/25/2013 3:14 PM ? Date of : 1975 ? Age: 37 ? Order #: [id number] ? Procedure: ? Colonoscopy Indications: ? Generalized abdominal pain Providers: ? Orestes Sepulveda MD, Betzy Nguyen ? ESTHER Vásquez, Sarah Ruiz, ? Machine Stone Polisher Apprentice Referring MD: ?REYNA Anderson, Anna ? MD [...] Recently Relevant to Health Maintenance Care Teams Burial Agent Relationship Specialty Start Date End Date Yamileth Saavedra PA [address] [place] [address] PCP - General Family Medicine 06/29/17
--- OUTSIDE RECORDS SUMMARY | 2024-03-20 10:12 | XMS_ITS | Encounter Summary ---
Author Organization [facility] Address [facility] [place] [address] Care Team Providers Care Transmission Line Engineer Name Role Phone Yamileth Saavedra Primary Care Provider [phone] Encounter Details Date Type Department Care Team (Latest Contact Info) Description 09/29/2023 9:00 AM EDT - 09/29/2023 11:59 PM EDT Hospital Encounter Mammography/[place] [address] Krista Julian MD [facility] [place] [address] Abnormal mammogram Discharge Disposition: Home Social History Tobacco Use Types Packs/Day Years Used Date Smoking Tobacco: Every Day Cigarettes Smokeless Tobacco: Never Alcohol Use Standard Drinks/Week Comments Yes 5 (1 standard drink = 0.6 oz pur e alcohol) [facility] Inpatient Questions Answer Date Recorded Does [...] 2024 8:40 AM EDT Appointment Mammography/[place] [address] Jewels Barba, [facility] [place] [address] 2024 9:40 AM EDT Office Visit [place] [address]-1000 Jewels Barba, [facility] [address] documented as of this encounter Procedures Procedure [...] who have questions please contact the health career development associate that requested your imaging first. ? Narrative [...] unspecified documented in this encounter Care Teams Transmission Line Engineer Relationship Specialty Start Date End Date Yamileth Saavedra PA [address] [place] [address] PCP - General Family Medicine 06/29/17 documented as of this encounter
--- OUTSIDE RECORDS SUMMARY | 2024-03-20 10:12 | XMS_ITS | Encounter Summary ---
Author Organization [facility] Address [facility] [place] [address] Care Team Providers Care Elementary Secretary Name Role Phone Yamileth Saavedra Primary Care Provider [phone] Encounter Details Date Type Department Care Team (Latest Contact Info) Description 01/29/2023 12:30 PM EDT - 01/29/2023 12:31 PM EDT Hospital [place] [address] Krista Julian MD [facility] [place] [address] Abnormal mammogram Discharge Disposition: Home Social History Tobacco Use Types Packs/Day Years Used Date Smoking Tobacco: Every Day Cigarettes Smokeless Tobacco: Never Alcohol Use Standard Drinks/Week Comments Yes 5 (1 standard drink = 0.6 oz pur e alcohol) [facility] Inpatient Questions Answer Date Recorded Does Anyone [...] by MD Sanket Oliveira MD PGY-3 Pager #[phone] Department of Radiology [facility] 01/25/2023 documented in this encounter Plan of Treatment Upcoming Encounters Date Type Department Care Team (Late st Contact Info) Description 2024 8:40 AM EDT Appointment Mammography/[place] [phone] Jewels Barba APRN [facility] [place] [address] 2024 9:40 AM EDT Office [place] [address] Jewels Barba, [facility] [place] [place] [address] documented as of this encounter Procedures Procedure [...] who have questions please contact the health care management coordinator that requested your imaging first. ? Narrative [...] mg documented in this encounter Care Teams Elementary Secretary Relationship Specialty Start Date End Date Yamileth Saavedra PA [address] [place] [address] PCP - General Family Medicine 06/29/17 documented as of this encounter
--- OUTSIDE RECORDS SUMMARY | 2024-03-20 10:12 | XMS_ITS | Encounter Summary ---
Author Organization [facility] [place] [address] Care Team Providers Care Factory Clerk Name Role Phone Yamileth Saavedra Primary Care Provider [phone] Encounter Details Date Type Department Care Team (Late st Contact Info) Description 09/10/2022 12:05 AM EDT Ancillary Procedure Radiology Library at [facility] [place] [phone] Yamileth Saavedra PA [address] [place], [place] [id number] Social History Tobacco Use Types Packs/Day Years [...] 2024 8:40 AM EDT Appointment Mammography/[place] [address] Jewels Barba APRN [facility] [place] [address] 2024 9:40 AM EDT Office Visit [place] [address] Jewels Barba APRN [facility] [place] [address] documented as of this encounter Procedures Procedure Name Priority Date/Time Associated Diagnosis Comments FILM LIBRARY STORAGE ONLY MAMMO Routine 09/10/2022 12:05 AM EDT documented in this encounter Results * Film Library- Storage Only Mammo (09/10/2022 12:05 AM EDT) Narrative [facility] - 10/28/2022 8:11 AM EDT This exam is auto-finalizing. It's purpose is for storage only. Yamileth ORELLANA IMG FILM LIBRARY ORD ERABLES [place], [place] documented in this encounter Visit Diagnoses Not on filedocumented in this encounter Care Teams Factory Clerk Relationship Specialty Start Date End Date Yamileth Saavedra PA [address] [place] [address] PCP - General Family Medicine 06/29/17 documented as of this encounter
--- OUTSIDE RECORDS SUMMARY | 2024-03-20 10:12 | XMS_ITS | Encounter Summary ---
Author Organization [facility] [place] [address] Care Team Providers Care Tool Marker Name Role Phone Yamileth Saavedra Primary Care Provider [phone] Encounter Details Date Type Department Care Team (Late st Contact Info) Description 12/31/2022 Orders [place] [address]1000 Luis Julian MD [facility] [place] [address] Abnormal mammogram Social History Tobacco Use Types Packs/Day Years Used Date Smoking Tobacco: Every Day Cigarettes Smokeless Tobacco: Never Alcohol Use Standard Drinks/Week Comments Yes 5 (1 standard drink = 0.6 oz pur e alcohol) [facility] Inpatient Questions Answer Date Recorded Does [...] 2024 8:40 AM EDT Appointment Mammography/[place] [address]1000 Jewels Barba APRN [facility] [place] [address] 2024 9:40 AM EDT Office Visit General Surgery at [facility] [place] [address] Jewels Barba [facility] [place] [address] documented as of this encounter Results * [...] who have questions please contact the health intensive care nurse that requested your imaging first. ? Electronically signed by: Mirlande Mcgarry MD, [facility] ([phone]), at 01/29/2023 3:39 PM Luis Julian MD IMG MAMMO ORDERABLE S documented in this encounter Visit Diagnoses Diagnosis Abnormal mammogram Abnormal mammogram, unspecified Abnormal mammogram Abnormal mammogram, unspecified documented in this encounter Care Teams Tool Marker Relationship Specialty Start Date End Date Yamileth Saavedra PA [address] [place] [address] PCP - General Family Medicine 06/29/17 documented as of this encounter
--- OUTSIDE RECORDS SUMMARY | 2024-03-20 10:12 | XMS_ITS | Encounter Summary ---
Author Organization [facility] [place] [address] Care Team Providers Care Bridges And Buildings Supervisor Name Role Phone Yamileth Saavedra Primary Care Provider [phone] Encounter Details Date Type Department Care Team [...] 2024 8:40 AM EDT Appointment Mammography/[place] [address]-1000 Jewels Barba APRN [facility] [place] [address] 2024 9:40 AM EDT Office [place] [phone] Jewels Barba APRN [facility] [place] [address] documented as of this encounter Visit Diagnoses Not on filedocumented in this encounter Care Teams Bridges And Buildings Supervisor Relationship Specialty Start Date End Date Yamileth Saavedra PA [address] [place] [address] PCP - General Family Medicine 06/29/17 documented as of this encounter
--- OUTSIDE RECORDS SUMMARY | 2024-03-20 10:12 | XMS_ITS | Encounter Summary ---
Author Organization [facility] Address [facility] [place] [address] Care Team Providers Care Dog Races Manager Name Role Phone Yamileth Saavedra Primary Care Provider [phone] Encounter Details Date Type Department Care Team (Latest Contact Info) Description 02/15/2023 11:25 AM EDT - 02/15/2023 11:59 PM EDT Hospital [place] [address] Mirlande Mcgarry MD [facility] [place] [address] Discharge Disposition: Home Social History Tobacco Use Types Packs/Day Years Used Date Smoking Tobacco: Every Day Cigarettes Smokeless Tobacco: Never Alcohol Use Standard Drinks/Week Comments Yes 5 (1 standard drink = 0.6 oz pur e alcohol) COUNTS INCLUDE 234 BEDS AT [facility] Inpatient Questions Answer Date Recorded Does [...] 2024 8:40 AM EDT Appointment Mammography[place] [address]-1000 Jewels Barba [facility] [place] [address] 2024 9:40 AM EDT Office [place] [address]-1000 Jewels Barba [facility] [place] [address] documented as of this encounter Procedures Procedure [...] on filedocumented in this encounter Care Teams Dog Races Manager Relationship Specialty Start Date End Date Yamileth Saavedra PA [address] [place] [address] PCP - General Family Medicine 06/29/17 documented as of this encounter
--- OUTSIDE RECORDS SUMMARY | 2024-03-20 10:12 | XMS_ITS | Encounter Summary ---
Author Organization [facility] [place] [address] Care Team Providers Care Shop Tech Name Role Phone Yamileth Saavedra Primary Care Provider [phone] Reason for Referral * Diagnostic Test (Routine) - New Request Specialty Diagnoses / Procedures Referred By Chip johnson Referred To Contact Radiology Diagnoses Atypical ductal hyperplasia of left breast Extremely dense tissue of both breasts on mammography Breast cancer screening other than mammogram Procedures MRI Breast wwo Contrast Bilat Jewels Barba APRN [facility] [place] [address] [place] [address] Referral ID Status Reason Start Date Expiration Date Visits Requested Visits Authorized [id number] New Request Specialty Service Requested 09/29/2023 03/30/2025 1 1 Encounter Details Date Type Department Care Team (Late st Contact Info) Description 09/29/2023 10:40 AM EDT Office [place] [address] Krista Julian MD [facility] [place] [address] Jewels Barba APRN [facility] [place] [address] Encounter for screening mammogram for breast cancer; [...] headaches. Breast history: A screening mammogram at [facility] in August 2022 showed an oval mass in the right breast, that, manager documentation back imaging, was felt to represent a [...] focal necrosis. Her images were sent to [facility] for a 2nd read. A surgical referral [...] screening ADH patients with MRI to improve half-way survival. Radha declined chemoprevention with tamoxifen. Breast Cancer Risk Factors: History Age at delivery of first child 19 yo Breast fed Yes, briefly Menarche age 11 yo LMP / Menopause Perimenopausal; LMP 09/16/23 Hormonal contraception use Yes, for a short time Hormone replacement therapy No Family history of breast cancer No Family history of ovarian cancer No Known genetic mutation Not tested Ashkenazi Muslim heritage No Previous radiation to chest No Family History Problem (# of Occurrences) Relation (Name,Age of Onset) Esophageal Cancer (1) Paternal Uncle Lung Cancer (2) Father, Paternal Uncle Thyroid Cancer (1) Sister Negative family history of: Breast Cancer Social Hx: Radha works for the [employer]. She is a current smoker. She is [...] situation. Imaging: Imaging performed (bilateral mammogram) at [facility] today shows no evidence of malignancy, BIRADS [...] free apps for your cell phone from [employer] ([employer]) and [employer] ([employer]). [employer] program offers free tools and information to help you improve your diet, increase fitness, decrease stress, and reduce your exposure to harmful chemicals in your home environment. Free course available at [employer] All questions were answered to the patient's [...] [] Referring and communicating with other health managed care specialist [x] Documenting clinical information in the electronic or other health record [x] Independently interpreting results and communicating results to the patient/family/caregiver [x] Care coordination Jewels Barba APRN Surgical Oncology P [phone] F [phone] [facility] documented in this encounter Miscellaneous Notes * Addendum Note - Jewels Barba APRN - 09/29/2023 10:40 AM EDTAddended by: JEWELS BARBA on: 09/29/2023 05:29 PM Modules accepted: Orders documented in this encounter Plan of Treatment Upcoming Encounters Date Type Department Care Team (Late st Contact Info) Description 2024 8:40 AM EDT Appointment Mammography/[place] [address] Jewels Barba APRN [facility] [place] [address] 2024 9:40 AM EDT Office [place] [address] Jewels Barba GUITAR REPAIRER [facility] [place] [address] Scheduled Orders Name Type Priority Associated Diagnoses [...] mammogram documented in this encounter Care Teams Shop Tech Relationship Specialty Start Date End Date Yamileth Saavedra PA [address] [place] [address] PCP - General Family Medicine 06/29/17 documented as of this encounter
--- OUTSIDE RECORDS SUMMARY | 2024-03-20 10:12 | XMS_ITS | Encounter Summary ---
Author Organization [facility] [place] [address] Care Team Providers Care Extended Day Teacher Name Role Phone Yamileth Saavedra Primary Care Provider [phone] Encounter Details Date Type Department Care Team (Late st Contact Info) Description 09/22/2022 Ancillary Procedure Radiology Library at [facility] [place] [address] Yamileth Saavedra PA [address] [place], [place] [address] Social History Tobacco Use Types Packs/Day Years [...] 2024 8:40 AM EDT Appointment Mammography[place] [address] Jewels Barba ELECTRONIC FIELD SERVICE ENGINEER [facility] GENER[place] [address] 2024 9:40 AM EDT Office [place] [address] Jewels Barba APRN [facility] [place] [address] documented as of this encounter Procedures Procedure Name Priority Date/Time Associated Diagnosis Comments FILM LIBRARY-STORAGE ONLY US BREAST Routine 09/22/2022 12:00 AM EDT documented in this encounter Results * Film Library Storage Only US Breast (09/22/2022 12:00 AM EDT) Narrative [facility] - 10/28/2022 8:11 AM EDT This exam is auto-finalizing. It's purpose is for storage only. Yamileth ORELLANA IMG FILM LIBRARY ORD ERABLES [place], [place] documented in this encounter Visit Diagnoses Not on filedocumented in this encounter Care Teams Extended Day Teacher Relationship Specialty Start Date End Date Yamileth Saavedra PA [address] [place] [address] PCP - General Family Medicine 06/29/17 documented as of this encounter
--- OUTSIDE RECORDS SUMMARY | 2024-03-20 10:12 | XMS_ITS | Encounter Summary ---
Author Organization [facility] Address [address] [place] [address] Care Team Providers Care Roving Changer Name Role Phone Unavailable Primary Care Provider Unavailabl e Encounter Details Date Type Department Care Team (Late st Contact Info) Description 01/19/2008 Before PRISM Converted Visit (Maple) [facility] - Maple conversion [address] [place] [address] Diamond Leonard, [address] [id number] Social History Tobacco Use Types Packs/Day Years [...] [facility]. [facility] Report Status Final [id number] [facility] 01/19/2008 10:4 6 EDT 01/26/2008 10:46 EDT Diamond Leonard CNM MICROBIOLOGY - G ENERAL ORDERABLES [facility] [address] [place] [address] * CYTOPATHOLOGY (01/19/2008 0:00 EDT) Pathology Report: CYTOPATHOLOGY REPORT ? Reports generated via electronic interface contain original data; ? however they are lacking the format of the original report. ? Caution should be taken when reading/interpreti ng unformatted reports. ? Name: ? ABELINO BRYAN ? Accession #: ? [id number] ? : ? 1975 (Age: 32) ??F ?Collect Date: ? 01/19/2008 ? Location: ? [facility] ? Receive Date: ? 01/23/2008 ? Provider: ?DIAMOND LEONARD CNM ? Copy to: ? Specimen/Source: ?ThinPrep Pap Test, Cervix/Endocervix, processed on 2heuresavant ThinPrep Imaging System, with manual evaluation ? [...] PATHOLOGY SUKUMAR DOMINGO [facility] [address] [place] [address] documented in this encounter Visit Diagnoses Not on filedocumented in this encounter
--- OUTSIDE RECORDS SUMMARY | 2024-03-20 10:12 | XMS_ITS | Encounter Summary ---
Author Organization [facility] [place] [address] Care Team Providers Care Production Director Name Role Phone Yamileth Saavedra Primary Care Provider [phone] Encounter Details Date Type Department Care Team [...] 2024 8:40 AM EDT Appointment Mammography/[place] [address]-1000 Jewels Barba APRN [facility] [place] [address] 2024 9:40 AM EDT Office [place] [address] Jewels Barba APRN [facility] [place] [place] [address] documented as of this encounter Visit Diagnoses Not on filedocumented in this encounter Care Teams Production Director Relationship Specialty Start Date End Date Yamileth Saavedra PA [address] [place] [address] PCP - General Family Medicine 06/29/17 documented as of this encounter
--- OUTSIDE RECORDS SUMMARY | 2024-03-20 10:12 | XMS_ITS | Encounter Summary ---
Author Organization [facility] [place] [address] Care Team Providers Care Robotic Technician Name Role Phone Yamileth Saavedra Primary Care Provider [phone] Encounter Details Date Type Department Care Team (Latest Contact Info) Description 10/30/2022 12:35 PM EDT - 10/30/2022 11:59 PM EDT [place] [address] Discharge Disposition: Home Social History Tobacco Use [...] 2024 8:40 AM EDT Appointment Mammography/[place] [address]1000 Jewels Barba, [facility] [place] [address] 2024 9:40 AM EDT Office [place] [address]-1000 Jewels Barba, [facility] [place] [address] documented as of this encounter Procedures Procedure Name Priority Date/Time Associated Diagnosis Comments SURGICAL PATHOLOGY REPORT Routine 10/30/2022 12:39 PM EDT documented in this encounter Results * (ABNORMAL) Surgical Pathology Report (10/30/2022 12:39 PM EDT) Final Diagnosis [id number] ? Location: [facility] The signing pathologist has (i) examined the relevant preparation(s) for the specimen(s) and (ii) rendered or confirmed the diagnosis(es). . ?Surgical Pathology DIAGNOSIS CONSULTATION CASE Outside slide(s) labeled [id number], collection date 09/22/2022. A- Breast, left, 8 o'clock, 4cm from nipple, biopsy: - Sclerosing papillary lesions with at least atypical ductal hyperplasia, see discussion. - Surrounding breast tissue with adenosis, columnar cell change/hyperplasia. Electronically signed by: ?Taras Davis MD Verified: ??11/09/2022 13:57 ??Pathologist Performed at: ??-[facility] Dept. of Pathology, [place] [address] Substation Operator Helper Generation: Freeman Wiggins MD, AP, ??CLIA Certificate: [id number] DISCUSSION THIS RESULT REQUIRES PHYSICIAN/A.P.P. FOLLOW UP [...] CONSULTATION CASE A - 4 slide(s) labeled [id number], collection date 09/22/2022. [id number] CARBON COPY: [facility] Surgical Pathology Department [facility], 2nd Floor [address] [place], [place] [address] . CLINICAL INFORMATION 47 year old female with angular 5mm left breast mass SPECIMEN PROCESSING [facility] ([facility]) pathology slide(s) are reviewed. Refer to Diagnosis and Specimen Submitted for specific case information. For the full text of the [facility] report(s) please refer to the Chart Review Media tab in the electronic health record (eDH).(A) 11/09/2022 1:57 PM EDT [facility] Consult Case 10/30/2022 12:3 9 PM EDT 10/30/2022 12:39 PM EDT Krista Julian MD PATHOLOGY/CYTOLOGY ORDERABLES [id number] [place] [address] documented in this encounter Visit Diagnoses Not on filedocumented in this encounter Care Teams Robotic Technician Relationship Specialty Start Date End Date Yamileth Saavedra PA [address] [place] [address] PCP - General Family Medicine 06/29/17 documented as of this encounter
--- OUTSIDE RECORDS SUMMARY | 2024-03-20 10:12 | XMS_ITS | Encounter Summary ---
Author Organization [facility] [place] [address] Care Team Providers Care Retail Maintenance Technician Name Role Phone Yamileth Saavedra Primary Care Provider [phone] Reason for Visit * Auth/Cert (Routine) Specialty Diagnoses / Procedures Referred By Contac t Referred To Contact Diagnoses Abnormal mammogram abnormal mammogram Procedures PRO EXCISE BREAST LES W XRAY MARKER EXCISION LESION, BREAST W/ PREOP.MARKER (NEEDLE LOC.) (WRVU 6.69) MODIFIER WITH NEEDLE LOC., LESION #1 Luis Julian MD [facility] [place] [address] [facility] Referral ID Status Reason Start Date Expiration Date Visits Re quested Visits Authorized [id number] 1 1 Encounter Details Date Type Department Care Team (Late st Contact Info) Description 01/29/2023 3:30 PM EDT - 01/29/2023 4:44 PM EDT Surgery [place] [address] Luis Julian MD [facility] [address] [place], [place] [id number] EXCISION LESION, BREAST W/ PREOP.MARKER (NEEDLE LOC.) [...] shower 24 hours Activity as tolerated Call [phone] with any questions Do not soak incision [...] male partner. Has son and daughter. 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 FH: no breast or ovarian cancer PMH [...] Julian MD - 01/29/2023 3:[address] [facility] Operative Note Patient Name: Radha Sanders : [id number] MR#: [id number] Case Date: 01/29/2023 Surgeon: Surgeon(s) and Role: [...] 2024 8:40 AM EDT Appointment Mammography/[place] [address] Jewels Barba APRN [facility] [place] [address] 2024 9:40 AM EDT Office [place] [address] Jewels Barba APRN [facility] [place] [address] documented as of this encounter Procedures Procedure Name Priority Date/Time Associated Diagnosis Comments SPECIMEN TO PATHOLOGY Routine 01/29/2023 3:22 PM EDT SURGICAL PATHOLOGY REPORT Routine 01/29/2023 3:21 PM EDT MODIFIER WITH NEEDLE LOC., LESION #1 01/29/2023 2:56 PM EDT abnormal mammogram Excise Breast Les W Xray Marker ([id number]) 01/29/2023 2:56 PM EDT abnormal mammogram documented in this encounter Results * Specimen to Pathology (01/29/2023 3:22 PM EDT) AP Specimen 01/29/2023 3:22 PM EDT 01/29/2023 3:22 PM EDT Narrative [facility] - 01/29/2023 3:22 PM EDT Specimen requisition ordered. ??Separate Pathology report to follow Luis Julian MD PATHOLOGY/CYTOLOGY ORDERABLES [facility] [place] [address] * Surgical Pathology Report (01/29/2023 3:21 PM EDT) Final Diagnosis [id number] ? Location: [facility] The signing pathologist has [...] MD Verified: ??02/11/2023 10:16 ??Pathologist Performed at: ??-[facility] Dept. of Pathology, [place] [address] Window Dresser: Freeman Wiggins MD, FCAP, ??CLIA Certificate: [id number] ADDITIONAL STUDIES The specimen was entirely submitted [...] (<1 hour). ??shb 02/11/2023 10:16 AM EDT [facility] BREAST STRUCTURE / Unknown 01/29/2023 3:21 PM EDT 01/29/2023 3:21 PM EDT Luis Julian MD PATHOLOGY/CYTOLOGY ORDERABLES [facility] [place] [address] [place] [address] documented in this encounter Visit Diagnoses Not [...] total) documented in this encounter Care Teams Retail Maintenance Technician Relationship Specialty Start Date End Date Yamileth Saavedra PA [address] [place] [address] PCP - General Family Medicine 06/29/17 documented as of this encounter
--- OUTSIDE RECORDS SUMMARY | 2024-03-20 10:12 | XMS_ITS | Encounter Summary ---
Author Organization [facility] Address [facility] [place] [address] Care Team Providers Care Etcher Photoengraving Name Role Phone Yamileth Saavedra Primary Care Provider [phone] Encounter Details Date Type Department Care Team (Latest Contact Info) Description 01/29/2023 12:32 PM EDT - 01/29/2023 1:43 PM EDT Hospital [place] [address] Luis Julian MD [facility] [place] [address] Abnormal mammogram Discharge Disposition: Home Social History Tobacco Use Types Packs/Day Years Used Date Smoking Tobacco: Every Day Cigarettes Smokeless Tobacco: Never Alcohol Use Standard Drinks/Week Comments Yes 5 (1 standard drink = 0.6 oz pur e alcohol) [facility] Inpatient Questions Answer Date Recorded Does Anyone [...] 2024 8:40 AM EDT Appointment Mammography/[place] [phone] Jewels Barba [facility] [place] [address] 2024 9:40 AM EDT Office [place] [address] Jewels Barba [facility] [place] [address] documented as of this encounter Procedures Procedure [...] who have questions please contact the health geriatric personal care aide that requested your imaging first. ? Electronically signed by: Mirlande Mcgarry MD, [facility] ([phone]), at 01/29/2023 3:39 PM Luis Julian MD IMG MAMMO ORDERABLE S documented in this encounter Visit Diagnoses Diagnosis Abnormal mammogram Abnormal mammogram, unspecified documented in this encounter Care Teams Etcher Photoengraving Relationship Specialty Start Date End Date Yamileth Saavedra PA [address] [place] [address] PCP - General Family Medicine 06/29/17 documented as of this encounter
--- OUTSIDE RECORDS SUMMARY | 2024-03-20 10:12 | XMS_ITS | Encounter Summary ---
Author Organization [facility] [place] [address] Care Team Providers Care Zinc Plating Machine Operator Name Role Phone Yamileth Saavedra Primary Care Provider [phone] Encounter Details Date Type Department Care Team (Late st Contact Info) Description 09/07/2017 Telephone Functional Tenriism Program at [facility] [address] [place] [phone] Gali Haque Social History Tobacco Use Types [...] the August program. Asked that patient call [phone] to discuss her plan going forward. documented in this encounter Plan of Treatment Upcoming Encounters Date Type Department Care Team (Late st Contact Info) Description 2024 8:40 AM EDT Appointment Mammography/[place] [address] Jewels Barba APRN [facility] [place] [address] 2024 9:40 AM EDT Office [place] [address] Jewels Barba [facility] [address] documented as of this encounter Visit Diagnoses Not on filedocumented in this encounter Care Teams Zinc Plating Machine Operator Relationship Specialty Start Date End Date Yamileth Saavedra PA [address] [place] [address] PCP - General Family Medicine 06/29/17 documented as of this encounter
--- OUTSIDE RECORDS SUMMARY | 2024-03-20 10:12 | XMS_ITS | Encounter Summary ---
Author Organization [facility] [place] [address] Care Team Providers Care Taxi Proprietor Name Role Phone Yamileth Saavedra Primary Care Provider [phone] Encounter Details Date Type Department Care Team (Late st Contact Info) Description 10/27/2022 Notes Only [place]ematology [place] [phone] Sandra Ibarra Social History Tobacco Use Types [...] Radha Sanders 1975 Provider requesting: Dr. Krista Julian Attn: [facility] Pathology Department From: Comprehensive Breast Program [phone] []Urgent [x] For Review [] Please Reply [...] in lymph nodes if present. Send a parts sales representative slide foreach separate focus of tumor if multiple tumors present. NOTE: All slides do not need to be sent. ??? Immunohistochemistry stained slides of prognostic markers (ER, MS and HER2) performed on tumor(s) if available. ??? If patient has metastatic disease (i.e. bone, lung, liver) that has been biopsied, send diagnostic H&E slide(s) of metastatic disease with immunohistochemistry if performed. Fed-Ex # [id number] to send overnight Mail to: Department of Pathology [facility] Attn: Anatomic Pathology, [place] [address] If questions please call [phone] Notice of Confidentiality: The documents accompanying this FAX transmission cover contain information from [facility] that is confidential and privileged. The information [...] 2024 8:40 AM EDT Appointment Mammography[place] [address] Jewels Barba CERTIFIED NURSE PRACTITIONER [facility] [place] [address] 2024 9:40 AM EDT Office [place] [address] Jewels Barba, CERTIFIED NURSE PRACTITIONER [facility] [place] [address] documented as of this encounter Visit Diagnoses Not on filedocumented in this encounter Care Teams Taxi Proprietor Relationship Specialty Start Date End Date Yamileth Saavedra PA [address] [place] [address] PCP - General Family Medicine 06/29/17 documented as of this encounter
--- OUTSIDE RECORDS SUMMARY | 2024-03-20 10:12 | XMS_ITS | Encounter Summary ---
Author Organization [facility] [place] [address] Care Team Providers Care Assembler Sandal Parts Name Role Phone Yamileth Saavedra Primary Care Provider [phone] Encounter Details Date Type Department Care Team (Late st Contact Info) Description 09/10/2022 Ancillary Procedure Radiology Library at [facility] [place] [address] Yamileth Saavedra PA [address] [place], [place] [address] Social History Tobacco Use Types Packs/Day Years [...] 2024 8:40 AM EDT Appointment Mammography/[place] [address] [address] MACHINE TESTER [facility] [place] [address] 2024 9:40 AM EDT Office [place] [address] [facility] [place] [address] documented as of this encounter Procedures Procedure Name Priority Date/Time Associated Diagnosis Comments FILM LIBRARY-STORAGE ONLY US BREAST Routine 09/10/2022 12:00 AM EDT documented in this encounter Results * Film Library Storage Only US Breast (09/10/2022 12:00 AM EDT) Narrative [facility] - 10/28/2022 8:07 AM EDT This exam is auto-finalizing. It's purpose is for storage only. Yamileth [facility] IMG FILM LIBRARY ORD ERABLES [place], [place] documented in this encounter Visit Diagnoses Not on filedocumented in this encounter Care Teams Assembler Sandal Parts Relationship Specialty Start Date End Date Yamileth Saavedra PA [address] [place] [address] PCP - General Family Medicine 06/29/17 documented as of this encounter
--- OUTSIDE RECORDS SUMMARY | 2024-03-20 10:12 | XMS_ITS | Encounter Summary ---
Author Organization [facility] Address [address] [place] [address] Care Team Providers Care Hydraulic Spinner Name Role Phone Unknown, Provider Primary Care Provider [phone] Encounter Details Date Type Department Care Team (Late st Contact Info) Description 06/10/2022 Lab Requisition [facility] Pathology & Laboratory Medicine - [facility] [address] [place] [address] Napoleon Bob MD [address] [place] [phone] Encounter for other general examination Social History [...] management options, if applicable. 06/18/2022 10:48 EST [facility] Final Diagnosis A. 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 See comment. 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 B. CERVIX, 5 O'CLOCK, BIOPSY: - Fragments of benign squamous mucosa. See comment. 06/18/2022 10:48 [facility] Diagnosis Comment Deeper sections have been examined on part B. Immunoperoxidase stains were performed on this case to further characterize the lesion. ANTIBODY(CLONE)(BL OCK):RESULT P16 (E6H4TM, [place]) (A1): Negative Ki67 (MIB-1) (K2, Leica) (A1): [...] performance characteristics have been determined by [facility] and/or by the referring laboratory. [...] high complexity clinical laboratory testing. 06/18/2022 10:48 [facility] Attestation There was significant resident/fellow involvement in the diagnostic evaluation of this case. By the signature below, the attending physician certifies that they have personally conducted a gross and/or microscopic examination of the described specimens and rendered or confirmed the above diagnosis. 06/18/2022 10:48 [facility] at 1048 Clinical History Pap LSIL 06/18/2022 10:48 [facility] Gross Description A. Received in [...] CORONA LEÓNR 06/11/2022 8:26 06/18/2022 10:48 EST [facility] Resident/Sergio w: Brooklynn Reed MD PhD 06/18/2022 10:48 EST [facility] Performing Lab [facility] 10:48 EST [facility] Scanned Images 06/18/2022 10:48 EST [facility] Tissue ENTIRE WALL OF CERVIX / Unknown 06/09/2022 14:40 EST 06/11/2022 7:55 EST Tissue specimen (specimen) CERVIX UTERI STRUCTURE / Unknown 06/09/2022 14:40 EST 06/11/2022 7:55 EST Napoleon Bob MD PATHOLOGY ORDTon WILLARD [facility] [address] [place] [address] documented in this encounter Visit Diagnoses Diagnosis Encounter for other general examination documented in this encounter Care Teams Hydraulic Spinner Relationship Specialty Start Date End Date Unknown, Provider, PCP - General 01/26/17 documented as of this encounter
--- OUTSIDE RECORDS SUMMARY | 2024-03-20 10:12 | XMS_ITS | Encounter Summary ---
Author Organization [facility] [place] [address] Care Team Providers Care Director Marketing Name Role Phone Yamileth Saavedra Primary Care Provider [phone] Encounter Details Date Type Department Care Team [...] 2024 8:40 AM EDT Appointment Mammography/[place] [address] Jewels Barba [facility] [place] [address] 2024 9:40 AM EDT Office [place] [address] Jewels Barba [facility] [place] [address] documented as of this encounter Visit Diagnoses Not on filedocumented in this encounter Care Teams Director Marketing Relationship Specialty Start Date End Date Yamileth Saavedra PA [address] [place] [address] PCP - General Family Medicine 06/29/17 documented as of this encounter
--- OUTSIDE RECORDS SUMMARY | 2024-03-20 10:12 | XMS_ITS | Encounter Summary ---
Author Organization [facility] [place] [address] Care Team Providers Care Director On Air Name Role Phone Yamileth Saavedra Primary Care Provider [phone] Reason for Visit * Reason Comments Advice Only * Consultation (Routine) - Closed Specialty Diagnoses / Procedures Referred By Contac t Referred To Contact Hematology and Oncology Diagnoses Abnormal histological findings in specimens from other organs, systems and tissues Suyapa Dacosta, [facility] [address] [place] [address] [place] [address] [facility] Hem Onc [address] [place] [address] Referral ID Status Reason Start Date Expiration Date V isits Requested Visits Authorized [id number] Closed Consult, Test & Treat PCP Updated and/or Approved 10/26/2022 10/26/2023 6 6 Encounter Details Date Type Department Care Team (Late st Contact Info) Description 12/31/2022 3:30 PM EDT Office Visit [place] [address] Krista Julian MD [facility] [place] [address] Abnormal mammogram Social History Tobacco [...] male partner. Has son and daughter. 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 FH: no breast or ovarian cancer PMH [...] 2024 8:40 AM EDT Appointment Mammography/[place] [address] Jewels Barba APRN [facility] [place] [address] 2024 9:40 AM EDT Office [place] [address] Jewels Barba APRN [facility] [place] [address] Scheduled Referrals Name Type Priority Associated Diagnoses Orde r Schedule Referral to Hematology and Oncology Outpatient Referral Routine Abnormal Histological Findings In Specimens From Other Organs, Systems And Tissues Ordered: 10/26/2022 documented as of this encounter Visit Diagnoses Diagnosis Abnormal mammogram Abnormal mammogram, unspecified documented in this encounter Care Teams Director On Air Relationship Specialty Start Date End Date Yamileth Saavedra PA [address] [place] [address] PCP - General Family Medicine 06/29/17 documented as of this encounter
--- OUTSIDE RECORDS SUMMARY | 2024-03-20 10:12 | XMS_ITS | Encounter Summary ---
Author Organization [facility] [place] [address] Care Team Providers Care Drain Cleaner Name Role Phone Yamileth Saavedra Primary Care Provider [phone] Reason for Visit * Auth/Cert (Routine) Specialty Diagnoses / Procedures Referred By Contac t Referred To Contact Diagnoses Abnormal mammogram abnormal mammogram Procedures PRO EXCISE BREAST LES W XRAY MARKER EXCISION LESION, BREAST W/ PREOP.MARKER (NEEDLE LOC.) (WRVU 6.69) MODIFIER WITH NEEDLE LOC., LESION #1 Krista Julian MD [facility] [place] [address] [facility] Referral ID Status Reason Start Date Expiration Date Visits Re quested Visits Authorized [id number] 1 1 Encounter Details Date Type Department Care Team (Late st Contact Info) Description 01/29/2023 2:54 PM EDT Anesthesia Event [place] [address] Milo Santiago MD [facility] [place] [address] Harvey Ibarra MD [facility] [place] [address] Anesthesia Record Procedure Summary Procedure Name Responsible [...] 1438; metacarpal vein (top of hand), right; ndie-ysa-wiqwdl catheter system; Anatomical Landmarks; 20 gauge; distraction, [...] Procedure Summary Date: 01/29/23 Room / Location: [address] Anesthesia Start: 1454 Anesthesia Stop: 1543 Procedures: EXCISION LESION, BREAST W/ PREOP.MARKER (NEEDLE LOC.) (WRVU 6.69) (Left: Breast) MODIFIER WITH NEEDLE LOC., LESION #1 (Left) Diagnosis: (abnormal mammogram) Surgeons: Krista Julian MD Responsible Provider: Milo Santiago MD Anesthesia Type: general ASA Status: 2 All Anesthesia Providers: Anesthesiologist: Milo Santiago MD; Brooklynn Cantor MD RESIDENTIAL LIVING ASSISTANT: Sondra Ramírez CRNA Student Nurse Bog Worker: Arturo Martin Vitals Value Taken Time BP 125/55 01/29/23 1545 Temp 36.4 ??C (97.5 ??F) 01/29/23 1543 Pulse 76 01/29/23 1552 Resp 18 01/29/23 1543 SpO2 96 % 01/29/23 1552 Pain Level 0 01/29/23 1543 Vitals shown include unvalidated device data. [facility] of Consciousness: Awake and Alert Pain [...] Needle Localization Left 01/29/2023 Mirlande Mcgarry MD [facility] RAD MAMMOGRAPHY ??? PRO COLONOSCOPY, BIOPSY 08/25/2013 COLONOSCOPY FLEXIBLE, WITH BX performed by Orestes Sepulveda MD at [facility] ENDOSCOPY ??? PRO UPPER GI ENDOSCOPY, BIOPSY 08/25/2013 UPPER GASTROINTESTINAL ENDOSCOPY,WITH BIOPSY SINGLE OR MULTIPLE performed by Orestes Sepulveda MD at [facility] ENDOSCOPY Social History Tobacco Use ??? [...] risks discussed with patient. Plan discussed with RESIDENTIAL LIVING ASSISTANT and attending. Anesthesia Screening documented in this encounter Plan of Treatment Upcoming Encounters Date Type Department Care Team (Late st Contact Info) Description 2024 8:40 AM EDT Appointment Mammography/[place] [address] Jewels Barba [facility] [place] [address] 2024 9:40 AM EDT Office [place] [address] Jewels Barba [facility] [place] [address] documented as of this encounter Visit Diagnoses [...] mg documented in this encounter Care Teams Drain Cleaner Relationship Specialty Start Date End Date Yamileth Saavedra PA [address] [place] [address] PCP - General Family Medicine 06/29/17 documented as of this encounter
--- OUTSIDE RECORDS SUMMARY | 2024-03-20 10:12 | XMS_ITS | Encounter Summary ---
Author Organization [facility] Address [address] [place] [address] Care Team Providers Care Automotive Exhaust Emissions Technician Name Role Phone Unknown, Provider Primary Care Provider Reason for Visit * (Routine/Next Available) - Receiving Office to Obtain Authorization Specialty Diagnoses / Procedures Referred By Chip johnson Referred To Contact Procedures MA OUTSIDE IMAGES MAMMO SCREENING Imaging, External Referral ID Status Reason Start Date Expiration Date Visits Requested Visits Authorized [id number] Receiving Office to Obtain Authorization 10/13/2022 1 1 Encounter Details Date Type Department Care Team (Latest Contact Info) Description 09/09/2022 - 09/09/2022 23:59 EDT Hospital Encounter [facility] Secondary Reads [place] Discharge Disposition: Home [...] on filedocumented in this encounter Care Teams Automotive Exhaust Emissions Technician Relationship Specialty Start Date End Date Unknown, Provider, PCP - General 01/26/17 documented as of this encounter
--- OUTSIDE RECORDS SUMMARY | 2024-03-20 10:12 | XMS_ITS | Encounter Summary ---
Author Organization [facility] [place] [address] Care Team Providers Care Account Service Associate Name Role Phone Yamileth Saavedra Primary Care Provider [phone] Encounter Details Date Type Department Care Team (Late st Contact Info) Description 10/27/2022 Notes Only Hematology [place] [address] Sandra Ibarra Social History Tobacco Use Types [...] Sandra Ibarra - 10/27/2022 2:36 PM EDTSummary: [facility] review Radha Sanders 1975 [id number] Referring provider: Suyapa Thompson Date of Referral: 10.26.2022 Please review outside breast imaging dated: 09.22.2022 Reason for exam and clinical history: 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 Surgical excision Sending Institution: [facility] Patient would like treatment at: Call pt at: documented in this encounter Plan of Treatment Upcoming Encounters Date Type Department Care Team (Late st Contact Info) Description 2024 8:40 AM EDT Appointment Mammography/[place] [address] Jewels Barba, [facility] [place] [address] 2024 9:40 AM EDT Office [place] [address] Jewels Barba, [facility] [place] [address] documented as of this encounter Visit Diagnoses Not on filedocumented in this encounter Care Teams Account Service Associate Relationship Specialty Start Date End Date Yamileth Saavedra PA [address] [place] [address] PCP - General Family Medicine 06/29/17 documented as of this encounter
--- OUTSIDE RECORDS SUMMARY | 2024-03-20 10:12 | XMS_ITS | Encounter Summary ---
Author Organization [facility] [place] [address] Care Team Providers Care College Professor Name Role Phone Yamileth Saavedra Primary Care Provider [phone] Encounter Details Date Type Department Care Team [...] 2024 8:40 AM EDT Appointment Mammography/[place] [phone] Jewels Barba APRN [facility] [place] [place] [address] 2024 9:40 AM EDT Office [place] [phone] Jewels Barba APRN [facility] [place] [address] documented as of this encounter Visit Diagnoses Not on filedocumented in this encounter Care Teams College Professor Relationship Specialty Start Date End Date Yamileth Saavedra PA [address] [place] [address] PCP - General Family Medicine 06/29/17 documented as of this encounter
--- OUTSIDE RECORDS SUMMARY | 2024-03-20 10:12 | XMS_ITS | Encounter Summary ---
Author Organization [facility] Address [address] [place] [address] Care Team Providers Care Manager User Interface Name Role Phone Unknown, Provider Primary Care Provider [phone] Encounter Details Date Type Department Care Team (Latest Contact Info) Description 05/20/2022 Lab Requisition [facility] Pathology & Laboratory Medicine - [facility] [address] [place] [address] Napoleon Bob MD [address] [place] [address] [phone] Moderate cervical dysplasia; Encounter for screening for [...] types, PCR Negative Negative 06/02/2022 13:36 EST [facility] Comment:No E6 or E7 mRNA is detected from HPV types 16,18,31,33,35,39,45,51,52,56,58,59,66, and 68 by handstitching machine collar feller mediated amplification. Papanicolaou smear specimen (specimen) CERVIX UTERI STRUCTURE / Unknown 05/20/2022 16:21 EST 06/01/2022 9:08 EST Napoleon Bob MD MICROBIOLOGY - GENERAL ORDERABLES Performing Organization Address City/State/[facility] Co de Phone Number [facility] [address] [place] [address] * PAP TEST (05/20/2022 16:21 EST) Specimens A. Cervix and/or Endocervix , ThinPrep Imaging System with Manual Evaluation 06/02/2022 13:36 [facility] Specimen Adequacy Satisfactory for Evaluation - transformation zone component present 06/02/2022 13:36 [facility] General Categorization Epithelial Cell Abnormality 06/02/2022 13:36 [facility] Descriptive Diagnosis Squamous Cell Abnormality - Low grade squamous intraepithelial lesion (LSIL). 06/02/2022 13:36 [facility] Educational Comments [facility] recommends following the ASCCP's management guidelines which may be found at www.asccp.org 06/02/2022 13:36 [facility] Attestation By the signature below, the attending physician certifies that they have personally conducted a gross and/or microscopic examination of the described specimens and rendered or confirmed the above diagnosis. 06/02/2022 13:36 [facility] at 1336 Clinical History See below 06/02/20 13:36 [facility] HPV The result for the Human Papillomavirus (HPV) Detection-High Risk Types is Negative. No E6 or E7 mRNA is detected from HPV types 16,18,31,33,35,39 ,45,51,52,56,58,5 9,66, and 68 by handstitching machine collar feller mediated amplification.Zohra ting was performed on specimen [id number] and was resulted on 06/02/2022 1336 EST by YARED, LAB INSTRUMENT RESULTS IN 06/02/2022 13:36 EST [facility] Performing Lab [facility] 06/02/2022 13:36 EST [facility] Scanned Images 06/02/2022 13:36 EST [facility] Papanicolaou smear specimen (specimen) CERVIX UTERI STRUCTURE / Unknown 05/20/2022 16:21 EST 05/21/2022 10:14 EST Napoleon Bob MD PATHOLOGY ORDE SUDHEER [facility] [address] [place] [address] documented in this encounter Visit Diagnoses Diagnosis Moderate cervical dysplasia Moderate dysplasia of cervix Encounter for screening for human papillomavirus (HPV) Special screening examination for human papillomavirus (HPV) documented in this encounter Care Teams Manager User Interface Relationship Specialty Start Date End Date Unknown, Provider, PCP - General 01/26/17 documented as of this encounter
--- OUTSIDE RECORDS SUMMARY | 2024-03-20 10:12 | XMS_ITS | Encounter Summary ---
[place] [address] Care Team Providers Care Die Storage Clerk Name Role Phone Yamileth Saavedra Primary Care Provider [phone] Reason for Referral * Consultation (Routine) - Closed Specialty Diagnoses / Procedures Referred By Conttd t Referred To Contact Hematology and Oncology Diagnoses Abnormal histological findings in specimens from other organs, systems and tissues Suyapa Dacosta CNM BERTHA [address] [place] [address] [place] [address] [facility] [address] [place] [address] Referral ID Status Reason Start Date Expiration Date V isits Requested Visits Authorized [id number] Closed Consult, Test & Treat PCP Updated and/or Approved 10/26/2022 10/26/2023 6 6 Encounter Details Date Type Department Care Team (Latest Contact Info) Description 10/26/2022 Transcribe Orders eDH Incoming Referrals [phone] Suyapa Dacosta CNM BERTHA [address] [place] [phone] Abnormal histological findings in specimens from other [...] 2024 8:40 AM EDT Appointment Mammography/[place] [phone] Jewels Barba ROOFING SUBCONTRACTOR [facility] [address] 2024 9:40 AM EDT Office Visit [place] [phone] [facility] [place] [address] Scheduled Referrals Name Type Priority Associated Diagnoses Orde r Schedule Referral to Hematology and Oncology Outpatient Referral Routine Abnormal Histological Findings In Specimens From Other Organs, Systems And Tissues Ordered: 10/26/2022 documented as of this encounter Visit Diagnoses Diagnosis Abnormal histological findings in specimens from other organs, systems and tissues documented in this encounter Care Teams Die Storage Clerk Relationship Specialty Start Date End Date Yamileth Saavedra PA [address] [place] [address] PCP - General Family Medicine 06/29/17 documented as of this encounter
--- OUTSIDE RECORDS SUMMARY | 2024-03-20 10:12 | XMS_ITS | Encounter Summary ---
Author Organization [facility] [place] [address] Care Team Providers Care Rental Car Ferry Driver Name Role Phone Yamileth Saavedra Primary Care Provider [phone] Encounter Details Date Type Department Care Team (Late st Contact Info) Description 09/22/2022 12:05 AM EDT Ancillary Procedure Radiology Library at [facility] [place] [phone] Yamileth Saavedra PA [address] [place], [place] [id number] Social History Tobacco Use Types Packs/Day Years [...] 2024 8:40 AM EDT Appointment Mammography/[place] [address] Jewels Barba APRN [facility] [place] [address] 2024 9:40 AM EDT Office [place] [address] Jewels Barba APRN [facility] [place] [address] documented as of this encounter Procedures Procedure Name Priority Date/Time Associated Diagnosis Comments FILM LIBRARY STORAGE ONLY MAMMO Routine 09/22/2022 12:05 AM EDT documented in this encounter Results * Film Library- Storage Only Mammo (09/22/2022 12:05 AM EDT) Narrative [facility] - 10/28/2022 8:11 AM EDT This exam is auto-finalizing. It's purpose is for storage only. Yamileth ORELLANA IMG FILM LIBRARY ORD ERABLES [place], [place] documented in this encounter Visit Diagnoses Not on filedocumented in this encounter Care Teams Rental Car Ferry Driver Relationship Specialty Start Date End Date Yamileth Saavedra PA [address] [place] [address] PCP - General Family Medicine 06/29/17 documented as of this encounter
--- OUTSIDE RECORDS SUMMARY | 2024-03-20 10:12 | XMS_ITS | Encounter Summary ---
Author Organization [facility] Address [address] [place] [address] Care Team Providers Care Assembler Movement Name Role Phone Unknown, Provider Primary Care Provider [phone] Encounter Details Date Type Department Care Team (Late st Contact Info) Description 09/23/2021 Lab Requisition [facility] Pathology & Laboratory Medicine - [facility] [address] [place] [address] Napoleon Bob MD [address] [place] [phone] Encounter for other general examination Social History [...] management options, if applicable. 09/30/2021 15:44 EDT [facility] Final Diagnosis A. ENDOCERVIX, CURETTAGE: - Fragments of benign endocervical tissue and benign metaplastic squamous epithelium. See comment. B. CERVIX, 1 O'CLOCK, BIOPSY: - Squamous epithelium with focus of high grade squamous intraepithelial lesion (THU II). See comment. 09/30/2021 15:44 [facility] Diagnosis Comment The biopsy from part B shows a focus of thin high grade squamous intraepithelial lesion (THU II). Manager Bar slides of this case were reviewed at the intradepartmental consultation conference. Immunoperoxidase stains were performed on this case to further characterize the lesion in part B and confirm the morphologic impression of a high grade squamous intraepithelial lesion. ANTIBODY(CLONE)(BLO CK):RESULT P16 (E6H4TM, [place]) (block B): strong positive staining in area [...] performance characteristics have been determined by [facility] and/or by the referring laboratory. [...] high complexity clinical laboratory testing. 09/30/2021 15:44 [facility] Attestation There was significant resident/fellow involvement in the diagnostic evaluation of this case. By the signature below, the attending physician certifies that they have personally conducted a gross and/or microscopic examination of the described specimens and rendered or confirmed the above diagnosis. 09/30/2021 15:44 [facility] at 1544 Clinical History Pap ASCUS, can't R/O HSIL 09/30/2021 15:44 [facility] Gross Description A. Received [...] REYNA HUTCHINSON(ASCP) 09/24/2021 9:24 09/30/2021 15:44 EDT [facility] Resident/Fell ow: Brooklynn Reed MD PhD 09/30/2021 15:44 EDT [facility] Performing Lab [facility] 09/30/2021 15:44 EDT [facility] Scanned Images 09/30/2021 15:44 EDT [facility] Tissue ENTIRE WALL OF CERVIX / Unknown 09/23/2021 17:34 EDT 09/23/2021 21:53 EDT Tissue specimen (specimen) CERVIX UTERI STRUCTURE / Unknown 09/23/2021 17:34 EDT 09/23/2021 21:53 EDT Napoleon Bob MD PATHOLOGY KATJA WILLARD [facility] [address] [place] [address] documented in this encounter Visit Diagnoses Diagnosis Encounter for other general examination documented in this encounter Care Teams Assembler Movement Relationship Specialty Start Date End Date Unknown, Provider, PCP - General 01/26/17 documented as of this encounter
--- OUTSIDE RECORDS SUMMARY | 2024-03-20 10:12 | XMS_ITS | Encounter Summary ---
Author Organization [facility] [place] [address] Care Team Providers Care Children'S Program Coordinator Name Role Phone Yamileth Saavedra Primary Care Provider Encounter Details Date Type Department Care Team (Late st Contact Info) Description 09/09/2022 Ancillary Procedure Radiology Library at [facility] [place] [phone] Yamileth Saavedra PA [address] [place], [place] [address] Social History Tobacco Use Types Packs/Day Years [...] 2024 8:40 AM EDT Appointment Mammography/[place] [address] Jewels Barba DEFENSIVE SECONDARY COACH [facility] [place] [address] 2024 9:40 AM EDT Office [place] [address] Jewels Barba APRN [facility] [place] [address] documented as of this encounter Procedures Procedure Name Priority Date/Time Associated Diagnosis Comments FILM LIBRARY STORAGE ONLY MAMMO Routine 09/09/2022 12:00 AM EDT documented in this encounter Results * Film Library- Storage Only Mammo (09/09/2022 12:00 AM EDT) Narrative [facility] - 10/28/2022 8:07 AM EDT This exam is auto-finalizing. It's purpose is for storage only. Yamileth ORELLANA IMG FILM LIBRARY ORD ERABLES [place], [place] documented in this encounter Visit Diagnoses Not on filedocumented in this encounter Care Teams Children'S Program Coordinator Relationship Specialty Start Date End Date Yamileth Saavedra PA [address] [place] [address] PCP - General Family Medicine 06/29/17 documented as of this encounter
--- OUTSIDE RECORDS SUMMARY | 2024-03-20 10:12 | XMS_ITS | Encounter Summary ---
Author Organization [facility] Address [address] [place] [address] Care Team Providers Care Quality Assistant Name Role Phone Unavailable Primary Care Provider Unavailabl e Encounter Details Date Type Department Care Team (Latest Contact Info) Description 01/21/2017 14:40 EDT - 01/21/2017 23:59 EDT Hospital Encounter [address] [address] Unknown, Provider, Discharge Disposition: Home or Self Care Social History Tobacco Use Types Packs/Day Years Used Date Smoking Tobacco: Never Assessed Sex and Gender Information Value Date Recorded Sex Assigned at Not on file Gender Identity Not on file Sexual Orientation Not on file documented as of this encounter Discharge Disposition Disposition Code Departure Means Destination Home or Self [facility] documented in this encounter Plan of Treatment Not on file documented as of this encounter Visit Diagnoses Not on filedocumented in this encounter
--- OUTSIDE RECORDS SUMMARY | 2024-03-20 10:12 | XMS_ITS | Encounter Summary ---
Author Organization [facility] [place] [address] Care Team Providers Care Game Advisor Name Role Phone Yamileth Saavedra Primary Care Provider [phone] Reason for Visit * Reason Comments Follow-up Encounter Details Date Type Department Care Team (Late st Contact Info) Description 03/04/2023 10:45 AM EDT Office [place] [address] Krista Julian MD [facility] [place] [address] Abnormal mammogram Social History Tobacco Use Types Packs/Day Years Used Date Smoking Tobacco: Every Day Cigarettes Smokeless Tobacco: Never Alcohol Use Standard Drinks/Week Comments Yes 5 (1 standard drink = 0.6 oz pur e alcohol) [facility] Inpatient Questions Answer Date Recorded Does Anyone [...] partner. Has son and daughter. 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 FH: no breast or ovarian cancer [...] [facility] patients with MRI to i mprove [place] [facility] survival. She will consider this and discuss at next appointment. Plan front line supervisor visit with next screening mammogram in August,. documented in this encounter Plan of Treatment Upcoming Encounters Date Type Department Care Team (Late st Contact Info) Description 2024 8:40 AM EDT Appointment Mammography/[place] [phone] Jewels Barba, [facility] [place] [address] 2024 9:40 AM EDT Office [place] [phone] Jewels Barba [facility] [place] [address] documented as of this encounter Results * [...] questions please contact the health lawn care worker that requested your imaging first. ? Narrative [...] unspecified documented in this encounter Care Teams Game Advisor Relationship Specialty Start Date End Date Yamileth Saavedra PA [address] [place] [address] PCP - General Family Medicine 06/29/17 documented as of this encounter
--- OUTSIDE RECORDS SUMMARY | 2024-03-20 10:12 | XMS_ITS | Encounter Summary ---
Author Organization [facility] Address [address] [place] [address] Care Team Providers Care Top Collar Maker Name Role Phone Unknown, Provider Primary Care Provider [phone] Encounter Details Date Type Department Care Team (Late st Contact Info) Description 09/04/2021 Lab Requisition [facility] Pathology & Laboratory Medicine - [facility] [address] [place] [address] Outr Resulting Lab, Provider Social History Tobacco [...] gonorrhoeae Result Negative Negative 09/05/2021 15:09 EDT [facility] Chlamydia trachomatis Result Negative Negative 09/05/2021 15:09 EDT [facility] Papanicolaou smear specimen (specimen) CERVIX UTERI STRUCTURE / Unknown 09/04/2021 16:25 EDT 09/05/2021 8:27 EDT Provider Outr Resulting Lab MICROBIOLOGY - GENERAL ORDERABLES [facility] [address] [place] [address] documented in this encounter Visit Diagnoses Not on filedocumented in this encounter Care Teams Top Collar Maker Relationship Specialty Start Date End Date Unknown, Provider, PCP - General 01/26/17 documented as of this encounter
--- OUTSIDE RECORDS SUMMARY | 2024-03-20 10:12 | XMS_ITS | Encounter Summary ---
Author Organization [facility] [place] [address] Care Team Providers Care Middle School Reading Teacher Name Role Phone Yamileth Saavedra Primary Care Provider Encounter Details Date Type Department Care Team (Late st Contact Info) Description 07/23/2017 11:30 AM EST Notes Only [facility] [place] [phone] Lillie Laurent [facility] [place] [address] Social History Tobacco Use Types Packs/Day [...] 2024 8:40 AM EDT Appointment Mammography/[place] [address] Jewels Barba APRN [facility] [address] 2024 9:40 AM EDT Office [place] [address] Jewels Barba APRN [facility] [place] [address] documented as of this encounter Visit Diagnoses Not on filedocumented in this encounter Care Teams Middle School Reading Teacher Relationship Specialty Start Date End Date Yamileth Saavedra PA [address] [place] [address] PCP - General Family Medicine 06/29/17 documented as of this encounter
--- OUTSIDE RECORDS SUMMARY | 2024-03-20 10:12 | XMS_ITS | Encounter Summary ---
Author Organization [facility] Address [address] [place] [address] Care Team Providers Care Digital Content Producer Name Role Phone Unknown, Provider Primary Care Provider [phone] Encounter Details Date Type Department Care Team (Late st Contact Info) Description 10/06/2021 Lab Requisition [facility] Pathology & Laboratory Medicine - [facility] [address] [place] [address] Napoleon Bob MD [address] [place] [phone] Encounter for other general examination Social History [...] management options, if applicable. 10/09/2021 16:36 EDT [facility] Final Diagnosis A. CERVIX, COLD KNIFE CONE EXCISION: - High-grade squamous intraepithelial lesion (THU 2). - High-grade lesion extends into superficial endocervical glands. - Surgical excision margins negative. - Reactive epithelial changes including: - Parakeratosis. - Squamous metaplasia with reactive atypia. 10/09/2021 16:36 [facility] Diagnosis Comment The high-grade squamous intraepithelial lesion is present in the 12-3 o'clock quadrant. 10/09/2021 16:36 [facility] Attestation By the signature below, the attending physician certifies that they have 1) personally conducted a gross and/or microscopic examination of the described specimen(s), and/or personally interpreted the results of laboratory testing of the described specimen(s), and 2) personally rendered or confirmed the above diagnosis. 10/09/2021 16:36 [facility] at 1636 Clinical History THU II 10/09/2021 16:36 [facility] Gross Description A. Received [...] o'clock REYNA OTTO(ASCP) 10/07/2021 10:06 10/09/2021 16:36 [facility] Performing Lab [facility] 16:36 [facility] Scanned Images 10/09/2021 16:36 EDT [facility] Tissue ENTIRE WALL OF CERVIX / Unknown 10/06/2021 15:23 EDT 10/06/2021 23:34 EDT Napoleon Bob MD PATHOLOGY KATJA WILLARD [facility] [address] [place] [address] documented in this encounter Visit Diagnoses Diagnosis Encounter for other general examination documented in this encounter Care Teams Digital Content Producer Relationship Specialty Start Date End Date Unknown, Provider, PCP - General 01/26/17 documented as of this encounter
--- OUTSIDE RECORDS SUMMARY | 2024-03-20 10:12 | XMS_ITS | Encounter Summary ---
Author Organization [facility] [place] [address] Care Team Providers Care Nurse Case Management Name Role Phone Yamileth Saavedra Primary Care Provider [phone] Reason for Visit * Reason Onset Date Comments Other 08/05/2017 Encounter Details Date Type Department Care Team (Late st Contact Info) Description 08/05/2017 Telephone [place] [address] Lillie Laurent [facility] [place] [address] Other Social History Tobacco Use Types Packs/Day [...] recommended and medically cleared for the Functional Yazdanism Program. Ms. Sanders regrets to let us [...] 2024 8:40 AM EDT Appointment Mammography/[place] [address] Jewels Barba [facility] [place] [address] 2024 9:40 AM EDT Office [place] [address] Jewels Barba [facility] [place] [address] documented as of this encounter Visit Diagnoses Not on filedocumented in this encounter Care Teams Nurse Case Management Relationship Specialty Start Date End Date Yamileth Saavedra PA [address] [place] [address] PCP - General Family Medicine 06/29/17 documented as of this encounter
--- OUTSIDE RECORDS SUMMARY | 2024-03-20 10:12 | XMS_ITS | Encounter Summary ---
Author Organization [facility] Address [address] [place] [address] Care Team Providers Care Painter Spring Name Role Phone Unknown, Provider Primary Care Provider [phone] Encounter Details Date Type Department Care Team (Latest Contact Info) Description 09/04/2022 Lab Requisition [facility] Pathology & Laboratory Medicine - [facility] [address] [place] [address] Suyapa Dacosta, [address] [id number] Encounter for gynecological examination (general) (routine) without [...] 16, PCR Negative Negative 09/22/2022 12:02 EDT [facility] HPV18/45 RNA (HPV18/45) Negative Negative 09/22/2022 12:02 EDT [facility] Papanicolaou smear specimen (specimen) CERVIX UTERI STRUCTURE / Unknown 09/04/2022 16:32 EDT 09/17/2022 9:10 EDT Suyapa Dacosta [facility] - G ENERAL ORDERABLES Performing Organization Address [facility] de Phone Number [facility] [address] [place] [address] * (ABNORMAL) HUMAN PAPILLOMAVIRUS (HPV) DETECTION-HIGH RISK TYPES (09/04/2022 16:32 EDT) HPV other High Risk types, PCR Positive( A) Negative 09/21/2022 12:11 EDT [facility] Comment:E6 OR E7 mRNA from o ne or more types of HPV types 16,18,31,33,35,39,45,51,52,56,58,59,66, and 68 is detected by machine leather trimmer mediated amplification. High and intermediate risk HPV types are associated with most squamous intraepithelial lesions and cervical cancers. Papanicolaou smear specimen (specimen) CERVIX UTERI STRUCTURE / Unknown 09/04/2022 16:32 EDT 09/17/2022 9:10 EDT Suyapa Dacosta [facility]CRO[facility] - G ENERAL ORDERABLES Performing Organization Address [facility] Co de Phone Number [facility] [address] [place] [address] * PAP TEST (09/04/2022 16:32 EDT) Specimens A. Cervix and/or Endocervix , ThinPrep Imaging System with Manual Evaluation 09/22/2022 12:02 EDT [facility] Specimen Adequacy Satisfactory for Evaluation - transformation zone component present 09/22/2022 12:02 EDT [facility] General Categorization Other see recommendation - Negative for intraepithelial lesion or malignancy 09/22/2022 12:02 [facility] Descriptive Diagnosis Reactive cellular changes associated with inflammation present (includes repair). Shift in laurence present suggestive of bacterial vaginosis. Endometrial cells present in a woman equal to or greater than age 45. 09/22/2022 12:02 [facility] Educational Comments Endometrial cells present. Endometrial cells in women 45 years or older may be associated with benign endometrium, hormonal alterations, and, less commonly, endometrial or uterine abnormalities. Endometrial evaluation is recommended in postmenopausal women. 09/22/2022 12:02 [facility] Attestation By the signature below, the attending physician certifies that they have personally conducted a gross and/or microscopic examination of the described specimens and rendered or confirmed the above diagnosis. 09/22/2022 12:02 [facility] at 1202 Clinical History SEE BELOW 09/23/19 12:02 [facility] HPV The result for the Human Papillomavirus (HPV) Detection-High Risk Types is Positive . E6 OR E7 mRNA from one or more types of HPV types 16,18,31,33,35,39 ,45,51,52,56,58,5 9,66, and 68 is detected by machine leather trimmer mediated amplification. High and intermediate risk HPV types are associated with most squamous intraepithelial lesions and cervical cancers. Testing was performed on specimen [id number] and was resulted on 09/18/2022 1432 EDT by YARED, LAB INSTRUMENT RESULTS IN 09/22/2022 12:02 [facility] Genotyping 16 & 18/45 The results for the HPV Genotypes 16 and 18/45 are Negative for the HPV16 RNA and Negative for the HPV18/45 RNA (HPV18/45). Testing was performed on specimen [id number] and was resulted on 09/22/2022 1202 EDT by YARED, LAB INSTRUMENT RESULTS IN 09/22/2022 12:02 [facility] Performing Lab [facility] 09/22/2022 12:02 [facility] Scanned Images 09/22/2022 12:02 [facility] Papanicolaou smear specimen (specimen) CERVIX UTERI STRUCTURE / Unknown 09/04/2022 16:32 EDT 09/08/2022 14:12 EDT Suyapa Dacosta [facility] ORDERA BLES [facility] [address] [place] [address] documented in this encounter Visit Diagnoses Diagnosis Encounter for gynecological examination (general) (routine) without abnormal findings 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
--- OUTSIDE RECORDS SUMMARY | 2024-03-20 10:12 | XMS_ITS | Encounter Summary ---
Author Organization [facility] Address [address] [place] [address] Care Team Providers Care Dollyman Name Role Phone Unknown, Provider Primary Care Provider [phone] Encounter Details Date Type Department Care Team (Latest Contact Info) Description 09/04/2021 Lab Requisition [facility] Pathology & Laboratory Medicine - [facility] [address] [place] [address] Suyapa Dacosta, [address] [address] Encounter for screening for malignant neoplasm of [...] PCR Positive( A) Negative 09/16/2021 9:17 EDT [facility] Comment:E6 OR E7 mRNA from o ne or more types of HPV types 16,18,31,33,35,39,45,51,52,56,58,59,66, and 68 is detected by bed operator mediated amplification. High and intermediate risk HPV types are associated with most squamous intraepithelial lesions and cervical cancers. Papanicolaou smear specimen (specimen) CERVIX UTERI STRUCTURE / Unknown 09/04/2021 16:25 EDT 09/12/2021 13:47 EDT Suyapa Ton Latanya Dacosta [facility] MICROBIOLOGY - G ENERAL ORDERABLES [facility] [address] [place] [address] * PAP TEST (09/04/2021 16:25 EDT) Specimens A. Cervix and/or Endocervix , ThinPrep Imaging System with Manual Evaluation 09/16/2021 9:17 [facility] Specimen Adequacy Satisfactory for Evaluation - transformation zone component present Scant due to excessive inflammation 09/16/2021 9:17 [facility] General Categorization Epithelial Cell Abnormality 09/16/2021 9:17 [facility] Descriptive Diagnosis Squamous Cell Abnormality - Atypical squamous cells, cannot exclude high grade squamous intraepithelial lesion (ASC-H). Shift in laurence present suggestive of bacterial vaginosis. 09/16/2021 9:17 [facility] Educational Comments [facility] recommends following ASCCP's 2012 Updated Consensus Guidelines for the Management of Abnormal Cervical Cancer Screening Tests and Cancer Precursors (JLGTD, 2013; 17(5):S1-S27). Consensus guidelines are available online at www.asccp.org. 09/16/2021 9:17 [facility] Attestation By the signature below, the attending physician certifies that they have personally conducted a gross and/or microscopic examination of the described specimens and rendered or confirmed the above diagnosis. 09/16/2021 9:17 [facility] at 0917 Clinical History Clinical History, Signs, Symptoms, Chief Complaint, Pertaining to This Order: See below PRODUCTION PAINTER Treatment History?: Yes 09/16/2021 9:17 EDT [facility] HPV The result for the Human Papillomavirus (HPV) Detection-High Risk Types is Positive . E6 OR E7 mRNA from one or more types of HPV types 16,18,31,33,35,39 ,45,51,52,56,58,5 9,66, and 68 is detected by bed operator mediated amplification. High and intermediate risk HPV types are associated with most squamous intraepithelial lesions and cervical cancers. Testing was performed on specimen [id number] and was resulted on 09/16/2021 0706 EDT by YARED, LAB INSTRUMENT RESULTS IN 09/16/2021 9:17 EDT [facility] Performing Lab [facility] 09/16/2021 9:17 EDT [facility] Scanned Images 09/16/2021 9:17 EDT [facility] Papanicolaou smear specimen (specimen) CERVIX UTERI STRUCTURE / Unknown 09/04/2021 16:25 EDT 09/05/2021 14:12 EDT Suyapa Dacosta [facility] PATHOLOGY ORDERA BLES [facility] [address] [place] [address] documented in this encounter Visit Diagnoses Diagnosis Encounter for screening for malignant neoplasm of cervix Screening for malignant neoplasm of the cervix Encounter for screening for human papillomavirus (HPV) Special screening examination for human papillomavirus (HPV) documented in this encounter Care Teams Dollyman Relationship Specialty Start Date End Date Unknown, Provider, PCP - General 01/26/17 documented as of this encounter
--- OUTSIDE RECORDS SUMMARY | 2024-03-20 10:12 | XMS_ITS | Encounter Summary ---
Author Organization [facility] [place] [address] Care Team Providers Care Instructional Design Technologist Name Role Phone Yamileth Saavedra Primary Care Provider [phone] Reason for Visit * (Routine) - Closed Specialty Diagnoses / Procedures Referred By Contac t Referred To Contact Radiology Diagnoses Breast lesion Procedures Request for 2nd read Mammo Yamileth Saavedra PA [address] [place] [address] Referral ID Status Reason Start Date Expiration Date Visits Re quested Visits Authorized [id number] Closed 10/28/2022 10/28/2023 1 1 Encounter Details Date Type Department Care Team (Late st Contact Info) Description 10/28/2022 8:35 AM EDT Ancillary Procedure Radiology Library at [facility] [place] [address] Yamileth Saavedra PA [address] [place], [place] [address] Breast lesion Social History Tobacco Use Types [...] 2024 8:40 AM EDT Appointment Mammography/[place] [phone] Jewels Barba, [facility] [place] [address] 2024 9:40 AM EDT Office [place] [address] Jewels Barba APRN [facility] [place] [place] [address] documented as of this encounter Procedures Procedure [...] excision. Please note: The interpretation of the [facility] Breast Imaging Radiologist subspecialist may differ from the original radiologists interpretation. This is usually not due to a deficiency of the original interpreting radiologist, rather due to the greater skill level afforded by sub-specialization in the field and/or reasonable variations in interpretations. If you have a concern regarding the D-[facility] interpretation you may contact the [facility] Breast It Architecture Consultant Office at . I have personally reviewed [...] questions please contact the health customer care assistant that requested your imaging first. ? Narrative 10/28/2022 11:27 AM EDT INTERPRETATION OF OUTSIDE BREAST IMAGING I have been asked to consult on this patient by Quentin LACEY because he/she believes a review of this study may change or alter the care of this patient. STUDIES FROM: [facility] CLINICAL HISTORY: ? SURGICAL EXCISION; Sending Institution [facility]; Date of exam [id number]; I believe a [...] alter the care of thispatient. STUDIES FROM: [facility] CLINICAL HISTORY: ? SURGICAL EXCISION; Sending Institution [facility]; Date of exam [id number]; I believe a [...] excision. Please note: The interpretation of the [facility] BreastImaging Radiologist subspecialist may differ from the original radiologists interpretation. This is usually not due to a deficiency of the original interpreting radiologist, rather due to the greater skill level affordedby sub-specialization in the field and/or reasonable variations ininterpretations. If you have a concern regarding the [facility] at . I have personally reviewed the image(s) and the resident's interpretationand agree with the findings, Sanjeev Hankins at 10/28/2022 11:27 AM Thank you for letting us participate in the care of this patient. If youare a health care provider and have any questions regarding this report,please contact the number below. For patients who have questions please contactthe health customer care assistant that requested your imaging first. Yamileth ORELLANA IMG OUTSIDE INTERPRE TATION ORDERABLES documented in this encounter Visit Diagnoses Diagnosis Breast lesion Unspecified breast disorder documented in this encounter Care Teams Instructional Design Technologist Relationship Specialty Start Date End Date Yamileth Saavedra PA [address] [place] [address] PCP - General Family Medicine 06/29/17 documented as of this encounter
--- OUTSIDE RECORDS SUMMARY | 2024-03-20 10:12 | XMS_ITS | Encounter Summary ---
Author Organization [facility] Address [address] [place] [address] Care Team Providers Care Fox Raiser Name Role Phone Unknown, Provider Primary Care Provider [phone] Encounter Details Date Type Department Care Team (Late st Contact Info) Description 01/21/2017 Results Only [facility] [phone] Yamileth Saavedra PA [address] [place] [address] Social History Tobacco Use Types Packs/Day Years [...] ? ABELINO BRYAN ? Accession #: ? [id number] ? : ? 1975 (Age: 41) ??F [...] and cords of similar melanocytes that show fur farmer maturation with descent. ??There is papillary dermal fibroplasia. ??(Dr. Nevarez)/[facility] Document reviewed and electronically signed by: [...] (ASCP) 01/26/2017 10:30 AM End of Report [facility] 01/21/2017 9:43 EDT 01/26/2017 9:43 EDT Yamileth ORELLANA PATHOLOGY ORDERABLES Performing Organization Address City/State/[facility] Co de Phone Number [facility] [address] [place] [address] documented in this encounter Visit Diagnoses Not on filedocumented in this encounter Care Teams Fox Raiser Relationship Specialty Start Date End Date Unknown, Provider, PCP - General 01/26/17 documented as of this encounter
--- OUTSIDE RECORDS SUMMARY | 2024-03-20 10:12 | XMS_ITS | Encounter Summary ---
Author Organization [facility] Address [facility] [place] [address] Care Team Providers Care Vibrator Equipment Tester Name Role Phone Yamileth Saavedra Primary Care Provider [phone] Encounter Details Date Type Department Care Team (Latest Contact Info) Description 01/29/2023 1:44 PM EDT - 01/29/2023 2:18 PM EDT Hospital [place] [address] Mirlande Mcgarry MD [facility] [place] [address] Abnormal finding on breast imaging Discharge Disposition: Home Social History Tobacco Use Types Packs/Day Years Used Date Smoking Tobacco: Every Day Cigarettes Smokeless Tobacco: Never Alcohol Use Standard Drinks/Week Comments Yes 5 (1 standard drink = 0.6 oz pur e alcohol) [facility] Inpatient Questions Answer Date Recorded Does [...] 2024 8:40 AM EDT Appointment Mammography/[place] [phone] Jewels Barba, [facility] [address] 2024 9:40 AM EDT Office [place] [phone] Jewels Barba, [facility] [place] [address] documented as of this encounter Procedures Procedure [...] imaging first. ? Electronically signed by: Mirlande Mgcarry MD, [facility] ([phone]), at 01/29/2023 2:09 PM Narrative 01/29/2023 2:09 [...] breast documented in this encounter Care Teams Vibrator Equipment Tester Relationship Specialty Start Date End Date Yamileth Saavedra PA [address] [place] [address] PCP - General Family Medicine 06/29/17 documented as of this encounter
--- OUTSIDE RECORDS SUMMARY | 2024-03-20 10:12 | XMS_ITS | Encounter Summary ---
Author Organization [facility] [place] [address] Care Team Providers Care Senior Solutions Engineer Name Role Phone Yamileth Saavedra Primary Care Provider [phone] Reason for Visit * Auth/Cert (Routine) Specialty Diagnoses / Procedures Referred By Contac t Referred To Contact Diagnoses Abnormal mammogram abnormal mammogram Procedures PRO EXCISE BREAST LES W XRAY MARKER EXCISION LESION, BREAST W/ PREOP.MARKER (NEEDLE LOC.) (WRVU 6.69) MODIFIER WITH NEEDLE LOC., LESION #1 Luis Julian MD [facility] [place] [address] [facility] Referral ID Status Reason Start Date Expiration Date Visits Re quested Visits Authorized [id number] 1 1 Encounter Details Date Type Department Care Team (Latest Contact Info) Description 01/29/2023 2:19 PM EDT - 01/29/2023 4:13 PM EDT Hospital Encounter Out[place] [address] Luis Julian MD [facility] [place] [address] Discharge Disposition: Home Social History Tobacco Use [...] shower 24 hours Activity as tolerated Call [phone] with any questions Do not soak incision [...] male partner. Has son and daughter. 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 FH: no breast or ovarian cancer PMH [...] Julian MD - 01/29/2023 3:13 PM EDT [facility] Operative Note Patient Name: Radha Sanders : [id number] MR#: [id number] Case Date: 01/29/2023 Surgeon: Surgeon(s) and Role: [...] 2024 8:40 AM EDT Appointment Mammography/[place] [address] Jewels Barba APRN [facility] [place] [address] 2024 9:40 AM EDT Office [place] [address] Jewels Barba APRN [facility] [place] [address] documented as of this encounter Procedures Procedure Name Priority Date/Time Associated Diagnosis Comments SPECIMEN TO PATHOLOGY Routine 01/29/2023 3:22 PM EDT SURGICAL PATHOLOGY REPORT Routine 01/29/2023 3:21 PM EDT MODIFIER WITH NEEDLE LOC., LESION #1 01/29/2023 2:56 PM EDT abnormal mammogram Excise Breast Les W Xray Marker ([id number]) 01/29/2023 2:56 PM EDT abnormal mammogram documented in this encounter Results * Specimen to Pathology (01/29/2023 3:22 PM EDT) AP Specimen 01/29/2023 3:22 PM EDT 01/29/2023 3:22 PM EDT Narrative [facility] - 01/29/2023 3:22 PM EDT Specimen requisition ordered. ??Separate Pathology report to follow Luis Julian MD PATHOLOGY/CYTOLOGY ORDERABLES [facility] [place] [address] * Surgical Pathology Report (01/29/2023 3:21 PM EDT) Final Diagnosis [id number] ? Location: [facility] The signing pathologist has [...] MD Verified: ??02/11/2023 10:16 ??Pathologist Performed at: ??-[facility] Dept. of Pathology, [place] [address] Antenna Installer: Freeman Wiggins MD, AP, ??CLIA Certificate: [id number] ADDITIONAL STUDIES The specimen was entirely submitted [...] (<1 hour). ??shb 02/11/2023 10:16 AM EDT [facility] BREAST STRUCTURE / Unknown 01/29/2023 3:21 PM EDT 01/29/2023 3:21 PM EDT Luis Julian MD PATHOLOGY/CYTOLOGY ORDERABLES [facility] [place] [address] [facility] [place] [address] documented in this encounter Visit Diagnoses Not [...] total) documented in this encounter Care Teams Senior Solutions Engineer Relationship Specialty Start Date End Date Yamileth Saavedra PA [address] [place] [address] PCP - General Family Medicine 06/29/17 documented as of this encounter
--- OUTSIDE RECORDS SUMMARY | 2024-03-20 10:13 | XMS_ITS | Encounter Summary ---
[place] [address] Care Team Providers Care Casting House Laborer Name Role Phone Yamileth Saavedra Primary Care Provider [phone] Reason for Visit * Reason Comments Low Back Pain Encounter Details Date Type Department Care Team (Late st Contact Info) Description 07/23/2017 9:30 AM EST Office [place] [address] Adela Mendoza, OT Chronic midline low back [...] has been recommended for the upcoming Functional Gnosticism Program (FRP) that includes 3-4 weeks of intensive PT/OT followed by a minimum of 6 months commitment to self care exercise for improving and maintaining physical capacities. Total time for testin minutes documented in this encounter Plan of Treatment Upcoming Encounters Date Type Department Care Team (Late st Contact Info) Description 2024 8:40 AM EDT Appointment Mammography/[place] [address] Jewels Barba, [facility] [place] [address] 2024 9:40 AM EDT Office [place] [address] Jewels Barba [facility] [place] [address] documented as of this encounter Visit Diagnoses Diagnosis Chronic midline low back pain, with sciatica presence unspecified documented in this encounter Care Teams Casting House Laborer Relationship Specialty Start Date End Date Yamileth Saavedra PA [address] [place] [address] PCP - General Family Medicine 06/29/17 documented as of this encounter
--- OUTSIDE RECORDS SUMMARY | 2024-03-20 10:13 | XMS_ITS | Encounter Summary ---
Author Organization [facility] Address [facility] [place] [address] Care Team Providers Care Pen Or Pencil Assembly Machine Operator Name Role Phone Lalito Fang Primary Care Provider [phone] Encounter Details Date Type Department Care Team (Late st Contact Info) Description 08/25/2013 2:30 PM EST - 08/25/2013 3:30 PM EST [place] [address] Orestes Ambrose MD [facility] [place] [address] UPPER GASTROINTESTINAL ENDOSCOPY,WITH BIOPSY SINGLE OR MULTIPLE [...] not get better as expected. Wednesday-Wednesday Clinic [phone] 8a-5p Same Day Endo [phone] 7a-8p Otherwise contact [phone] and ask to speak to the creative writing teacher rehabilitation supervisor Follow-up care is a milner part of [...] 2024 8:40 AM EDT Appointment Mammography/[place] [address] Jewels Barba, [facility] [place] [address] 2024 9:40 AM EDT Office Visit General [place] [place] [phone] Jewels Barba, [facility] [place] [address] documented as of this encounter Procedures Procedure [...] (08/25/2013 4:04 PM EST) Final Diagnosis ? [facility] ? Provider: ?? ORESTES AMBROSE ?Pt. Name: ?? RADHA BRYAN ? Acc #: ?[id number] ?Pt. ? Col Date: ?? 08/25/2013 ?/Sex: [...] Tissue Description: Polypoid pinzon soft tissues. ? [facility] ? Provider: ?? ORESTES AMBROSE P ?Pt. Name: ?? RADHA BRYAN P ? Acc #: ?[id number] ?Pt. ? Col Date: ?? 08/25/2013 ?/Sex: [...] O RC Performing Organization Address [facility] Co de Phone Number [facility] [place] [address] * Specimen to Pathology (surgical or derm) (08/25/2013 4:04 PM EST) AP Specimen 08/25/2013 4:04 PM EST 08/25/2013 4:04 PM EST Narrative [facility] - 08/25/2013 4:04 PM EST Specimen requisition ordered. ??Separate Pathology report to follow Orestes Ambrose MD PATHOLOGY/CYTOLOGY O RC Performing Organization Address [facility]/ZIP Co de Phone Number [facility] * Specimen to Pathology (surgical or derm) (08/25/2013 4:04 PM EST) AP Specimen 08/25/2013 4:04 PM EST 08/25/2013 4:04 PM EST Narrative [facility] - 08/25/2013 4:04 PM EST Specimen requisition ordered. ??Separate Pathology report to follow Orestes Ambrose MD PATHOLOGY/CYTOLOGY O RC Performing Organization Address [facility] Co de Phone Number [facility] * Specimen to Pathology (surgical or derm) (08/25/2013 4:04 PM EST) AP Specimen 08/25/2013 4:04 PM EST 08/25/2013 4:04 PM EST Narrative [facility] - 08/25/2013 4:04 PM EST Specimen requisition ordered. ??Separate Pathology report to follow Orestes Ambrose MD PATHOLOGY/CYTOLOGY O RC Performing Organization Address City/[facility] Co de Phone Number [facility] * UPPER GI ENDOSCOPY (08/25/2013 3:14 PM EST) UPPER GI ENDOSCOPY [facility] Patient Name: Radha Bryan ? Procedure Date: 08/25/2013 3:14 PM ? N: [id number] ? Date of : 1975 ? Age: 37 ? Order #: [id number] ? Procedure: ? Upper GI endoscopy Indications: ? Generalized abdominal pain, Dyspepsia Providers: ? Orestes Ambrose MD, Betzy Nguyen ? ESTHER Vásquez, Sarah Ruiz, ? Hardware Sales Assistant Referring MD: ?REYNA Anderson, Anna ? MD [...] * COLONOSCOPY (08/25/2013 3:14 PM EST) COLONOSCOPY [facility] Endoscopy Patient Name: Radha Bryan ? Procedure Date: 08/25/2013 3:14 PM ? Date of : 1975 ? Age: 37 ? Order #: [id number] ? Procedure: ? Colonoscopy Indications: ? Generalized abdominal pain Providers: ? Orestes Ambrose MD, Betzy Nguyen ? ESTHER Vásquez, Sarah Ruiz, ? Hardware Sales Assistant Referring MD: ?REYNA Anderson, Anna ? MD [...] Provider: Betzy Vásquez RN)[phone] (Given - Provider: eBtzy Vásquez RN)1538 (Given - Provider: Betzy Vásquez RN)1543 (Given - Provider: Betzy Vásquez RN) documented in this encounter Care Teams Pen Or Pencil Assembly Machine Operator Relationship Specialty Start Date End Date Lalito Fang PA [address] [place] [address] PCP - General 05/13/10 06/28/17 documented as of this encounter
--- OUTSIDE RECORDS SUMMARY | 2024-03-20 10:13 | XMS_ITS | Encounter Summary ---
Author [facility] [place] [address] Care Team Providers Care Housing Project Manager Name Role Phone Lalito Fang Primary Care Provider [phone] Encounter Details Date Type Department Care Team (Latest Contact Info) Description 08/25/2013 12:44 PM EST - 08/25/2013 7:27 PM EST Hospital Encounter [place] [address] Phil Lloyd MD [facility] [place] [address] Orestes Ambrose MD [facility] [place] [address] Discharge Disposition: Home Social History Tobacco Use [...] not get better as expected. Wednesday-Wednesday Clinic [phone] 8a-5p Same Day Endo [phone] 7a-8p Otherwise contact [phone] and ask to speak to the executive vice president business development risk assessment consultant Follow-up care is a milner part of [...] 2024 8:40 AM EDT Appointment Mammography/[place] [address] Jewels Barba, [facility] [place] [address] 2024 9:40 AM EDT Office [place] [address] Jewels Barba, [facility] [place] [address] documented as of this encounter Procedures Procedure [...] Orestes Ambrose MD PATHOLOGY/CYTOLOGY O RC [facility] * Surgical Pathology Report (08/25/2013 4:04 PM EST) Final Diagnosis ? [facility] ? Provider: ?? ORESTES AMBROSE ?Pt. Name: ?? RADHA BRYAN ? Acc #: ?[id number] ?Pt. ? Col Date: ?? 08/25/2013 ?/Sex: [...] Tissue Description: Polypoid pinzon soft tissues. ? [facility] ? Provider: ?? ORESTES AMBROSE ?Pt. Name: ?? RADHA BRYAN ? Acc #: ?[id number] ?Pt. ? Col Date: ?? 08/25/2013 ?/Sex: [...] Diagnosis: ? Same 08/29/2013 2:10 PM EDT [facility] GI Biopsy 08/25/2013 4:04 PM EST 08/25/2013 4:04 PM EST GI Biopsy 08/25/2013 4:04 PM EST 08/25/2013 4:04 PM EST GI Biopsy 08/25/2013 4:04 PM EST 08/25/2013 4:04 PM EST GI Biopsy 08/25/2013 4:04 PM EST 08/25/2013 4:04 PM EST Orestes Ambrose MD PATHOLOGY/CYTOLOGY O RC Performing Organization Address City/[facility]/ZIP Co de Phone Number [facility] [place] [address] * Specimen to Pathology (surgical or derm) (08/25/2013 4:04 PM EST) AP Specimen 08/25/2013 4:04 PM EST 08/25/2013 4:04 PM EST [facility] - 08/25/2013 4:04 PM EST Specimen requisition ordered. ??Separate Pathology report to follow Orestes Ambrose MD PATHOLOGY/CYTOLOGY O RC [facility] * Specimen to Pathology (surgical or derm) (08/25/2013 4:04 PM EST) AP Specimen 08/25/2013 4:04 PM EST 08/25/2013 4:04 PM EST Narrative [facility] 08/25/2013 4:04 PM EST Specimen requisition ordered. ??Separate Pathology report to follow Orestes Ambrose MD PATHOLOGY/CYTOLOGY O RC Performing Organization Address [facility] de Phone Number [facility] * Specimen to Pathology (surgical or derm) (08/25/2013 4:04 PM EST) AP Specimen 08/25/2013 4:04 PM EST 08/25/2013 4:04 PM EST Narrative [facility] - 08/25/2013 4:04 PM EST Specimen requisition ordered. ??Separate Pathology report to follow Orestes Ambrose MD PATHOLOGY/CYTOLOGY O RC Performing Organization Address [facility] Co de Phone Number [facility] * UPPER GI ENDOSCOPY (08/25/2013 3:14 PM EST) UPPER GI ENDOSCOPY [facility] Endoscopy Patient Name: Radha Bryan ? Procedure Date: 08/25/2013 3:14 PM ? N: [id number] ? Date of : 1975 ? Age: 37 ? Order #: [id number] ? Procedure: ? Upper GI endoscopy Indications: ? Generalized abdominal pain, Dyspepsia Providers: ? Orestes Ambrose MD, Betzy Nguyen ? ESTHER Vásquez, Sarah Ruiz, ? Mobile Paramedical Examiner Referring : ?REYNA Anderson Tracia ? MD [...] * COLONOSCOPY (08/25/2013 3:14 PM EST) COLONOSCOPY [facility] Endoscopy Patient Name: Radha Bryan ? Procedure Date: 08/25/2013 3:14 PM ? Date of : 1975 ? Age: 37 ? Order #: [id number] ? Procedure: ? Colonoscopy Indications: ? Generalized abdominal pain Providers: ? Orestes Ambrose MD, Betzy Nguyen ? ESTHER Vásquez, Sarah Ruiz, ? Mobile Paramedical Examiner Referring : ?REYNA Anderson, Anna ? MD [...] RN) documented in this encounter Care Teams Housing Project Manager Relationship Specialty Start Date End Date Lalito Fang PA [address] [place] [address] PCP - General 05/13/10 06/28/17 documented as of this encounter
--- OUTSIDE RECORDS SUMMARY | 2024-03-20 10:13 | XMS_ITS | Encounter Summary ---
Author Organization [facility] [place] [address] Care Team Providers Care Merchandise Carrier Name Role Phone Lalito Fang Primary Care Provider [phone] Encounter Details Date Type Department Care Team (Late st Contact Info) Description 08/08/2013 Telephone [place] [address] Anna Tejeda APRN [facility] [place] [address] Social History Tobacco Use Types Packs/Day Years [...] peer to peer, regarding mre. Approved. ID#: [id number]. Good for 60 days. July 29, 2013-September 26, 2013. documented in this encounter Plan of Treatment Upcoming Encounters Date Type Department Care Team (Late st Contact Info) Description 2024 8:40 AM EDT Appointment Mammography/[place] [phone] Jewels Barba CLOTH OPENER HAND [facility] [place] [address] 2024 9:40 AM EDT Office Visit [place] [address] Jewels Barba [facility] [place] [address] documented as of this encounter Visit Diagnoses Not on filedocumented in this encounter Care Teams Merchandise Carrier Relationship Specialty Start Date End Date Lalito Fang PA [address] [place] [address] PCP - General 05/13/10 06/28/17 documented as of this encounter
--- OUTSIDE RECORDS SUMMARY | 2024-03-20 10:13 | XMS_ITS | Encounter Summary ---
Author Organization [facility] [place] [address] Care Team Providers Care Densitometrist Name Role Phone Lalito Fang Primary Care Provider [phone] Reason for Visit * Reason Onset Date Comments Other 08/16/2013 MRE Encounter Details Date Type Department Care Team (Late st Contact Info) Description 08/16/2013 Telephone [place] [address] Shania Cano Other (MRE) Social [...] 2024 8:40 AM EDT Appointment Mammography/[place] [address] Jewels Barba APRN [facility] [place] [address] 2024 9:40 AM EDT Office [place] [address] Jewels Barba APRN [facility] [place] [place] [address] documented as of this encounter Visit Diagnoses Not on filedocumented in this encounter Care Teams Densitometrist Relationship Specialty Start Date End Date Lalito Fang PA [address] [place] [address] PCP - General 05/13/10 06/28/17 documented as of this encounter
--- OUTSIDE RECORDS SUMMARY | 2024-03-20 10:13 | XMS_ITS | Encounter Summary ---
Author Organization [facility] [address] Care Team Providers Care Windows Vmware Engineer Name Role Phone Lalito Fang Primary Care Provider [phone] Encounter Details Date Type Department Care Team (Late st Contact Info) Description 08/09/2013 Orders [place] [address] Anna Tejeda [facility] [place] [address] Abdominal pain, unspecified site (Primary [...] 2024 8:40 AM EDT Appointment Mammography/[place] [address] Jewels Barba [facility] [place] [address] 2024 9:40 AM EDT Office [place] [address] Jewels Barba MEDICAL [facility] [place] [address] documented as of this encounter Visit Diagnoses Diagnosis Abdominal pain, unspecified site- Primary documented in this encounter Care Teams Windows Vmware Engineer Relationship Specialty Start Date End Date Lalito Fang PA [address] [place] [address] PCP - General 05/13/10 06/28/17 documented as of this encounter
--- OUTSIDE RECORDS SUMMARY | 2024-03-20 10:13 | XMS_ITS | Encounter Summary ---
Author Organization [facility] [place] [address] Care Team Providers Care Manager Operations And Procurement Name Role Phone Lalito Fang Primary Care Provider [phone] Encounter Details Date Type Department Care Team (Latest Contact Info) Description 12/29/2016 - 12/29/2016 11:59 PM EDT Hospital Encounter Radiology Library at [facility] [place] [address] [facility] [place] [address] Discharge Disposition: Home Social History Tobacco Use [...] 2024 8:40 AM EDT Appointment Mammography/[place] [address] Jewels Barba, CORE MACHINE OPERATOR [facility] [place] [address] 2024 9:40 AM EDT Office [place] [address] Jewels Barba CORE MACHINE OPERATOR [facility] [place] [address] documented as of this encounter Procedures Procedure Name Priority Date/Time Associated Diagnosis Comments FILM LIBRARY STORAGE ONLY MR SPINE Routine 12/29/2016 12:00 AM EDT documented in this encounter Results * Film Library- Storage Only MR Spine (12/29/2016 12:00 AM EDT) Narrative [facility] - 06/30/2017 11:38 AM EST This exam is for storage only and is auto-finalizing. Manuel Vazquez MD IMG FILM LIBRARY ORD ERABLES [place], [place] documented in this encounter Visit Diagnoses Not on filedocumented in this encounter Care Teams Manager Operations And Procurement Relationship Specialty Start Date End Date Lalito Fang PA [address] [place] [address] PCP - General 05/13/10 06/28/17 documented as of this encounter
--- OUTSIDE RECORDS SUMMARY | 2024-03-20 10:13 | XMS_ITS | Encounter Summary ---
Author Organization [facility] [place] [address] Care Team Providers Care Bonding Supervisor Name Role Phone Lalito Fang Primary Care Provider [phone] Encounter Details Date Type Department Care Team (Latest Contact Info) Description 02/04/2017 - 02/04/2017 11:59 PM EDT Hospital Encounter Radiology Library at [facility] [place] [address] Mnauel Vazquez MD [facility] [place] [address] Discharge Disposition: Home Social History Tobacco Use [...] 2024 8:40 AM EDT Appointment Mammography/[place] [address] Jewels Barba, FLORAL ASSOCIATE [facility] [place] [address] 2024 9:40 AM EDT Office [place] [address] Jewels Barba FLORAL ASSOCIATE [facility] [place] [address] documented as of this encounter Procedures Procedure Name Priority Date/Time Associated Diagnosis Comments FILM LIBRARY STORAGE ONLY MR SPINE Routine 02/04/2017 12:00 AM EDT documented in this encounter Results * Film Library- Storage Only MR Spine (02/04/2017 12:00 AM EDT) Narrative [facility] - 06/30/2017 11:35 AM EST This exam is for storage only and is auto-finalizing. Manuel Vazquez MD IMG FILM LIBRARY ORD ERABLES [place], [place] documented in this encounter Visit Diagnoses Not on filedocumented in this encounter Care Teams Bonding Supervisor Relationship Specialty Start Date End Date Lalito Fang PA [address] [place] [address] PCP - General 05/13/10 06/28/17 documented as of this encounter
--- OUTSIDE RECORDS SUMMARY | 2024-03-20 10:13 | XMS_ITS | Encounter Summary ---
Author Organization [facility] Address [facility] [place] [address] Care Team Providers Care Diabetologist Name Role Phone Yamileth Saavedra Primary Care Provider Reason for Referral * Consultation (Routine) - Specialty Diagnoses / Procedures Referred By Contac t Referred To Contact Orthopaedics Diagnoses Chronic midline low back pain, with sciatica presence unspecified Chronic midline thoracic back pain Serge Catherine [place] [facility] [place] [address] [facility] [address] [place] [address] Referral ID Status Reason Start Date Expiration Date V isits Requested Visits Authorized [id number] Consult, Test & Treat 07/09/2017 07/09/2018 1 1 Reason for Visit * Reason Comments Back Pain middle back. vague l eg pain * Surgical (Routine) - Closed Specialty Diagnoses / Procedures Referred By Contac t Referred To Contact Orthopaedics Diagnoses Thoracic disc herniation/ leg numbness/ MRI (t-spine) 01/2017 & MRI (l-spine) 12/2016 @ [facility]/ XR prior Yamileth Saavedra PA [address] [place] [address] Manuel Vazquez MD [facility] [place] [place] [address] Referral ID Status Reason Start Date Expiration Date V isits Requested Visits Authorized [id number] Closed Consult, Test & Treat [facility] 06/29/2017 06/29/2018 1 1 Encounter Details Date Type Department Care Team (Late st Contact Info) Description 07/09/2017 8:20 AM EST Office Visit Spine Center at [facility] [place] [address] Serge Catherine [place] [facility] [place] [address] Chronic midline low back pain, with sciatica [...] considering our intensive rehabilitation program, with Functional Gnosticism. She was agreeable to consider our functional gnosticist program and will be undergoing the assessment for this. documented in this encounter Plan of Treatment Upcoming Encounters Date Type Department Care Team (Late st Contact Info) Description 2024 8:40 AM EDT Appointment Mammography/[place] [address] Jewels Barba APRN [facility] [place] [address] 2024 9:40 AM EDT Office [place] [address] Jewels Barba APRN [facility] [place] [address] Scheduled Referrals Name Type Priority Associated Diagnoses Order Schedule Referral to GAP Assessment Outpatient Referral Routine Chronic Midline Low Back Pain, With Sciatica Presence Unspecified Chronic Midline Thoracic Back Pain Ordered: 07/09/2017 documented as of this encounter Visit Diagnoses Diagnosis Chronic midline low back pain, with sciatica presence unspecified Chronic midline thoracic back pain documented in this encounter Care Teams Diabetologist Relationship Specialty Start Date End Date Yamileth Saavedra PA [address] [place] [address] PCP - General Family Medicine 06/29/17 documented as of this encounter
--- OUTSIDE RECORDS SUMMARY | 2024-03-20 10:13 | XMS_ITS | Encounter Summary ---
Author Organization [facility] [place] [address] Care Team Providers Care Artificial Limb Fitter Name Role Phone Lalito Fang Primary Care Provider [phone] Reason for Visit * Reason Comments GI Problem Encounter Details Date Type Department Care Team (Latest Contact Info) Description 07/27/2013 3:30 PM EST Office [place] [address] Anna Tejeda APRN [facility] [place] [address] Abdominal pain, periumbilical (Primary Dx) Discharge Disposition: [...] PM EST Section of Gastroenterology and Hepatology [address] [place] [address] .Radha Sanders : 1975 Patient is here [...] Small bowel through and colonoscopy [facility], 2006, both normal exams. cmp 05/2013 normal. [...] 2024 8:40 AM EDT Appointment Mammography/[place] [address] Jewels Barba APRN [facility] [place] [address] 2024 9:40 AM EDT Office Visit General Surgery at [facility] [place] [address] Jewels Barba, CLEVE [facility] [place] [address] Scheduled Orders Name Type Priority Associated Diagnoses [...] MD HEMATOLOGY ORDERABLE S Performing Organization Address City/[facility] Co de Phone Number [facility] * Folate, serum (07/27/2013 4:34 PM EST) Folate 15.6 4.6 - 34.8 ng/mL [facility] Blood specimen (specimen) 07/27/2013 4:34 PM EST 07/27/2013 4:40 PM EST Narrative Resulting Agency Comment Spec In Lab Phil Lloyd MD CHEMISTRY ORDERABLES Performing Organization Address City/[facility] Co de Phone Number [facility] * Vitamin B12 (07/27/2013 4:34 PM EST) Vitamin B12 404 207 - 974 pg/mL [facility] Blood specimen (specimen) 07/27/2013 4:34 PM EST 07/27/2013 4:40 PM EST Narrative Resulting Agency Comment Spec In Lab Phil Lloyd MD CHEMISTRY ORDERABLES Performing Organization Address City/[facility]/ZIP Co de Phone Number [facility] * (ABNORMAL) Ferritin (07/27/2013 4:34 PM EST) [facility] Ferritin 9(L) 15 - 150 ng/mL [facility] Comment: Pediatric reference ranges not verified at [facility], interpret with caution. Reference ranges for females greater than 50 years of age approach values for men, i.e., 30-400 ng/mL. Blood specimen (specimen) 07/27/2013 4:34 PM EST 07/27/2013 4:40 PM EST Narrative Resulting Agency Comment Spec In Lab Phil Lloyd MD CHEMISTRY ORDERABLES Performing Organization Address [facility] Co de Phone Number [facility] * (ABNORMAL) Iron and TIBC (07/27/2013 4:34 PM EST) [facility] Iron 66 30 - 150 mcg/dL [facility] TIBC 342 250 - 450 mcg/dL [facility] Iron Saturation 19(L) 20 - 50 % [facility] Blood specimen (specimen) 07/27/2013 4:34 PM EST 07/27/2013 4:40 PM EST Narrative Resulting Agency Comment Spec In Lab Phil Lloyd MD CHEMISTRY ORDERABLES Performing Organization Address City/[facility]/ZIP Co de Phone Number [facility] * Tissue transglutaminase, IgA (07/27/2013 4:34 PM EST) [facility] TTG IgA Ab <4.0 <=3.9 u/ml [facility] Comment: Result Interpretation: Negative: ?<4 U/mL Weak Positive: ??4-10 U/mL Positive: ?>10 U/mL Blood specimen (specimen) 07/27/2013 4:34 PM EST 07/28/2013 8:09 AM EST Narrative Resulting Agency Comment Spec In Lab Phil Lloyd MD IMMUNOLOGY ORDERABLE S Performing Organization Address City/[facility] Co de Phone Number [facility] * TSH (07/27/2013 4:34 PM EST) Thyroid Stimulating Hormone 0.37 0.27 - 4.20 mcIU/mL [facility] Blood specimen (specimen) 07/27/2013 4:34 PM EST 07/27/2013 4:40 PM EST Narrative Resulting Agency Comment Spec In Lab Phil Lloyd MD CHEMISTRY ORDERABLES Performing Organization Address [facility] Co de Phone Number [facility] * (ABNORMAL) Comprehensive metabolic panel (non-fasting) (07/27/2013 4:34 PM EST) Glucose 90 60 - 199 mg/dL [facility] Comment:Diabetes: >=200 mg/d L plus symptoms Blood Urea Nitrogen 7(L) 8 - 18 mg/dL [facility] Creatinine 0.75 0.70 - 1.20 mg/dL [facility] Comment: Please note that the pediatric reference intervals supplied above were not validated at [facility]. Results from pediatric patients should be interpreted [...] periumbilic documented in this encounter Care Teams Artificial Limb Fitter Relationship Specialty Start Date End Date Lalito Fang PA [address] [place] [address] PCP - General 05/13/10 06/28/17 documented as of this encounter
--- OUTSIDE RECORDS SUMMARY | 2024-03-20 10:13 | XMS_ITS | Encounter Summary ---
Author Organization [facility] Address [facility] [place] [address] Care Team Providers Care Housing Officer Name Role Phone Yamileth Saavedra Primary Care Provider [phone] Reason for Visit * Consultation (Routine) - Specialty Diagnoses / Procedures Referred By Contac t Referred To Contact Orthopaedics Diagnoses Chronic midline low back pain, with sciatica presence unspecified Chronic midline thoracic back pain Serge Catherine [place] [facility] [id number] [facility] [address] [address] [place] [address] Referral ID Status Reason Start Date Expiration Date V isits Requested Visits Authorized [id number] Consult, Test & Treat 07/09/2017 07/09/2018 1 1 Encounter Details Date Type Department Care Team (Late st Contact Info) Description 07/23/2017 9:00 AM EST Notes Only [place] [address] Lillie Laurent MSW [facility] [place] [id number] Social History Tobacco Use Types Packs/Day Years [...] 2024 8:40 AM EDT Appointment Mammography/[place] [address] Jewels Barba, CLEVE [facility] [place] [address] 2024 9:40 AM EDT Office Visit [place] [address] Jewels Barba PATENT COUNSEL [facility] [place] [place] [address] Scheduled Referrals Name Type Priority Associated Diagnoses Order Schedule Referral to GAP Assessment Outpatient Referral Routine Chronic Midline Low Back Pain, With Sciatica Presence Unspecified Chronic Midline Thoracic Back Pain Ordered: 07/09/2017 documented as of this encounter Visit Diagnoses Not on filedocumented in this encounter Care Teams Housing Officer Relationship Specialty Start Date End Date Yamileth Saavedra PA [address] [place] [address] PCP - General Family Medicine 06/29/17 documented as of this encounter
--- OUTSIDE RECORDS SUMMARY | 2024-03-20 10:13 | XMS_ITS | Encounter Summary ---
Author Organization [facility] [place] [address] Care Team Providers Care Marketing Segment Manager Name Role Phone Lalito Fang Primary Care Provider [phone] Reason for Visit * Reason Onset Date Comments Medication Refill 09/25/2013 Encounter Details Date Type Department Care Team (Late st Contact Info) Description 09/25/2013 [place] [address] Anna Tejeda APRN [facility] [place] [address] Reflux esophagitis (Primary Dx) Social History Tobacco [...] 2024 8:40 AM EDT Appointment Mammography/[place] [address] Jewels Barba, CHIEF SECURITY OFFICER [facility] [place] [address] 2024 9:40 AM EDT Office [place] [address] Jewels Barba CHIEF SECURITY OFFICER [facility] [place] [address] documented as of this encounter Visit Diagnoses Diagnosis Reflux esophagitis- Primary documented in this encounter Care Teams Marketing Segment Manager Relationship Specialty Start Date End Date Lalito Fang PA [address] [place] [address] PCP - General 05/13/10 06/28/17 documented as of this encounter
--- OUTSIDE RECORDS SUMMARY | 2024-03-20 10:13 | XMS_ITS | Encounter Summary ---
Author Organization [facility] [place] [address] Care Team Providers Care Infant Toddler Lead Teacher Name Role Phone Yamileth Saavedra Primary Care Provider [phone] Reason for Referral * Consultation (Routine) - Closed Specialty Diagnoses / Procedures Referred By Contac t Referred To Contact Orthopaedics Diagnoses Chronic midline low back pain, with sciatica presence unspecified Jacob Abreu APRN [facility] [place] [address] [facility] [address] [place] [address] Referral ID Status Reason Start Date Expiration Date V isits Requested Visits Authorized [id number] Closed Consult, Test & Treat 07/23/2017 07/23/2018 1 1 Reason for Visit * Reason Comments Back Pain Encounter Details Date Type Department Care Team (Late st Contact Info) Description 07/23/2017 11:00 AM EST Office [place] [address] Jacob Abreu BIOINFORMATICS RESEARCH TECHNICIAN [facility] [place] [address] Chronic midline low back pain, with sciatica [...] seen today in consideration of a functional zoroastrian program with a chief complaint of midline [...] talking about the fundamentals of the functional zoroastrian program and its appropriateness for her situation. She has a good understanding of the program is eager to attend it. We have therefore mutually agreed to proceed as follows: Plan: Admission to the [facility] functional zoroastrian program as soon as can be arranged. documented in this encounter Plan of Treatment Upcoming Encounters Date Type Department Care Team (Late st Contact Info) Description 2024 8:40 AM EDT Appointment Mammography/[place] [address] Jewels Barba APRN [facility] [place] [address] 2024 9:40 AM EDT Office [place] [address] Jewels Barba APRN [facility] [place] [address] Scheduled Referrals Name Type Priority Associated Diagnoses Orde r Schedule Referral to Spine Center Outpatient Referral Routine Chronic Midline Low Back Pain, With Sciatica Presence Unspecified Ordered: 07/23/2017 documented as of this encounter Visit Diagnoses Diagnosis Chronic midline low back pain, with sciatica presence unspecified documented in this encounter Care Teams Infant Toddler Lead Teacher Relationship Specialty Start Date End Date Yamileth Saavedra PA [address] [place] [address] PCP - General Family Medicine 06/29/17 documented as of this encounter
--- NOTE | 2024-03-20 10:15 | RT.EKG_ITS ---
APPROVED REPORT Exam: Resting ECG Reason for Exam: chest Patient Location: E HR:77 bpm ECG Measurements Heart Rate 77 AXIS CA 146 P 80 QRSd 99 QRS 67 QT 378 T 33 QTc 429 Conclusion Sinus rhythm...normal P axis, V-rate 60- 99
--- NOTE | 2024-03-20 10:25 | W.ED.GENAD ---
Discharge Plan Disposition Patient Disposition: Home Condition: Stable Discharge Details Clinical Impression: Acute chest wall pain Primary Care Provider: Yamileth Saavedra ED Provider: Anabella Sears Home Meds and New Rx's Prescriptions: Continued vitamin B complex [B Complex-Vitamin B12] Tablet 1 tab PO DAILY ferrous sulfate [Feosol] 325 mg (65 mg iron) tablet 325 mg PO DAILY Patient Comments: Veg-cap (pt reports lower dose ~ 36mg) cholecalciferol (vitamin D3) 1,250 mcg (50,000 unit) capsule See Rx Instructions PO once a week Rx Instructions: 2,000 IU, Discharge Instructions Instructions: Costochondritis, Chest Pain, Adult ED Additional Instructions: No evidence of heart attack or pneumonia today. No evidence of fluid in your lung no evidence of rib fracture. I do suspect that you may have strained the connective tissue in between your ribs. Please take Tylenol or Ibuprofen with food every 4-6 hours as needed for pain and swelling. Apply ice alternating with heat. Follow up with primary care provider in 3-5 days. Return to ED sooner if any worsening shortness of breath, lightheadedness dizziness, nausea vomiting, or concerns. Referrals: Yamileth Saavedra [Primary Care Provider] - 5 days HPI General Mode of arrival: ambulatory. Date/Time Provider Initiated Documentation: 03/20/24 09:56. Information obtained by: patient, RN notes reviewed and old records reviewed. HPI Narrative: 48-year-old female presents to the ER with a chief complaint of left anterior chest wall pain and shortness of breath which has been ongoing since last Wednesday. She reports she had a sharp pain initially and is continued to hurt and have increased shortness of breath with exertion. She is not a smoker, denies any meds or past medical history. She is not currently on any control. She was referred here by her PCP for further evaluation. Related Data Home Medications ?Medication ?Instructions ?Recorded ?Confirmed cholecalciferol (vitamin D3) 1,250 See Rx Instructions PO once a week 04/08/22 02/25/24 mcg (50,000 unit) capsule ferrous sulfate 325 mg (65 mg 325 mg PO DAILY 04/08/22 02/25/24 iron) tablet (Feosol) vitamin B complex (B 1 tab PO DAILY 04/08/22 02/25/24 Complex-Vitamin B12 tablet) Allergies Allergy/AdvReac Type Severity Reaction Status Date / Time No Known Allergies Allergy Unverified 02/25/24 06:11 General Stated Complaint: Chest Pain HERNAN: 3 Review of Systems All systems reviewed & are unremarkable except as noted in HPI and below Cardiovascular Cardiovascular: Reports as per HPI and Reports dyspnea Respiratory Respiratory: Reports pain with cough and Reports dyspnea Musculoskeletal Musculoskeletal: Reports as per HPI Exam Narrative Exam Narrative: Constitutional: Alert and oriented x3. Appears stated age. Normal body habitus. Head: Normocephalic, no trauma. Eyes: Pupils PERRL, Red reflex noted, EOM's intact. Eyelids symmetrical without lesions, discharge, or swelling. ENT: Bilateral TM's WNL, External ear normal to inspection, no mastoid TTP, swelling, or erythema, Nasal turbinates WNL, no nasal discharge. Normal dentition, Posterior pharynx WNL, no exudate. Chest: RRR, Normal S1, S2, distal pulses intact. Resp: Lungs clear to auscultation bilaterally, no wheezes, rales, or rhonchi. Abdomen: Soft, non-distended, Normoactive bowel sounds all 4 quads. Musculoskeletal: Normal gait, Moves all 4 extremities without difficulty. Skin: No suspicious rashes or lesions. Capillary refill less than 2 sec. Neurologic: Cranial nerves II-XII intact. Alert and oriented x 3. Motor: No deficits noted. Sensory: Intact bilaterally all 4 extremities. Hematologic/Lymphatic: No ecchymosis, no lymphadenopathy. Course Vital Signs Vital signs: Vital Signs Temperature 36.8 C 03/20/24 10:07 Pulse 88 03/20/24 10:07 Respiratory Rate 18 03/20/24 10:07 Blood Pressure 104/67 03/20/24 10:07 Pulse Oximetry 98 03/20/24 10:07 Temperature 36.8 C 03/20/24 10:07 Temperature Source Tympanic 03/20/24 10:07 Pulse 88 03/20/24 10:07 Respiratory Rate 18 03/20/24 10:07 Blood Pressure 104/67 03/20/24 10:07 Blood Pressure Position Sitting 03/20/24 10:07 Pulse Oximetry 98 03/20/24 10:07 Oxygen Delivery Method Room Air 03/20/24 10:07 Oxygen Flow Rate 0 03/20/24 10:07 Medical Decision Making 48-year-old female presents to the ER with a chief complaint of left anterior chest wall pain and shortness of breath which has been ongoing since last Wednesday. She reports she had a sharp pain initially and is continued to hurt and have increased shortness of breath with exertion. She is not a smoker, denies any meds or past medical history. She is not currently on any control. She was referred here by her PCP for further evaluation. X-ray rib series left side ordered, CBC CMP troponin and D-dimer. Differential diagnose includes not limited to costochondritis, pneumonia, CAD, PE. CBC shows no leukocytosis, CMP within normal limits troponin less than 4 D-dimer 246 which is within normal limits. Chest x-ray shows no evidence for rib fractures or pulmonary abnormality. No pneumonia. Will plan to discharge patient home will give lidocaine patch here and IV Toradol. Suspect costochondritis. This text was generated using [email or web address] dictation system, please disregard any oddities of phrase or misspellings. Lab Data Lab results reviewed: Yes I reviewed the patient's lab results. Labs: Laboratory Tests Range/Units 03/20/24 10:35 WBC (4.4-10.8) 10^3/uL 6.07 RBC (3.93-5.22) 10^6/uL 3.70 L Hgb (11.2-15.7) g/dL 12.5 Hct (36.0-46.0) % 37.2 MCV (80-95) fL 101 H MCH (27.0-33.0) pg 33.8 H MCHC (32.0-36.0) % 33.6 RDW (11.7-14.6) % 12.9 Plt Count (130-400) 10^3/uL 399 MPV (8.0-11.0) fL 8.8 Immature Gran % % 0.3 Neutrophils % % 60.2 Lymphocytes % % 23.7 Monocytes % % 8.2 Eosinophils % % 6.6 Basophils % % 1.0 Nucleated RBC % (0.0-0.3) % 0.0 Absolute Neutrophils (1.2-6.7) 10^3/uL 3.65 Absolute Lymphocytes (1.2-3.4) 10^3/uL 1.44 Absolute Monocytes (0.1-0.8) 10^3/uL 0.50 Absolute Eosinophils (0.0-0.7) 10^3/uL 0.40 Absolute Basophils (0.0-0.2) 10^3/uL 0.06 D-Dimer (<500) ng/mlFEU 246 Sodium (136-145) mmol/L 138 Potassium (3.5-5.1) mmol/L 3.8 Chloride (98-107) mmol/L 103 Carbon Dioxide (21.0-32.0) mmol/L 27.4 Anion Gap (3-11) mmol/L 7.6 BUN (7-18) mg/dL 8 Creatinine (0.55-1.02) mg/dL 0.8 Est GFR (CKD-EPI 2020) (mL/min/1.73m2) 91.40 Glucose (74-106) mg/dL 75 Calcium (8.5-10.1) mg/dL 8.8 Total Bilirubin (0.2-1.0) mg/dL 0.20 AST (15-37) U/L 14 L ALT (14-59) U/L 12 L Alkaline Phosphatase (46-116) U/L 65 Troponin I (<or=51) ng/L < 4 Total Protein (6.4-8.2) g/dL 7.0 Albumin (3.4-5.0) g/dL 3.8 Quality:[facility] Health Related Social Needs: No Data to Display PFSH All Active Problems (Updated 03/20/24 @ 11:53 by Anabella Sears NP) Acute chest wall pain (Acute) Headache, unspecified (Acute) Pain, foot (Acute) Corns and callosities (Acute) Lower extremity pain (Acute) Low back pain (Acute) Medical History (Updated 03/20/24 @ 11:53 by Anabella Sears NP) Hiatal hernia Vitamin D deficiency Abdominal pain Thoracic radiculopathy Severe left groin pain Atypical mole Chronic pain of both knees Thrombocytosis Elevated liver enzymes Osteopenia Folic acid deficiency Depression Anxiety Anemia B12 deficiency Hip pain Paresthesia Fatigue Insomnia Family History Mother Alcohol abuse Obesity Father Diabetes Essential hypertension Arthritis Heart disease Myocardial infarction Stroke Obesity Asthma Sister Asthma Grandfather No problems noted. Grandmother Lung cancer Stroke Maternal Uncle No problems noted. Other Brain cancer Social History Smoking/Tobacco Use Status: Current every day Tobacco Type: cigarettes Smoking risk assessment performed?: Yes Alcohol Intake: never Drug use: Occasionally Substance use type: marijuana Housing: house Do you feel safe at home: Yes Do you feel safe in your relationship?: Yes
[2024-03-20 10:58] LABS: Abs Immature Grans 0.02 10^3/uL (0.0-0.06); Absolute Basophil Count 0.06 10^3/uL (0.0-0.2); Absolute Lymphocyte Count 1.44 10^3/uL (1.2-3.4); Absolute Neutrophil Count 3.65 10^3/uL (1.2-6.7); Eosinophils % 6.6 %; HCT 37.2 % (36.0-46.0); HGB 12.5 g/dL (11.2-15.7); Immature Grans % 0.3 %; Lymphocytes % 23.7 %; MCH 33.8 pg (27.0-33.0); MCHC 33.6 % (32.0-36.0); MCV 101 fL (80-95); MPV 8.8 fL (8.0-11.0); Monocytes % 8.2 %; Neutrophils % 60.2 %; Platelet Count 399 10^3/uL (130-400); RDW 12.9 % (11.7-14.6); WBC 6.07 10^3/uL (4.4-10.8)
--- NOTE | 2024-03-20 11:12 | DI.RAD_ITS ---
Exam(s) XR RIBS LT W PA LAT CHEST Exam: XR RIBS LT W PA LAT CHEST CLINICAL HISTORY: Left rib cage pain TECHNIQUE: 2D digital imaging was performed. PA and lateral chest. Four views left ribs. COMPARISON: CR,XR XR CHEST 2V PA LATERAL from 12/26/2022 FINDINGS: MEDIASTINUM: Normal. HEART: Normal. PULMONARY VASCULATURE: Normal. LUNGS: Clear. PLEURAL SPACE: No pleural effusion or pneumothorax. SPINE:NORMAL. LEFT RIBS: Normal. OTHER FINDINGS:Normal. IMPRESSION: 1. No acute pulmonary findings. 2. Unremarkable left ribs. DATA REPOSITORY: RADIATION DOSE DELIVERED:
[2024-03-20 11:17] LABS: ALT 12 U/L (14-59); AST 14 U/L (15-37); Albumin 3.8 g/dL (3.4-5.0); Alkaline Phosphatase 65 U/L (46-116); Anion Gap 7.6 mmol/L (3-11); BUN 8 mg/dL (7-18); CO2 27.4 mmol/L (21.0-32.0); CREATININE 0.8 mg/dL (0.55-1.02); Calcium 8.8 mg/dL (8.5-10.1); Chloride 103 mmol/L (98-107); Glucose 75 mg/dL (74-106); Potassium 3.8 mmol/L (3.5-5.1); Sodium 138 mmol/L (136-145); Troponin I < 4 ng/L (<or=51)
[2024-03-20 11:27] LABS: D-Dimer 246 ng/mlFEU (<500)
[2024-03-20] MEDS: Lidocaine 5% Patch 1 PATCH TP (12:07)
[2024-03-20] MEDS: Ketorolac 15 MG/ML VIAL IVP (12:07)
== END 2024-03-20 12:20 | disposition home or self-care (01) ==
LOC: ER 11:53 → RED 12:20
PROVIDERS: Emergency Provider Registered Nurse Emergency; PCP Physician Assistant Medical
DX: R07.89 Other chest pain (principal); F17.210 Nicotine dependence, cigarettes, uncomplicated
CPT/HCPCS: 80053; 93005; 96374; 99285; 71046; 71100; 84484; 85025; 85379; 93010; 99284; J1885

== ENCOUNTER 2024-05-16 11:32 | Emergency (ER) | payer OTHER, SELFPAY ==
[2024-05-16 11:45] VITALS: BP 143/73; PULSE 87; RESP 15; TEMP 36.9; O2SAT 98
--- NOTE | 2024-05-16 11:45 | DI.CT_ITS ---
Exam(s) CT CERVICAL SPINE WO EXAM: CT CERVICAL SPINE WO CLINICAL HISTORY: fall. TECHNIQUE: Imaging Protocol: Axial computed tomography images with coronal and sagittal reformatted images were created and reviewed COMPARISON: No priors for comparison. FINDINGS: Bones: No acute fracture or subluxation. There is congenital nonunion of the posterior arch of C1. Soft Tissues: There is a 1.1 cm hypodense nodule in the right lobe of the thyroid gland. Nonemergent thyroid ultrasound is recommended for further evaluation. Lung Apices: Clear. IMPRESSION: 1. No acute fracture or subluxation in the cervical spine. 2. Right thyroid nodule. Nonemergent thyroid ultrasound is recommended for further evaluation. Unexpected findings RADIATION DOSE DELIVERED: 728.75mGy.cm Total DLP 728.75mGy.cm Total DLP DATA REPOSITORY: All CT scans at this facility are submitted to the National Radiology Data Registry (NRDR) Dose Index Registry (DIR) with the [employer] (ACR). RADIATION OPTIMIZATION: All CT scans at this facility use at least one of these dose optimization te chniques: automated exposure control; mA and/or kV adjustment per patient size (includes targeted exa ms where dose is matched to clinical indication); or iterative reconstruction.
--- OUTSIDE RECORDS SUMMARY | 2024-05-16 11:48 | XMS_ITS | Continuity of Care Document ---
Author Organization [facility] Address [address] [place] [address] Care Team Providers Care Visual Merchandising Manager Name Role Phone Yamileth Saavedra Primary Care Physician Encounter NCTY_MD Date(s): 04/21/24 - 04/21/[address] [address] Encounter Diagnosis Iron deficiency(Discharge Diagnosis) - 04/21/24 Fatigue(Discharge Diagnosis) - 04/21/24 Discharge Disposition: Home or Self Care Attending Physician: Yamileth Saavedra PA-C Admitting Physician: Yamileth Saavedra PA-C Referring Physician: Yamileth Saavedra PA-C Allergies, Adverse Reactions, Alerts No Known Medication Allergies Substance Criticality Severity Reaction Reaction Severity Status Moderna COVID-19 Vaccine PF 1 Low criticality Mild Eruption Active 1Outside Source Comment: rash, mild to [...] 0 Refill(s) Start Date: 06/08/22 Status: Ordered ondansetron 4 mg oral disintegrating strip See Instructions, half to one at onset of nausea. May take a dose TID prn., # 20 strip, 0 Refill(s), 160, cm, 10/21/23 9:58:00 EDT, Height, 50.6, kg, 04/21/24 14:24:00 EDT, Weight Dosing Start Date: 04/21/24 Status: Ordered Vitamin D3 otc, 0 Refill(s) [...] Confirmed Active Transient leg weakness Confirmed Active Nausea in adult Confirmed Active Painless hematuria Confirmed Active Paroxysmal nocturnal dyspnea Confirmed 11/05/19 [...] cap for implants. 3CIN II- plan LEEP 412/ ECC, THU I, repeat pap 1 yr- 2022 5CIN II at 1 oclock postion Results Laboratory List Name Date Ferritin 04/21/24 Thyroid Stimulating Hormone (TSH) 4 Most recent to oldest [Reference Range]: 1 Ferritin Level [8-252 ng/mL] 12 ng/mL (04/21/24 3:25 PM) TSH [0.358-3.740 mcIntlUnit/mL] 0.584 mc IntlUnit/mL (04/21/24 3:25 PM) Social History Social History Type Response Tobacco Current everyday tob acco user Tobacco Use:. 1 ppd per day. 21 year(s). Sex Female Sex Representation Female (finding) Patient Care team information Care Team Personnel Name: Yamileth Saavedra PA-C Position: Physician Member Role: Informed Provider Address: [address] [place] [address]- Care Team Related Persons Name: AMITA PHILLIPS Insurance Providers Guarantor name: ABELINO BRYAN Health Plan Information #: 1 Payer: [employer] [facility] POS Member Number: [id number] Policy Number: NA Health Plan Information #: 2 Payer: [employer] [facility] POS Member Number: [id number] Policy Number: NA
--- OUTSIDE RECORDS SUMMARY | 2024-05-16 11:49 | XMS_ITS | Encounter Summary ---
Author Organization [facility] Address [address] [place] [address] Care Team Providers Care Registered Radiologic Technologist Name Role Phone Unknown, Provider Primary Care Provider Unava ilable Encounter Details Date Type Department Care Team (Late st Contact Info) Description 03/09/2023 Lab Requisition [facility] Pathology & Laboratory Medicine - [facility] [address] [place], [place] [id number] Outr Resulting Lab, Provider Social History Tobacco Use Types Packs/Day Years Used Date Smoking Tobacco: Never Assessed Interpersonal Safety Answer Date Record ed Physically Hurt Never 01/21/2020 Verbally Threaten Not on file 01/21/2020 Comments Unknown Sex and Gender Information Value Date Recorded Sex Assigned at Not on file Legal Sex Female 18:43 EST Gender Identity Not on file Sexual Orientation [...] Silvana glabrata Negative Negative 03/10/2023 13:15 EDT [facility] Trichomonas Vaginalis Negative Negative 03/10/2023 13:15 EDT [facility] BV (Bacterial vaginosis) Positive(A) Negative 03/10/2023 13:15 EDT [facility] Neisseria gonorrhoeae Result Negative Negative 03/10/2023 13:15 EDT [facility] Chlamydia trachomatis Result Negative Negative 03/10/2023 13:15 EDT [facility] Silvana Species Negative Negative 13:15 EDT [facility] Swab VAGINAL STRUCTURE / Unknown 03/09/2023 16:40 EDT 03/10/2023 8:02 EDT us Provider Outr Resulting Lab MICROBIOLOGY - GENER AL ORDERABLES Final Result [facility] [address] [place] [address] documented in this encounter Visit Diagnoses Not on filedocumented in this encounter Care Teams Registered Radiologic Technologist Relationship Specialty Start Date End Date Unknown, Provider, PCP - General 01/26/17 documented as of this encounter
--- OUTSIDE RECORDS SUMMARY | 2024-05-16 11:49 | XMS_ITS | Encounter Summary ---
Author Organization [facility] Address [address] [place] [address] Care Team Providers Care Revenue Field Agent Name Role Phone Unknown, Provider Primary Care Provider Unava ilable Encounter Details Date Type Department Care Team (Latest Contact Info) Description 05/20/2022 Lab Requisition [facility] Pathology & Laboratory Medicine - [facility] [address] [place] [address] Napoleon Bob MD [address] [place] [id number] Moderate cervical dysplasia; Encounter for screening for [...] PCR Negative Negative 06/02/2022 13:36 EST [facility] Comment:No E6 or E7 mRNA is detected from HPV types 16,18,31,33,35,39,45,51,52,56,58,59,66, and 68 by elevator dispatcher mediated amplification. Papanicolaou smear specimen (specimen) CERVIX UTERI STRUCTURE / Unknown 05/20/2022 16:21 EST 06/01/2022 9:08 EST Napoleon Bob MD MICROBIOLOGY - GENERAL ORDERABLES Final Result [facility] [address] [place] [address] * PAP TEST (05/20/2022 16:21 EST) Specimens A. Cervix and/or Endocervix , ThinPrep Imaging System with Manual Evaluation 06/02/2022 13:36 [facility] Specimen Adequacy Satisfactory for Evaluation - transformation zone component present 06/02/2022 13:36 [facility] General Categorization Epithelial Cell Abnormality 06/02/2022 13:36 [facility] Descriptive Diagnosis Squamous Cell Abnormality - Low grade squamous intraepithelial lesion (LSIL). 06/02/2022 13:36 [facility] Educational Comments [facility] recommends following the ASCCP's management guidelines which may be found at www.asccp.org 06/02/2022 13:36 [facility] Attestation By the signature below, the attending physician certifies that they have personally conducted a gross and/or microscopic examination of the described specimens and rendered or confirmed the above diagnosis. 06/02/2022 13:36 [facility] at 1336 Clinical History See below 06/02/20 13:36 [facility] HPV The result for the Human Papillomavirus (HPV) Detection-High Risk Types is Negative. No E6 or E7 mRNA is detected from HPV types 16,18,31,33,35,39 ,45,51,52,56,58,5 9,66, and 68 by elevator dispatcher mediated amplification.Zohra ting was performed on specimen [id number] and was resulted on 06/02/2022 1336 EST by YARED, LAB INSTRUMENT RESULTS IN 06/02/2022 13:36 EST [facility] Performing Lab [facility] 06/02/2022 13:36 EST [facility] Scanned Images 06/02/2022 13:36 EST [facility] Papanicolaou smear specimen (specimen) CERVIX UTERI STRUCTURE / Unknown 05/20/2022 16:21 EST 05/21/2022 10:14 EST us Napoleon Bob MD PATHOLOGY ORDERABLES F inal Result [facility] [address] [place] [address] documented in this encounter Visit Diagnoses Diagnosis Moderate cervical dysplasia Moderate dysplasia of cervix Encounter for screening for human papillomavirus (HPV) Special screening examination for human papillomavirus (HPV) documented in this encounter Care Teams Revenue Field Agent Relationship Specialty Start Date End Date Unknown, Provider, PCP - General 01/26/17 documented as of this encounter
--- OUTSIDE RECORDS SUMMARY | 2024-05-16 11:49 | XMS_ITS | Encounter Summary ---
Author Organization [facility] Address [address] [place] [address] Care Team Providers Care Lap Layer Name Role Phone Unknown, Provider Primary Care Provider Unava ilable Encounter Details Date Type Department Care Team (Late st Contact Info) Description 09/23/2021 Lab Requisition [facility] Pathology & Laboratory Medicine - [facility] [address] [place] [address] Napoleon Bob MD [address] [place] [phone] Encounter for other general examination Social History [...] management options, if applicable. 09/30/2021 15:44 EDT [facility] Final Diagnosis A. ENDOCERVIX, CURETTAGE: - Fragments of benign endocervical tissue and benign metaplastic squamous epithelium. See comment. B. CERVIX, 1 O'CLOCK, BIOPSY: - Squamous epithelium with focus of high grade squamous intraepithelial lesion (THU II). See comment. 09/30/2021 15:44 [facility] Diagnosis Comment The biopsy from part B shows a focus of thin high grade squamous intraepithelial lesion (THU II). Hand Cutter Apprentice slides of this case were reviewed at the intradepartmental consultation conference. Immunoperoxidase stains were performed on this case to further characterize the lesion in part B and confirm the morphologic impression of a high grade squamous intraepithelial lesion. ANTIBODY(CLONE)(BLO CK):RESULT P16 (E6H4TM, [place]) (block B): strong positive staining in area [...] performance characteristics have been determined by [facility] and/or by the referring laboratory. The [...] high complexity clinical laboratory testing. 09/30/2021 15:44 [facility] Attestation There was significant resident/fellow involvement in the diagnostic evaluation of this case. By the signature below, the attending physician certifies that they have personally conducted a gross and/or microscopic examination of the described specimens and rendered or confirmed the above diagnosis. 09/30/2021 15:44 [facility] at 1544 Clinical History Pap ASCUS, can't R/O HSIL 09/30/2021 15:44 [facility] Gross Description A. [...] REYNA HUTCHINSON(ASCP) 09/24/2021 9:24 09/30/2021 15:44 EDT [facility] Resident/Fell ow: Brooklynn Reed MD PhD 09/30/2021 15:44 EDT [facility] Performing Lab [facility] 09/30/2021 15:44 EDT [facility] Scanned Images 09/30/2021 15:44 EDT [facility] Tissue ENTIRE WALL OF CERVIX / Unknown 09/23/2021 17:34 EDT 09/23/2021 21:53 EDT Tissue specimen (specimen) CERVIX UTERI STRUCTURE / Unknown 09/23/2021 17:34 EDT 09/23/2021 21:53 EDT us Napoleon Bob MD PATHOLOGY ORDERABLES F inal Result [facility] [address] [place] [address] documented in this encounter Visit Diagnoses Diagnosis Encounter for other general examination documented in this encounter Care Teams Lap Layer Relationship Specialty Start Date End Date Unknown, Provider, PCP - General 01/26/17 documented as of this encounter
--- OUTSIDE RECORDS SUMMARY | 2024-05-16 11:49 | XMS_ITS | Encounter Summary ---
Author Organization [facility] Address [address] [place] [address] Care Team Providers Care Claim Processor Name Role Phone Unknown, Provider Primary Care Provider Unava ilable Reason for Visit * (Routine/Next Available) - Receiving Office to Obtain Authorization Specialty Diagnoses / Procedures Referred By Chip johnson Referred To Contact Procedures MA OUTSIDE IMAGES MAMMO SCREENING Imaging, External Referral ID Status Reason Start Date Expiration Date Visits Requested Visits Authorized [id number] Receiving Office to Obtain Authorization 10/13/2022 1 1 Encounter Details Date Type Department Care Team (Latest Contact Info) Description 09/09/2022 - 09/09/2022 23:59 EDT Hospital Encounter [facility] Secondary Reads [place] Discharge Disposition: Home [...] 13:57 EDT This is a non-reportable exam. us External Imaging IMG OTHER IMAGING ORDERABLES Fi nal Result documented in this encounter Visit Diagnoses Not on filedocumented in this encounter Care Teams Claim Processor Relationship Specialty Start Date End Date Unknown, Provider, PCP - General 01/26/17 documented as of this encounter
--- OUTSIDE RECORDS SUMMARY | 2024-05-16 11:49 | XMS_ITS | Encounter Summary ---
Author Organization [facility] Address [address] [address] Care Team Providers Care Apartment Coordinator Name Role Phone Unknown, Provider MD Primary Care Provider Unava ilable Reason for Visit * Reason Onset Date Comments Appointment Related 01/04/2023 Encounter Details Date Type Department Care Team (Late st Contact Info) Description 01/04/2023 Telephone [facility] Surgical Oncology - [address] [phone] Dalton Ferrara MD [address] [facility] [address] [place] [phone] Appointment Related Social History Tobacco Use Types [...] on filedocumented in this encounter Care Teams Apartment Coordinator Relationship Specialty Start Date End Date Unknown, Provider, PCP - General 01/26/17 documented as of this encounter
--- OUTSIDE RECORDS SUMMARY | 2024-05-16 11:49 | XMS_ITS | Referral Summary ---
Author Organization [facility] Address [address] [place] [address] Care Team Providers Care Whale Trainer Name Role Phone Unknown, Provider Primary Care Provider Unava ilable Social History Tobacco Use Types Packs/Day Years [...] file Plan of Treatment Not on file Insurance [facility] Care Teams Whale Trainer Relationship Specialty Start Date End Date Unknown, Provider, PCP - General 01/26/17
--- OUTSIDE RECORDS SUMMARY | 2024-05-16 11:49 | XMS_ITS | Encounter Summary ---
Author Organization [facility] Address [address] [place] [address] Care Team Providers Care Semi Truck Driver Name Role Phone Unknown, Provider Primary Care Provider Unava ilable Encounter Details Date Type Department Care Team (Late st Contact Info) Description 09/04/2021 Lab Requisition [facility] Pathology & Laboratory Medicine - [facility] [address] [place], [place] [phone] Outr Resulting Lab, Provider Social History Tobacco [...] Negative Negative 09/05/2021 15:09 EDT [facility] Chlamydia trachomatis Result Negative Negative 09/05/2021 15:09 EDT [facility] Papanicolaou smear specimen (specimen) CERVIX UTERI STRUCTURE / Unknown 09/04/2021 16:25 EDT 09/05/2021 8:27 EDT us Provider Outr Resulting Lab MICROBIOLOGY - GENER AL ORDERABLES Final Result [facility] [address] [place] [address] documented in this encounter Visit Diagnoses Not on filedocumented in this encounter Care Teams Semi Truck Driver Relationship Specialty Start Date End Date Unknown, Provider, PCP - General 01/26/17 documented as of this encounter
--- OUTSIDE RECORDS SUMMARY | 2024-05-16 11:49 | XMS_ITS | Clinical Summary ---
Author Organization [facility] Address [address] [place] [address] Care Team Providers Care Bucket Wash Operator Name Role Phone Unknown, Provider Primary [...] - 19+ 3-dose series) 10/02 COVID-19 Vaccine (2023- season) 2024 Insurance [facility] Care Teams Bucket Wash Operator Relationship Specialty Start Date End Date Unknown, Provider, PCP - General 01/26/17
--- OUTSIDE RECORDS SUMMARY | 2024-05-16 11:49 | XMS_ITS | Encounter Summary ---
Author Organization [facility] Address [address] [place] [address] Care Team Providers Care Business Banking Representative Name Role Phone Unknown, Provider Primary Care Provider Unava ilable Encounter Details Date Type Department Care Team (Late st Contact Info) Description 09/22/2022 Lab Requisition [facility] Pathology & Laboratory Medicine - [facility] [address] [place] [address] Suyapa Dacosta, [address] [phone] Encounter for other general examination Social History [...] management options, if applicable. 09/25/2022 14:59 EDT [facility] Final Diagnosis A. 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 See comment. - Fibrocystic changes, including: - Usual ductal hyperplasia. - Adenosis and sclerosing adenosis. - Columnar cell changes. - Microcyst formation. - Dense interlobular fibrosis. 09/25/2022 14:59 [facility] Diagnosis Comment The specimen consists of a focally nodular papillary sclerosing lesion with cytologic atypia and focal necrosis. This case was reviewed at the intradepartmental consultation conference. Immunoperoxidase stains were performed on this case to further characterize the lesion. ANTIBODY(CLONE)(BLO CK):RESULT CK 5/6 (D5/16B4, [place]) (A2): Non-contributory Estrogen Receptor (SP1, [employer]) [...] performance characteristics have been determined by [facility] and/or by the referring laboratory. The [...] high complexity clinical laboratory testing. 09/25/2022 14:59 [facility] Attestation There was significant resident/fellow involvement in the diagnostic evaluation of this case. By the signature below, the attending physician certifies that they have personally conducted a gross and/or microscopic examination of the described specimens and rendered or confirmed the above diagnosis. 09/25/2022 14:59 [facility] at 1459 Clinical History Angular 5 mm mass L breast 8 o'clock 4 cm FN 09/25/2022 14:59 [facility] Gross Description A. [...] REYNA BRYANT(ASCP) 09/23/2022 8:43 09/25/2022 14:59 EDT [facility] Resident/Fell ow: Vinnie Gupta DO 09/25/2022 14:59 EDT [facility] Performing Lab [facility] 09/25/2022 14:59 EDT [facility] Scanned Images 09/25/2022 14:59 EDT [facility] Tissue ENTIRE BREAST / Unknown 09/22/2022 14:45 EDT 09/23/2022 8:01 EDT us Suyapa Dacosta [facility] PATHOLOGY ORDERABLES Fin al Result [facility] [address] [place] [address] documented in this encounter Visit Diagnoses Diagnosis Encounter for other general examination documented in this encounter Care Teams Business Banking Representative Relationship Specialty Start Date End Date Unknown, Provider, PCP - General 01/26/17 documented as of this encounter
--- OUTSIDE RECORDS SUMMARY | 2024-05-16 11:49 | XMS_ITS | Encounter Summary ---
Author Organization [facility] Address [address] [place] [address] Care Team Providers Care Parts Clerk Name Role Phone Unknown, Provider Primary Care Provider Unava ilable Encounter Details Date Type Department Care Team (Latest Contact Info) Description 09/06/2023 Lab Requisition [facility] Pathology & Laboratory Medicine - [facility] [address] [place] [address] Suyapa Dacosta, [address] [phone] Encounter for screening for human papillomavirus (HPV); [...] types, PCR Negative Negative 09/10/2023 15:19 EDT [facility] Comment:No E6 or E7 mRNA is detected from HPV types 16,18,31,33,35,39,45,51,52,56,58,59,66, and 68 by inspector poising mediated amplification. Pap Test CERVIX UTERI STRUCTURE / Unknown 09/06/2023 16:36 EDT 09/09/2023 15:34 EDT Suyapa Dacosta [facility] MICROBIOLOGY - GENERAL O RDERABLES Final Result [facility] [address] [place] [address] * PAP TEST (09/06/2023 16:36 EDT) Specimens A. Cervix and/or Endocervix , ThinPrep Imaging System with Manual Evaluation 09/10/2023 15:19 [facility] Specimen Adequacy Satisfactory for Evaluation - transformation zone component present 09/10/2023 15:19 [facility] General Categorization Negative for intraepithelial lesion or malignancy 09/10/2023 15:19 [facility] Attestation . 09/10/2023 15:19 [facility] at 1519 Clinical History See below 09/10/19 24 15:19 [facility] HPV The result for the Human Papillomavirus (HPV) Detection-High Risk Types is Negative. No E6 or E7 mRNA is detected from HPV types 16,18,31,33,35,39 ,45,51,52,56,58,5 9,66, and 68 by inspector poising mediated amplification.Zohra ting was performed on specimen [id number] and was resulted on 09/10/2023 1519 EDT by YARED, LAB INSTRUMENT RESULTS IN 09/10/2023 15:19 T [facility] Performing Lab [facility] 09/10/2023 15:19 T [facility] Scanned Images 09/10/2023 15:19 [facility] Pap Test CERVIX UTERI STRUCTURE / Unknown 09/06/2023 16:36 EDT 09/07/2023 13:35 EDT us Suyapa Dacosta [facility] PATHOLOGY ORDERABLES Fin al Result [facility] [address] [place] [address] documented in this encounter Visit Diagnoses Diagnosis Encounter for screening for human papillomavirus (HPV) Special screening examination for human papillomavirus (HPV) Encounter for gynecological examination (general) (routine) without abnormal findings Moderate cervical dysplasia Moderate dysplasia of cervix documented in this encounter Care Teams Parts Clerk Relationship Specialty Start Date End Date Unknown, Provider, PCP - General 01/26/17 documented as of this encounter
--- OUTSIDE RECORDS SUMMARY | 2024-05-16 11:49 | XMS_ITS | Encounter Summary ---
Author Organization [facility] Address [address] [place] [address] Care Team Providers Care Talent Acquisition Assistant Name Role Phone Unknown, Provider Primary Care Provider Unava ilable Reason for Visit * Reason Onset Date Comments Appointment Related 10/20/2022 Encounter Details Date Type Department Care Team (Late st Contact Info) Description 10/20/2022 Telephone [facility] Surgical Oncology - [facility] [place] [address] [place], [place] [phone] [facility] Breast Care Appointment Related Social History Tobacco [...] on filedocumented in this encounter Care Teams Talent Acquisition Assistant Relationship Specialty Start Date End Date Unknown, Provider, PCP - General 01/26/17 documented as of this encounter
--- OUTSIDE RECORDS SUMMARY | 2024-05-16 11:49 | XMS_ITS | Encounter Summary ---
Author Organization [facility] Address [address] [place] [address] Care Team Providers Care Chief Clerk Name Role Phone Unknown, Provider Primary Care Provider Unava ilable Encounter Details Date Type Department Care Team (Late st Contact Info) Description 03/09/[address] [facility] Pathology & Laboratory Medicine - [facility] [address] [place], [place] [phone] Outr Resulting Lab, Provider Social History Tobacco [...] 1, PCR Positive(A) Negative 03/10/2023 16:05 EDT [facility] Herpes Simplex Virus Molecular Detection 2, PCR Negative Negative 03/10/2023 16:05 EDT [facility] Swab VULVAL STRUCTURE / Unknown 03/09/2023 16:40 EDT 03/09/2023 23:01 EDT us Provider Outr Resulting Lab MICROBIOLOGY - GENER AL ORDERABLES Final Result [facility] [address] [place] [address] documented in this encounter Visit Diagnoses Not on filedocumented in this encounter Care Teams Chief Clerk Relationship Specialty Start Date End Date Unknown, Provider, PCP - General 01/26/17 documented as of this encounter
--- OUTSIDE RECORDS SUMMARY | 2024-05-16 11:49 | XMS_ITS | Encounter Summary ---
Author Organization [facility] Address [address] [place] [address] Care Team Providers Care Flame Hardening Machine Setter Name Role Phone Unknown, Provider Primary Care Provider Unava ilable Reason for Visit * (Routine/Next Available) - Receiving Office to Obtain Authorization Specialty Diagnoses / Procedures Referred By hCip johnson Referred To Contact Procedures US OUTSIDE IMAGES BREAST Imaging, External Referral ID Status Reason Start Date Expiration Date Visits Requested Visits Authorized [id number] Receiving Office to Obtain Authorization 10/13/2022 1 1 Encounter Details Date Type Department Care Team (Latest Contact Info) Description 09/10/[address] [facility] Secondary Reads [place] Discharge Disposition: Home [...] 13:56 EDT This is a non-reportable exam. us External Imaging IMG OTHER IMAGING ORDERABLES Fi nal Result documented in this encounter Visit Diagnoses Not on filedocumented in this encounter Care Teams Flame Hardening Machine Setter Relationship Specialty Start Date End Date Unknown, Provider, PCP - General 01/26/17 documented as of this encounter
--- OUTSIDE RECORDS SUMMARY | 2024-05-16 11:49 | XMS_ITS | Encounter Summary ---
Author Organization [facility] Address [address] [place] [address] Care Team Providers Care Carpenter Railcar Name Role Phone Unknown, Provider Primary Care Provider Unava ilable Reason for Visit * (Routine/Next Available) - Receiving Office to Obtain Authorization Specialty Diagnoses / Procedures Referred By Chip johnson Referred To Contact Procedures MA OUTSIDE IMAGES BREAST DIAGNOSTIC BILATERAL Imaging, External Referral ID Status Reason Start Date Expiration Date Visits Requested Visits Authorized [id number] Receiving Office to Obtain Authorization 10/13/2022 1 1 Encounter Details Date Type Department Care Team (Latest Contact Info) Description 09/10/2022 Hospital Encounter [facility] Secondary Reads [place] Discharge Disposition: Home [...] on filedocumented in this encounter Care Teams Carpenter Railcar Relationship Specialty Start Date End Date Unknown, Provider, PCP - General 01/26/17 documented as of this encounter
--- OUTSIDE RECORDS SUMMARY | 2024-05-16 11:49 | XMS_ITS | Encounter Summary ---
Author Organization [facility] Address [address] [place] [address] Care Team Providers Care Mfts Name Role Phone Unknown, Provider Primary Care Provider Unava ilable Encounter Details Date Type Department Care Team (Latest Contact Info) Description 09/04/2022 Lab Requisition [facility] Pathology & Laboratory Medicine - [facility] [address] [place] [address] Suyapa Dacosta, [address] [phone] Encounter for gynecological examination (general) (routine) without [...] 16, PCR Negative Negative 09/22/2022 12:02 EDT [facility] HPV18/45 RNA (HPV18/45) Negative Negative 09/22/2022 12:02 EDT [facility] Papanicolaou smear specimen (specimen) CERVIX UTERI STRUCTURE / Unknown 09/04/2022 16:32 EDT 09/17/2022 9:10 EDT Suyapa Dacosta [facility] MICROBIOLOGY - GENERAL O RDERABLES Final Result Performing Organization Address City/[facility]/ZIP Co de Phone Number [facility] [address] [place] [address] * (ABNORMAL) HUMAN PAPILLOMAVIRUS (HPV) DETECTION-HIGH RISK TYPES (09/04/2022 16:32 EDT) HPV other High Risk types, PCR Positive( A) Negative 09/21/2022 12:11 EDT [facility] Comment:E6 OR E7 mRNA from o ne or more types of HPV types 16,18,31,33,35,39,45,51,52,56,58,59,66, and 68 is detected by drum plater mediated amplification. High and intermediate risk HPV types are associated with most squamous intraepithelial lesions and cervical cancers. Papanicolaou smear specimen (specimen) CERVIX UTERI STRUCTURE / Unknown 09/04/2022 16:32 EDT 09/17/2022 9:10 EDT Suyapa Dacosta [facility] MICROBIOLOGY - GENERAL O RDERABLES Final Result [facility] [address] [place] [address] * PAP TEST (09/04/2022 16:32 EDT) Specimens A. Cervix and/or Endocervix , ThinPrep Imaging System with Manual Evaluation 09/22/2022 12:02 EDT [facility] Specimen Adequacy Satisfactory for Evaluation - transformation zone component present 09/22/2022 12:02 [facility] General Categorization Other see recommendation - Negative for intraepithelial lesion or malignancy 09/22/2022 12:02 [facility] Descriptive Diagnosis Reactive cellular changes associated with inflammation present (includes repair). Shift in laurence present suggestive of bacterial vaginosis. Endometrial cells present in a woman equal to or greater than age 45. 09/22/2022 12:02 [facility] Educational Comments Endometrial cells present. Endometrial cells in women 45 years or older may be associated with benign endometrium, hormonal alterations, and, less commonly, endometrial or uterine abnormalities. Endometrial evaluation is recommended in postmenopausal women. 09/22/2022 12:02 [facility] Attestation By the signature below, the attending physician certifies that they have personally conducted a gross and/or microscopic examination of the described specimens and rendered or confirmed the above diagnosis. 09/22/2022 12:02 [facility] at 1202 Clinical History SEE BELOW 09/23/19 12:02 [facility] HPV The result for the Human Papillomavirus (HPV) Detection-High Risk Types is Positive . E6 OR E7 mRNA from one or more types of HPV types 16,18,31,33,35,39 ,45,51,52,56,58,5 9,66, and 68 is detected by drum plater mediated amplification. High and intermediate risk HPV types are associated with most squamous intraepithelial lesions and cervical cancers. Testing was performed on specimen [id number] and was resulted on 09/18/2022 1432 EDT by YARDE, LAB INSTRUMENT RESULTS IN 09/22/2022 12:02 [facility] Genotyping 16 & 18/45 The results for the HPV Genotypes 16 and 18/45 are Negative for the HPV16 RNA and Negative for the HPV18/45 RNA (HPV18/45). Testing was performed on specimen [id number] and was resulted on 09/22/2022 1202 EDT by YARED, LAB INSTRUMENT RESULTS IN 09/22/2022 12:02 [facility] Performing Lab [facility] 09/22/2022 12:02 [facility] Scanned Images 09/22/2022 12:02 EDT [facility] Papanicolaou smear specimen (specimen) CERVIX UTERI STRUCTURE / Unknown 09/04/2022 16:32 EDT 09/08/2022 14:12 EDT us Suyapa Dacosta [facility] PATHOLOGY ORDERABLES Fin al Result [facility] [address] [place] [address] documented in this encounter Visit Diagnoses Diagnosis Encounter for gynecological examination (general) (routine) without abnormal findings Moderate cervical dysplasia Moderate dysplasia of cervix Encounter for screening for human papillomavirus (HPV) Special screening examination for human papillomavirus (HPV) documented in this encounter Care Teams Mfts Relationship Specialty Start Date End Date Unknown, Provider, PCP - General 01/26/17 documented as of this encounter
--- OUTSIDE RECORDS SUMMARY | 2024-05-16 11:49 | XMS_ITS | Encounter Summary ---
Author Organization [facility] Address [address] [place] [address] Care Team Providers Care Aircraft Ordnance Systems Mechanic Name Role Phone Unknown, Provider Primary Care Provider Unava ilable Encounter Details Date Type Department Care Team (Late st Contact Info) Description 10/06/2022 Lab Requisition [facility] Pathology & Laboratory Medicine - [facility] [address] [place] [address] Napoleon Bob MD [address] [place] [address] Encounter for other general examination Social [...] management options, if applicable. 10/09/2022 11:19 EDT [facility] Final Diagnosis A. ENDOCERVIX, CURETTAGE: - Benign endocervical glands with squamous metaplasia. - Negative for dysplasia. B. ENDOMETRIUM, BIOPSY: - Proliferative endometrium. 10/09/2022 11:19 [facility] Attestation There was significant resident/fellow involvement in the diagnostic evaluation of this case. By the signature below, the attending physician certifies that they have personally conducted a gross and/or microscopic examination of the described specimens and rendered or confirmed the above diagnosis. 10/09/2022 11:19 [facility] at 1119 Clinical History Pap: Negative cytology, +HR HPV, history of THU II 10/10; endometrial cells on Pap 10/09/2022 11:19 T [facility] Gross Description A. Received [...] B1-B2. REYNA CAMERON(ASCP) 10/07/2022 11:31 10/09/2022 11:19 [facility] Resident/Sergio w: Chari Cano DO 10/09/2022 11:19 T [facility] Performing Lab [facility] 10/09/2022 11:19 T [facility] Scanned Images 10/09/2022 11:19 T [facility] Tissue ENTIRE ENDOMETRIUM / Unknown 10/05/2022 10:35 EDT 10/07/2022 8:47 EDT Tissue specimen (specimen) ENDOMETRIAL STRUCTURE / Unknown 10/05/2022 10:35 EDT 10/07/2022 8:47 EDT us Napoleon Bob MD PATHOLOGY ORDERABLES F inal Result [facility] [address] [place] [address] documented in this encounter Visit Diagnoses Diagnosis Encounter for other general examination documented in this encounter Care Teams Aircraft Ordnance Systems Mechanic Relationship Specialty Start Date End Date Unknown, Provider, PCP - General 01/26/17 documented as of this encounter
--- OUTSIDE RECORDS SUMMARY | 2024-05-16 11:49 | XMS_ITS | Encounter Summary ---
Author Organization [facility] Address [address] [place] [address] Care Team Providers Care Physical Ther Name Role Phone Unavailable Primary Care Provider Unavailabl e Encounter Details Date Type Department Care Team (Late st Contact Info) Description 01/19/2008 Before PRISM Converted Visit ([facility]) [facility] - Maple conversion [address] [place] [address] Diamond Leonard, [address] [phone] Social History Tobacco Use Types Packs/Day Years Used Date Smoking Tobacco: Never Assessed Comments Unknown Sex and Gender Information Value [...] 69. [facility] Report Status Final [id number] [facility] 01/19/2008 10:4 6 EDT 01/26/2008 10:46 EDT us Diamond Leonard CNM MICROBIOLOGY - GENERAL O RDERABLES Final Result [facility] [address] [place] [id number] * CYTOPATHOLOGY (01/19/2008 0:00 EDT) Pathology Report: CYTOPATHOLOGY REPORT ? Reports generated via electronic interface contain original data; ? however they are lacking the format of the original report. ? Caution should be taken when reading/interpreti ng unformatted reports. ? Name: ? ABELINO BRYAN ? Accession #: ? [id number] ? : ? 1975 (Age: 32) ??F ?Collect Date: ? 01/19/2008 ? Location: ? [facility] ? Receive Date: ? 01/23/2008 ? Provider: ?DIAMOND LEONARD CNM ? Copy to: ? Specimen/Source: ?ThinPrep Pap Test, Cervix/Endocervix, processed on [employer] ThinPrep Imaging System, with manual evaluation ? Last Menstrual Period: ? 5/16/08 ? Other: ? HPVDX - HPV testing requested regardless of diagnosis on current ThinPrep Pap ?? test. ? SPECIMEN ADEQUACY ? Satisfactory for Evaluation ? - transformation zone component present ? GENERAL CATEGORIZATION ? Negative for Intraepithelial Lesion or Malignancy ? Document reviewed and electronically signed by: ? Jewels Fernández, SCT(ASCP) ? Report Date: ??01/25/2008 09:41 ? End of Report ? [facility] 01/19/2008 01/23/2008 us Diamond Leonard CNM PATHOLOGY ORDERABLES Fin al Result [facility] [address] [place] [address] documented in this encounter Visit Diagnoses Not on filedocumented in this encounter
--- OUTSIDE RECORDS SUMMARY | 2024-05-16 11:49 | XMS_ITS | Encounter Summary ---
Author Organization [facility] Address [address] [place] [address] Care Team Providers Care Maker Up Folding Name Role Phone Unknown, Provider Primary Care Provider Unava ilable Reason for Visit * (Routine/Next Available) - Receiving Office to Obtain Authorization Specialty Diagnoses / Procedures Referred By Chip johnson Referred To Contact Procedures MA OUTSIDE IMAGES BREAST DIAGNOSTIC LEFT Imaging, External Referral ID Status Reason Start Date Expiration Date Visits Requested Visits Authorized [id number] Receiving Office to Obtain Authorization 10/13/2022 1 1 Encounter Details Date Type Department Care Team (Latest Contact Info) Description 09/22/2022 Hospital Encounter [facility] Secondary Reads [place] Discharge Disposition: [...] 13:53 EDT This is a non-reportable exam. us External Imaging IMG OTHER IMAGING ORDERABLES Fi nal Result documented in this encounter Visit Diagnoses Not on filedocumented in this encounter Care Teams Maker Up Folding Relationship Specialty Start Date End Date Unknown, Provider, PCP - General 01/26/17 documented as of this encounter
--- OUTSIDE RECORDS SUMMARY | 2024-05-16 11:49 | XMS_ITS | Encounter Summary ---
Author Organization [facility] Address [address] [place] [address] Care Team Providers Care Bakery Pastry Internship Name Role Phone Unknown, Provider Primary Care Provider Unava ilable Encounter Details Date Type Department Care Team (Late st Contact Info) Description 06/10/2022 Lab Requisition [facility] Pathology & Laboratory Medicine - [facility] [address] [place] [address] Napoleon Bob MD [address] [place] [phone] Encounter for other general examination Social [...] management options, if applicable. 06/18/2022 10:48 [facility] Final Diagnosis A. 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 See comment. 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 B. CERVIX, 5 O'CLOCK, BIOPSY: - Fragments of benign squamous mucosa. See comment. 06/18/2022 10:48 [facility] Diagnosis Comment Deeper sections have been examined on part B. Immunoperoxidase stains were performed on this case to further characterize the lesion. ANTIBODY(CLONE)(BL OCK):RESULT P16 (E6H4TM, [place]) (A1): Negative Ki67 (MIB-1) (K2, [place]) (A1): [...] performance characteristics have been determined by [facility] and/or by the referring laboratory. The [...] high complexity clinical laboratory testing. 06/18/2022 10:48 [facility] Attestation There was significant resident/fellow involvement in the diagnostic evaluation of this case. By the signature below, the attending physician certifies that they have personally conducted a gross and/or microscopic examination of the described specimens and rendered or confirmed the above diagnosis. 06/18/2022 10:48 [facility] at 1048 Clinical History Pap LSIL 06/18/2022 10:48 [facility] Gross Description A. Received [...] CORONA LEÓNR 06/11/2022 8:26 06/18/2022 10:48 [facility] Resident/Sergio w: Brooklynn Reed MD PhD 06/18/2022 10:48 [facility] Performing Lab [facility] 10:48 EST [facility] Scanned Images 06/18/2022 10:48 [facility] Tissue ENTIRE WALL OF CERVIX / Unknown 06/09/2022 14:40 EST 06/11/2022 7:55 EST Tissue specimen (specimen) CERVIX UTERI STRUCTURE / Unknown 06/09/2022 14:40 EST 06/11/2022 7:55 EST us Napoleon Bob MD PATHOLOGY ORDERABLES F inal Result [facility] [address] [place] [address] documented in this encounter Visit Diagnoses Diagnosis Encounter for other general examination documented in this encounter Care Teams Bakery Pastry Internship Relationship Specialty Start Date End Date Unknown, Provider, PCP - General 01/26/17 documented as of this encounter
--- OUTSIDE RECORDS SUMMARY | 2024-05-16 11:49 | XMS_ITS | Encounter Summary ---
Author Organization [facility] Address [address] [place] [address] Care Team Providers Care Exceptional Student Education Teacher Name Role Phone Unknown, Provider Primary Care Provider Unava ilable Reason for Visit * (Routine/Next Available) - Receiving Office to Obtain Authorization Specialty Diagnoses / Procedures Referred By Chip johnson Referred To Contact Procedures US OUTSIDE IMAGES BREAST Imaging, External Referral ID Status Reason Start Date Expiration Date Visits Requested Visits Authorized [id number] Receiving Office to Obtain Authorization 10/13/2022 1 1 Encounter Details Date Type Department Care Team (Latest Contact Info) Description 09/22/[address] [facility] Secondary Reads [...] 13:55 EDT This is a non-reportable exam. us External Imaging IMG OTHER IMAGING ORDERABLES Fi nal Result documented in this encounter Visit Diagnoses Not on filedocumented in this encounter Care Teams Exceptional Student Education Teacher Relationship Specialty Start Date End Date Unknown, Provider, PCP - General 01/26/17 documented as of this encounter
--- OUTSIDE RECORDS SUMMARY | 2024-05-16 11:49 | XMS_ITS | Encounter Summary ---
Author Organization [facility] Address [address] [place] [address] Care Team Providers Care Crown Buffer Name Role Phone Unknown, Provider Primary Care Provider Unava ilable Encounter Details Date Type Department Care Team (Latest Contact Info) Description 09/04/2021 Lab Requisition [facility] Pathology & Laboratory Medicine - [facility] [address] [place] [address] Suyapa Dacosta, [address] [phone] Encounter for screening for malignant neoplasm of [...] PCR Positive( A) Negative 09/16/2021 9:17 EDT [facility] Comment:E6 OR E7 mRNA from o ne or more types of HPV types 16,18,31,33,35,39,45,51,52,56,58,59,66, and 68 is detected by supervisor canvas products mediated amplification. High and intermediate risk HPV types are associated with most squamous intraepithelial lesions and cervical cancers. Papanicolaou smear specimen (specimen) CERVIX UTERI STRUCTURE / Unknown 09/04/2021 16:25 EDT 09/12/2021 13:47 EDT us Suyapa Dacosta [facility] MICROBIOLOGY - GENERAL O RDERABLES Final Result [facility] [address] [place] [address] * PAP TEST (09/04/2021 16:25 EDT) Specimens A. Cervix and/or Endocervix , ThinPrep Imaging System with Manual Evaluation 09/16/2021 9:17 [facility] Specimen Adequacy Satisfactory for Evaluation - transformation zone component present Scant due to excessive inflammation 09/16/2021 9:17 [facility] General Categorization Epithelial Cell Abnormality 09/16/2021 9:17 [facility] Descriptive Diagnosis Squamous Cell Abnormality - Atypical squamous cells, cannot exclude high grade squamous intraepithelial lesion (ASC-H). Shift in laurence present suggestive of bacterial vaginosis. 09/16/2021 9:17 [facility] Educational Comments [facility] recommends following ASCCP's 2012 Updated Consensus Guidelines for the Management of Abnormal Cervical Cancer Screening Tests and Cancer Precursors (JLGTD, 2013; 17(5):S1-S27). Consensus guidelines are available online at www.asccp.org. 09/16/2021 9:17 [facility] Attestation By the signature below, the attending physician certifies that they have personally conducted a gross and/or microscopic examination of the described specimens and rendered or confirmed the above diagnosis. 09/16/2021 9:17 [facility] at 0917 Clinical History Clinical History, Signs, Symptoms, Chief Complaint, Pertaining to This Order: See below LADLE OPERATOR Treatment History?: Yes 09/16/2021 9:17 EDT [facility] HPV The result for the Human Papillomavirus (HPV) Detection-High Risk Types is Positive . E6 OR E7 mRNA from one or more types of HPV types 16,18,31,33,35,39 ,45,51,52,56,58,5 9,66, and 68 is detected by supervisor canvas products mediated amplification. High and intermediate risk HPV types are associated with most squamous intraepithelial lesions and cervical cancers. Testing was performed on specimen [id number] and was resulted on 09/16/2021 0706 EDT by YARED, LAB INSTRUMENT RESULTS IN 09/16/2021 9:17 EDT [facility] Performing Lab [facility] 09/16/2021 9:17 EDT [facility] Scanned Images 09/16/2021 9:17 EDT [facility] Papanicolaou smear specimen (specimen) CERVIX UTERI STRUCTURE / Unknown 09/04/2021 16:25 EDT 09/05/2021 14:12 EDT us Suyapa Dacosta [facility] PATHOLOGY ORDERABLES Fin al Result [facility] [address] [place] [address] documented in this encounter Visit Diagnoses Diagnosis Encounter for screening for malignant neoplasm of cervix Screening for malignant neoplasm of the cervix Encounter for screening for human papillomavirus (HPV) Special screening examination for human papillomavirus (HPV) documented in this encounter Care Teams Crown Buffer Relationship Specialty Start Date End Date Unknown, Provider, PCP - General 01/26/17 documented as of this encounter
--- OUTSIDE RECORDS SUMMARY | 2024-05-16 11:49 | XMS_ITS | Encounter Summary ---
Author Organization [facility] Address [address] [place] [address] Care Team Providers Care Associate Artistic Director Name Role Phone Unavailable Primary Care Provider Unavailabl e Encounter Details Date Type Department Care Team (Latest Contact Info) Description 01/21/2017 14:40 EDT - 01/21/2017 23:59 EDT Hospital Encounter [address] [address] Unknown, Provider, MD Discharge Disposition: Home or Self Care Social [...] Code Departure Means Destination Home or Self Long-Term documented in this encounter Plan of Treatment Not on file documented as of this encounter Visit Diagnoses Not on filedocumented in this encounter
--- OUTSIDE RECORDS SUMMARY | 2024-05-16 11:49 | XMS_ITS | Encounter Summary ---
Author Organization [facility] Address [address] [place] [address] Care Team Providers Care Flavor Maker Name Role Phone Unknown, Provider Primary Care Provider Unava ilable Encounter Details Date Type Department Care Team (Late st Contact Info) Description 10/06/2021 Lab Requisition [facility] Pathology & Laboratory Medicine - [facility] [address] [place] [address] Napoleon Bob MD [address] [place] [phone] Encounter for other general examination Social [...] management options, if applicable. 10/09/2021 16:36 EDT [facility] Final Diagnosis A. CERVIX, COLD KNIFE CONE EXCISION: - High-grade squamous intraepithelial lesion (THU 2). - High-grade lesion extends into superficial endocervical glands. - Surgical excision margins negative. - Reactive epithelial changes including: - Parakeratosis. - Squamous metaplasia with reactive atypia. 10/09/2021 16:36 [facility] Diagnosis Comment The high-grade squamous intraepithelial lesion is present in the 12-3 o'clock quadrant. 10/09/2021 16:36 [facility] Attestation By the signature below, the attending physician certifies that they have 1) personally conducted a gross and/or microscopic examination of the described specimen(s), and/or personally interpreted the results of laboratory testing of the described specimen(s), and 2) personally rendered or confirmed the above diagnosis. 10/09/2021 16:36 [facility] at 1636 Clinical History THU II 10/09/2021 16:36 [facility] Gross Description A. Received in [...] o'clock REYNA OTTO(ASCP) 10/07/2021 10:06 10/09/2021 16:36 [facility] Performing Lab [facility] 16:36 EDT [facility] Scanned Images 10/09/2021 16:36 EDT [facility] Tissue ENTIRE WALL OF CERVIX / Unknown 10/06/2021 15:23 EDT 10/06/2021 23:34 EDT Napoleon Bob MD PATHOLOGY ORDERABLES F inal Result [facility] [address] [place] [address] documented in this encounter Visit Diagnoses Diagnosis Encounter for other general examination documented in this encounter Care Teams Flavor Maker Relationship Specialty Start Date End Date Unknown, Provider, PCP - General 01/26/17 documented as of this encounter
--- OUTSIDE RECORDS SUMMARY | 2024-05-16 11:49 | XMS_ITS | Encounter Summary ---
Author Organization [facility] Address [address] [place] [address] Care Team Providers Care Aircraft Engine Technician Name Role Phone Unknown, Provider Primary Care Provider Unava ilable Encounter Details Date Type Department Care Team ([facility] st Contact Info) Description 01/21/2017 Results Only [facility] [phone] Yamileth Saavedra PA [address] [place], [place] [address] Social History Tobacco Use Types Packs/Day Years [...] ? ABELINO BRYAN ? Accession #: ? [id number] ? : ? 1975 (Age: 41) ??F [...] and cords of similar melanocytes that show chief deputy sheriff maturation with descent. ??There is papillary dermal fibroplasia. ??(Dr. Nevarez)/[facility] Document reviewed and electronically signed by: WHITNEY [...] (ASCP) 01/26/2017 10:30 AM End of Report [facility] 01/21/2017 9:43 EDT 01/26/2017 9:43 EDT us Yamileth ORELLANA PATHOLOGY ORDERABLES Final Res ult [facility] [address] [place] [address] documented in this encounter Visit Diagnoses Not on filedocumented in this encounter Care Teams Aircraft Engine Technician Relationship Specialty Start Date End Date Unknown, Provider, PCP - General 01/26/17 documented as of this encounter
--- OUTSIDE RECORDS SUMMARY | 2024-05-16 11:50 | XMS_ITS | Encounter Summary ---
Author Organization [facility] Address [facility] [place] [place] [address] Care Team Providers Care Valve Lapper Name Role Phone Yamileth Saavedra Primary Care Provider [phone] Encounter Details Date Type Department Care Team (Latest Contact Info) Description 09/29/2023 9:00 AM EDT - 09/29/2023 11:59 PM EDT Hospital Encounter Mammography/[place] [address] Krista Julian MD [facility] [place] [address] Abnormal mammogram Discharge Disposition: Home Social History Tobacco Use Types Packs/Day Years Used Date Smoking Tobacco: Every Day Cigarettes Smokeless Tobacco: Never Alcohol Use Standard Drinks/Week Comments Yes 5 (1 standard drink = 0.6 oz pur e alcohol) [facility] Inpatient Questions Answer Date Recorded [...] 2024 8:40 AM EDT Appointment Mammography/[place] [address] Jewels Barba, [facility] [address] 2024 9:40 AM EDT Office [place] [address]1000 Jewels Barba, [facility] [address] documented as of this encounter Procedures Procedure [...] who have questions please contact the health aged or disabled care worker that requested your imaging first. ? Electronically signed by: Elena Franco MD, [facility] ?? ([phone]), at 09/29/2023 11:20 AM Narrative 09/29/2023 11:20 [...] unspecified documented in this encounter Care Teams Valve Lapper Relationship Specialty Start Date End Date Yamileth Saavedra PA [address] [place] [address] PCP - General Family Medicine 06/29/17 documented as of this encounter
--- OUTSIDE RECORDS SUMMARY | 2024-05-16 11:50 | XMS_ITS | Encounter Summary ---
[facility] [place] [address] Care Team Providers Care Station Installer And Repairer Name Role Phone Yamileth Saavedra Primary Care Provider [phone] Encounter Details Date Type Department Care Team (Late st Contact Info) Description 10/27/2022 Notes Only Hematology [place] [address] Sandra Ibarra Social History Tobacco Use Types [...] 1975 Provider requesting: Dr. Krista Julian Attn: [facility] Pathology Department From: [facility] [phone] []Urgent [x] For Review [] Please Reply [...] in lymph nodes if present. Send a retail customer service representative slide foreach separate focus of tumor if multiple tumors present. NOTE: All slides do not need to be sent. ??? Immunohistochemistry stained slides of prognostic markers (ER, CO and HER2) performed on tumor(s) if available. ??? If patient has metastatic disease (i.e. bone, lung, liver) that has been biopsied, send diagnostic H&E slide(s) of metastatic disease with immunohistochemistry if performed. Fed-Ex # [id number] to send overnight Mail to: Department of Pathology [facility] Attn: Anatomic Pathology, [place] [address] If questions please call [phone] Notice of Confidentiality: The documents accompanying this FAX transmission cover contain information from [facility] that is confidential and privileged. The information [...] 2024 8:40 AM EDT Appointment Mammography/[place] [address]1000 Jewels Barba ONCOLOGY SOCIAL WORK [facility] [place] [address] 2024 9:40 AM EDT Office [place] [address]1000 Jewels Barba, ONCOLOGY SOCIAL WORK [facility] [place] [address] documented as of this encounter Visit Diagnoses Not on filedocumented in this encounter Care Teams Station Installer And Repairer Relationship Specialty Start Date End Date Yamileth Saavedra PA [address] [place] [address] PCP - General Family Medicine 06/29/17 documented as of this encounter
--- OUTSIDE RECORDS SUMMARY | 2024-05-16 11:50 | XMS_ITS | Encounter Summary ---
Author Organization [facility] [place] [address] Care Team Providers Care Melter Supervisor Name Role Phone Yamileth Saavedra Primary Care Provider [phone] Reason for Visit * (Routine) - Closed Specialty Diagnoses / Procedures Referred By Contac t Referred To Contact Radiology Diagnoses Breast lesion Procedures Request for 2nd read Mammo Yamileth Saavedra PA [address] [place] [address] Referral ID Status Reason Start Date Expiration Date Visits Re quested Visits Authorized [id number] Closed 10/28/2022 10/28/2023 1 1 Encounter Details Date Type Department Care Team (Late st Contact Info) Description 10/28/2022 8:35 AM EDT Ancillary Procedure Radiology Library [place] [address] Yamileth Saavedra PA [address] [place], [place] [address] Breast lesion Social History Tobacco Use Types [...] 2024 8:40 AM EDT Appointment Mammography/[place] [address] Jewels Barba, [facility] [place] [address] 2024 9:40 AM EDT Office [place] [address] Jewels Barba APRN [facility] [place] [address] documented as of this encounter Procedures Procedure [...] excision. Please note: The interpretation of the [facility] Breast Imaging Radiologist subspecialist may differ from the original radiologists interpretation. This is usually not due to a deficiency of the original interpreting radiologist, rather due to the greater skill level afforded by sub-specialization in the field and/or reasonable variations in interpretations. If you have a concern regarding the D-[facility] interpretation you may contact the [facility] Breast Edi Coordinator Office at . I have personally reviewed [...] who have questions please contact the health client care manager that requested your imaging first. ? Narrative 10/28/2022 11:27 AM EDT INTERPRETATION OF OUTSIDE BREAST IMAGING I have been asked to consult on this patient by Quentin LACEY because he/she believes a review of this study may change or alter the care of this patient. STUDIES FROM: [facility] CLINICAL HISTORY: ? SURGICAL EXCISION; Sending Institution [facility]; Date of exam [id number]; I believe [...] alter the care of thispatient. STUDIES FROM: [facility] CLINICAL HISTORY: ? SURGICAL EXCISION; Sending Institution [facility]; Date of exam [id number]; I believe [...] excision. Please note: The interpretation of the [facility] BreastImaging Radiologist subspecialist may differ from the original radiologists interpretation. This is usually not due to a deficiency of the original interpreting radiologist, rather due to the greater skill level affordedby sub-specialization in the field and/or reasonable variations ininterpretations. If you have a concern regarding the D-[facility] interpretation [facility]i [facility] at . I have personally reviewed the image(s) and the resident's interpretationand agree with the findings, Sanjeev Hankins at 10/28/2022 11:27 AM Thank you for letting us participate in the care of this patient. If youare a health care provider and have any questions regarding this report,please contact the number below. For patients who have questions please contactthe health client care manager that requested your imaging first. Yamileth ORELLANA IMG OUTSIDE INTERPRE TATION ORDERABLES documented in this encounter Visit Diagnoses Diagnosis Breast lesion Unspecified breast disorder documented in this encounter Care Teams Melter Supervisor Relationship Specialty Start Date End Date Yamileth Saavedra PA [address] [place] [address] PCP - General Family Medicine 06/29/17 documented as of this encounter
--- OUTSIDE RECORDS SUMMARY | 2024-05-16 11:50 | XMS_ITS | Encounter Summary ---
Author Organization [facility] [place] [address] Care Team Providers Care Security Test Engineer Name Role Phone Lalito Fang Primary Care Provider [phone] Reason for Visit * Reason Onset Date Comments Medication Refill 09/25/2013 Encounter Details Date Type Department Care Team (Late st Contact Info) Description 09/25/2013 Refill [place] [address] Anna Tejeda APRN [facility] [place] [address] Reflux esophagitis (Primary Dx) Social History Tobacco [...] 2024 8:40 AM EDT Appointment Mammography/[place] [address] Jewels Barba, PRODUCT CONTROLLER [facility] [place] [address] 2024 9:40 AM EDT Office [place] [address]1000 Jewels Barba PRODUCT CONTROLLER [facility] [place] [address] documented as of this encounter Visit Diagnoses Diagnosis Reflux esophagitis- Primary documented in this encounter Care Teams Security Test Engineer Relationship Specialty Start Date End Date Lalito Fang PA [address] [place] [address] PCP - General 05/13/10 06/28/17 documented as of this encounter
--- OUTSIDE RECORDS SUMMARY | 2024-05-16 11:50 | XMS_ITS | Encounter Summary ---
Author Organization [facility] [place] [address] Care Team Providers Care Restaurant Delivery Driver Name Role Phone Lalito Fang Primary Care Provider [phone] Encounter Details Date Type Department Care Team (Latest Contact Info) Description 02/04/2017 - 02/04/2017 11:59 PM EDT Hospital Encounter Radiology Library at [facility] [place] [address] Manuel Vazquez MD [facility] [place] [address] Discharge Disposition: Home Social History Tobacco Use [...] 2024 8:40 AM EDT Appointment Mammography/[place] [address] Jewels Barba, [address] STENOGRAPHER [facility] [place] [address] 2024 9:40 AM EDT Office Visit [place] [address] STENOGRAPHER [facility] [place] [address] documented as of this encounter Procedures Procedure Name Priority Date/Time Associated Diagnosis Comments FILM LIBRARY STORAGE ONLY MR SPINE Routine 02/04/2017 12:00 AM EDT documented in this encounter Results * Film Library- Storage Only MR Spine (02/04/2017 12:00 AM EDT) Narrative [facility] - 06/30/2017 11:35 AM EST This exam is for storage only and is auto-finalizing. Manuel Vazquez MD IMG FILM LIBRARY ORD ERABLES [place], [place] documented in this encounter Visit Diagnoses Not on filedocumented in this encounter Care Teams Restaurant Delivery Driver Relationship Specialty Start Date End Date Lalito Fang PA [address] [place] [address] PCP - General 05/13/10 06/28/17 documented as of this encounter
--- OUTSIDE RECORDS SUMMARY | 2024-05-16 11:50 | XMS_ITS | Encounter Summary ---
Author Organization [facility] [place] [address] Care Team Providers Care Computer Recycling Worker Name Role Phone Yamileth Saavedra Primary Care Provider [phone] Encounter Details Date Type Department Care Team [...] 2024 8:40 AM EDT Appointment Mammography/[place] [address] Jewels Barba APRN [facility] [place] [address] 2024 9:40 AM EDT Office [place] [address] Jewels Barba APRN [facility] [place] [address] documented as of this encounter Visit Diagnoses Not on filedocumented in this encounter Care Teams Computer Recycling Worker Relationship Specialty Start Date End Date Yamileth Saavedra PA [address] [place] [address] PCP - General Family Medicine 06/29/17 documented as of this encounter
--- OUTSIDE RECORDS SUMMARY | 2024-05-16 11:50 | XMS_ITS | Encounter Summary ---
Author Organization [facility] Address [facility] [place] [address] Care Team Providers Care Crm System Administrator Name Role Phone Yamileth Saavedra Primary Care Provider [phone] Encounter Details Date Type Department Care Team (Latest Contact Info) Description 02/15/2023 11:25 AM EDT - 02/15/2023 11:59 PM EDT Hospital [place] [address] Mirlande Mcgarry MD [facility] [place]NOST[place] [address] Discharge Disposition: Home Social History Tobacco Use Types Packs/Day Years Used Date Smoking Tobacco: Every Day Cigarettes Smokeless Tobacco: Never Alcohol Use Standard Drinks/Week Comments Yes 5 (1 standard drink = 0.6 oz pur e alcohol) [facility] Inpatient Questions Answer Date Recorded Does [...] 2024 8:40 AM EDT Appointment Mammography/[place] [address]1000 Jewels Barba [facility] [place] [address] 2024 9:40 AM EDT Office [place] [address]1000 Jewels Barba [facility] [place] [address] documented as of this encounter Procedures Procedure [...] on filedocumented in this encounter Care Teams Crm System Administrator Relationship Specialty Start Date End Date Yamileth Saavedra PA [address] [place] [address] PCP - General Family Medicine 06/29/17 documented as of this encounter
--- OUTSIDE RECORDS SUMMARY | 2024-05-16 11:50 | XMS_ITS | Encounter Summary ---
Author Organization [facility] Address [facility] [place] [address] Care Team Providers Care Child Nutrition Manager Name Role Phone Lalito Fang Primary Care Provider [phone] Encounter Details Date Type Department Care Team (Late st Contact Info) Description 08/25/2013 2:30 PM EST - 08/25/2013 3:30 PM EST Surgery [place] [address] Orestes Ambrose MD [facility] [place] [address] UPPER GASTROINTESTINAL ENDOSCOPY,WITH BIOPSY SINGLE OR MULTIPLE [...] not get better as expected. Wednesday-Wednesday Clinic [phone] 8a-5p Same Day Endo [phone] 7a-8p Otherwise contact [phone] and ask to speak to the arson and bomb investigator rehabilitation supervisor Follow-up care is a milner [...] 2024 8:40 AM EDT Appointment Mammography/[place] [address] Jewels Barba, [facility] [place] [address] 2024 9:40 AM EDT Office Visit General [place] [address]-1000 Jewels Barba, [facility] [place] [address] documented as of this encounter Procedures Procedure [...] (08/25/2013 4:04 PM EST) Final Diagnosis ? [facility] ? Provider: ?? ORESTES AMBROSE ?Pt. Name: ?? RADHA BRYAN ? Acc #: ?[id number] ?Pt. ? Col Date: ?? 08/25/2013 ?/Sex: [...] Tissue Description: Polypoid pinzon soft tissues. ? [facility] ? Provider: ?? ORESTES AMBROSE P ?Pt. Name: ?? RADHA BRYAN P ? Acc #: ?[id number] ?Pt. ? Col Date: ?? 08/25/2013 ?/Sex: [...] Diagnosis: ? Same 08/29/2013 2:10 PM EDT [facility] GI Biopsy 08/25/2013 4:04 PM EST 08/25/2013 4:04 PM EST GI Biopsy 08/25/2013 4:04 PM EST 08/25/2013 4:04 PM EST GI Biopsy 08/25/2013 4:04 PM EST 08/25/2013 4:04 PM EST GI Biopsy 08/25/2013 4:04 PM EST 08/25/2013 4:04 PM EST Orestes Ambrose MD PATHOLOGY/CYTOLOGY O RC Performing Organization Address [facility] Co de Phone Number [facility] [place] [address] * Specimen to Pathology (surgical or derm) (08/25/2013 4:04 PM EST) AP Specimen 08/25/2013 4:04 PM EST 08/25/2013 4:04 PM EST Narrative [facility] - 08/25/2013 4:04 PM EST Specimen requisition ordered. ??Separate Pathology report to follow Orestes Ambrose MD PATHOLOGY/CYTOLOGY O RC Performing Organization Address [facility]/ZIP Co de Phone Number [facility] * Specimen to Pathology (surgical or derm) (08/25/2013 4:04 PM EST) AP Specimen 08/25/2013 4:04 PM EST 08/25/2013 4:04 PM EST Narrative [facility] - 08/25/2013 4:04 PM EST Specimen requisition ordered. ??Separate Pathology report to follow Orestes Ambrose MD PATHOLOGY/CYTOLOGY O RC Performing Organization Address [facility] Co de Phone Number [facility] * Specimen to Pathology (surgical or derm) (08/25/2013 4:04 PM EST) AP Specimen 08/25/2013 4:04 PM EST 08/25/2013 4:04 PM EST Narrative [facility] - 08/25/2013 4:04 PM EST Specimen requisition ordered. ??Separate Pathology report to follow Orestes Ambrose MD PATHOLOGY/CYTOLOGY O RC Performing Organization Address City/[facility] Co de Phone Number [facility] * UPPER GI ENDOSCOPY (08/25/2013 3:14 PM EST) UPPER GI ENDOSCOPY [facility] Endoscopy Patient Name: Radha Bryan ? Procedure Date: 08/25/2013 3:14 PM ? N: [id number] ? Date of : 1975 ? Age: 37 ? Order #: [id number] ? Procedure: ? Upper GI endoscopy Indications: ? Generalized abdominal pain, Dyspepsia Providers: ? Orestes Ambrose MD, Betzy Nguyen ? ESTHER Vásquez, Sarah Ruiz, ? Finishing Range Supervisor Referring MD: ?REYNA Anderson, Anna ? MD [...] * COLONOSCOPY (08/25/2013 3:14 PM EST) COLONOSCOPY [facility] Endoscopy Patient Name: Radha Bryan ? Procedure Date: 08/25/2013 3:14 PM ? Date of : 1975 ? Age: 37 ? Order #: [id number] ? Procedure: ? Colonoscopy Indications: ? Generalized abdominal pain Providers: ? Orestes Ambrose MD, Betzy Nguyen ? ESTHER Vásquez, Sarah Ruiz, ? Finishing Range Supervisor Referring MD: ?REYNA Anderson, Anna ? MD [...] RN) documented in this encounter Care Teams Child Nutrition Manager Relationship Specialty Start Date End Date Lalito Fang PA [address] [place] [address] PCP - General 05/13/10 06/28/17 documented as of this encounter
--- OUTSIDE RECORDS SUMMARY | 2024-05-16 11:50 | XMS_ITS | Encounter Summary ---
Author Organization [facility] [place] [address] Care Team Providers Care Postdoctoral Research Fellow Name Role Phone Yamileth Saavedra Primary Care Provider [phone] Encounter Details Date Type Department Care Team [...] 2024 8:40 AM EDT Appointment Mammography/[place] [address]1000 Jewels Barba APRN [facility] [place] [address] 2024 9:40 AM EDT Office [place] [address] Jewels Barba APRN [facility] [place] [address] documented as of this encounter Visit Diagnoses Not on filedocumented in this encounter Care Teams Postdoctoral Research Fellow Relationship Specialty Start Date End Date Yamileth Saavedra PA [address] [place] [address] PCP - General Family Medicine 06/29/17 documented as of this encounter
--- OUTSIDE RECORDS SUMMARY | 2024-05-16 11:50 | XMS_ITS | Encounter Summary ---
Author Organization [facility] [place] [address] Care Team Providers Care Agricultural Engineering Technologist Name Role Phone Yamileth Saavedra Primary Care Provider [phone] Encounter Details Date Type Department Care Team (Late st Contact Info) Description 07/23/2017 11:30 AM EST Notes Only [facility] [place] [phone] Lillie [place] [address] Social History Tobacco Use Types Packs/Day [...] 2024 8:40 AM EDT Appointment Mammography/[place] [address] Jewels Barba APRN [facility] [place] [address] 2024 9:40 AM EDT Office [place] [address] Jewels Barba APRN [facility] [place] [address] documented as of this encounter Visit Diagnoses Not on filedocumented in this encounter Care Teams Agricultural Engineering Technologist Relationship Specialty Start Date End Date Yamileht Saavedra PA [address] [place] [address] PCP - General Family Medicine 06/29/17 documented as of this encounter
--- OUTSIDE RECORDS SUMMARY | 2024-05-16 11:50 | XMS_ITS | Encounter Summary ---
Author Organization [facility] [place] [address] Care Team Providers Care Commercial Coordinator Name Role Phone Yamileth Saavedra Primary Care Provider [phone] Encounter Details Date Type Department Care Team (Late st Contact Info) Description 09/10/2022 12:05 AM EDT Ancillary Procedure Radiology Library at [facility] [place] [address] Yamileth Saavedra PA [address] [place], [place] [id number] Social History Tobacco Use Types Packs/Day Years [...] 2024 8:40 AM EDT Appointment Mammography/[place] [address] Jewels Barba APRN [facility] [place] [address] 2024 9:40 AM EDT Office Visit [place] [address] Jewels Barba APRN [facility] [place] [address] documented as of this encounter Procedures Procedure Name Priority Date/Time Associated Diagnosis Comments FILM LIBRARY STORAGE ONLY MAMMO Routine 09/10/2022 12:05 AM EDT documented in this encounter Results * Film Library- Storage Only Mammo (09/10/2022 12:05 AM EDT) Narrative [facility] - 10/28/2022 8:11 AM EDT This exam is auto-finalizing. It's purpose is for storage only. Yamileth ORELLANA IMG FILM LIBRARY ORD ERABLES [place], [place] documented in this encounter Visit Diagnoses Not on filedocumented in this encounter Care Teams Commercial Coordinator Relationship Specialty Start Date End Date Yamileth Saavedra PA [address] [place] [address] PCP - General Family Medicine 06/29/17 documented as of this encounter
--- OUTSIDE RECORDS SUMMARY | 2024-05-16 11:50 | XMS_ITS | Encounter Summary ---
Author Organization [facility] [place] [address] Care Team Providers Care Manager Product Management Name Role Phone Yamileth Saavedra Primary Care Provider [phone] Reason for Visit * Reason Comments Advice Only * Consultation (Routine) - Closed Specialty Diagnoses / Procedures Referred By Contac t Referred To Contact Hematology and Oncology Diagnoses Abnormal histological findings in specimens from other organs, systems and tissues Suyapa Dacosta, [facility] [address] [place] [address] [place] [address] [facility] [address] [place] [address] Referral ID Status Reason Start Date Expiration Date V isits Requested Visits Authorized [id number] Closed Consult, Test & Treat PCP Updated and/or Approved 10/26/2022 10/26/2023 6 6 Encounter Details Date Type Department Care Team (Late st Contact Info) Description 12/31/2022 3:30 PM EDT Office Visit Hematology [place] [address] Krista Julian MD [facility] [place] [address] Abnormal mammogram Social History Tobacco [...] male partner. Has son and daughter. 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 FH: no breast or ovarian cancer PMH [...] 2024 8:40 AM EDT Appointment Mammography/[place] [address] Jewels Barba APRN [facility] [place] [address] 2024 9:40 AM EDT Office [place] [address] Jewels Barba APRN [facility] [place] [address] Scheduled Referrals Name Type Priority Associated Diagnoses Orde r Schedule Referral to Hematology and Oncology Outpatient Referral Routine Abnormal Histological Findings In Specimens From Other Organs, Systems And Tissues Ordered: 10/26/2022 documented as of this encounter Visit Diagnoses Diagnosis Abnormal mammogram Abnormal mammogram, unspecified documented in this encounter Care Teams Manager Product Management Relationship Specialty Start Date End Date Yamileth Saavedra PA [address] [place] [address] PCP - General Family Medicine 06/29/17 documented as of this encounter
--- OUTSIDE RECORDS SUMMARY | 2024-05-16 11:50 | XMS_ITS | Encounter Summary ---
Author Organization [facility] [place] [address] Care Team Providers Care Full Stack Python Developer Name Role Phone Lalito Fang Primary Care Provider [phone] Encounter Details Date Type Department Care Team (Latest Contact Info) Description 08/25/2013 12:44 PM EST - 08/25/2013 7:27 PM EST Hospital En[place] [address] Phil Lloyd MD [facility] [place] [address] Orestes Ambrose MD [facility] [place] [address] Discharge Disposition: Home Social History Tobacco Use [...] not get better as expected. Wednesday-Wednesday Clinic [phone] 8a-5p Same Day Endo [phone] 7a-8p Otherwise contact [phone] and ask to speak to the project controls scheduler campus monitor Follow-up care is a milner part of [...] 2024 8:40 AM EDT Appointment Mammography/[place] [address] Jewels Barba, [facility] [address] 2024 9:40 AM EDT Office [place] [address] Jewels Barba, [facility] [address] documented as of this encounter Procedures Procedure [...] Orestes Ambrose MD PATHOLOGY/CYTOLOGY O [facility] * Surgical Pathology Report (08/25/2013 4:04 PM EST) Final Diagnosis ? [facility] ? Provider: ?? ORESTES AMBROSE ?Pt. Name: ?? RADHA BRYAN ? Acc #: ?[id number] ?Pt. ? Col Date: ?? 08/25/2013 ?/Sex: [...] Polypoid pinzon soft tissues. ? [facility] ? Provider: ?? ORESTES AMBROSE ?Pt. Name: ?? RADHA BRYAN ? Acc #: ?[id number] ?Pt. ? Col Date: ?? 08/25/2013 ?/Sex: [...] Diagnosis: ? Same 08/29/2013 2:10 PM EDT [facility] GI Biopsy 08/25/2013 4:04 PM EST 08/25/2013 4:04 PM EST GI Biopsy 08/25/2013 4:04 PM EST 08/25/2013 4:04 PM EST GI Biopsy 08/25/2013 4:04 PM EST 08/25/2013 4:04 PM EST GI Biopsy 08/25/2013 4:04 PM EST 08/25/2013 4:04 PM EST Orestes Ambrose MD PATHOLOGY/CYTOLOGY O RC Performing Organization Address City/[facility]/ZIP Co de Phone Number [facility] [place] [address] * Specimen to Pathology (surgical or derm) (08/25/2013 4:04 PM EST) AP Specimen 08/25/2013 4:04 PM EST 08/25/2013 4:04 PM EST [facility]ative [facility] - 08/25/2013 4:04 PM EST Specimen requisition ordered. ??Separate Pathology report to follow Orestes Ambrose MD PATHOLOGY/CYTOLOGY O RC [facility] * Specimen to Pathology (surgical or derm) (08/25/2013 4:04 PM EST) AP Specimen 08/25/2013 4:04 PM EST 08/25/2013 4:04 PM EST Narrative [facility] - 08/25/2013 4:04 PM EST Specimen requisition ordered. ??Separate Pathology report to follow Orestes Ambrose MD PATHOLOGY/CYTOLOGY O RC Performing Organization Address [facility] de Phone Number [facility] * Specimen to Pathology (surgical or derm) (08/25/2013 4:04 PM EST) AP Specimen 08/25/2013 4:04 PM EST 08/25/2013 4:04 PM EST Narrative [facility] - 08/25/2013 4:04 PM EST Specimen requisition ordered. ??Separate Pathology report to follow Orestes Ambrose MD PATHOLOGY/CYTOLOGY O RC Performing Organization Address [facility] Co de Phone Number [facility] * UPPER GI ENDOSCOPY (08/25/2013 3:14 PM EST) UPPER GI ENDOSCOPY [facility] Endoscopy Patient Name: Radha Bryan ? Procedure Date: 08/25/2013 3:14 PM ? N: [id number] ? Date of : 1975 ? Age: 37 ? Order #: [id number] ? Procedure: ? Upper GI endoscopy Indications: ? Generalized abdominal pain, Dyspepsia Providers: ? Orestes Ambrose MD, Betzy Nguyen ? ESTHER Vásquez, Sarah Ruiz, ? Stratigrapher Referring : ?REYNA Anderson Tracia ? MD [...] * COLONOSCOPY (08/25/2013 3:14 PM EST) COLONOSCOPY [facility] Endoscopy Patient Name: Radha Bryan ? Procedure Date: 08/25/2013 3:14 PM ? Date of : 1975 ? Age: 37 ? Order #: [id number] ? Procedure: ? Colonoscopy Indications: ? Generalized abdominal pain Providers: ? Orestes Ambrose MD, Betzy Nguyen ? ESTHER Vásquez, Sarah Ruiz, ? Stratigrapher Referring : ?REYNA Anderson, Anna ? MD [...] RN) documented in this encounter Care Teams Full Stack Python Developer Relationship Specialty Start Date End Date Lalito Fang PA [address] [place] [address] PCP - General 05/13/10 06/28/17 documented as of this encounter
--- OUTSIDE RECORDS SUMMARY | 2024-05-16 11:50 | XMS_ITS | Encounter Summary ---
Author Organization [facility] [place] [address] Care Team Providers Care Steno Pool Supervisor Name Role Phone Yamileth Saavedra Primary Care Provider [phone] Encounter Details Date Type Department Care Team (Late st Contact Info) Description 09/22/2022 12:05 AM EDT Ancillary Procedure Radiology Library at [facility] [place] [address] Yamileth Saavedra PA [address] [place], [place] [id number] Social History Tobacco Use Types Packs/Day Years [...] 2024 8:40 AM EDT Appointment Mammography/[place] [address] Jewels Barba APRN [facility] [place] [address] 2024 9:40 AM EDT Office Visit [place] [address] Jewels Barba APRN [facility] [place] [place] [address] documented as of this encounter Procedures Procedure Name Priority Date/Time Associated Diagnosis Comments FILM LIBRARY STORAGE ONLY MAMMO Routine 09/22/2022 12:05 AM EDT documented in this encounter Results * Film Library- Storage Only Mammo (09/22/2022 12:05 AM EDT) Narrative [facility] - 10/28/2022 8:11 AM EDT This exam is auto-finalizing. It's purpose is for storage only. Yamileth ORELLANA IMG FILM LIBRARY ORD ERABLES [place], [place] documented in this encounter Visit Diagnoses Not on filedocumented in this encounter Care Teams Steno Pool Supervisor Relationship Specialty Start Date End Date Yamileth Saavedra PA [address] [place] [address] PCP - General Family Medicine 06/29/17 documented as of this encounter
--- OUTSIDE RECORDS SUMMARY | 2024-05-16 11:50 | XMS_ITS | Encounter Summary ---
Author Organization [facility] Address [facility] [place] [address] Care Team Providers Care Lighting Fixture Installer Name Role Phone Yamileth Saavedra Primary Care Provider [phone] Reason for Visit * Consultation (Routine) - Specialty Diagnoses / Procedures Referred By Contac t Referred To Contact Orthopaedics Diagnoses Chronic midline low back pain, with sciatica presence unspecified Chronic midline thoracic back pain Serge Catherine PA [facility] [place] [address] [facility] [address] [place] [address] Referral ID Status Reason Start Date Expiration Date V isits Requested Visits Authorized [id number] Consult, Test & Treat 07/09/2017 07/09/2018 1 1 Encounter Details Date Type Department Care Team (Late st Contact Info) Description 07/23/2017 9:00 AM EST Notes [place] [address] Lillie Laurent MSW [facility] [place] [address] Social History Tobacco Use Types Packs/Day Years [...] 2024 8:40 AM EDT Appointment Mammography/[place] [address] Jewels Barba, [facility] [place] [address] 2024 9:40 AM EDT Office Visit [place] [address] Jewels Barba FAMILY MANAGER [facility] [place] [address] Scheduled Referrals Name Type Priority Associated Diagnoses Order Schedule Referral to GAP Assessment Outpatient Referral Routine Chronic Midline Low Back Pain, With Sciatica Presence Unspecified Chronic Midline Thoracic Back Pain Ordered: 07/09/2017 documented as of this encounter Visit Diagnoses Not on filedocumented in this encounter Care Teams Lighting Fixture Installer Relationship Specialty Start Date End Date Yamileth Saavedra PA [address] [place] [address] PCP - General Family Medicine 06/29/17 documented as of this encounter
--- OUTSIDE RECORDS SUMMARY | 2024-05-16 11:50 | XMS_ITS | Encounter Summary ---
Author Organization [facility] [place] [address] Care Team Providers Care Outpatient Admitting Clerk Name Role Phone Lalito Fang Primary Care Provider [phone] Encounter Details Date Type Department Care Team (Latest Contact Info) Description 12/29/2016 - 12/29/2016 11:59 PM EDT Hospital Encounter Radiology Library [facility] [place] [address] Manuel Vazquez MD [facility] [place] [place] [address] Discharge Disposition: Home Social History Tobacco Use [...] 2024 8:40 AM EDT Appointment Mammography/[place] [address] Jewels Barba, MANUFACTURING QUALITY ENGINEER [facility] [place] [place] [address] 2024 9:40 AM EDT Office [place] [address] Jewels Barba MANUFACTURING QUALITY ENGINEER [facility] [place] [address] documented as of this encounter Procedures Procedure Name Priority Date/Time Associated Diagnosis Comments FILM LIBRARY STORAGE ONLY MR SPINE Routine 12/29/2016 12:00 AM EDT documented in this encounter Results * Film Library- Storage Only MR Spine (12/29/2016 12:00 AM EDT) Narrative [facility] - 06/30/2017 11:38 AM EST This exam is for storage only and is auto-finalizing. Manuel Vazquez MD IMG FILM LIBRARY ORD ERABLES [place], [place] documented in this encounter Visit Diagnoses Not on filedocumented in this encounter Care Teams Outpatient Admitting Clerk Relationship Specialty Start Date End Date Lalito Fang PA [address] [place] [address] PCP - General 05/13/10 06/28/17 documented as of this encounter
--- OUTSIDE RECORDS SUMMARY | 2024-05-16 11:50 | XMS_ITS | Encounter Summary ---
Author Organization [facility] [place] [address] Care Team Providers Care Sweatband Decorating Machine Operator Name Role Phone Lalito Fang Primary Care Provider [phone] Reason for Visit * Reason Onset Date Comments Other 08/16/2013 MRE Encounter Details Date Type Department Care Team (Late st Contact Info) Description 08/16/2013 Telephone [place] [address] Shania Cano Other (MRE) Social [...] 2024 8:40 AM EDT Appointment Mammography/[place] [address] Jewels Barba APRN [facility] [place] [address] 2024 9:40 AM EDT Office [place] [address] Jewels Barba APRN [facility] [place] [address] documented as of this encounter Visit Diagnoses Not on filedocumented in this encounter Care Teams Sweatband Decorating Machine Operator Relationship Specialty Start Date End Date Lalito Fang PA [address] [place] [address] PCP - General 05/13/10 06/28/17 documented as of this encounter
--- OUTSIDE RECORDS SUMMARY | 2024-05-16 11:50 | XMS_ITS | Encounter Summary ---
Author Organization [facility] [place] [address] Care Team Providers Care Passenger Barge Master Name Role Phone Yamileth Saavedra Primary Care Provider [phone] Reason for Visit * Auth/Cert (Routine) Specialty Diagnoses / Procedures Referred By Contac t Referred To Contact Diagnoses Abnormal mammogram abnormal mammogram Procedures PRO EXCISE BREAST LES W XRAY MARKER EXCISION LESION, BREAST W/ PREOP.MARKER (NEEDLE LOC.) (WRVU 6.69) MODIFIER WITH NEEDLE LOC., LESION #1 Luis Julian MD [facility] [place] [address] [facility] Referral ID Status Reason Start Date Expiration Date Visits Re quested Visits Authorized [id number] 1 1 Encounter Details Date Type Department Care Team (Late st Contact Info) Description 01/29/2023 3:30 PM EDT - 01/29/2023 4:44 PM EDT Surgery Outpatient [place] [address] Luis Julian MD [facility] [address] [place], [place] [id number] EXCISION LESION, BREAST W/ PREOP.MARKER (NEEDLE LOC.) [...] shower 24 hours Activity as tolerated Call [phone] with any questions Do not soak incision [...] male partner. Has son and daughter. 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 FH: no breast or ovarian cancer PMH [...] Julian MD - 01/29/2023 3:13 PM EDT [facility] Operative Note Patient Name: Radha Sanders : [id number] MR#: [id number] Case Date: 01/29/2023 Surgeon: Surgeon(s) and Role: [...] 2024 8:40 AM EDT Appointment Mammography/[place] [address] Jewels Barba APRN [facility] [place] [address] 2024 9:40 AM EDT Office Visit [place] [address] Jewels Barba APRN [facility] [place] [address] documented as of this encounter Procedures Procedure Name Priority Date/Time Associated Diagnosis Comments SPECIMEN TO PATHOLOGY Routine 01/29/2023 3:22 PM EDT SURGICAL PATHOLOGY REPORT Routine 01/29/2023 3:21 PM EDT MODIFIER WITH NEEDLE LOC., LESION #1 01/29/2023 2:56 PM EDT abnormal mammogram Excise Breast Les W Xray Marker ([id number]) 01/29/2023 2:56 PM EDT abnormal mammogram documented in this encounter Results * Specimen to Pathology (01/29/2023 3:22 PM EDT) AP Specimen 01/29/2023 3:22 PM EDT 01/29/2023 3:22 PM EDT Narrative [facility] - 01/29/2023 3:22 PM EDT Specimen requisition ordered. ??Separate Pathology report to follow Luis Julian MD PATHOLOGY/CYTOLOGY ORDERABLES [facility] [place] [address] * Surgical Pathology Report (01/29/2023 3:21 PM EDT) Final Diagnosis [id number] ? Location: [facility] The signing pathologist has [...] MD Verified: ??02/11/2023 10:16 ??Pathologist Performed at: ??-[facility] Dept. of Pathology, [place] [address] Rate Examiner: Freeman Wiggins MD, FCAP, ??CLIA Certificate: [id number] ADDITIONAL STUDIES The specimen was entirely submitted [...] (<1 hour). ??shb 02/11/2023 10:16 AM EDT [facility] BREAST STRUCTURE / Unknown 01/29/2023 3:21 PM EDT 01/29/2023 3:21 PM EDT Luis Julian MD PATHOLOGY/CYTOLOGY ORDERABLES [facility] [place] [address] [place] [address] documented in this encounter Visit Diagnoses Not [...] total) documented in this encounter Care Teams Passenger Barge Master Relationship Specialty Start Date End Date Yamileth Saavedra PA [address] [place] [address] PCP - General Family Medicine 06/29/17 documented as of this encounter
--- OUTSIDE RECORDS SUMMARY | 2024-05-16 11:50 | XMS_ITS | Encounter Summary ---
[place] [address] Care Team Providers Care Inspector Water Pollution Control Name Role Phone Yamileth Saavedra Primary Care Provider [phone] Reason for Referral * Consultation (Routine) - Closed Specialty Diagnoses / Procedures Referred By Conttd t Referred To Contact Hematology and Oncology Diagnoses Abnormal histological findings in specimens from other organs, systems and tissues Suyapa Dacosta CNM [facility] [address] [place] [address] [place] [address] [facility] [place] [place] Hem Onc [address] [place] [address] Referral ID Status Reason Start Date Expiration Date V isits Requested Visits Authorized [id number] Closed Consult, Test & Treat PCP Updated and/or Approved 10/26/2022 10/26/2023 6 6 Encounter Details Date Type Department Care Team (Latest Contact Info) Description 10/26/2022 Transcribe Orders eDH Incoming Referrals [phone] Suyapa Dacosta CNM [facility] [address] [facility] [address] [place] [id number] Abnormal histological findings in specimens from other [...] AM EDT Appointment Mammography/[place] [address] Jewels Barba POWDER CUTTING OPERATOR [facility] [place] [address] 2024 9:40 AM EDT Office Visit [place] [address] Jewels Barba [facility] [place] [address] Scheduled Referrals Name Type Priority Associated Diagnoses Orde r Schedule Referral to Hematology and Oncology Outpatient Referral Routine Abnormal Histological Findings In Specimens From Other Organs, Systems And Tissues Ordered: 10/26/2022 documented as of this encounter Visit Diagnoses Diagnosis Abnormal histological findings in specimens from other organs, systems and tissues documented in this encounter Care Teams Inspector Water Pollution Control Relationship Specialty Start Date End Date Yamileth Saavedra PA [address] [place] [address] PCP - General Family Medicine 06/29/17 documented as of this encounter
--- OUTSIDE RECORDS SUMMARY | 2024-05-16 11:50 | XMS_ITS | Encounter Summary ---
Author Organization [facility] [place] [address] Care Team Providers Care Structural Steel Equipment Erector Name Role Phone Yamileth Saavedra Primary Care Provider [phone] Encounter Details Date Type Department Care Team (Late st Contact Info) Description 10/27/2022 Notes Only Hematology [place] [address] Sandra Ibarra Social History Tobacco Use Types [...] Sandra Ibarra - 10/27/2022 2:36 PM EDTSummary: [facility] review Radha Sanders 1975 [id number] Referring provider: Suyapa Thompson Date of Referral: 10.26.2022 Please review outside breast imaging dated: 09.22.2022 Reason for exam and clinical history: 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 Surgical excision Sending Institution: [facility] Patient would like treatment at: Call pt at: documented in this encounter Plan of Treatment Upcoming Encounters Date Type Department Care Team (Late st Contact Info) Description 2024 8:40 AM EDT Appointment Mammography/[place] [address] Jewels Barba, [facility] [place] [address] 2024 9:40 AM EDT Office Visit [place] [address] Jewels Barba, [facility] [place] [address] documented as of this encounter Visit Diagnoses Not on filedocumented in this encounter Care Teams Structural Steel Equipment Erector Relationship Specialty Start Date End Date Yamileth Saavedra PA [address] [place] [address] PCP - General Family Medicine 06/29/17 documented as of this encounter
--- OUTSIDE RECORDS SUMMARY | 2024-05-16 11:50 | XMS_ITS | Encounter Summary ---
Author Organization [facility] [place] [address] Care Team Providers Care County Assessor Name Role Phone Yamileth Saavedra Primary Care Provider [phone] Reason for Referral * Consultation (Routine) - Closed Specialty Diagnoses / Procedures Referred By Contac t Referred To Contact Orthopaedics Diagnoses Chronic midline low back pain, with sciatica presence unspecified Jacob Abreu [place] [facility] [place] [address] [facility] Fr [address] [place] [address] Referral ID Status Reason Start Date Expiration Date V isits Requested Visits Authorized [id number] Closed Consult, Test & Treat 07/23/2017 07/23/2018 1 1 Reason for Visit * Reason Comments Back Pain Encounter Details Date Type Department Care Team (Late st Contact Info) Description 07/23/2017 11:00 AM EST Office [place] [address] Jacob Abreu OFFSHORE WIND OPERATIONS MANAGER [facility] [place] [address] Chronic midline low back pain, with sciatica [...] seen today in consideration of a functional mandaeism program with a chief complaint of midline [...] talking about the fundamentals of the functional mandaeism program and its appropriateness for her situation. She has a good understanding of the program is eager to attend it. We have therefore mutually agreed to proceed as follows: Plan: Admission to the [facility] functional mandaeism program as soon as can be arranged. documented in this encounter Plan of Treatment Upcoming Encounters Date Type Department Care Team (Late st Contact Info) Description 2024 8:40 AM EDT Appointment Mammography/[place] [address] Jewels Barba APRN [facility] [place] [address] 2024 9:40 AM EDT Office Visit [place] [address] Jewels Barba APRN [facility] [place] [address] Scheduled Referrals Name Type Priority Associated Diagnoses Orde r Schedule Referral to Spine Center Outpatient Referral Routine Chronic Midline Low Back Pain, With Sciatica Presence Unspecified Ordered: 07/23/2017 documented as of this encounter Visit Diagnoses Diagnosis Chronic midline low back pain, with sciatica presence unspecified documented in this encounter Care Teams County Assessor Relationship Specialty Start Date End Date Yamileth Saavedra PA [address] [place] [address] PCP - General Family Medicine 06/29/17 documented as of this encounter
--- OUTSIDE RECORDS SUMMARY | 2024-05-16 11:50 | XMS_ITS | Encounter Summary ---
Author Organization [facility] [place] [address] Care Team Providers Care Rn Documentation Specialist Name Role Phone Yamileth Saavedra Primary Care Provider [phone] Encounter Details Date Type Department Care Team (Late st Contact Info) Description 09/22/2022 Ancillary Procedure Radiology Library at [facility] [place] [phone] Yamileth Saavedra PA [address] [place], [place] [address] Social History Tobacco Use Types Packs/Day Years [...] 2024 8:40 AM EDT Appointment Mammography/[place] [address] Jewels Barba ROLL OFF DRIVER [facility] [place] [address] 2024 9:40 AM EDT Office Visit [place] [address] Jewels Barba APRN [facility] [place] [address] documented as of this encounter Procedures Procedure Name Priority Date/Time Associated Diagnosis Comments FILM LIBRARY-STORAGE ONLY US BREAST Routine 09/22/2022 12:00 AM EDT documented in this encounter Results * Film Library Storage Only US Breast (09/22/2022 12:00 AM EDT) Narrative [facility] - 10/28/2022 8:11 AM EDT This exam is auto-finalizing. It's purpose is for storage only. Yamileth ORELLANA IMG FILM LIBRARY ORD ERABLES [place], [place] documented in this encounter Visit Diagnoses Not on filedocumented in this encounter Care Teams Rn Documentation Specialist Relationship Specialty Start Date End Date Yamileth Saavedra PA [address] [place] [address] PCP - General Family Medicine 06/29/17 documented as of this encounter
--- OUTSIDE RECORDS SUMMARY | 2024-05-16 11:50 | XMS_ITS | Encounter Summary ---
Author Organization [facility] [place] [address] Care Team Providers Care Gristmill Operator Name Role Phone Yamileth Saavedra Primary Care Provider [phone] Reason for Visit * Reason Onset Date Comments Appointment 03/28/2024 MRI Encounter Details Date Type Department Care Team (Late st Contact Info) Description 03/28/2024 [place] [phone] Brock Acosta, RN Appointment (MRI) Social History Tobacco Use Types Packs/Day Years [...] encounter Miscellaneous Notes * Telephone Encounter - Brock Acosta RN - 03/28/2024 12:42 PM EDT Call to schedule MRI Breast wwo Bilateral ordered 09/29/2023. Voice mail message left asking for a return call to [phone] to schedule imaging. documented in this encounter Plan of Treatment Upcoming Encounters Date Type Department Care Team (Late st Contact Info) Description 2024 8:40 AM EDT Appointment Mammography/[place] [address] Jweels Barba, [facility] [place] [address] 2024 9:40 AM EDT Office [place] [address] Jewels Barba, [facility] [place] [address] documented as of this encounter Visit Diagnoses Not on filedocumented in this encounter Care Teams Gristmill Operator Relationship Specialty Start Date End Date Yamileth Saavedra PA [address] [place] [address] PCP - General Family Medicine 06/29/17 documented as of this encounter
--- OUTSIDE RECORDS SUMMARY | 2024-05-16 11:50 | XMS_ITS | Encounter Summary ---
Author Organization [facility] Address [facility] [place] [address] Care Team Providers Care Email Administrator Name Role Phone Yamileth Saavedra Primary Care Provider [phone] Reason for Referral * Consultation (Routine) - Specialty Diagnoses / Procedures Referred By Contac t Referred To Contact Orthopaedics Diagnoses Chronic midline low back pain, with sciatica presence unspecified Chronic midline thoracic back pain Serge Catherine PA [facility] [address] [facility] [address] [place] [address] Referral ID Status Reason Start Date Expiration Date V isits Requested Visits Authorized [id number] Consult, Test & Treat 07/09/2017 07/09/2018 1 1 Reason for Visit * Reason Comments Back Pain middle back. vague l eg pain * Surgical (Routine) - Closed Specialty Diagnoses / Procedures Referred By Contac t Referred To Contact Orthopaedics Diagnoses Thoracic disc herniation/ leg numbness/ MRI (t-spine) 01/2017 & MRI (l-spine) 12/2016 @ [facility]/ XR prior Yamileth Saavedra PA [address] [place] [address] Manuel Vazquez MD [facility] [place] [address] Referral ID Status Reason Start Date Expiration Date V isits Requested Visits Authorized [id number] Closed Consult, Test & Treat [facility] 06/29/2017 06/29/2018 1 1 Encounter Details Date Type Department Care Team (Late st Contact Info) Description 07/09/2017 8:20 AM EST Office Visit Spine Center at [facility] [place] [address] Serge Catherine PA [facility] [place] [address] Chronic midline low back pain, with sciatica [...] considering our intensive rehabilitation program, with Functional Sikhism. She was agreeable to consider our functional congregational program and will be undergoing the assessment for this. documented in this encounter Plan of Treatment Upcoming Encounters Date Type Department Care Team (Late st Contact Info) Description 2024 8:40 AM EDT Appointment Mammography/[place] [address] Jewels Barba APRN [facility] [place] [address] 2024 9:40 AM EDT Office [place] [address] Jewels Barba APRN [facility] [place] [address] Scheduled Referrals Name Type Priority Associated Diagnoses Order Schedule Referral to GAP Assessment Outpatient Referral Routine Chronic Midline Low Back Pain, With Sciatica Presence Unspecified Chronic Midline Thoracic Back Pain Ordered: 07/09/2017 documented as of this encounter Visit Diagnoses Diagnosis Chronic midline low back pain, with sciatica presence unspecified Chronic midline thoracic back pain documented in this encounter Care Teams Email Administrator Relationship Specialty Start Date End Date Yamileth Saavedra PA [address] [place] [address] PCP - General Family Medicine 06/29/17 documented as of this encounter
--- OUTSIDE RECORDS SUMMARY | 2024-05-16 11:50 | XMS_ITS | Clinical Summary ---
Author Organization [facility] Address [facility] [place] [address] Care Team Providers Care Squilgeer Name Role Phone Yamileth Saavedra Primary Care Provider [phone] Allergies Active Allergy Reactions Criticality Noted Date [...] scan 07/29/2009 Overview (08/26/2010): - DEXA 07/29/09 ([facility]): T-score = -1.2 at L1-4, -1.3 at [...] Anemia CIS - Depression/Anxiety-situational CIS - Insomnia Encounters Date Type Department Care Team Description 04/04/2024 [place] [address] Brock Acosta, RN Appointment (MRI) 03/28/2024 [place] [address] Brock Acosta, RN Appointment (MRI) from Last 3 Months Family History Medical History Relation Comments Lung [...] 2024 8:40 AM EDT Appointment Mammography/[place] [phone] Jewels Barba, [facility] [address] 2024 9:40 AM EDT Office [place] [address] Jewels Barba, [facility] [place] [address] Health Maintenance Due Date Last Done Comments [...] 08/26/2023 0 08/25/2013, 08/25/2013 Covid-19 Vaccine ( season) 2024, 08/24/2020 Influenza (Flu) vaccine (1 [...] who have questions please contact the health patient care specialist that requested your imaging first. ? Narrative [...] * COLONOSCOPY (08/25/2013 3:14 PM EST) COLONOSCOPY [facility] Endoscopy Patient Name: Radha Sanders ? Procedure Date: 08/25/2013 3:14 PM ? Date of : 1975 ? Age: 37 ? Order #: [id number] ? Procedure: ? Colonoscopy Indications: ? Generalized abdominal pain Providers: ? Orestes Sepulveda MD, Betzy Nguyen ? ESTHER Vásquez, Sarah Ruiz, ? Pill Machine Operator Referring MD: ?REYNA Anderson Tracia ? MD Nikhil Medicines: ? Midazolam 2 [...] Recently Relevant to Health Maintenance Care Teams Squilgeer Relationship Specialty Start Date End Date Yamileth Saavedra PA [address] [place] [address] PCP - General Family Medicine 06/29/17
--- OUTSIDE RECORDS SUMMARY | 2024-05-16 11:50 | XMS_ITS | Encounter Summary ---
Author Organization [facility] Address [facility] [place] [address] Care Team Providers Care Passenger Service Manager Name Role Phone Yamileth Saavedra Primary Care Provider [phone] Encounter Details Date Type Department Care Team (Latest Contact Info) Description 01/29/2023 12:32 PM EDT - 01/29/2023 1:43 PM EDT Hospital En[place] [address] Luis Julian MD [facility] [place] [address] Abnormal mammogram Discharge Disposition: Home Social History Tobacco Use Types Packs/Day Years Used Date Smoking Tobacco: Every Day Cigarettes Smokeless Tobacco: Never Alcohol Use Standard Drinks/Week Comments Yes 5 (1 standard drink = 0.6 oz pur e alcohol) [facility] Inpatient Questions Answer Date Recorded Does [...] 2024 8:40 AM EDT Appointment Mammography/[place] [address] Jewels Barba [facility] [place] [address] 2024 9:40 AM EDT Office [place] [address] Jewels Barba [facility] [place] [address] documented as of this encounter Procedures Procedure [...] who have questions please contact the health physician primary care sports medicine that requested your imaging first. ? Luis Julian MD IMG MAMMO ORDERABLE S documented in this encounter Visit Diagnoses Diagnosis Abnormal mammogram Abnormal mammogram, unspecified documented in this encounter Care Teams Passenger Service Manager Relationship Specialty Start Date End Date Yamileth Saavedra PA [address] [place] [address] PCP - General Family Medicine 06/29/17 documented as of this encounter
--- OUTSIDE RECORDS SUMMARY | 2024-05-16 11:50 | XMS_ITS | Encounter Summary ---
Author Organization [facility] Address [facility] [place] [address] Care Team Providers Care Brewmaster Name Role Phone Yamileth Saavedra Primary Care Provider [phone] Encounter Details Date Type Department Care Team (Latest Contact Info) Description 01/29/2023 1:44 PM EDT - 01/29/2023 2:18 PM EDT Hospital [place] [address] Mirlande Mcgarry MD [facility] [place] [address] Abnormal finding on breast imaging Discharge Disposition: Home Social History Tobacco Use Types Packs/Day Years Used Date Smoking Tobacco: Every Day Cigarettes Smokeless Tobacco: Never Alcohol Use Standard Drinks/Week Comments Yes 5 (1 standard drink = 0.6 oz pur e alcohol) [facility] Inpatient Questions Answer Date Recorded [...] 2024 8:40 AM EDT Appointment Mammography/[place] [address] Jewels Barba, [facility] [place] [address] 2024 9:40 AM EDT Office [place] [address] Jewels Barba, [facility] [place] [address] documented as of this encounter Procedures Procedure [...] questions please contact the health critical care nurse that requested your imaging first. ? Electronically signed by: Mirlande Mcgarry MD, [facility] ([phone]), at 01/29/2023 2:09 PM Narrative 01/29/2023 2:09 [...] breast documented in this encounter Care Teams Brewmaster Relationship Specialty Start Date End Date Yamileth Saavedra PA [address] [place] [address] PCP - General Family Medicine 06/29/17 documented as of this encounter
--- OUTSIDE RECORDS SUMMARY | 2024-05-16 11:50 | XMS_ITS | Encounter Summary ---
[place] [address] Care Team Providers Care Tube Backer Name Role Phone Yamileth Saavedra Primary Care Provider [phone] Reason for Visit * Reason Comments Low Back Pain Encounter Details Date Type Department Care Team (Late st Contact Info) Description 07/23/2017 9:30 AM EST Office [place] [address] Adela Mendoza, OT Chronic midline low back [...] has been recommended for the upcoming Functional Synagogue Program (FRP) that includes 3-4 weeks of intensive PT/OT followed by a minimum of 6 months commitment to self care exercise for improving and maintaining physical capacities. Total time for testin minutes documented in this encounter Plan of Treatment Upcoming Encounters Date Type Department Care Team (Late st Contact Info) Description 2024 8:40 AM EDT Appointment Mammography/[place] [address] Jewels Barba, [facility] [place] [place] [address] 2024 9:40 AM EDT Office [place] [address] Jewels Barba [facility] [place] [place] [address] documented as of this encounter Visit Diagnoses Diagnosis Chronic midline low back pain, with sciatica presence unspecified documented in this encounter Care Teams Tube Backer Relationship Specialty Start Date End Date Yamileth Saavedra PA [address] [place] [address] PCP - General Family Medicine 06/29/17 documented as of this encounter
--- OUTSIDE RECORDS SUMMARY | 2024-05-16 11:50 | XMS_ITS | Encounter Summary ---
Author Organization [facility] [place] [address] Care Team Providers Care Inspector Fibrous Wallboard Name Role Phone Yamileth Saavedra Primary Care Provider [phone] Reason for Referral * Diagnostic Test (Routine) - New Request Specialty Diagnoses / Procedures Referred By Chip t Referred To Contact Radiology Diagnoses Atypical ductal hyperplasia of left breast Extremely dense tissue of both breasts on mammography Breast cancer screening other than mammogram Procedures MRI Breast wwo Contrast Bilat Jewels Barba APRN [facility] [place] [address] [place] [address] Referral ID Status Reason Start Date Expiration Date Visits Requested Visits Authorized [id number] New Request Specialty Service Requested 09/29/2023 03/30/2025 1 1 Encounter Details Date Type Department Care Team (Late st Contact Info) Description 09/29/2023 10:40 AM EDT Office [place] [address] Krista Julian MD [facility] [place] [address] Jewels Barba APRN [facility] [place] [address] Encounter for screening mammogram for breast cancer; [...] headaches. Breast history: A screening mammogram at [facility] in August 2022 showed an oval mass in the right breast, that, professional services manager back imaging, was felt to represent a [...] necrosis. Her images were sent to [facility] for a 2nd read. A surgical referral [...] screening ADH patients with MRI to improve moth exterminator survival. Radha declined chemoprevention with tamoxifen. Breast Cancer Risk Factors: History Age at delivery of first child 19 yo Breast fed Yes, briefly Menarche age 11 yo LMP / Menopause Perimenopausal; LMP 09/16/23 Hormonal contraception use Yes, for a short time Hormone replacement therapy No Family history of breast cancer No Family history of ovarian cancer No Known genetic mutation Not tested Ashkenazi Buddhist heritage No Previous radiation to chest No Family History Problem (# of Occurrences) Relation (Name,Age of Onset) Esophageal Cancer (1) Paternal Uncle Lung Cancer (2) Father, Paternal Uncle Thyroid Cancer (1) Sister Negative family history of: Breast Cancer Social Hx: Radha works for the [employer]. She is a current smoker. She is [...] Imaging: Imaging performed (bilateral mammogram) at [facility] today shows no evidence of malignancy, BIRADS [...] free apps for your cell phone from [employer] ([employer]) and [employer] ([employer]). [employer] Lifestyle program offers free tools and information to help you improve your diet, increase fitness, decrease stress, and reduce your exposure to harmful chemicals in your home environment. Free course available at [facility] All questions were answered to the patient's [...] Referring and communicating with other health healthcare marketer [x] Documenting clinical information in the electronic or other health record [x] Independently interpreting results and communicating results to the patient/family/caregiver [x] Care coordination Jewels Barba APRN Surgical Oncology P [phone] F [phone] [facility] documented in this encounter Miscellaneous Notes * Addendum Note - Jewels Barba APRN - 09/29/2023 10:40 AM EDTAddended by: JEWELS BARBA on: 09/29/2023 05:29 PM Modules accepted: Orders documented in this encounter Plan of Treatment Upcoming Encounters Date Type Department Care Team (Late st Contact Info) Description 2024 8:40 AM EDT Appointment Mammography/[place] [address] Jewels Barba APRN [facility] [place] [address] 2024 9:40 AM EDT Office [place] [address] Jewels Barba BRAZER FURNACE [facility] [place] [address] Scheduled Orders Name Type Priority Associated Diagnoses [...] mammogram documented in this encounter Care Teams Inspector Fibrous Wallboard Relationship Specialty Start Date End Date Yamileth Saavedra PA [address] [place] [address] PCP - General Family Medicine 06/29/17 documented as of this encounter
--- OUTSIDE RECORDS SUMMARY | 2024-05-16 11:50 | XMS_ITS | Encounter Summary ---
Author Organization [facility] [place] [address] Care Team Providers Care Flue Lining Dipper Name Role Phone Yamileth Saavedra Primary Care Provider [phone] Encounter Details Date Type Department Care Team [...] 2024 8:40 AM EDT Appointment Mammography/[place] [address] Jewels Barba [facility] [place] [address] 2024 9:40 AM EDT Office [place] [address] Jewels Barba [facility] [place] [address] documented as of this encounter Visit Diagnoses Not on filedocumented in this encounter Care Teams Flue Lining Dipper Relationship Specialty Start Date End Date Yamileth Saavedra PA [address] [place] [address] PCP - General Family Medicine 06/29/17 documented as of this encounter
--- OUTSIDE RECORDS SUMMARY | 2024-05-16 11:50 | XMS_ITS | Encounter Summary ---
Author Organization [facility] [place] [address] Care Team Providers Care Assistant Branch Operations Manager Name Role Phone Yamileth Saavedra Primary Care Provider [phone] Encounter Details Date Type Department Care Team (Late st Contact Info) Description 09/10/2022 Ancillary Procedure Radiology Library at [facility] [place] [place] [address] Yamileth Saavedra PA [address] [place], [place] [address] Social History Tobacco Use Types Packs/Day Years [...] 2024 8:40 AM EDT Appointment Mammography[place] [address] Jewels Barba [employer] [facility] GENERAL [place] [address] 2024 9:40 AM EDT Office [place] [address] Jewels Barba APRN [facility] [place] [address] documented as of this encounter Procedures Procedure Name Priority Date/Time Associated Diagnosis Comments FILM LIBRARY-STORAGE ONLY US BREAST Routine 09/10/2022 12:00 AM EDT documented in this encounter Results * Film Library Storage Only US Breast (09/10/2022 12:00 AM EDT) Narrative [facility] - 10/28/2022 8:07 AM EDT This exam is auto-finalizing. It's purpose is for storage only. Yamileth ORELLANA IMG FILM LIBRARY ORD ERABLES [place], [place] documented in this encounter Visit Diagnoses Not on filedocumented in this encounter Care Teams Assistant Branch Operations Manager Relationship Specialty Start Date End Date Yamileth Saavedra PA [address] [place] [address] PCP - General Family Medicine 06/29/17 documented as of this encounter
--- OUTSIDE RECORDS SUMMARY | 2024-05-16 11:50 | XMS_ITS | Encounter Summary ---
Author Organization [facility] [place] [address] Care Team Providers Care Shearing Supervisor Name Role Phone Yamileth Saavedra Primary Care Provider [phone] Reason for Visit * Reason Comments Follow-up Encounter Details Date Type Department Care Team (Late st Contact Info) Description 03/04/2023 10:45 AM EDT Office [place] [address] Krista Julian MD [facility] [place] [address] Abnormal mammogram Social History Tobacco Use Types Packs/Day Years Used Date Smoking Tobacco: Every Day Cigarettes Smokeless Tobacco: Never Alcohol Use Standard Drinks/Week Comments Yes 5 (1 standard drink = 0.6 oz pur e alcohol) [facility] Inpatient Questions Answer Date Recorded [...] male partner. Has son and daughter. 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 FH: no breast or ovarian cancer PMH [...] ADH patients with MRI to i mprove snf survival. She will consider this and discuss at next appointment. Plan spiritual counselor visit with next screening mammogram in August,. documented in this encounter Plan of Treatment Upcoming Encounters Date Type Department Care Team (Late st Contact Info) Description 2024 8:40 AM EDT Appointment Mammography/[place] [address] Jewels Barba, [facility] [place] [address] 2024 9:40 AM EDT Office [place] [address] Jewels Barba [facility] [place] [facility] [place] [address] documented as of this encounter Results * [...] have questions please contact the health care analyst that requested your imaging first. ? Electronically signed by: Elena Franco MD, [facility] ?? ([phone]), at 09/29/2023 11:20 AM Narrative 09/29/2023 11:20 [...] unspecified documented in this encounter Care Teams Shearing Supervisor Relationship Specialty Start Date End Date Yamileth Saavedra PA [address] [place] [address] PCP - General Family Medicine 06/29/17 documented as of this encounter
--- OUTSIDE RECORDS SUMMARY | 2024-05-16 11:50 | XMS_ITS | Encounter Summary ---
Author Organization [facility] [place] [address] Care Team Providers Care Drilling Fluids Specialist Name Role Phone Yamileth Saavedra Primary Care Provider [phone] Encounter Details Date Type Department Care Team [...] 2024 8:40 AM EDT Appointment Mammography/[place] [address] Jewels Barba APRN [facility] [place] [address] 2024 9:40 AM EDT Office [place] [address] Jewels Barba APRN [facility] [place] [place] [address] documented as of this encounter Visit Diagnoses Not on filedocumented in this encounter Care Teams Drilling Fluids Specialist Relationship Specialty Start Date End Date Yamileth Saavedra PA [address] [place] [address] PCP - General Family Medicine 06/29/17 documented as of this encounter
--- OUTSIDE RECORDS SUMMARY | 2024-05-16 11:50 | XMS_ITS | Encounter Summary ---
[facility] Organization [facility] [place] [address] Care Team Providers Care Store Stock Associate Name Role Phone Yamileth Saavedra Primary Care Provider [phone] Reason for Visit * Auth/Cert (Routine) Specialty Diagnoses / Procedures Referred By Contac t Referred To Contact Diagnoses Abnormal mammogram abnormal mammogram Procedures PRO EXCISE BREAST LES W XRAY MARKER EXCISION LESION, BREAST W/ PREOP.MARKER (NEEDLE LOC.) (WRVU 6.69) MODIFIER WITH NEEDLE LOC., LESION #1 Luis Julian MD [facility] [place] [address] [facility] Referral ID Status Reason Start Date Expiration Date Visits Re quested Visits Authorized [id number] 1 1 Encounter Details Date Type Department Care Team (Latest Contact Info) Description 01/29/2023 2:19 PM EDT - 01/29/2023 4:13 PM EDT Hospital Encounter [place] [address] Luis Julian MD [facility] [place] [place] [address] Discharge Disposition: Home Social History Tobacco Use [...] shower 24 hours Activity as tolerated Call [phone] with any questions Do not soak incision [...] and medications reviewed with patient and boyfriend, Orc. All questions answered and written copy of [...] male partner. Has son and daughter. 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 FH: no breast or ovarian cancer PMH [...] Julian MD - 01/29/2023 3:13 PM EDT [facility] Operative Note Patient Name: Radha Sanders : [id number] MR#: [id number] Case Date: 01/29/2023 Surgeon: Surgeon(s) and Role: [...] 2024 8:40 AM EDT Appointment Mammography/[place] [address] Jewels Barba APRN [facility] [address] 2024 9:40 AM EDT Office [place] [address] Jewels Barba APRN [facility] [place] [address] documented as of this encounter Procedures Procedure Name Priority Date/Time Associated Diagnosis Comments SPECIMEN TO PATHOLOGY Routine 01/29/2023 3:22 PM EDT SURGICAL PATHOLOGY REPORT Routine 01/29/2023 3:21 PM EDT MODIFIER WITH NEEDLE LOC., LESION #1 01/29/2023 2:56 PM EDT abnormal mammogram Excise Breast Les W Xray Marker ([id number]) 01/29/2023 2:56 PM EDT abnormal mammogram documented in this encounter Results * Specimen to Pathology (01/29/2023 3:22 PM EDT) AP Specimen 01/29/2023 3:22 PM EDT 01/29/2023 3:22 PM EDT Narrative [facility] - 01/29/2023 3:22 PM EDT Specimen requisition ordered. ??Separate Pathology report to follow Luis Julian MD PATHOLOGY/CYTOLOGY ORDERABLES [facility] [place] [address] * Surgical Pathology Report (01/29/2023 3:21 PM EDT) Final Diagnosis [id number] ? Location: [facility] The signing pathologist has [...] MD Verified: ??02/11/2023 10:16 ??Pathologist Performed at: ??-[facility] Dept. of Pathology, [place] [address] District Sales Leader: Freeman Wiggins MD, AP, ??CLIA Certificate: [id number] ADDITIONAL STUDIES The specimen was entirely submitted [...] (<1 hour). ??shb 02/11/2023 10:16 AM EDT [facility] BREAST STRUCTURE / Unknown 01/29/2023 3:21 PM EDT 01/29/2023 3:21 PM EDT Luis Julian MD PATHOLOGY/CYTOLOGY ORDERABLES [facility] [place] [address] [facility] [place] [address] documented in this encounter Visit Diagnoses Not [...] total) documented in this encounter Care Teams Store Stock Associate Relationship Specialty Start Date End Date Yamileth Saavedra PA [address] [place] [address] PCP - General Family Medicine 06/29/17 documented as of this encounter
--- OUTSIDE RECORDS SUMMARY | 2024-05-16 11:50 | XMS_ITS | Encounter Summary ---
Author Organization [facility] [place] [address] Care Team Providers Care Network Contract Manager Name Role Phone Yamileth Saavedra Primary Care Provider [phone] Reason for Visit * Reason Onset Date Comments Other 08/05/2017 Encounter Details Date Type Department Care Team (Late st Contact Info) Description 08/05/2017 Telephone [place] [address] [facility] [place] [address] Other Social History Tobacco Use Types Packs/Day [...] recommended and medically cleared for the Functional Tenriism Program. Ms. Sanders regrets to let us [...] 2024 8:40 AM EDT Appointment Mammography/[place] [address] Jewels Barba [facility] [place] [address] 2024 9:40 AM EDT Office [place] [address] Jewels Barba [facility] [place] [address] documented as of this encounter Visit Diagnoses Not on filedocumented in this encounter Care Teams Network Contract Manager Relationship Specialty Start Date End Date Yamileth Saavedra PA [address] [place] [address] PCP - General Family Medicine 06/29/17 documented as of this encounter
--- OUTSIDE RECORDS SUMMARY | 2024-05-16 11:50 | XMS_ITS | Encounter Summary ---
Author Organization [facility] [place] [address] Care Team Providers Care Field Machinist Name Role Phone Yamileth Saavedra Primary Care Provider [phone] Reason for Visit * Reason Onset Date Comments Appointment 04/04/2024 MRI Encounter Details Date Type Department Care Team (Late st Contact Info) Description 04/04/2024 [place] [address] Brock Acosta, RN Appointment (MRI) Social History [...] Telephone Encounter - Brock Acosta RN - 04/04/2024 2:16 PM EDT Call to schedule MRI Breast wwo Bilateral ordered 09/29/2023. Voice mail message left asking for a return call to [phone] to schedule imaging. documented in this encounter Plan of Treatment Upcoming Encounters Date Type Department Care Team (Late st Contact Info) Description 2024 8:40 AM EDT Appointment Mammography/[place] [address] Jewels Barba, [facility] [place] [address] 2024 9:40 AM EDT Office [place] [address] Jewels Barba, [facility] [place] [address] documented as of this encounter Visit Diagnoses Not on filedocumented in this encounter Care Teams Field Machinist Relationship Specialty Start Date End Date Yamileth Saavedra PA [address] [place] [address] PCP - General Family Medicine 06/29/17 documented as of this encounter
--- OUTSIDE RECORDS SUMMARY | 2024-05-16 11:50 | XMS_ITS | Encounter Summary ---
Author Organization [facility] [place] [place] [address] Care Team Providers Care Hip Hop Dancer Name Role Phone Yamileth Saavedra Primary Care Provider [phone] Encounter Details Date Type Department Care Team (Late st Contact Info) Description 12/31/2022 Orders [place] [address] Luis Julian MD [facility] [place] [address] Abnormal mammogram Social History Tobacco Use Types Packs/Day Years Used Date Smoking Tobacco: Every Day Cigarettes Smokeless Tobacco: Never Alcohol Use Standard Drinks/Week Comments Yes 5 (1 standard drink = 0.6 oz pur e alcohol) [facility] Inpatient Questions Answer Date Recorded Does [...] 2024 8:40 AM EDT Appointment Mammography/[place] [address] Jewels Barba APRN [facility] [place] [address] 2024 9:40 AM EDT Office Visit General Surgery at [facility] [place] [address] Jewels Barba [facility] [place] [address] documented as of this encounter Results * [...] who have questions please contact the health day care center director that requested your imaging first. ? Electronically signed by: Mirlande Mcgarry MD, [facility] ([phone]), at 01/29/2023 3:39 PM Luis Julian MD IMG MAMMO ORDERABLE S documented in this encounter Visit Diagnoses Diagnosis Abnormal mammogram Abnormal mammogram, unspecified Abnormal mammogram Abnormal mammogram, unspecified documented in this encounter Care Teams Hip Hop Dancer Relationship Specialty Start Date End Date Yamileth Saavedra PA [address] [place] [address] PCP - General Family Medicine 06/29/17 documented as of this encounter
--- OUTSIDE RECORDS SUMMARY | 2024-05-16 11:50 | XMS_ITS | Encounter Summary ---
Author Organization [facility] [place] [address] Care Team Providers Care Medication Aid Name Role Phone Yamileth Saavedra Primary Care Provider [phone] Encounter Details Date Type Department Care Team (Late st Contact Info) Description 09/07/2017 Telephone Functional Yarsani Program at [facility] [address] [place] [address] Gali Haque Social History Tobacco Use Types [...] the August program. Asked that patient call [phone] to discuss her plan going forward. documented in this encounter Plan of Treatment Upcoming Encounters Date Type Department Care Team (Late st Contact Info) Description 2024 8:40 AM EDT Appointment Mammography/[place] [address] Jewels Barba APRN [facility] [place] [address] 2024 9:40 AM EDT Office [place] [address] Jewels Barba [facility] [place] [address] documented as of this encounter Visit Diagnoses Not on filedocumented in this encounter Care Teams Medication Aid Relationship Specialty Start Date End Date Yamileth Saavedra PA [address] [place] [address] PCP - General Family Medicine 06/29/17 documented as of this encounter
--- OUTSIDE RECORDS SUMMARY | 2024-05-16 11:50 | XMS_ITS | Encounter Summary ---
Author Organization [facility] Address [facility] [place] [address] Care Team Providers Care Mine Foreman Name Role Phone Yamileth Saavedra Primary Care Provider [phone] Encounter Details Date Type Department Care Team (Latest Contact Info) Description 01/29/2023 12:30 PM EDT - 01/29/2023 12:31 PM EDT Hospital En[place] [address] Krista Julian MD [facility] [place] [address] Abnormal mammogram Discharge Disposition: Home Social History [...] and procedural plan approved by MD Sanket Olvieira MD PGY-3 Pager #[phone] Department of Radiology [facility] 01/25/2023 documented in this encounter Plan of Treatment Upcoming Encounters Date Type Department Care Team (Late st Contact Info) Description 2024 8:40 AM EDT Appointment Mammography/[place] [address] Jewels Barba APRN [facility] [place] [address] 2024 9:40 AM EDT Office [place] [address] Jewels Barba, [facility] [place] [address] documented as of this encounter Procedures Procedure [...] have questions please contact the health physician assistant primary care that requested your imaging first. ? Narrative [...] mg documented in this encounter Care Teams Mine Foreman Relationship Specialty Start Date End Date Yamileth Saavedra PA [address] [place] [address] PCP - General Family Medicine 06/29/17 documented as of this encounter
--- OUTSIDE RECORDS SUMMARY | 2024-05-16 11:50 | XMS_ITS | Encounter Summary ---
Author Organization [facility] [place] [address] Care Team Providers Care Taper Operator Name Role Phone Yamileth Saavedra Primary Care Provider [phone] Encounter Details Date Type Department Care Team (Late st Contact Info) Description 09/09/2022 Ancillary Procedure Radiology Library at [facility] [place] [address] Yamileth Saavedra PA [address] [place], [place] [address] Social History Tobacco Use Types Packs/Day Years [...] AM EDT Appointment Mammography/[place] [address] Jewels Barba [employer]PAREL SALES ASSOCIATE [facility] [place] [address] 2024 9:40 AM EDT Office [place] [address] Jewels Barba APRN [facility] [place] [address] documented as of this encounter Procedures Procedure Name Priority Date/Time Associated Diagnosis Comments FILM LIBRARY STORAGE ONLY MAMMO Routine 09/09/2022 12:00 AM EDT documented in this encounter Results * Film Library- Storage Only Mammo (09/09/2022 12:00 AM EDT) Narrative [facility] - 10/28/2022 8:07 AM EDT This exam is auto-finalizing. It's purpose is for storage only. Yamileth ORELLANA IMG FILM LIBRARY ORD ERABLES [place], [place] documented in this encounter Visit Diagnoses Not on filedocumented in this encounter Care Teams Taper Operator Relationship Specialty Start Date End Date Yamileth Saavedra PA [address] [place] [address] PCP - General Family Medicine 06/29/17 documented as of this encounter
--- OUTSIDE RECORDS SUMMARY | 2024-05-16 11:50 | XMS_ITS | Encounter Summary ---
Author Organization [facility] [place] [address] Care Team Providers Care Lodging Facilities Manager Name Role Phone Yamileth Saavedra Primary Care Provider [phone] Encounter Details Date Type Department Care Team (Latest Contact Info) Description 10/30/2022 12:35 PM EDT - 10/30/2022 11:59 PM EDT Hospital [place] [address] Discharge Disposition: Home Social History Tobacco Use [...] 2024 8:40 AM EDT Appointment Mammography/[place] [address] Jewels Barba, [facility] [address] 2024 9:40 AM EDT Office [place] [address] Jewels Barba, [facility] [place] [address] documented as of this encounter Procedures Procedure Name Priority Date/Time Associated Diagnosis Comments SURGICAL PATHOLOGY REPORT Routine 10/30/2022 12:39 PM EDT documented in this encounter Results * (ABNORMAL) Surgical Pathology Report (10/30/2022 12:39 PM EDT) Final Diagnosis [id number] ? Location: [facility] The signing pathologist has (i) examined the relevant preparation(s) for the specimen(s) and (ii) rendered or confirmed the diagnosis(es). . ?Surgical Pathology DIAGNOSIS CONSULTATION CASE Outside slide(s) labeled [id number], collection date 09/22/2022. A- Breast, left, 8 o'clock, 4cm from nipple, biopsy: - Sclerosing papillary lesions with at least atypical ductal hyperplasia, see discussion. - Surrounding breast tissue with adenosis, columnar cell change/hyperplasia. Electronically signed by: ?Taras Davis MD Verified: ??11/09/2022 13:57 ??Pathologist Performed at: ??-[facility] Dept. of Pathology, [place] [address] Fundraising Consultant: Freeman Wiggins MD, AP, ??CLIA Certificate: [id number] DISCUSSION THIS RESULT REQUIRES PHYSICIAN/A.P.P. FOLLOW UP [...] CONSULTATION CASE A - 4 slide(s) labeled [id number], collection date 09/22/2022. [id number] CARBON COPY: [facility] Surgical Pathology Department [facility], 2nd Floor [address] [place], [place] ??[address] . CLINICAL INFORMATION 47 year old female with angular 5mm left breast mass SPECIMEN PROCESSING [facility] ([facility]) pathology slide(s) are reviewed. Refer to Diagnosis and Specimen Submitted for specific case information. For the full text of the [facility] report(s) please refer to the Chart Review Media tab in the electronic health record (eDH).(A) 11/09/2022 1:57 PM EDT [facility] Consult Case 10/30/2022 12:3 9 PM EDT 10/30/2022 12:39 PM EDT Krista Julian MD PATHOLOGY/CYTOLOGY ORDERABLES [place] [id number] [place] [address] documented in this encounter Visit Diagnoses Not on filedocumented in this encounter Care Teams Lodging Facilities Manager Relationship Specialty Start Date End Date Yamileth Saavedra PA [address] [place] [address] PCP - General Family Medicine 06/29/17 documented as of this encounter
--- OUTSIDE RECORDS SUMMARY | 2024-05-16 11:50 | XMS_ITS | Encounter Summary ---
Author Organization [facility] [place] [address] Care Team Providers Care Egg Grader Name Role Phone Yamileth Saavedra Primary Care Provider [phone] Reason for Visit * Auth/Cert (Routine) Specialty Diagnoses / Procedures Referred By Contac t Referred To Contact Diagnoses Abnormal mammogram abnormal mammogram Procedures PRO EXCISE BREAST LES W XRAY MARKER EXCISION LESION, BREAST W/ PREOP.MARKER (NEEDLE LOC.) (WRVU 6.69) MODIFIER WITH NEEDLE LOC., LESION #1 Krista Julian MD [facility] [place] [address] [facility] Referral ID Status Reason Start Date Expiration Date Visits Re quested Visits Authorized [id number] 1 1 Encounter Details Date Type Department Care Team (Late st Contact Info) Description 01/29/2023 2:54 PM EDT Anesthesia Event Outpatient [place] [address] Milo Santiago MD [facility] [place] [address] Harvey Ibarra MD [facility] [place] [address] Anesthesia Record Procedure Summary Procedure Name Responsible [...] 1438; metacarpal vein (top of hand), right; xhcj-kyz-mormtf catheter system; Anatomical Landmarks; 20 gauge; distraction, [...] Summary Date: 01/29/23 Room / Location: [address] Anesthesia Start: 1454 Anesthesia Stop: 1543 Procedures: EXCISION LESION, BREAST W/ PREOP.MARKER (NEEDLE LOC.) (WRVU 6.69) (Left: Breast) MODIFIER WITH NEEDLE LOC., LESION #1 (Left) Diagnosis: (abnormal mammogram) Surgeons: Krista Julian MD Responsible Provider: Milo Santiago MD Anesthesia Type: general ASA Status: 2 All Anesthesia Providers: Anesthesiologist: Milo Santiago MD; Brooklynn Cantor MD COMMERCIAL TRUCK DRIVER: Sonrda Ramírez CRNA Student Nurse Post Closing Specialist: Arturo Martin Vitals Value Taken Time BP 125/55 01/29/23 1545 Temp 36.4 ??C (97.5 ??F) 01/29/23 1543 Pulse 76 01/29/23 1552 Resp 18 01/29/23 1543 SpO2 96 % 01/29/23 1552 Pain Level 0 01/29/23 1543 Vitals shown include unvalidated device data. Patient Location: PACU/[facility] Level of Consciousness: Awake and Alert [...] Needle Localization Left 01/29/2023 Mirlande Mcgarry MD [facility] RAD MAMMOGRAPHY ??? PRO COLONOSCOPY, BIOPSY 08/25/2013 COLONOSCOPY FLEXIBLE, WITH BX performed by Orestes Sepulveda MD at [facility] ENDOSCOPY ??? PRO UPPER GI ENDOSCOPY, BIOPSY 08/25/2013 UPPER GASTROINTESTINAL ENDOSCOPY,WITH BIOPSY SINGLE OR MULTIPLE performed by Orestes Sepulveda MD at [facility] ENDOSCOPY Social History Tobacco Use ??? [...] risks discussed with patient. Plan discussed with COMMERCIAL TRUCK DRIVER and attending. Anesthesia Screening documented in this encounter Plan of Treatment Upcoming Encounters Date Type Department Care Team (Late st Contact Info) Description 2024 8:40 AM EDT Appointment Mammography/[place] [address] Jewels Barba [facility] [place] [address] 2024 9:40 AM EDT Office [place] [address] Jewels Barba [facility] [place] [address] documented as of this encounter Visit Diagnoses [...] mg documented in this encounter Care Teams Egg Grader Relationship Specialty Start Date End Date Yamileth Saavedra PA [address] [place] [address] PCP - General Family Medicine 06/29/17 documented as of this encounter
--- OUTSIDE RECORDS SUMMARY | 2024-05-16 11:51 | XMS_ITS | Encounter Summary ---
Author Organization [facility] [place] [address] Care Team Providers Care Trauma Counsellor Name Role Phone Lalito Fang Primary Care Provider [phone] Reason for Visit * Reason Comments GI Problem Encounter Details Date Type Department Care Team (Latest Contact Info) Description 07/27/2013 3:30 PM EST Office [place] [address] Anna Tejeda APRN [facility] [place] [address] Abdominal pain, periumbilical (Primary Dx) Discharge Disposition: [...] PM EST Section of Gastroenterology and Hepatology [address] [place] [address] .Radha Sanders : 1975 Patient is here [...] No incontinence. Small bowel through and colonoscopy [facility], 2006, both normal exams. cmp 05/2013 normal. [...] 2024 8:40 AM EDT Appointment Mammography/[place] [address] Jewels Barba APRN [facility] [place] [address] 2024 9:40 AM EDT Office Visit General Surgery at [facility] [place] [address] Jewels Barba, CLEVE [facility] [place] [address] Scheduled Orders Name Type Priority Associated Diagnoses [...] MD HEMATOLOGY ORDERABLE S Performing Organization Address City/[facility] Co de Phone Number [facility] * Folate, serum (07/27/2013 4:34 PM EST) Folate 15.6 4.6 - 34.8 ng/mL [facility] Blood specimen (specimen) 07/27/2013 4:34 PM EST 07/27/2013 4:40 PM EST Narrative Resulting Agency Comment Spec In Lab Phil Lloyd MD CHEMISTRY ORDERABLES Performing Organization Address City/[facility] Co de Phone Number [facility] * Vitamin B12 (07/27/2013 4:34 PM EST) Vitamin B12 404 207 - 974 pg/mL [facility] Blood specimen (specimen) 07/27/2013 4:34 PM EST 07/27/2013 4:40 PM EST Narrative Resulting Agency Comment Spec In Lab Phil Lloyd MD CHEMISTRY ORDERABLES Performing Organization Address City/[facility]/ZIP Co de Phone Number [facility] * (ABNORMAL) Ferritin (07/27/2013 4:34 PM EST) [facility] Ferritin 9(L) 15 - 150 ng/mL [facility] Comment: Pediatric reference ranges not verified at [facility], interpret with caution. Reference ranges for females greater than 50 years of age approach values for men, i.e., 30-400 ng/mL. Blood specimen (specimen) 07/27/2013 4:34 PM EST 07/27/2013 4:40 PM EST Narrative Resulting Agency Comment Spec In Lab Phil Lloyd MD CHEMISTRY ORDERABLES Performing Organization Address [facility] Co de Phone Number [facility] * (ABNORMAL) Iron and TIBC (07/27/2013 4:34 PM EST) [facility] Iron 66 30 - 150 mcg/dL [facility] TIBC 342 250 - 450 mcg/dL [facility] Iron Saturation 19(L) 20 - 50 % [facility] Blood specimen (specimen) 07/27/2013 4:34 PM EST 07/27/2013 4:40 PM EST Narrative Resulting Agency Comment Spec In Lab Phil Lloyd MD CHEMISTRY ORDERABLES Performing Organization Address City/[facility]/ZIP Co de Phone Number [facility] * Tissue transglutaminase, IgA (07/27/2013 4:34 PM EST) [facility] TTG IgA Ab <4.0 <=3.9 u/ml [facility] Comment: Result Interpretation: Negative: ?<4 U/mL Weak Positive: ??4-10 U/mL Positive: ?>10 U/mL Blood specimen (specimen) 07/27/2013 4:34 PM EST 07/28/2013 8:09 AM EST Narrative Resulting Agency Comment Spec In Lab Phil Lloyd MD IMMUNOLOGY ORDERABLE S Performing Organization Address City/[facility] Co de Phone Number [facility] * TSH (07/27/2013 4:34 PM EST) Thyroid Stimulating Hormone 0.37 0.27 - 4.20 mcIU/mL [facility] Blood specimen (specimen) 07/27/2013 4:34 PM EST 07/27/2013 4:40 PM EST Narrative Resulting Agency Comment Spec In Lab Phil Lloyd MD CHEMISTRY ORDERABLES Performing Organization Address [facility] Co de Phone Number [facility] * (ABNORMAL) Comprehensive metabolic panel (non-fasting) (07/27/2013 4:34 PM EST) Glucose 90 60 - 199 mg/dL [facility] Comment:Diabetes: >=200 mg/d L plus symptoms Blood Urea Nitrogen 7(L) 8 - 18 mg/dL [facility] Creatinine 0.75 0.70 - 1.20 mg/dL [facility] Comment: Please note that the pediatric reference intervals supplied above were not validated at [facility]. Results from pediatric patients should be interpreted [...] periumbilic documented in this encounter Care Teams Trauma Counsellor Relationship Specialty Start Date End Date Lalito Fang PA [address] [place] [address] PCP - General 05/13/10 06/28/17 documented as of this encounter
--- OUTSIDE RECORDS SUMMARY | 2024-05-16 11:51 | XMS_ITS | Encounter Summary ---
Author Organization [facility]ly [facility] [place] [address] Care Team Providers Care Fixture Designer Name Role Phone Lalito Fang Primary Care Provider [phone] Encounter Details Date Type Department Care Team (Late st Contact Info) Description 08/09/2013 Orders Only [place] [address] Anna Tejeda [facility] [place] [address] Abdominal pain, unspecified site (Primary Dx) Social [...] 2024 8:40 AM EDT Appointment Mammography/[place] [address] Jewels Barba [facility] [place] [address] 2024 9:40 AM EDT Office Visit [place] [phone] Jewels Barba [facility] [place] [address] documented as of this encounter Visit Diagnoses Diagnosis Abdominal pain, unspecified site- Primary documented in this encounter Care Teams Fixture Designer Relationship Specialty Start Date End Date Lalito Fang PA [address] [place] [address] PCP - General 05/13/10 06/28/17 documented as of this encounter
--- OUTSIDE RECORDS SUMMARY | 2024-05-16 11:51 | XMS_ITS | Encounter Summary ---
Author Organization [facility] [place] [address] Care Team Providers Care Campus Supervisor Name Role Phone Lalito Fang Primary Care Provider [phone] Encounter Details Date Type Department Care Team (Late st Contact Info) Description 08/08/2013 Telephone [place] [phone] Anna Tejeda APRN [facility] [place] [address] Social History Tobacco Use Types Packs/Day Years [...] peer to peer, regarding mre. Approved. ID#: [id number]. Good for 60 days. July 29, 2013-September 26, 2013. documented in this encounter Plan of Treatment Upcoming Encounters Date Type Department Care Team (Late st Contact Info) Description 2024 8:40 AM EDT Appointment Mammography/[place] [phone] Jewels Barba [employer] [facility] [place] [place] [address] 2024 9:40 AM EDT Office Visit [place] [address] Jewels Barba [facility] [place] [address] documented as of this encounter Visit Diagnoses Not on filedocumented in this encounter Care Teams Campus Supervisor Relationship Specialty Start Date End Date Lalito Fang PA [address] [place] [address] PCP - General 05/13/10 06/28/17 documented as of this encounter
[2024-05-16] MEDS: Ibuprofen 600 MG TAB PO (11:59)
[2024-05-16] MEDS: Methocarbamol 500 MG TAB 1000 MG PO (11:59)
[2024-05-16] MEDS: Acetaminophen 500 MG TAB 1000 MG PO (12:00)
--- NOTE | 2024-05-16 12:12 | DI.CT_ITS ---
Exam(s) CT THORACIC SPINE WO EXAM: CT THORACIC SPINE WO CLINICAL HISTORY: fall. TECHNIQUE: Imaging Protocol: Axial computed tomography images with coronal and sagittal reformatted images were created and reviewed. COMPARISON: No exams were available for comparison FINDINGS: Bones: No fractures or dislocations are seen. The alignment of the spine is normal including the cerv icothoracic junction. Age-appropriate degenerative changes are seen in the cervical spine. Soft tissues: The soft tissues of the chest are unremarkable. No large disk herniations are identifie d. IMPRESSION: No acute fractures or subluxations in the thoracic spine. RADIATION DOSE DELIVERED: 728.75mGy.cm Total DLP 728.75mGy.cm Total DLP DATA REPOSITORY: All CT scans at this facility are submitted to the National Radiology Data Registry (NRDR) Dose Index Registry (DIR) with the [employer] ([employer]). RADIATION OPTIMIZATION: All CT scans at this facility use at least one of these dose optimization te chniques: automated exposure control; mA and/or kV adjustment per patient size (includes targeted exa ms where dose is matched to clinical indication); or iterative reconstruction.
--- NOTE | 2024-05-16 12:29 | DI.RAD_ITS ---
Exam(s) XR SHOULDER RT COMPLETE 2+V EXAM: XR SHOULDER RT COMPLETE 2+V CLINICAL HISTORY: pain. TECHNIQUE: 2D digital imaging was performed of the right shoulder. Five images were obtained. AP, Grashey, Y-view and axillary views were obtained. COMPARISON: No exams were available for comparison FINDINGS: BONES: No acute fracture is present. No bony destructive lesion is seen. JOINTS: No dislocation present. SOFT TISSUE: Normal. IMPRESSION: Unremarkable radiographs of the right shoulder. DATA REPOSITORY: RADIATION DOSE DELIVERED:
--- NOTE | 2024-05-16 14:07 | ED.GENADUL_ITS ---
Discharge Plan Disposition Patient Disposition: Home Condition: Stable Discharge Details Clinical Impression: Fall, Acute pain of right shoulder Primary Care Provider: Yamileth Saavedra ED Provider: Monik Bellamy Home Meds and New Rx's Prescriptions: No Action vitamin B complex [B Complex-Vitamin B12] Tablet 1 tab PO DAILY ferrous sulfate [Feosol] 325 mg (65 mg iron) tablet 325 mg PO DAILY Patient Comments: Veg-cap (pt reports lower dose ~ 36mg) cholecalciferol (vitamin D3) 1,250 mcg (50,000 unit) capsule See Rx Instructions PO once a week Rx Instructions: 2,000 IU, Discharge Instructions Additional Instructions: Your imaging today does not reveal a fracture or acute injury You are likely going to be sore for the next few days, more so tomorrow. Please continue Motrin and Tylenol Do gentle stretching and range of motion exercises of your shoulder and your neck to help with the soreness in the stiffness Stand Alone Forms: Work Release HPI General Date/Time Provider Initiated Documentation: 05/16/24 11:40 . Limitations to Documentation: no limitations . Information obtained by: patient . HPI Narrative: 48-year-old female without significant past medical history presents for evaluation of right shoulder pain and upper back pain after a fall. Patient reports just prior to arrival she slipped on icy steps and fell. She denies hitting her head. There is no loss of consciousness. She reports pain in the right arm that is radiating up into her neck. She reports a mild abrasion to her right knee though this does not hurt her much she is able to walk fully. She reports a funny sensation in her arm, denies any weakness. Related Data Home Medications ?Medication ?Instructions ?Recorded ?Confirmed cholecalciferol (vitamin D3) 1,250 See Rx Instructions PO once a week 04/08/22 05/16/24 mcg (50,000 unit) capsule ferrous sulfate 325 mg (65 mg 325 mg PO DAILY 04/08/22 05/16/24 iron) tablet (Feosol) vitamin B complex (B 1 tab PO DAILY 04/08/22 05/16/24 Complex-Vitamin B12 tablet) Allergies Allergy/AdvReac Type Severity Reaction Status Date / Time No Known Allergies Allergy Unverified 02/25/24 06:11 General Stated Complaint: Fall/Non TraumaCriteria HERNAN: 3 Exam Narrative Exam Narrative: Review of Systems: All systems reviewed & are unremarkable except as noted in HPI and below Well-developed, no acute distress NCAT C-collar placed in triage, no midline neck tenderness, step-off or deformity RRR Unlabored respiratory effort clear bilaterally Nondistended abdomen soft nontender There is mid line thoracic tenderness, no deformity or step-off, approximately around the 4 5 Right shoulder with slight tenderness to palpation, no deformity or effusion, full range of motion, neurovascularly intact distally no focal neurologic deficits Course Vital Signs Vital signs: Vital Signs Temperature 36.9 C 05/16/24 11:45 Pulse 87 05/16/24 11:45 Respiratory Rate 15 05/16/24 11:45 Blood Pressure 143/73 H 05/16/24 11:45 Pulse Oximetry 98 05/16/24 11:45 Temperature 36.9 C 05/16/24 11:45 Pulse 87 05/16/24 11:45 Respiratory Rate 15 05/16/24 11:45 Respiratory Effort Normal 05/16/24 13:54 Blood Pressure 143/73 H 05/16/24 11:45 Blood Pressure Position Sitting 05/16/24 11:45 Pulse Oximetry 98 05/16/24 11:45 Oxygen Delivery Method Room Air 05/16/24 11:45 Oxygen Flow Rate 0 05/16/24 11:45 Pain Level 4 05/16/24 13:54 Medical Decision Making Emergent evaluation after a fall. Initial differential includes fracture, contusion, I doubt spinal cord injury as the patient does not have any neurologic deficit. A c-collar was placed in triage. I have given the patient pain medication and obtain CT imaging of cervical and thoracic spine as well as the right shoulder. The radiology reports were reviewed and there is no acute abnormality. The patient c-collar was removed and she reports improvement in her symptoms. She is ambulatory without difficulty. Advised continued care at home and follow-up with PCP as needed. Quality:SDOH Health Related Social Needs: No Data to Display PFSH All Active Problems Acute pain of right shoulder (Acute) Fall (Acute) Pain, foot (Acute) Corns and callosities (Acute) Lower extremity pain (Acute) Low back pain (Acute) Medical History Hiatal hernia Vitamin D deficiency Abdominal pain Thoracic radiculopathy Severe left groin pain Atypical mole Chronic pain of both knees Thrombocytosis Elevated liver enzymes Osteopenia Folic acid deficiency Depression Anxiety Anemia B12 deficiency Hip pain Paresthesia Fatigue Insomnia Family History Mother Alcohol abuse Obesity Father Diabetes Essential hypertension Arthritis Heart disease Myocardial infarction Stroke Obesity Asthma Sister Asthma Grandfather No problems noted. Grandmother Lung cancer Stroke Maternal Uncle No problems noted. Other Brain cancer Social History Smoking/Tobacco Use Status: Current every day Tobacco Type: cigarettes Smoking risk assessment performed?: Yes Alcohol Intake: never Drug use: Occasionally Substance use type: marijuana Housing: house Do you feel safe at home: Yes Do you feel safe in your relationship?: Yes
== END 2024-05-16 14:02 | disposition home or self-care (01) ==
PROVIDERS: Emergency Provider Emergency Medicine; PCP Physician Assistant Medical
DX: M25.511 Pain in right shoulder (principal); W00.1XXA Fall from stairs and steps due to ice and snow, initial encounter
CPT/HCPCS: 99284; 72125; 72128; 73030; 99283

== ENCOUNTER 2025-02-18 19:43 | Emergency (ER) | payer BC, SELFPAY ==
[2025-02-18 19:45] VITALS: BP 112/77; PULSE 86; RESP 18; TEMP 36; O2SAT 99
[2025-02-18 19:52] VITALS: BP 112/77; PULSE 86; RESP 18; TEMP 36; O2SAT 99
--- NOTE | 2025-02-18 20:16 | W.ED.GENAD ---
Discharge Plan Disposition Patient Disposition: Home Discharge Details Clinical Impression: Myofascial pain syndrome, Headache Primary Care Provider: Yamileth Saavedra ED Provider: Emmanuel Sena Home Meds and New Rx's Prescriptions: Continued vitamin B complex [B Complex-Vitamin B12] Tablet 1 tab PO DAILY ferrous sulfate [Feosol] 325 mg (65 mg iron) tablet 325 mg PO DAILY Patient Comments: Veg-cap (pt reports lower dose ~ 36mg) lorazepam 0.5 mg tablet 0.5 mg PO TID PRN nortriptyline 10 mg capsule 10 mg PO QHS PRN Rx Instructions: 10-20 mg at nighttime for sleep cholecalciferol (vitamin D3) 1,250 mcg (50,000 unit) capsule See Rx Instructions PO once a week Rx Instructions: 2,000 IU, magnesium aspart,citrate,oxide 400 mg magnesium capsule PO ondansetron 4 mg tablet,disintegrating 4 mg PO Q8H cholecalciferol (vitamin D3) 25 mcg (1,000 unit) capsule 25 mcg PO DAILY duloxetine 20 mg capsule,delayed release(DR/EC) PO Patient Comments: TAKE ONE CAPSULE BY MOUTH TWICE A DAY Discharge Instructions Instructions: Headaches in adults Additional Instructions: Please follow-up with your primary care provider regarding your visit to the emergency department today. Be sure to discuss results of all test performed here today to include radiology, and laboratory testing as well as results for any pending cultures. Should your symptoms worsen, or if you develop new concerning symptoms, please return immediately emergency department for further evaluation. HPI General Date/Time Provider Initiated Documentation: 02/18/25 19:55. HPI Narrative: MDM/Narrative: 49-year-old female with neck pain and headache likely due to tense neck and back muscles. No red flag symptoms intact neurologic exam making intracranial lesion unlikely. Administered migraine cocktail and performed trigger point injections. Significant improvement following treatment. Clinical Impression: Myofascial pain syndrome, neck pain, Migraine. Discharge home, advised to return if symptoms worsen or new symptoms develop. This document was created with assistance from [employer] The patient consented to its use. Disposition: Home HPI: The patient is a 49-year-old female with a history of migraines, presenting with cervicalgia. She reports significant cervical and dorsalgia, predominantly on the left side, accompanied by a sudden onset of right-sided cephalalgia, otalgia, and jaw pain. She manages her migraines through dietary modifications, caffeine intake, and adequate hydration. The patient reports nausea but has refrained from using antiemetic medication due to initiating duloxetine therapy this morning. She denies experiencing pyrexia or chills but notes occasional facial flushing and new-onset tinnitus following a recent fall. Medication history includes lorazepam at 0600 hours, duloxetine at 0800 hours, and ibuprofen 400 mg at noon and 1800 hours. She experiences retching when lying on her left side and is unable to maintain a position on her right side for extended periods. The patient recently completed physical therapy for a neck and shoulder issue post-fall and believes that the lack of ongoing adjustments is contributing to her current symptoms. ROS: Negative besides as mentioned above Exam: Vital signs: Reviewed. General Appearance: Alert and oriented. No acute distress. HEENT: NCAT, EOMI, not icteric. External ears normal. No rhinorrhea. Moist mucous membranes. Neck: Trigger points causing significant pain. Tenderness more pronounced on the right. Respiratory: No Respiratory distress. No tachypnea. Cardiovascular: RRR, no edema. Gastrointestinal: Soft, nondistended, No rebound tenderness. Back: No midline tenderness to palpation or palpable step-offs of the C/T/L spine. Skin: Warm and dry, no rash. Neurological: Normal Gait, Grossly intact. Psychiatric: Appropriate for situation. Related Data Home Medications ?Medication ?Instructions ?Recorded ?Confirmed cholecalciferol (vitamin D3) 1,250 See Rx Instructions PO once a week 04/08/22 02/18/25 mcg (50,000 unit) capsule ferrous sulfate 325 mg (65 mg 325 mg PO DAILY 04/08/22 02/18/25 iron) tablet (Feosol) vitamin B complex (B 1 tab PO DAILY 04/08/22 02/18/25 Complex-Vitamin B12 tablet) cholecalciferol (vitamin D3) 25 25 mcg PO DAILY 11/23/24 02/18/25 mcg (1,000 unit) capsule magnesium aspart,citrate,oxide mg PO 11/23/24 01/31/25 ondansetron 4 mg disintegrating 4 mg PO Q8H 11/23/24 02/18/25 tablet lorazepam 0.5 mg tablet 0.5 mg PO TID PRN 01/31/25 02/18/25 nortriptyline 10 mg capsule 10 mg PO QHS PRN 01/31/25 02/18/25 duloxetine 20 mg capsule,delayed mg PO 02/18/25 release Allergies Allergy/AdvReac Type Severity Reaction Status Date / Time COVID vaccine [id number] (6 Allergy Unknown Skin Rash Verified 02/18/25 19:49 mos-11yrs) ([facility]) (From [facility] COVID (6m-11y)PF) General Stated Complaint: Headache HERNAN: 3 Course Vital Signs Vital signs: Vital Signs Temperature 36.0 C L 02/18/25 19:45 Pulse 86 02/18/25 19:45 Respiratory Rate 18 02/18/25 19:45 Blood Pressure 112/77 02/18/25 19:45 Pulse Oximetry 99 02/18/25 19:45 Temperature 36.0 C L 02/18/25 19:52 Temperature Source Tympanic 02/18/25 19:52 Pulse 86 02/18/25 19:52 Respiratory Rate 18 02/18/25 19:52 Blood Pressure 112/77 02/18/25 19:52 Pulse Oximetry 99 02/18/25 19:52 Oxygen Delivery Method Room Air 02/18/25 19:52 Oxygen Flow Rate 0 02/18/25 19:52 Pain Level 9 02/18/25 19:52 PFSH All Active Problems (Updated 02/18/25 @ 20:19 by Emmanuel Sena MD) Headache (Acute) Myofascial pain syndrome (Acute) Muscle pain (Acute) Neck pain on right side (Acute) Lower extremity neuropathy (Acute) Transient leg weakness (Acute) Pain, foot (Acute) Corns and callosities (Acute) Lower extremity pain (Acute) Low back pain (Acute) Medical History (Updated 02/18/25 @ 20:19 by Emmanuel Sena MD) Asthma Atypical ductal hyperplasia of left breast Extremely dense tissue of both breasts on mammography Chronic headache disorder Obstructive sleep apnea syndrome Neuropathy involving both lower extremities Essential hypertension Iron deficiency anemia Cervical radiculopathy Depressive disorder Chronic low back pain Abdominal pain, periumbilical Situational mixed anxiety and depressive disorder Tobacco user Sleep walking disorder Right-sided chest wall pain Psychophysiological insomnia Paroxysmal nocturnal dyspnea Hiatal hernia Vitamin D deficiency Abdominal pain Thoracic radiculopathy Severe left groin pain Atypical mole Chronic pain of both knees Thrombocytosis Elevated liver enzymes Osteopenia Folic acid deficiency Depression Anxiety Anemia B12 deficiency Hip pain Paresthesia Fatigue Insomnia Surgical History (Updated 01/31/25 @ 10:04 by Yasmin Vega RN) H/O colonoscopy S/P lumpectomy, left breast S/P tubal ligation Family History Mother Alcohol abuse Obesity Father Diabetes Essential hypertension Arthritis Heart disease Myocardial infarction Stroke Obesity Asthma Lung cancer Smoker Cancer Throat Cancer X3 Sister Asthma Thyroid cancer Grandmother Lung cancer Stroke Paternal Uncle Lung cancer Esophageal cancer Other Brain cancer Social History Smoking/Tobacco Use Status: Current every day Tobacco Type: cigarettes Smoking risk assessment performed?: Yes Alcohol Intake: current Alcohol Intake frequency: a few times a week Alcohol type: hard liquor Drug use: Occasionally Substance use type: marijuana Housing: house Number of Children: 2 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
[2025-02-18] MEDS: ACETAMINOPHEN 500 MG/50 ML BAG 200 MG IVPB (20:25)
[2025-02-18] MEDS: Normal Saline 1,000 ML 1000 ML IV (20:25)
[2025-02-18] MEDS: Droperidol 5 MG/2 ML VIAL 2.5 MG IVP (20:25)
[2025-02-18] MEDS: Ketorolac 15 MG/ML VIAL IVP (20:25)
[2025-02-18] MEDS: MAGNESIUM SULFATE 2 GM/50 ML BAG IV_INF (20:26)
[2025-02-18] MEDS: Lidocaine 1% Multi-Dose W/EPI 1/100,000 10 ML VIAL IJ (20:28)
== END 2025-02-18 21:10 | disposition home or self-care (01) ==
LOC: ER 20:36
PROVIDERS: Emergency Provider General Practice; PCP Physician Assistant Medical
DX: M79.18 Myalgia, other site; R51.9 Headache, unspecified
CPT/HCPCS: 20552; 96365; 96366; 96375; 99284; 99283; J0131; J1790; J1885; J2004; J3475

== ENCOUNTER 2025-04-13 14:53 | Outpatient (CLI) | payer BC, SELFPAY ==
[2025-04-16 12:58] LABS: Albumin 65.5 % (55.8-66.1); Albumin g/dL 4.5 g/dL (3.6-5.2); Alpha 1 g/dL 0.30 g/dL (0.15-0.40); Alpha 2 g/dL 0.70 g/dL (0.50-1.00); Beta g/dL 0.70 g/dL (0.60-1.20); Gamma g/dL 0.70 g/dL (0.60-1.60); Total Protein 6.8 g/dL (6.3-8.2)
[2025-04-17 23:50] LABS: Pyridoxal 5-Phosphate (PLP), P 6 mcg/L (5-50)
[2025-04-18 03:51] LABS: Thiamine (Vitamin B1), WB 79 nmol/L (70-180)
== END 2025-04-13 14:54 | disposition home or self-care (01) ==
LOC: LBO 14:53
PROVIDERS: PCP Physician Assistant Medical; Visit Provider Physician Assistant Medical
DX: R20.2 Paresthesia of skin (principal); F41.1 Generalized anxiety disorder; R53.83 Other fatigue; M79.10 Myalgia, unspecified site
CPT/HCPCS: 36415; 84165; 84207; 84425

== ENCOUNTER 2025-04-18 10:28 | Outpatient (CLI) | payer OTHER, SELFPAY ==
[2025-04-18 10:57] VITALS: BP 111/69; PULSE 60; RESP 20; TEMP 37; O2SAT 98
[2025-04-18 11:25] VITALS: PULSE 82; O2SAT 98
[2025-04-18 11:30] VITALS: PULSE 80; O2SAT 98
[2025-04-18] MEDS: Nerve Block Tray 1 EACH MC (11:40)
[2025-04-18] MEDS: methylPREDNISolone ACETATE 40 MG/ML VIAL IJ (11:40)
--- NOTE | 2025-04-18 13:55 | PDOC.PAIN ---
Date of service: 04/18/25 Time of Service: 12:00 US Guided Injections Type of Ultrasound Guided Injection: Neck Right Trapezius muscle Trigger Point Injection Pre-Procedural Evaluation Tenderness to palpation over the right trapezius muscle Referral Patient has been [facility] for Left Trapezius muscle Neck Trigger Point Injection for a chief complaint of Right upper shoulder pain Pre-Procedural Pain Score Pre-procedural pain score: 5/10 Reason for Exam Muscle pain Patient Interview Patient was interviewed and medical record reviewed: Yes There were no contraindications to performing an US guided procedure. Risks,expected side effects, potential benefits were reviewed. The patient consent form was signed and witnessed. Standard time out procedure was performed. Patient Safety No significant skin issues at the injection site Procedure Description No sedation given for procedure Patient was placed in the prone position and the following Pulse Ox applied. Pre-Procedure ultrasound scanning performed using a Linear 9 MHz probe Site Preparation chloroprep Local Anesthesia Skin and subcutaneous tissues anesthetized with: 2 mL of Lidocaine 2%. A Other (1.5 skin needle) was placed under live US guidance using an in-plane approach to the target area. After no visualization of the needle tip at the target area Depo-Medrol 40mg per cc and Lidocaine 2% were used. Total of Injectate/Medication Note: 5 cc of 2% Lidocaine and 1 cc of Depomedrol Negative aspiration for blood. [place] were removed without difficulty. Ultrasound images were captured and stored. Patient Mental Status Patient was alert during procedure Vital Signs Vital signs were stable throughout the procedure and recorded by nursing. Follow Up/Discharge Follow up plans and appointments were discussed with patient. Post procedure instruction was given as documented in nursing documentation. Discharge criteria met and patient discharged from [facility]: Yes Post Procedure Pain Post Procedure Pain: 0/10 Patient tolerated procedure well Procedure Outcome: Successful Non US Guided Injections Procedure Description Patient was placed in the prone position Post Procedure Pain Post Procedure Pain: 0/10 Coding Conscious Sedation used for procedure: No CPT Codes: TPI Single/Multi 1 or 2 Muscles - 71860 ([id number] ~G) Additional Codes: Date of Service () Visualization of the needle tip - Ultrasound images captured/stored: Yes ([id number]) Diagnoses: muscle pain
== END 2025-04-18 10:29 | disposition home or self-care (01) ==
LOC: PC 10:28
PROVIDERS: PCP Physician Assistant Medical; Visit Provider Preventive Medicine Occupational Medicine
DX: M25.511 Pain in right shoulder (principal)
CPT/HCPCS: 20552; 76942; J1010